=== PATIENT | male | born 1965 | race Caucasian/White ===

== ENCOUNTER 2017-10-05 13:30 | Outpatient (RCR) | payer BC, SELFPAY ==
--- NOTE | 2017-09-25 18:48 | HP.OTEVAL ---
Patient's Visit Information ASHLI HOLLINS is a 52 year old M, referred to Occupational Therapy by Eduardo Meehan MD, with a diagnosis of Dupuytren's contracture of bilateral hands. Date of Evaluation: 09/25/17 Occupational Therapist: Aye Zavala, ROBERTOR/Steve, CHT - Subjective Subjective: PT arrives to session following a Dupuytren's contracture of bilateral hands. The pt states he has had 5-10 years of a contractures. 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 pt arrives with orthosis on and reports his hand is painful. - Pain left hand 5 Pain Intensity Range: 0, 8 - ROM ROM Comments: left IF MCP -20/45 pip 75 DIP 45. left MF MCP -15/35 pip [address] MCP -20/40 pip 80 DIP 40. left LF MCP +15/45 PIP 60 DIP 35 - Strength Strength Comments: Not tested. - Edema PIP: MF RIGHT 7.2 LEFT 7.5 Other: Right MCP 21cm left 22.5cm - Hand/Wrist Evaluation Total Score of Pain & Functional Sections: 62 - Goals Goal:: pt will demo the ability to form a composite fist to increase his ind. with BADLS and IADLS by D/C Goal:: pt will report pain no greater than 1/10 with use of left hand for BADLs and IADLs by D/c Goal:: pt will demo the ability to manipulate 10 coins without dropping to increase money manipulation by d/c Goal:: pt will demo a reduction in edema by .5 cm to increase fluid digit ROM by d/c Goal:: pt will demo understanding of scar mtg by end of 2nd session do decrease potential scar hypertrophy - Rehabilitation General Assessment: s/p left segmental fasciectomies with two transvers incisions- pt demo with sx bruising/edema and limited ability to form a composite fist- pt demo one closed incision distal and proximal incision slight open- pt insturcted in signs to watch for infection- this session orthosis was adj to increase pts comfort and pt was ed. in tendon glide ex along with wrist, forearm, elbow and shoulder ROM to increase pts circulation and functional mobility. pt demo understanding- pt would benefit from skilled OT services 1x week for 2-4 weeks to return pt to PLOF. Rehabilitation Potential: Excellent - Anticipated Interventions Anticipated Interventions: A/AAROM/PROM, Edema Control, Desensitization, Wound Care, Orthoses - Visit Plan Frequency: 1x/Week Duration: 2-4 Weeks General Plan: pt would benefit from skilled OT services 1x week for 3-4 weeks to ensure orthosis comfort and fit- as well as edema reduction and return of pts ROM and strength for BADLs and IADLS. TEXT: Thank you for the opportunity to evaluate your patient. For Medicare and Medicare HMO plans, please review the plan of care and approve it. It will need to be FAXED BACK to us at [phone] for Medicare purposes. Please let me know if there are questions or concerns regarding this plan of care. Physician Signature: Date:
--- NOTE | 2017-10-05 16:00 | HP.OTDCSUM_ITS ---
HP - OT D/C Summary It has been my pleasure to treat ASHLI HOLLINS under orders from Eduardo Meehan, for the diagnosis of Dupuytren's contracture of bilateral hands for a total of 2 visit(s). Please see the following information for a summary of their discharge status. - Objective Objective/Function: left IF MCP -20/85 pip 0/95 DIP 0/55. left MF MCP -15/90 pip 0/90 DIP 0/75. left RD MCP -20/90 pip 0/100 DIP 0/55. left LF MCP +15/45 PIP 0/100 DIP 0/70. [ End ] - Goals Patient Goals: Regain Mobility, Regain Strength, Decrease Pain, Decrease Swelling/Stiffness, Use Hand/Wrist/Arm Normally Again, Be More Independent in ADLS Goal:: pt will demo the ability to form a composite fist to increase his ind. with BADLS and IADLS by D/C Goal:: pt will report pain no greater than 1/10 with use of left hand for BADLs and IADLs by D/c Goal:: pt will demo the ability to manipulate 10 coins without dropping to increase money manipulation by d/c Goal:: pt will demo a reduction in edema by .5 cm to increase fluid digit ROM by d/c Goal:: pt will demo understanding of scar mtg by end of 2nd session do decrease potential scar hypertrophy - Plan Plan: D/C - D/C Information Discharge Comments: pt is feeling better- and demo functional ROM. pt states following his cortisone shot yesterday his swelling is gone. pt is to cont. with use of orthosis at night- gave rec'd for work alternatives to decrease edema- pt has met functional goals in OT and is now D/C If there are questions or concerns regarding this patient's occupational therapy , please fell free to call me at [phone]. Thank you for the referral of this patient. Sincerely, Aye Zavala, OTR/L, CHT
== END 2017-10-05 19:00 | disposition home or self-care (01) ==
LOC: OT 13:30
PROVIDERS: Family Provider Internal Medicine; PCP Internal Medicine; Visit Provider Orthopaedic Surgery
DX: M72.0 Palmar fascial fibromatosis [Dupuytren] (principal)
CPT/HCPCS: 97166; 97530

== ENCOUNTER 2017-11-01 09:01 | Outpatient (RCR) | payer BC, SELFPAY ==
--- NOTE | 2017-11-01 10:21 | HP.OTEVAL_ITS ---
Patient's Visit Information ASHLI HOLLINS is a 52 year old M, referred to Occupational Therapy by Eduardo Meehan MD, with a diagnosis of Dupuytren's contracture. Date of Evaluation: 11/01/17 Occupational Therapist: Aye Zavala, ROBERTOR/Steve, CHT - Subjective Subjective: PT attends OT session following dx of Dupuytren;s contracture of both hands- pt had his left hand xlyflex injection 4 weeks ago and had his right injected on October 27, 2017 pt had right hand manipulated and paddle splint was fabricated this date- pt is instructed to wear paddle splint for 4 months. pt reports he is performing all daily occupations at this time- pt will return to working in november. - Pain right hand 4 Pain Intensity Range: 1, 4 - ROM Wrist: right 75/60 left 75/60 ROM Comments: right PIP RF -20/95 left 0/95. 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 with opening tight jar lids. by d/c Goal:: pt will report pain no greater than 1/10 with use of right hand by d/c Goal:: pt will demo a reduction of right digit edema by .5 to gain end range of digit motion by d/c Goal:: pt will demo understanding of work simplification and joint protection by end of 1st session to increase ease of job tasks. - Rehabilitation General Assessment: PT is 5 days post xiaflex injection- he is demo functional composite fist- brusing on dorsal side of hand and palm-and slight swelling of right hand- pt demo blood blister on ulnar side of RF. pt demo correct donning and doffing of custom orthosis- pt demo functional ROM and can perform ADLS and IADLs at ind. level. Rehabilitation Potential: Excellent - Anticipated Interventions Anticipated Interventions: A/AAROM/PROM, Strengthening, Edema Control, Triggerpoint Release, Modalities, Orthoses, Ergonomic Education, Home Program - Visit Plan TEXT: Thank you for the opportunity to evaluate your patient. For Medicare and Medicare HMO plans, please review the plan of care and approve it. It will need to be FAXED BACK to us at [phone] for Medicare purposes. Please let me know if there are questions or concerns regarding this plan of care. Physician Signature: Date:
--- NOTE | 2018-01-08 15:03 | HP.OT.NRP ---
HP - Discharge Summary - Patient Information ASHLI HOLLINS was seen in my office for initial evaluation on 11/01/17. The following Plan of Care was established for this patient: - Anticipated Interventions Anticipated Interventions: A/AAROM/PROM, Strengthening, Edema Control, Triggerpoint Release, Modalities, Orthoses, Ergonomic Education, Home Program This patient was last seen in our office 11/01/17. Pertinent comments regarding their Occupational therapy will appear below: Pt seen for inital OT visit for berenice. of custom orthosis. pt was to return if he needed orthosis adj. pt has not done so and is currently d/c at this time. At this point I will be discontinuing this patient from occupational therapy. I would be happy to see this patient again in the future if found appropriate by the physician. Thank you! Aye Zavala, OTR/L, CHT
== END 2017-11-01 19:00 | disposition home or self-care (01) ==
LOC: OT 09:01
PROVIDERS: Family Provider Internal Medicine; PCP Internal Medicine; Visit Provider Orthopaedic Surgery
DX: M72.0 Palmar fascial fibromatosis [Dupuytren] (principal)
CPT/HCPCS: 97166

== ENCOUNTER → 2017-12-28 13:10 | Outpatient (CLI) | payer BC, SELFPAY | PROVIDERS: Family Provider Internal Medicine; PCP Internal Medicine; Visit Provider Nurse Practitioner Gerontology | DX: M79.672 Pain in left foot (principal) | CPT/HCPCS: 73630 ==

== ENCOUNTER → 2019-01-17 11:20 | Outpatient (CLI) | payer BC, SELFPAY ==
--- NOTE | 2019-01-17 11:34 | RAD_ITS ---
STUDY: X-RAY - RIGHT TIBIA AND FIBULA REASON FOR EXAM: Male, 53 years old. Anterior pain following injury. TECHNIQUE: AP and lateral view(s) of the tibia and fibula were obtained. COMPARISON: None. FINDINGS: Normal visualized tibia. Normal visualized fibula. The soft tissue structures are unremarkable. RAD/Tibia & Fibula 2 Views IMPRESSION: Normal x-ray examination of the tibia and fibula. Electronically Signed: Ivan Gonzalez, at 12:30 EDT , Service support ,
== END ==
PROVIDERS: Family Provider Internal Medicine; PCP Internal Medicine; Referring Provider Nurse Practitioner Gerontology; Visit Provider Nurse Practitioner Gerontology
DX: M79.604 Pain in right leg (principal)
CPT/HCPCS: 73590

== ENCOUNTER 2019-05-04 14:15 | Inpatient (IN) | payer BC, SELFPAY ==
[2019-05-04 14:16] VITALS: BP 143/98; PULSE 64; RESP 17; TEMP 36.9; O2SAT 98; BMI 33.7
[2019-05-04 14:18] VITALS: TEMP 36.9
--- NOTE | 2019-05-04 14:48 | CT_ITS ---
STUDY: CT ABDOMEN AND PELVIS WITHOUT CONTRAST REASON FOR EXAM: Male, 53 years old. Abdominal pain RADIATION DOSAGE (If Supplied By Facility): CTDIvol = ( 20.87 ) mGy, DLP = ( 1121.24 ) mGycm TECHNIQUE: Transaxial images were obtained from the dome of the diaphragm to the symphysis pubis without oral contrast, and without intravenous contrast. Sagittal and coronal images were reconstructed. Individualized dose optimization techniques were used for this CT. COMPARISON: None. FINDINGS: Evaluation of the abdominal viscera is limited in the absence of intravenous contrast. There is atelectasis at the lung bases. The visualized portions of the heart and pericardium are within normal limits. There are no calcified gallstones present. The liver demonstrates an unremarkable unenhanced appearance. The spleen is normal in size. The pancreas demonstrates an unremarkable unenhanced appearance. The adrenal glands are within normal limits. There are no renal or ureteral stones. There is no hydronephrosis. There is a small hiatal hernia. There are dilated loops of proximal small bowel with collapsed loops noted distally. This is consistent with a small bowel obstruction. The transition point is in the mid abdomen to the right of midline (image 38 series 143). The appendix is visualized and appears normal. The aorta is normal in caliber. There is no abdominal or pelvic free air, free fluid, fluid collection or lymphadenopathy. There are no destructive osseous lesions. CT/Abdomen/Pelvis without Cont IMPRESSION: Small bowel obstruction. No free air, free fluid or fluid collection. Electronically Signed: Tha Napoles, at 15:56 EST Tel , Service support ,
[2019-05-04 15:01] LABS: Absolute Lymphocyte Count 0.77 X10^3/uL (0.83-4.51); Absolute Neutrophil Count 7.5 X10^3/uL (2.0-7.7); Basophil# 0.02 X10^3/uL; Basophil% 0.2 % (0-1); Eosinophil# 0.14 X10^3/uL; Eosinophils% 1.6 % (0-5); Hematocrit 45.5 % (40-54); Lymphocyte # 0.77 X10^3/ul (4.0); Lymphocyte % 8.5 % (19-41); Mean Corpuscular Hgb 29.8 pg (27.0-32.0); Mean Corpuscular Volume 90.3 fL (80-94); Mean Platelet Vol. 11.5 fl (6.2-12.0); Monocyte# 0.58 X10^3/uL; Monocyte% 6.4 % (0-10); NRBC Flagged by Analyzer 0 % (0-5); Neutrophil # 7.48 X10^3/uL (2.7-7.7); Neutrophil % 83.1 % (47-70); Platelet Count 216 K/mm3 (150-450); RBC Distribution Width CV 13.2 % (11.6-14.6); RBC Distribution Width SD 43.3 fl (35.1-43.9); Red Blood Count 5.04 M/mm3 (4.6-6.2)
[2019-05-04] MEDS: Morphine 4 MG/ML Syringe IV ×2 (15:03→17:02)
[2019-05-04] MEDS: 0.9% Normal Saline 1,000 ML 1000 ML IV (15:03)
[2019-05-04] MEDS: Ondansetron 4 MG/2 ML Vial IV ×2 (15:03→17:24)
[2019-05-04 15:12] LABS: ALB/GLOB Ratio 1.2 RATIO (0.9-2.4); AST(SGOT) 28 U/L (15-37); Alanine Aminotransfer ALT/SGPT 41 U/L (16-61); Albumin, Serum 3.9 g/dL (3.2-5.0); Alkaline Phosphatase 37 U/L (45-117); Anion Gap 2 (5-15); BUN 17 mg/dL (7-18); BUN/Creat Ratio 18.7 RATIO (10-20); Calcium,Total 8.7 mg/dL (8.5-10.1); Chloride 108 mmol/L (98-107); Creatinine, Serum 0.91 mg/dL (0.70-1.30); EST Glomerular Filtration Rate 93 mL/min (>60); Est Glom Filt Rate - Afr Amer 112 mL/min (>60); Estimated Creatinine Clearance 107.31 ml/min; Globulin 3.2 g/dL (2.2-4.2); Glucose 96 mg/dL (74-106); Lipase 111 U/L (73-393); Potassium 4.2 mmol/L (3.5-5.1); Protein, Total 7.1 g/dL (6.4-8.2); Sodium Level 140 mmol/L (136-145)
[2019-05-04 16:28] LABS: Bacteria 0 SEEN /hpf (None Seen); Mucous, Urine 0 SEEN /hpf (<or=2+); Red Blood Cells-Urine 0 SEEN /hpf (0-5); Squamous Epithelial Cells - UA 0 SEEN /hpf (0-5); White Blood Cells 0 SEEN /hpf (0-5)
[2019-05-04 16:47] LABS: Color, Urine Yellow (Yellow); Glucose, Dipstick Normal (Normal); Ketone-Dipstick Negative (Negative); Leukocyte Esterase-Dipstick Negative /ul (Negative); Nitrite-Dipstick Negative (Negative); Occult Blood-Urine Negative /ul (Negative); Protein-Dipstick Negative (Negative); Specific Gravity, Urine 1.015 (1.002-1.030); Urine Bilirubin Dipstick Negative (Negative); Urine Clarity Clear (Clear); Urine Urobilinogen Normal (Normal); Urine pH 6.5 (5.0 - 8.0)
--- NOTE | 2019-05-04 17:03 | ED.VISSUMM ---
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 He reports that today he began having epigastric abdominal pain is. Is gradually gotten worse. Is a sharp pain is 10 on 10 severity. Nothing makes this better or worse. Is been nauseated, but not vomited. He reports he had 6-7 episodes of diarrhea today. No blood in stools or black tarry stools. Does have frequent urination, but no dysuria. He has never had anything like this before. He has never had any surgery on his abdomen. Physical Examination: Vitals: Stable. Afebrile. General: Well-nourished and well-developed. Head: Normocephalic atraumatic. Neck: Supple, no lymphadenopathy. No JVD. Nontender. Cardiovascular: Regular rate and rhythm. No murmurs. Respiratory: No respiratory distress. Clear to auscultation bilaterally. Abdominal: Soft, mild diffuse tenderness to palpation is worse in the epigastric region, slight distention and hypoactive bowel sounds. No guarding, rebound, or peritoneal signs. Back: Nontender. Extremities: Nontender, no edema. Skin: Normal color, no rash. Neurologic: Alert and oriented ?3. Cranial nerves II through XII are intact. Normal strength and sensation. Psych: Normal affect. Test Results: CBC shows segmented neutrophils 83 lymphs at 9. Chem-7 shows a chloride 108. LFTs show an alk phos of 37. Lipase is normal. Clinical Impression(s) from Imaging Studies Abdomen/Pelvis CT 05/04/19 14:48 IMPRESSION: Small bowel obstruction. No free air, free fluid or fluid collection. Electronically Signed: Tha Linderflower, at 15:56 EST Tel , Service support , Emergency Department Course and Treatment: Patient was treated with morphine and Zofran. He was resting more comfortably. Treatment Plan: Patient was discussed with Dr. Richmond. He will be admitted to the hospital for further evaluation and treatment. Disposition: Admitted in improved condition. Impression: 1. Small bowel obstruction. This note was generated with [employer] software. It may contain incorrect words, spelling, and punctuation that were not noted in review of the chart prior to signing ED Disposition - Plan for ED Patient: Referrals: Iesha Quezada DO [Primary Care Provider] -
[2019-05-04 17:28] VITALS: BP 144/91
--- NOTE | 2019-05-04 18:02 | HP.PCM_ITS ---
History of Present Illness Date of Admission: 05/04/19 Chief Complaint: abdominal pain The patient is a 53 year old M with a 6 hour history of abdominal pain. He recently completed augmentin for a sinus infection. He has no prior abdominal surgical history. He started with diffuse colicky abdominal pain followed with diarrhea and nausea. He present to the ER Labs were unremarkable. CT abdomen and pelvic demonstrated a probable small bowel obstruction with a transition point the the right mid abdomen. No signs of closed loop, hernia or mass was noted. the patient vomiting in the [facility] and had improvement of his abdominal pain. Past Medical History Allergies No Known Allergies Allergy (Verified 05/04/19 14:15) Home Medications: Ambulatory Orders Medication Instructions Recorded Cholecalciferol (Vitamin D3) 2,000 unit PO DAILY 05/04/19 [Vitamin D3] Multivitamin [Multivitamins] 1 ea PO DAILY 05/04/19 Vitamin B Complex 05/04/19 Surgical History: - - no abdominal surgical history Smoking Status: Former smoker Review of Systems Constitutional: Denies: Chills, Fever, Weight Change HEENT: Denies: Head Aches, Sinus Congestion, Sinus Drainage Cardiovascular: Denies: Chest Pain, Palpitations Respiratory: Denies: Cough, Shortness of breath at rest, Sputum production Gastrointestinal: Reports: Abdominal Pain, Nausea, Vomiting. Denies: Hematemesis, Hematochezia, Melena Genitourinary: Denies: Dysuria Musculoskeletal: Denies: Joint Pain, Joint Tenderness Skin: Denies: Rash, Wounds Neurological: Denies: Numbness, Tingling, Focal weakness Psychiatric: Denies: Anxiety, Depression, Homicidal Ideations, Suicidal Ideations Hematologic/ Lymphatic: Denies: Easy Bruising, Easy Bleeding VTE Information - Inpt Only VTE Present on Admission: No VTE Mechan Device Prophylaxis: SCD's - Physical Exam Vitals/I&O's: Vital Signs Temp Pulse Resp BP Pulse Ox 98.4 F 64 17 144/91 H 98 05/04/19 14:18 05/04/19 14:16 05/04/19 14:16 05/04/19 17:28 05/04/19 14:16 Oxygen Delivery Method Room Air Weight: 116.1 kg Body Mass Index (BMI) 33.7 Intake and Output for Last 24 Hours 05/02/19 05/03/19 05/04/19 23:59 23:59 23:59 Intake Total 1000 / 999 Balance 1000 / 1000 General: Alert, Oriented x3, Cooperative HEENT: Atraumatic, PERRLA, EOMI, Normocephalic Neck: Supple, No JVD, Negative Carotid Bruits Lungs: Clear to auscultation, Normal air movement Cardiovascular: Regular rate, No murmurs Abdomen: Bowel Sounds Present, Soft, Non Tender, Hypoactive Bowel Sounds Extremities: No edema, Capillary Refill Less than 3 Seconds Skin: No rashes, No breakdown Musculoskeletal: No Tenderness to Palpation of Joints or Extremities Neurological: Cranial nerves II-XII grossly intact Psych/Mental Status: Normal Affect, Appropriate Laboratory Results 05/04/19 14:40: WBC 9.0, RBC 5.04, Hgb 15.0, Hct 45.5, MCV 90.3, MCH 29.8, MCHC 33.0, RDW Std Deviation 43.3, RDW Coeff of Melissa 13.2, Plt Count 216, MPV 11.5, Immature Gran % (Auto) 0.200, Neut % (Auto) 83.1 H, Lymph % (Auto) 8.5 L, [place] % (Auto) 6.4, Eos % (Auto) 1.6, Baso % (Auto) 0.2, Absolute Neuts (auto) 7.5, Absolute Lymphs (auto) 0.77 L, Nucleated RBC % 0 05/04/19 14:40: Sodium 140, Potassium 4.2, Chloride 108 H, Carbon Dioxide 30.0, Anion Gap 2 L, BUN 17, Creatinine 0.91, Estim Creat Clear Calc 107.31, Est GFR (MDRD) Af Amer 112, Est GFR (MDRD) Non-Af 93, BUN/Creatinine Ratio 18.7, Glucose 96, Calcium 8.7, Total Bilirubin 0.30, AST 28, ALT 41, Alkaline Phosphatase 37 L, Total Protein 7.1, Albumin 3.9, Globulin 3.2, Albumin/Globulin Ratio 1.2, Lipase 111 05/04/19 16:20: Urine Color Yellow, Urine Clarity Clear, Urine pH 6.5, Ur Specific [employer] 1.015, Urine Protein Negative, Urine Glucose (UA) Normal, Urine Ketones Negative, Urine Occult Blood Negative, Urine Nitrite Negative, Urine Bilirubin Negative, Urine Urobilinogen Normal, Ur Leukocyte Esterase Negative, Urine RBC 0 SEEN, Urine WBC 0 SEEN, Ur Squamous Epith Cells 0 SEEN, Urine Bacteria 0 SEEN, Urine Mucus 0 SEEN Current Medications Morphine Sulfate () 1 - 3 mg IV Q1H PRN PRN PRN Reason: Pain Score 1-10/10 Ondansetron HCl (Zofran) 4 mg IV Q8H PRN PRN PRN Reason: NAUSEA Assessment/Plan abdominal pain, nausea, vomiting, diarrhea, ?SBO vs gastroenteritis The patient does not have hard finding requiring urgent exploration. Will plan for NPO, serial exams/labs and obstructive series in am. Will place NG if persistent vomiting. Discussed with the patient and his the concerns for SBO without prior surgery and the lower index for exploration, but also discussed the differential possibility of gastroenteritis other causes for ileus.
[2019-05-04 18:14] VITALS: BP 144/91; PULSE 72; RESP 17; TEMP 36.8; O2SAT 98
[2019-05-04] MEDS: HYDROmorphone 1 MG/ML Syringe IV (18:38)
[2019-05-04 19:00] VITALS: BMI 33.7
[2019-05-04 19:10] VITALS: BP 124/69; PULSE 80; RESP 16; TEMP 36.6; O2SAT 97
[2019-05-04] MEDS: Lactated Ringers 1,000 ML 100 ML IV (20:01)
[2019-05-04 22:53] VITALS: BP 129/73; PULSE 64; RESP 18; TEMP 37.2; O2SAT 94
[2019-05-04] MEDS: Morphine 2 MG/ML Syringe IV (23:02)
--- NOTE | 2019-05-04 23:35 | RAD_ITS ---
STUDY: X-RAY - ABDOMEN REASON FOR EXAM: Male, 53 years old. NG TUBE PLACEMENT TECHNIQUE: A single AP portable upright view of the abdomen was performed. COMPARISON: CT scan abdomen and pelvis 05/04/2019. FINDINGS: Normal visualized lung bases. There is a nasogastric tube with its tip in the gastric fundus and its sidehole in the proximal body the stomach. There is prominent small bowel gas, consistent with obstruction, as seen on CT scan.. There is no demonstrated free abdominal air. The visualized liver, spleen and kidneys are grossly normal in size and morphology. Normal soft tissue structures. Normal visualized osseous structures. RAD/Abdomen Single View IMPRESSION: Nasogastric tube is in adequate position. Small bowel obstruction. Electronically Signed: Justin Leon MD at 0:22 EST , Service support ,
[2019-05-05] MEDS: Morphine 2 MG/ML Syringe IV (01:18)
[2019-05-05 05:15] VITALS: BP 122/69; PULSE 70; RESP 18; TEMP 37.4; O2SAT 92
[2019-05-05] MEDS: Lactated Ringers 1,000 ML 100 ML IV ×2 (05:19→20:30)
[2019-05-05] MEDS: 0.9% Saline Lock 10 ML Syringe IV (06:10)
--- NOTE | 2019-05-05 06:35 | RAD_ITS ---
STUDY: X-RAY - ABDOMEN/PELVIS REASON FOR EXAM: Male, 53 years old. An NG tube TECHNIQUE: Supine and upright views of the abdomen were performed. COMPARISON: 05/04/2019 FINDINGS: There is an enteric tube noted with its tip in the stomach. There are mildly dilated loops of small bowel in the upper abdomen which are improved when compared with the prior exam. There is no free air. The visualized osseous structures are within normal limits. RAD/Abd Inc Decub and/or Erect IMPRESSION: Enteric tube tip in the stomach. Dilated loops of small bowel in the upper abdomen which are improved when compared with the prior exam. No free air. Electronically Signed: Tha Napoles, at 10:02 EST Tel , Service support ,
[2019-05-05 06:42] LABS: Absolute Lymphocyte Count 0.93 X10^3/uL (0.83-4.51); Absolute Neutrophil Count 6.3 X10^3/uL (2.0-7.7); Basophil# 0.02 X10^3/uL; Basophil% 0.2 % (0-1); Eosinophils% 1.2 % (0-5); Hemoglobin 14.8 g/dL (13.0-16.5); Lymphocyte # 0.93 X10^3/ul (4.0); Lymphocyte % 11.3 % (19-41); Mean Corp Hgb Conc 32.9 g/dL (32-36); Mean Corpuscular Hgb 30.1 pg (27.0-32.0); Mean Corpuscular Volume 91.5 fL (80-94); Mean Platelet Vol. 11.6 fl (6.2-12.0); Monocyte# 0.87 X10^3/uL; Monocyte% 10.5 % (0-10); NRBC Flagged by Analyzer 0 % (0-5); Neutrophil # 6.32 X10^3/uL (2.7-7.7); Neutrophil % 76.7 % (47-70); Platelet Count 220 K/mm3 (150-450); RBC Distribution Width CV 13.6 % (11.6-14.6); RBC Distribution Width SD 45.4 fl (35.1-43.9); Red Blood Count 4.92 M/mm3 (4.6-6.2); White Blood Count 8.3 K/mm3 (4.4-11.0)
[2019-05-05 07:07] LABS: Anion Gap 4 (5-15); BUN 15 mg/dL (7-18); BUN/Creat Ratio 16.3 RATIO (10-20); Calcium,Total 8.4 mg/dL (8.5-10.1); Chloride 108 mmol/L (98-107); Creatinine, Serum 0.92 mg/dL (0.70-1.30); EST Glomerular Filtration Rate 91 mL/min (>60); Est Glom Filt Rate - Afr Amer 111 mL/min (>60); Estimated Creatinine Clearance 106.15 ml/min; Glucose 104 mg/dL (74-106); Potassium 4.2 mmol/L (3.5-5.1); Sodium Level 141 mmol/L (136-145)
--- NOTE | 2019-05-05 08:02 | CT_ITS ---
STUDY: CT ABDOMEN AND PELVIS WITHOUT CONTRAST REASON FOR EXAM: Male, 53 years old. Small bowel obstruction. Nausea and vomiting. RADIATION DOSAGE (If Supplied By Facility): CTDIvol = ( 21.9 ) mGy, DLP = ( 1192.87 ) mGycm TECHNIQUE: Transaxial images were obtained from the dome of the diaphragm to the symphysis pubis without oral contrast, and without intravenous contrast. Sagittal and coronal images were reconstructed. Individualized dose optimization techniques were used for this CT. COMPARISON: 05/04/2019 FINDINGS: Evaluation of the abdominal viscera is limited in the absence of intravenous contrast. There is atelectasis at the lung bases. The visualized portions of the heart and pericardium are within normal limits. There are no calcified gallstones present. The liver demonstrates an unremarkable unenhanced appearance. The spleen is normal in size. The pancreas demonstrates an unremarkable unenhanced appearance. The adrenal glands are within normal limits. There are no renal or ureteral stones. There is no hydronephrosis. There is an enteric tube noted with its tip in the stomach. There are dilated loops of proximal small bowel and collapsed loops noted distally. This is consistent with a small bowel obstruction and is slightly improved when compared with the prior exam. Oral contrast has progressed to the proximal colon, suggesting that the obstruction is partial in nature. The appendix is visualized and appears normal. The aorta is normal in caliber. There is a small amount of pelvic free fluid. There is no free air, fluid collection or lymphadenopathy. There are no destructive osseous lesions. CT/Abdomen/Pel W ORAL Cont Only IMPRESSION: Redemonstration of a small bowel obstruction which is slightly improved when compared with the prior exam. Oral contrast has progressed to the proximal colon, suggesting that the obstruction is partial in nature. Small amount of pelvic free fluid which is new when compared with the prior exam. Enteric tube tip in the stomach. Bibasilar atelectasis. Electronically Signed: Tha Napoles, at 12:12 EST Tel , Service support ,
--- NOTE | 2019-05-05 09:37 | PN.SURG_ITS ---
Subjective: no flatus, less abdominal discomfort with NG tube placement, minimal abdominal pain - Physical Exam Vitals/I&O's: Vital Signs Temp Pulse Resp BP Pulse Ox 99.3 F H 70 18 122/69 H 92 05/05/19 05:15 05/05/19 05:15 05/05/19 05:15 05/05/19 05:15 05/05/19 05:15 Oxygen Delivery Method Room Air Weight: 115.8 kg Body Mass Index (BMI) 33.7 Intake and Output for Last 24 Hours 05/03/19 05/04/19 05/05/19 23:59 23:59 23:59 Intake Total 1000 / 1020 970 / 970 Output Total 1555 / 1555 Balance 1000 / 120 -585 / -585 General: Alert, Oriented x3, Cooperative Lungs: Clear to auscultation, Normal air movement Cardiovascular: Regular rate, No murmurs Abdomen: Soft, Non Tender, Hypoactive Bowel Sounds Laboratory Results 05/04/19 14:40: WBC 9.0, RBC 5.04, Hgb 15.0, Hct 45.5, MCV 90.3, MCH 29.8, MCHC 33.0, RDW Std Deviation 43.3, RDW Coeff of Melissa 13.2, Plt Count 216, MPV 11.5, Immature Gran % (Auto) 0.200, Neut % (Auto) 83.1 H, Lymph % (Auto) 8.5 L, [place] % (Auto) 6.4, Eos % (Auto) 1.6, Baso % (Auto) 0.2, Absolute Neuts (auto) 7.5, Absolute Lymphs (auto) 0.77 L, Nucleated RBC % 0 05/04/19 14:40: Sodium 140, Potassium 4.2, Chloride 108 H, Carbon Dioxide 30.0, Anion Gap 2 L, BUN 17, Creatinine 0.91, Estim Creat Clear Calc 107.31, Est GFR (MDRD) Af Amer 112, Est GFR (MDRD) Non-Af 93, BUN/Creatinine Ratio 18.7, Glucose 96, Calcium 8.7, Total Bilirubin 0.30, AST 28, ALT 41, Alkaline Phosphatase 37 L , Total Protein 7.1, Albumin 3.9, Globulin 3.2, Albumin/Globulin Ratio 1.2, Lipase 111 05/04/19 16:20: Urine Color Yellow, Urine Clarity Clear, Urine pH 6.5, Ur Specific [place] 1.015, Urine Protein Negative, Urine Glucose (UA) Normal, Urine Ketones Negative, Urine Occult Blood Negative, Urine Nitrite Negative, Urine Bilirubin Negative, Urine Urobilinogen Normal, Ur Leukocyte Esterase Negative, Urine RBC 0 SEEN, Urine WBC 0 SEEN, Ur Squamous Epith Cells 0 SEEN, Urine Bacteria 0 SEEN, Urine Mucus 0 SEEN 05/05/19 05:47: WBC 8.3, RBC 4.92, Hgb 14.8, Hct 45.0, MCV 91.5, MCH 30.1, MCHC 32.9, RDW Std Deviation 45.4 H, RDW Coeff of Melissa 13.6, Plt Count 220, MPV 11.6, Immature Gran % (Auto) 0.100, Neut % (Auto) 76.7 H, Lymph % (Auto) 11.3 L, [place] % (Auto) 10.5 H, Eos % (Auto) 1.2, Baso % (Auto) 0.2, Absolute Neuts (auto) 6.3, Absolute Lymphs (auto) 0.93, Nucleated RBC % 0 05/05/19 05:47: Sodium 141, Potassium 4.2, Chloride 108 H, Carbon Dioxide 29.0, Anion Gap 4 L, BUN 15, Creatinine 0.92, Estim Creat Clear Calc 106.15, Est GFR (MDRD) Af Amer 111, Est GFR (MDRD) Non-Af 91, BUN/Creatinine Ratio 16.3, Glucose 104, Calcium 8.4 L Current Medications Lactated Ringer's () 1,000 mls @ 100 mls/hr IV .Q10H ALBERTO Last Admin: 05/05/19 05:19 Dose: 100 mls/hr Documented by: Morphine Sulfate () 1 - 3 mg IV Q1H PRN PRN PRN Reason: Pain Score 1-10/10 Last Admin: 05/05/19 01:18 Dose: 2 mg Documented by: Morphine Sulfate () 1 - 3 mg IV Q1H PRN PRN PRN Reason: Pain Score 1-10/10 Ondansetron HCl (Zofran) 4 mg IV Q8H PRN PRN PRN Reason: NAUSEA Sodium Chloride () 10 - 40 ml IV UD PRN PRN Reason: SALINE FLUSH Last Admin: 05/05/19 06:10 Dose: 10 ml Documented by: Medical Necessity - Tobacco Use Smoking Status: Former smoker Assessment/Plan abdominal pain, nausea, vomiting, diarrhea, ?SBO vs gastroenteritis The patient does not have hard finding requiring urgent exploration. Will plan for NPO, NG placed after second episode of vomiting last night, improved patient's discomfort significantly has not required any antinausea medications since. KUB this morning demonstrates some air in the transverse colon but still dilated loops of small bowel. at this time, clinically more consistent with ileus radiographically more consistent with bowel obstruction. We'll plan for repeat CT scan of abdomen and pelvis with oral no IV contrast with somewhat delayed scanning to assess if contrast would pass to colon Discussed with the patient and his the concerns for SBO without prior surgery and the lower index for exploration, but also discussed the differential possibility of gastroenteritis other causes for ileus.
[2019-05-05 11:15] VITALS: BP 114/70; PULSE 64; RESP 16; TEMP 37.3; O2SAT 94
[2019-05-05 13:15] VITALS: RESP 16; O2SAT 96
[2019-05-05 17:15] VITALS: BP 123/73; PULSE 61; RESP 16; TEMP 36.7; O2SAT 94
[2019-05-05 20:15] VITALS: BP 124/71; PULSE 55; RESP 18; TEMP 36.6; O2SAT 95
[2019-05-06 04:04] VITALS: BP 146/78; PULSE 57; RESP 18; TEMP 36.6; O2SAT 94
[2019-05-06] MEDS: Lactated Ringers 1,000 ML 100 ML IV ×2 (05:51→18:23)
[2019-05-06] MEDS: 0.9% Saline Lock 10 ML Syringe IV ×2 (05:51→11:53)
--- NOTE | 2019-05-06 06:00 | RAD_ITS ---
STUDY: X-RAY - ABDOMEN/PELVIS REASON FOR EXAM: Male, 53 years old. SMALL BOWEL OBSTRUCTION VS ILEUS TECHNIQUE: AP supine and upright views of the abdomen and pelvis. COMPARISON: 05/05/2019 FINDINGS: Nasogastric tube with the tip in the upper abdomen likely in the cardia the stomach with the side-port likely in the distal esophagus. Gas in multiple loops of small bowel in a nonspecific bowel gas pattern. Oral contrast within the colon. There is no demonstrated free abdominal air. The visualized liver, spleen and kidneys are grossly normal in size and morphology. Normal soft tissue structures. Normal visualized osseous structures. RAD/Abd Inc Decub and/or Erect IMPRESSION: 1. Nasogastric tube with the tip in the cardia the stomach with the side-port in the distal esophagus. 2. Oral contrast in the colon. 3. Nonspecific bowel gas pattern. 4. No pneumoperitoneum. Electronically Signed: Reynaldo Finn MD at 13:27 EST Tel , Service support ,
[2019-05-06 06:19] LABS: Absolute Lymphocyte Count 1.13 X10^3/uL (0.83-4.51); Absolute Neutrophil Count 4.3 X10^3/uL (2.0-7.7); Basophil# 0.01 X10^3/uL; Basophil% 0.2 % (0-1); Eosinophil# 0.17 X10^3/uL; Eosinophils% 2.8 % (0-5); Hematocrit 43.2 % (40-54); Hemoglobin 14.2 g/dL (13.0-16.5); Lymphocyte # 1.13 X10^3/ul (4.0); Lymphocyte % 18.3 % (19-41); Mean Corp Hgb Conc 32.9 g/dL (32-36); Mean Corpuscular Volume 91.3 fL (80-94); Mean Platelet Vol. 11.1 fl (6.2-12.0); Monocyte# 0.56 X10^3/uL; Monocyte% 9.1 % (0-10); NRBC Flagged by Analyzer 0 % (0-5); Neutrophil # 4.28 X10^3/uL (2.7-7.7); Neutrophil % 69.3 % (47-70); Platelet Count 204 K/mm3 (150-450); RBC Distribution Width CV 13.2 % (11.6-14.6); RBC Distribution Width SD 44.2 fl (35.1-43.9); Red Blood Count 4.73 M/mm3 (4.6-6.2); White Blood Count 6.2 K/mm3 (4.4-11.0)
[2019-05-06 06:37] LABS: Anion Gap 6 (5-15); BUN 15 mg/dL (7-18); BUN/Creat Ratio 17.5 RATIO (10-20); Calcium,Total 8.8 mg/dL (8.5-10.1); Chloride 108 mmol/L (98-107); Creatinine, Serum 0.86 mg/dL (0.70-1.30); EST Glomerular Filtration Rate 99 mL/min (>60); Est Glom Filt Rate - Afr Amer 120 mL/min (>60); Estimated Creatinine Clearance 113.55 ml/min; Glucose 86 mg/dL (74-106); Sodium Level 142 mmol/L (136-145)
[2019-05-06 08:39] VITALS: BP 134/70; PULSE 56; RESP 18; TEMP 36.7; O2SAT 96
[2019-05-06 08:42] VITALS: PULSE 60
--- NOTE | 2019-05-06 10:10 | CASEMGMT ---
JOEY BLUM Face to Face with patient for initial transition planning/care coordination assessment. RN CM introduced self and role at [facility]. Patient lying in bed, alert and oriented, at bedside. Patient willing to participate in assessment and is able to answer all questions appropriately. Care providers, pharmacy, and demographics verified. Patient wishes to discharge home, denies need for home health at this time. Patient states he has no further needs or concerns at this time. CM to follow for discharge planning needs that may arise. PCP: Pilar Specialists: none Preferred Pharmacy: [facility] Insurance: [employer] Prescription Benefit: yes Living Will/HPOA: none LNOK: Living Arrangements: Patient lives with in a 2 story home. Patient independent at home. Transportation: self/ DME/HHC: Patient denies DME or HHC. Disposition Plan: Patient to discharge home with family support and follow-up plans in place. Nilam ALTMAN, RN, CM
[2019-05-06 15:42] VITALS: BP 143/74; PULSE 50; RESP 18; TEMP 36.7; O2SAT 98
[2019-05-06 15:47] VITALS: PULSE 60
--- NOTE | 2019-05-06 16:28 | PN.SURG_ITS ---
Subjective: has seen flatus, no abdominal complaints - Physical Exam Vitals/I&O's: Vital Signs Temp Pulse Resp BP Pulse Ox 98.0 F 60 18 143/74 H 98 05/06/19 15:42 05/06/19 15:47 05/06/19 15:42 05/06/19 15:42 05/06/19 15:42 Oxygen Delivery Method Room Air Weight: 115.8 kg Body Mass Index (BMI) 33.7 Intake and Output for Last 24 Hours 05/04/19 05/05/19 05/06/19 23:59 23:59 23:59 Intake Total 1000 / 1020 2009 995 / 995 Output Total 2455 / 2555 625 / 625 Balance 1000 / 120 -445 / -525 370 / 370 General: Alert, Oriented x3, Cooperative Lungs: Clear to auscultation, Normal air movement Cardiovascular: Regular rate, No murmurs Abdomen: Bowel Sounds Present, Soft, Non Tender, Hypoactive Bowel Sounds Microbiology Past 72 Hours 05/06/19 10:55 Stool Stool Lactoferrin - Final Laboratory Results 05/06/19 05:40: WBC 6.2, RBC 4.73, Hgb 14.2, Hct 43.2, MCV 91.3, MCH 30.0, MCHC 32.9, RDW Std Deviation 44.2 H, RDW Coeff of Melissa 13.2, Plt Count 204, MPV 11.1, Immature Gran % (Auto) 0.300, Neut % (Auto) 69.3, Lymph % (Auto) 18.3 L, [place] % (Auto) 9.1, Eos % (Auto) 2.8, Baso % (Auto) 0.2, Absolute Neuts (auto) 4.3, Absolute Lymphs (auto) 1.13, Nucleated RBC % 0 05/06/19 05:40: Sodium 142, Potassium 4.0, Chloride 108 H, Carbon Dioxide 28.0, Anion Gap 6, BUN 15, Creatinine 0.86, Estim Creat Clear Calc 113.55, Est GFR (MDRD) Af Amer 120, Est GFR (MDRD) Non-Af 99, BUN/Creatinine Ratio 17.5, Glucose 86, Calcium 8.8 Current Medications Lactated Ringer's () 1,000 mls @ 100 mls/hr IV .Q10H ALBERTO Last Admin: 05/06/19 05:51 Dose: 100 mls/hr Documented by: Morphine Sulfate () 1 - 3 mg IV Q1H PRN PRN PRN Reason: Pain Score 1-1010 Last Admin: 05/05/19 01:18 Dose: 2 mg Documented by: Morphine Sulfate () 1 - 3 mg IV Q1H PRN PRN PRN Reason: Pain Score 1-10/10 Ondansetron HCl (Zofran) 4 mg IV Q8H PRN PRN PRN Reason: NAUSEA Sodium Chloride () 10 - 40 ml IV UD PRN PRN Reason: SALINE FLUSH Last Admin: 05/06/19 11:53 Dose: 10 ml Documented by: Throat Lozenges (Cepacol Sore Throat Lozenge) 1 lozenge MUCOUS MEM Q2H PRN PRN PRN Reason: SORE THROAT Medical Necessity - Tobacco Use Smoking Status: Former smoker Assessment/Plan abdominal pain, nausea, vomiting, diarrhea, ?SBO vs gastroenteritis - impression more likely ileus with gastroenteritis. The patient did not have hard findings requiring operation. Repeat CT scan with oral contrast demonstrated some proximal small bowel thickening and distended small bowel with contrast but also contrast in the collapsed small bowel distally and contrast into the cecum. My impression therefore was more likely gastroenteritis as opposed to true partial obstruction. KUB this morning demonstrates contrast in the right colon with decreased but still few dilated loops of small bowel. the nasogastric tube was removed. The patient will be started on sips of liquid and advanced to clear liquids if he is tolerating these well and continues to have flatus and bowel movements.
[2019-05-06 20:21] VITALS: BP 126/70; PULSE 57; RESP 16; TEMP 36.7; O2SAT 97
[2019-05-07] MEDS: Lactated Ringers 1,000 ML 100 ML IV (03:58)
[2019-05-07 03:59] VITALS: BP 110/55; PULSE 55; RESP 16; TEMP 36.5; O2SAT 95
--- NOTE | 2019-05-07 06:15 | DCINST_ITS ---
You will use the following diet at home:: Clear liquid - until seen in office monday Call your doctor if you observe: - - nausea, vomiting or no flatus Allergies/Adverse Reactions: Allergies No Known Allergies Allergy (Verified 05/04/19 14:15) Medications to take at Discharge RX: Cholecalciferol (Vitamin D3) [Vitamin D3] 2,000 unit PO DAILY 05/04/19 RX: Multivitamin [Multivitamins] 1 ea PO DAILY 05/04/19 Vitamin B Complex 05/04/19 Primary Care Physician: Iesha Quezada DO [Primary Care Provider] - Test Results: Test results from this visit will be discussed in further detail at your follow- up appointment, if applicable. Please Follow Up With: Reynaldo Garner MD When: Monday
[2019-05-07 07:35] VITALS: BP 124/74; PULSE 54; RESP 16; TEMP 36.9; O2SAT 96
--- NOTE | 2019-05-07 12:36 | PCM.DC.SUM ---
Discharge Date and Diagnosis Date of Admission: 05/04/19 Date of Discharge: 05/07/19 - Primary Discharge Diagnosis nausea vomiting and abdominal distention Hospital Course and Treatment Operations: None Summary of Care Provided: he patient is a 53 year old M with a 6 hour history of abdominal pain. He recently completed augmentin for a sinus infection. He has no prior abdominal surgical history. He started with diffuse colicky abdominal pain followed with diarrhea and nausea. He present to the ER Labs were unremarkable. CT abdomen and pelvic demonstrated a probable small bowel obstruction with a transition point the the right mid abdomen. No signs of closed loop, hernia or mass was noted. nasogastric tube was placed and the patient had improvement of his abdominal complaints of nausea no further abdominal pain. Follow-up CT scan demonstrated some thickened loops of small bowel but demonstrated contrast passing to the collapsed loops of bowel and to the cecum. My clinical impression this point in time was a gastroenteritis with an ileus type pattern. The patient will return of bowel function with flatus and bowel movements. The nasogastric tube was removed and the patient tolerated liquids. He is planned to be discharged home with plans to follow-up in my office on Monday and to be maintained on clear liquids until that time. - Physical Exam Vitals/I&O's: Vital Signs Temp Pulse Resp BP Pulse Ox 98.4 F 54 L 16 124/74 H 96 05/07/19 07:35 05/07/19 07:35 05/07/19 07:35 05/07/19 07:35 05/07/19 07:35 Oxygen Delivery Method Room Air Weight: 115.8 kg Body Mass Index (BMI) 33.7 Intake and Output for Last 24 Hours 05/05/19 05/06/19 05/07/19 23:59 23:59 23:59 Intake Total 2009 1458.33 / 1458.33 Output Total 2455 / 2555 625 / 625 Balance -445 / -525 1370 / 1370 1458.33 / 1458.33 General: Alert, Oriented x3, Cooperative Lungs: Clear to auscultation, Normal air movement Cardiovascular: Regular rate, No murmurs Abdomen: Bowel Sounds Present, Soft, Non Tender Microbiology Past 72 Hours 05/06/19 10:55 Stool Stool Lactoferrin - Final Call your doctor if you observe: - - nausea, vomiting or no flatus Home Medications: Medications to take at Discharge Cholecalciferol (Vitamin D3) [Vitamin D3] 2,000 unit PO DAILY 05/04/19 Multivitamin [Multivitamins] 1 ea PO DAILY 05/04/19 Vitamin B Complex 05/04/19 Primary Care Physician: Iesha Quezada DO [Primary Care Provider] - Please Follow Up With: Reynaldo Garner MD When: Monday Medical Necessity - Tobacco Use Smoking Status: Former smoker Meaningful Use Info Meaningful Use Diagnoses (Choose all that apply): None applicable
== END 2019-05-07 07:49 | disposition home or self-care (01) | DRG 392 ==
LOC: ED 14:58 → MS3 18:42
PROVIDERS: Admitting Provider Surgery; Emergency Provider Emergency Medicine; Family Provider Internal Medicine; PCP Internal Medicine; Visit Provider Surgery
DX: K52.9 Noninfective gastroenteritis and colitis, unspecified (principal); K56.7 Ileus, unspecified; Z87.891 Personal history of nicotine dependence
CPT/HCPCS: 36415; 74018; 74019; 74176; 80048; 80053; 81001; 83630; 83690; 85025; 87493; 99251; 99284; J7030; J7120; A4216; G0463; J2405

== ENCOUNTER → 2019-06-27 07:57 | Outpatient (CLI) | payer BC, SELFPAY ==
[2019-05-04 19:00] VITALS: BMI 33.7
--- NOTE | 2019-06-27 08:03 | ECHOD_ITS ---
Reason For Study: SINUS BRADYCARDIA Procedure This was a 2D Doppler, Color Flow transthoracic echocardiogram. Exam performed in department. Left Ventricle Normal LV size. The estimated ejection fraction is 55 %. Normal diastology for age. No regional wall motion abnormalities noted. Right Ventricle Normal RV size. Normal systolic function. Atria Normal left atrium. Normal right atrium. No doppler evidence for ASD. Mitral Valve There is no mitral valve stenosis. Trivial mitral valve insufficiency. Tricuspid Valve There is no tricuspid stenosis. Mild tricuspid valve insufficiency. Pulmonary artery systolic pressure is 35 mmHg. Aortic Valve Trisinus/trileaflet aortic valve. There is no aortic stenosis. Trivial aortic valve insufficiency. Pulmonic Valve There is no pulmonic valvular stenosis. Trivial pulmonic valve insufficiency. Great Vessels Normal aortic root. Pericardium/Pleural No pericardial effusion. MMode/2D Measurements & Calculations LVIDd: 5.0 cm IVSd: 0.78 cm Ao root diam: 3.5 cm LVIDs: 3.5 cm LVPWd: 0.88 cm RVDd: 4.0 cm FS: 28.6 % LAV(MOD-bp): 65.6 ml LA A4 area: 20.3 cm2 LA dimension(2D): 4.5 cm LAV(MOD-bp) Indexed: 27.7 ml/m2 LAV(MOD-sp2): 65.6 ml LAV(MOD-sp4): 59.2 ml RA A4 area: 18.2 cm2 Time Measurements MV dec time: 0.19 sec Doppler Measurements & Calculations MV E max mao: 89.0 cm/sec Lat Peak E' Mao: 12.3 cm/sec Med Peak E' Mao: 11.1 cm/sec MV A max mao: 51.5 cm/sec E/E' lat: 7.2 E/E' med: 8.0 MV E/A: 1.7 Ao V2 max: 132.5 cm/sec LV V1 max: 105.6 cm/sec PA V2 max: 118.6 cm/sec Ao max P.0 mmHg LV V1 max P.5 mmHg PI end-d mao: 77.2 cm/sec TR max mao: 269.3 cm/sec TR max P.0 mmHg Interpretation Summary The estimated ejection fraction is 55 %. Normal diastology for age. Trivial mitral valve insufficiency. Mild tricuspid valve insufficiency. Pulmonary artery systolic pressure is 35 mmHg. Trivial aortic valve insufficiency. Ordering Physician: Mary Chen Referring Physician: RAGHAVENDRA INFANTE Performed By: Sosa Monsivais, RDCS, RVT
== END ==
PROVIDERS: PCP Internal Medicine; Referring Provider Nurse Practitioner; Visit Provider Nurse Practitioner
DX: R00.1 Bradycardia, unspecified (principal); R53.83 Other fatigue
CPT/HCPCS: 93225; 93226; 93306

== ENCOUNTER → 2019-07-04 20:05 | Outpatient (CLI) | payer BC, SELFPAY ==
[2019-05-04 19:00] VITALS: BMI 33.7
== END ==
PROVIDERS: PCP Internal Medicine; Referring Provider Nurse Practitioner; Visit Provider Nurse Practitioner
DX: R06.81 Apnea, not elsewhere classified (principal); R53.83 Other fatigue
CPT/HCPCS: 95810

== ENCOUNTER → 2019-12-30 16:34 | Outpatient (CLI) | payer BC, SELFPAY ==
[2019-05-04 19:00] VITALS: BMI 33.7
--- NOTE | 2019-12-30 16:36 | RAD_ITS ---
STUDY: X-RAY - ABDOMEN/PELVIS REASON FOR EXAM: Male, 54 years old. hx of ileus-April -- abd pain TECHNIQUE: AP supine and upright views of the abdomen and pelvis. COMPARISON: None. FINDINGS: Normal visualized lung bases. There is an unremarkable bowel gas pattern. There is no demonstrated free abdominal air. The visualized liver, spleen and kidneys are grossly normal in size and morphology. Normal soft tissue structures. Normal visualized osseous structures. RAD/Abdomen Single View IMPRESSION: Normal x-ray examination of the abdomen and pelvis. Electronically Signed: Erlin Hernandez MD at 17:00 EDT , Service support ,
== END ==
PROVIDERS: PCP Internal Medicine; Referring Provider Nurse Practitioner; Visit Provider Nurse Practitioner
DX: R10.9 Unspecified abdominal pain (principal)
CPT/HCPCS: 74018

== ENCOUNTER 2020-04-30 09:00 | Outpatient (RCR) | payer BC, SELFPAY ==
[2019-05-04 19:00] VITALS: BMI 33.7
--- NOTE | 2020-03-25 08:45 | HP.OTEVAL_ITS ---
Patient's Visit Information ASHLI HOLLINS is a 54 year old M, referred to Occupational Therapy by Dr. Eduardo Meehan MD, with a diagnosis of dupuytren's contracture of bilateral hands.. Date of Evaluation: 03/24/20 Occupational Therapist: Aye Zavala, JIM/Steve, CHT - Subjective This 54 year old male was seen for OT eval with dx Dupuytren's contracture. pt states this is the 2nd time he had the xiaflex injection with manipulation. pt states Monday he was manipulated 2019. pt arrives today with soreness and tenderness up his right arm from hand to above elbow. pt would like to know what he needs to do to make the manipulation sucessful. - Pain right hand 7 - ROM MP: right LF +15/75 RF +10/70 PIP: right LF -15/95 RF -30/100 left LF -45/ 95 ROM Comments: when therapist asked pt to straighten fingers pts right LF and RF goes into hyper-exten keeping PIP of LF/RF in flexion. - Strength Strength Comments: will test at later date - Edema Other: MCP of right 24cm left 23cm - Sensation Thumb: right 3.84 left 3.84 Index: right 3.22 left 3.22 Middle: right 3.22 left 3.22 Ring: right 3.22 left 3.22 Little: right 3.22 left 3.22 - Quick DASH-Disab of Arm,Shoulder& Hand Quick DASH Score: 65.0000 - Goals Goal:: pt will demo a increase in digit ext by 15* or greater to increas pts i nd. with ADLs and IADLs by d.c Goal:: pt will report pain no greater than 1/10 with use of right hand with ADLs and IADls Goal:: pt will demo a reduction in swelling by .5 cm indicating healing and to increase ROM by week 3 Goal:: pt will demo ind. doffing/donning of orthosis by end of 1st visit. Pt will demonstrate understanding of orthosis use and precautions by end of 1st session and demonstrate knowledge of returning to clinic if orthosis needs adj. to increase comfort by end of 1st session. Therapist ed. Pt on correct donning/doffing orthosis, use and precautions. Pt agrees to return to clinic to have orthosis adj if needed. - Rehabilitation General Assessment: pt 4 days post right-hand manipulation. pt demo with limited ROM and pain decreasing pts use right hand with ADLs and IADLS. pt would benefit from skilled OT services 1x week for 4 weeks to return pt to PLOF. Today therapist ed. pt on AAROM/AROM PROM of elbow, forearm, wrist along with reverse blocking PIP to gain better digit ext without hyper ext of MPs. Therapist rec'd top piece to prevent PIP flex. In current orthosis MCPs are in 10* hyper- extension. therapist advised pt in contrast bath for edema mtg and use of ice to forearm to decrease soreness. Rehabilitation Potential: Good - Anticipated Interventions A/AAROM/PROM, Edema Control, Triggerpoint Release, Modalities, Orthoses, Joint Protection/Energy Conservation - Visit Plan Frequency: 1x/Week Duration: 3 Weeks TEXT: Thank you for the opportunity to evaluate your patient. For Medicare and Medicare HMO plans, please review the plan of care and approve it. It will need to be FAXED BACK to us at [phone] for Medicare purposes. Please let me know if there are questions or concerns regarding this plan of care. Physician Signature: Date:
--- NOTE | 2020-07-20 10:19 | HP.OT.NRP ---
ASHLI HOLLINS was seen in my office for initial evaluation on 03/24/20. The following Plan of Care was established for this patient: Initial Frequency: 1x/Week Initial Duration: 3 Weeks Plan: pt to return to work- will call if needed Anticipated Interventions: A/AAROM/PROM, Edema Control, Triggerpoint Release, Modalities, Orthoses, Joint Protection/Energy Conservation This patient was last seen in our office on 04/30/20. Pt was seen for 4 OT sessions progressed well and demonstrated increase ind. with ADLs and IADLs. 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 Pt D/C to cont with ROM and scar mtg. At this point I will be discontinuing this patient from occupational therapy. I would be happy to see this patient again in the future if found appropriate by the physician. Thank you! Aye Zavala, OTR/L, CHT
== END 2020-04-30 19:00 | disposition home or self-care (01) ==
LOC: OT 09:00
PROVIDERS: PCP Internal Medicine; Referring Provider Orthopaedic Surgery; Visit Provider Orthopaedic Surgery
DX: M72.0 Palmar fascial fibromatosis [Dupuytren] (principal)
CPT/HCPCS: 97110; 97140; 97166

== ENCOUNTER 2020-08-21 09:00 | Outpatient (RCR) | payer BC, SELFPAY ==
[2019-05-04 19:00] VITALS: BMI 33.7
--- NOTE | 2020-08-10 18:36 | HP.OTEVAL_ITS ---
Patient's Visit Information ASHLI HOLLINS is a 55 year old M, referred to Occupational Therapy by JANEL CASTILLO, with a diagnosis of right hand contracture. Date of Evaluation: 08/10/20 Occupational Therapist: Aye Zavala, OTR/Steve, CHT - Subjective This 55-year-old male was seen for OT eval with dx with right CTS and Duypuytren's contracture of right hand- pt has had conservative methods to help with the contracture but was not helpful- pt decided to have sx done. July 23, 2020. order for therapy was placed on 08/04/20. pt works at [employer] and is to return to work August 17, 2020 to return to work. pt has padded brace for scar and night orthosis. pt demo ind. donning and doffing both night and day o rthosis- pt did have one open area that continues to drain pt has concerns about. pt would like to return to work with restrictions Aprl. but with open incision rec'd return to work August 24. 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 - Pain right hand 2 Pain Intensity Range: 3, 6 - Objective pt demo clean healing incision- noted one area pt was worried about due to seeping- - ROM Wrist: right 65/65 left 70/65 ROM Comments: right LF PIP -20/95. right RF PIP -40/100. right MF PIP -45/95 - Strength Salesperson Shoes: right 20# left 95# Lateral Pinch: right 14# left 28# Tripod Pinch: right 10# left 26# Tip-to-Tip Pinch: right 8# left 20# - Sensation Thumb: right 3.22 left 3.22 Index: right 3.22 left 2.83 Middle: right 3.61 left 2.83 Ring: right 3.22 left 2.82 Little: right 3.22 left 3.22 - Quick DASH-Disab of Arm,Shoulder& Hand Quick DASH Score: 58.3325 - Hand/Wrist Evaluation Total Score of Pain & Functional Sections: 49 - Goals Goal:100% adherence to protocol: Yes Comment: Dr. SUERO post-op protocol Goal:Daily scar massage when approriate: Yes Goal:ROM equal to unaffected hand: Yes Comment: PIP ext to -10* or greater of right MF,RF,LF Goal:Salesperson Shoes/Pinch strength at least 75% of unaffected hand: Yes Goal:No pain with affected hand use: Yes Goal:Full use of affected hand in daily activities including: Yes Other Goal: pt will demo understanding of using orthosis nightly by end of 1st session. - Rehabilitation General Assessment: PT arrives s/p 3 weeks and 5 days from [facility], Excision of Duypuytren's contracture. pt demo with tenderness over incision, weakness, and limited ROM. pt also demo with delay in incision healing with one area that is seeping. due to Pain with use pt limited with ADLs and IADls at this time. Pt would benefit from skilled OT services 1-2x week for 4 weeks to return pt to PLOF. Today therapist revied pts HEP of tendon glides, scar mtg, PROM for digit ext, and need of orthosis. pt demo understanding- therapist will vend elastomer for pt to wear at night in his orthosis and pt will cont to wear gel padded brace during the day. Therapist also ed. pt on signs of infection. pt demo understanding and agree to POC. Rehabilitation Potential: Good - Anticipated Interventions A/AAROM/PROM, Strengthening, Scar Care, Triggerpoint Release, Wound Care, Modalities, Orthoses, Joint Protection/Energy Conservation, Ergonomic Education, Fine Motor Coord/Humberto - Visit Plan Frequency: 1-2x /Week Duration: 4 Weeks TEXT: Thank you for the opportunity to evaluate your patient. For Medicare and Medicare HMO plans, please review the plan of care and approve it. It will need to be FAXED BACK to us at [phone] for Medicare purposes. Please let me know if there are questions or concerns regarding this plan of care. Physician Signature: Date:
--- NOTE | 2020-08-21 09:33 | HP.OTDCSUM ---
It has been my pleasure to treat ASHLI HOLLINS under orders from JANEL CASTILLO, for the diagnosis of right hand contracture for a total of 3 visit(s). Please see the following information for a summary of their discharge status. % Improvement: 90 Objective/Function: right dough catcher strength 50#. right wrist 60/55. right lateral pinch 10#. right tripod pinch 8#. right tip pinch 4#. right monofiliments. thumb 3.22. IF 2.83. MF 2.83. RF 2.83. LF 2.83. pt has done well with using his paddle orthosis at night and scar gel pad during the day. pt has made good gains and demo understanding of HEP reports he will cont. with his HEP. 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 Plan: pt to cont.with HEP Discharge Comments: pt has done well and will cont with HEP and will return to work with 15# lift restriction until he is released by . If there are questions or concerns regarding this patient's occupational therapy, please fell free to call me at [phone]. Thank you for the referral of this patient. Sincerely, Aye Zavala, OTR/L, CHT
== END 2020-08-21 19:00 | disposition home or self-care (01) ==
LOC: OT 09:00
PROVIDERS: PCP Internal Medicine
DX: M24.541 Contracture, right hand (principal)
CPT/HCPCS: 97110; 97140; 97166; 97530

== ENCOUNTER 2022-01-31 09:51 | Emergency (ER) | payer BC, SELFPAY ==
[2022-01-31 09:52] VITALS: BP 144/86; PULSE 84; RESP 16; TEMP 36.4; O2SAT 99; BMI 32.3
[2022-01-31 09:55] VITALS: BP 144/86; PULSE 84; RESP 16; TEMP 36.4; O2SAT 99
--- NOTE | 2022-01-31 10:09 | RAD_ITS ---
STUDY: X-RAY CHEST REASON FOR EXAM: Male, 56 years old. dyspnea TECHNIQUE: Single AP portable view of the chest. COMPARISON: 05/16/2017 FINDINGS: The lungs are clear and expanded. There is no demonstrated pleural abnormality. Normal size heart. Normal mediastinum and leigh. Normal visualized pulmonary arteries. Normal visualized aortic arch and descending thoracic aorta. Normal visualized thoracic spine. Normal visualized ribs, clavicles, and shoulders. There is no demonstrated abnormality of the visualized soft tissue structures of the upper abdomen. RAD/Chest 1 View (Portable) IMPRESSION: Normal x-ray examination of the chest. Electronically Signed: Reynaldo Finn MD at 10:48 EDT ,
--- NOTE | 2022-01-31 10:09 | EKG12_ITS ---
Test Reason : SOB Blood Pressure : / mmHG Vent. Rate : 062 BPM Atrial Rate : 062 BPM P-R Int : 142 ms QRS Dur : 080 ms QT Int : 424 ms P-R-T Axes : 045 000 034 degrees QTc Int : 430 ms Sinus rhythm with occasional Premature ventricular complexes Otherwise normal ECG Confirmed by JAZ RODRIGUEZ, STEPH ([id number]), science editor TTAIANA ADHIKARI ([id number]) on 02/02/2022 10:49:15 AM Referred By: MEREDITH Confirmed By:STEPH SEBASTIAN MD
--- NOTE | 2022-01-31 10:11 | EX.ED.DYSGE1 ---
HPI History of Present Illness Chief Complaint: Shortness of Breath Informant: patient Narrative Narrative: 56-year-old male presented to the emergency room with dyspnea. He tells me that last week his tested positive for COVID-19. On Monday he began to develop rhinorrhea cough and sore throat. He states on Monday he felt like he got hit by a truck and started developing some shortness of breath. He does note some sputum production. He states that he has a history of asthma but has never been diagnosed with it. He states its more with the night air and seasonal issues. He does have an albuterol inhaler. He states that he called his primary care doctor's office and was advised to come to the emergency room. PFSH PFS Medical History no medical history Home Medications Vitamin B Complex 05/04/19 [History Last Taken Unknown] cholecalciferol (vitamin D3) 50 mcg (2,000 unit) capsule 2,000 unit PO DAILY 05/04/19 [History Last Taken Unknown] multivitamin 1 ea PO DAILY 05/04/19 [History Last Taken Unknown] albuterol sulfate 90 mcg/actuation aerosol inhaler (Ventolin HFA) 2 puff inhalation Q4H PRN PRN Wheezing ##1 01/31/22 [Rx Last Taken Unknown] dexamethasone 6 mg tablet 6 mg PO DAILY #6 tabs 01/31/22 [Rx Last Taken Unknown] Allergy/AdvReac Type Severity Reaction Status Date / Time No Known Allergies Allergy Verified 01/31/22 09:56 Social History Smoking Status: Former smoker substance use type: does not use ROS ROS ED Constitutional Constitutional ED: Denies chills or weight loss Eyes Eyes: Denies change in vision or diplopia ENT ENT ED: Reports rhinorrhea and sore throat; Denies ear pain Cardiovascular Cardiovascular: Denies chest pain, orthopnea, palpitations or racing heartbeat Respiratory/Chest Respiratory/Chest: Reports cough, dyspnea and dyspnea on exertion; Denies orthopnea Gastrointestinal Gastrointestinal: Denies abdominal pain, diarrhea, nausea or vomiting Genitourinary Genitourinary ED: Denies dysuria, hematuria or urinary frequency Musculoskeletal Musculoskeletal: Denies arthralgias or myalgias Integumentary Denies abscess or rash Neurologic Neurologic: Denies headache(s) or weakness Psychiatric Psychiatric: Denies anxiety, depression, suicidal ideation or suicidal thoughts Endocrine Endocrinology: Denies polydipsia, polyphagia or polyuria Allergic/Immunologic Allergic/Immunologic ED: Denies mouth swelling, tongue swelling or urticaria EXAM Physical Exam Const Vital Signs: 01/31/22 09:52 01/31/22 09:55 01/31/22 10:18 Temperature 97.6 F L 97.6 F L Temperature Source Temporal Temporal Pulse Rate 84 84 64 Respiratory Rate 16 16 12 Respiratory Effort Respiratory Depth Respiratory Pattern Normal Blood Pressure 144/86 H 144/86 H Blood Pressure Mean 105 105 Pulse Ox 99 99 Oxygen Delivery Method Room Air Room Air 01/31/22 10:20 Temperature Temperature Source Pulse Rate Respiratory Rate Respiratory Effort Normal Respiratory Depth Normal Respiratory Pattern Normal Blood Pressure Blood Pressure Mean Pulse Ox Oxygen Delivery Method Room Air Positive well nourished and well developed General Appearance ED: well developed HEENT Reports normocephalic, head/scalp atraumatic and moist mucous membranes Eyes PERRL and EOMs intact bilaterally Neck no lymphadenopathy, supple and no JVD Resp normal respiratory effort and clear to auscultation bilaterally Auscultation: wheezes expiratory wheezes Cardio regular rate, regular rhythm and no murmurs GI normal to inspection, nondistended, normoactive bowel sounds and non-tender Palpation: soft Back/Spine no CVA tenderness and normal ROM Extremity normal to inspection General Extremety ED: Negative for edema General Extremity: Negative for edema Neuro oriented x3 and CN's II-XII intact bilaterally Sensorium / Orientation: alert Motor Exam: strength 5/5 throughout Psych mental status grossly normal Mood & Affect: Negative for depressed or tearful Skin no rashes or lesions noted and no wounds MDM MDM MDM Narrative Medical decision making narrative: Patient is COVID-positive. My interpretation of his chest x-ray is no acute process. He received a dose of Decadron and a DuoNeb. I am going to write a paper prescription for a albuterol inhaler with spacer in case this is which she does not know. I will also write for a few more days of Decadron. I suspect that he has a milder case of COVID and should recover well. Radiography Diagnostic Testing: Clinical Impression(s) from Imaging Studies Chest X-Ray 01/31/22 10:09 IMPRESSION: Normal x-ray examination of the chest. Electronically Signed: Reynaldo Finn MD at 10:48 EDT , EKG Initial EKG: Attestation: I personally reviewed and interpreted this EKG as follows: Comments: Sinus rhythm with a ventricular rate of 62 bpm. Noted PVC. Discharge Plan Triage Chief Complaint: Shortness of Breath ED Provider: Morgan Traylor Dx/Rx/DC Orders Clinical Impression: COVID-19, Acute dyspnea, Acute bronchospasm Instructions: ED Bronchospasm (Adult) Prescriptions: New dexamethasone 6 mg tablet 6 mg PO DAILY Qty: 6 0RF albuterol sulfate [Ventolin HFA] 90 mcg/actuation HFA aerosol inhaler 2 puff inhalation Q4H PRN PRN (Reason: Wheezing) Qty: 1 0RF Rx Instructions: dispense with spacer No Action multivitamin 1 EACH tablet 1 ea PO DAILY cholecalciferol (vitamin D3) 2,000 UNIT capsule 2,000 unit PO DAILY Vitamin B Complex Primary Care Provider: Iesha Quezada Referrals: Iesha Quezada, [Primary Care Provider] - As Needed Disposition Disposition: Home, Self Care
[2022-01-31] MEDS: Ipratropium/Albuterol Sulfate 3 ML AMPUL.NEB INHALATION (10:16)
[2022-01-31 10:18] VITALS: PULSE 64; RESP 12
--- NOTE | 2022-01-31 10:18 | NURSING ---
NO OLD EKGS
[2022-01-31 10:20] VITALS: O2SAT 97
[2022-01-31] MEDS: dexAMETHasone 4 MG Tablet 6 MG PO (10:25)
== END 2022-01-31 11:32 | disposition home or self-care (01) ==
PROVIDERS: Emergency Provider Emergency Medicine; PCP Internal Medicine; Visit Provider Emergency Medicine
DX: U07.1 COVID-19 (principal); R06.00 Dyspnea, unspecified; J98.01 Acute bronchospasm; Z87.891 Personal history of nicotine dependence
CPT/HCPCS: 71045; 87811; 93005; 94640; 99283

== ENCOUNTER 2022-07-07 10:00 | Outpatient (RCR) | payer BC, SELFPAY ==
--- NOTE | 2022-06-03 13:54 | HP.PTEVAL ---
Patient's Visit Information ASHLI HOLLINS is a 56 year old M referred to Physical Therapy by Dr. Iesha Quezada DO with a diagnosis of LEFT SHOULDER PAIN. Date of Evaluation: 06/03/22 Physical Therapist: Raudel Moore PT, Cert MDT, OCS - Visit Plan Frequency: 2x /Week Duration: 4 Weeks Plan: PT INTERVTIONS RTC/SCAPULAR STRENGTHENING ,POSTURAL EX'S , AND MODALITIES FOR PAIN RELIEVE - Subjective This 56 y/o male presents to physical therapy with left shoulder pain. Patient fell off deck while shoveling May 06 and had hold of railing and heard a pop. Patient seen DR tried prednisone helped some recommended PT and had x-rays showed mild arthrosis. No cortisone injection. Pain located elbow refers to lateral deltoid/triceps aches at night. Patient has tingling/paresthesia. Aggravating pushing ,lifting to side OH and lifting . Alleviating factors rest. Symptoms affects sleeping. Patient pain affects QOL and function. Patient conidtion affects job demands with lifting. SOCIAL: . VOACTION: [employer] - Pain Left Shoulder Pain Intensity (Out of 10): 7 Pain Intensity Range: 10 - Objective POSTURE: rounded shoulders head forward. PALPATION: tender long head bicep tendon. NEURO: c/o paresthesia/tingling shoulder ,reflexes intact. AROM: shoulder flexion 120 degrees ,110 abduction pain ER 80 degrees ,IR L1. PROM: flexion /abduction 160 degrees ER 90 degrees. MMT(peak force) infraspinatus 18.9, subscapularis 24.5 , supraspinatus 18.8 ,deltoid 19.6 - Special Tests L Shoulder External Rotation Lag Test - RC Tear: Negative L Shoulder Drop Sign - IS Test: Negative L Shoulder Empty Can - SS: Negative L Shoulder Belly Press - SupScap: Negative L Shoulder Neer - Impingement: Positive L Shoulder Ruffin Sanjay - Impingement: Positive L Shoulder Speeds Test - Labrum/Biceps: Positive L Shoulder Sulcus Sign - Inferior Laxity: Negative - Balance/Special Test Scores Quick DASH Score: 45.4525 - Goals Goal 1:: I with HEP for shoulder Goal Time Frame: 4-6 Weeks Goal 2:: Patient to demonstrate 50% improvement with decrease pain and improved function Goal Time Frame: 4-6 Weeks Goal 3:: Patient to improve AROM shoulder 150 flexion /abduction > to improve function and job demands Goal Time Frame: 4-6 Weeks Goal 4:: Patient to improve peak force of RTC and deltoid by 5-10 to improve function Goal Time Frame: 4-6 Weeks Goal 5:: Patient to improve quick dash by 5 points to improve function and ADLS Goal Time Frame: 4-6 Weeks - Rehabilitation Potential Physical Therapy Diagnosis: This patient has possible tendonitis along with long biceps with RTC long good , speed test some soreness with speeds test and weakness with decrease ROM impair ADL's and job demands thus skilled [PT Rehabilitation Potential: Good - Anticipated Interventions Patient/Client Instruction: Educate patient on: Condition, Plan of Care For the Purpose of:: To decrease pain, To increase ROM, To improve muscle performance and motor function, To improve ability to perform ADL's, To increase tolerance to activity/condition/position, To improve ability of physical actions for home/community/work/leisure, To improve health of tissue, To decrease soft tissue restriction, To increase flexibility/ROM, To improve tolerance to ADL's Therapeutic Exercise to Include: Strength training, Body mechanics, Postural training, Flexibilty training, Active ROM, Scapular Strength/Stabilization Comment: RTC For the Purpose of:: To decrease pain, To increase ROM, To improve muscle performance and motor function, To improve ability to perform ADL's, To increase tolerance to activity/condition/position, To improve ability of physical actions for home/community/work/leisure, To improve health of tissue, To decrease soft tissue restriction, To increase flexibility/ROM, To reduce risk of recurrence, To prevent re-injury, To improve tolerance to ADL's TENS: Yes IF ES: Yes Thermo therapy (hot pack): Yes Ultrasound (thermal/non thermal): Yes For the Purpose of:: To decrease pain, To decrease swelling/inflammation, To increase ROM, To improve nutrient delivery to tissue, To increase oxygenation perfusion, To improve health of tissue, To decrease soft tissue restriction Thank you for the opportunity to evaluate your patient. For Medicare and Medicare HMO plans, please review the plan of care and approve it. It will need to be FAXED BACK to us at [phone] for Medicare purposes. For Medicare only, by signing this I certify the plan of care. Please let me know if there are questions or concerns regarding this plan of care. Physician Signature: Date:
--- NOTE | 2022-09-20 10:36 | HP.PTDCSUM ---
It has been my pleasure to treat ASHLI STUART ARMENTROUT referred by Dr. Iesha Quezada DO, with the diagnosis of LEFT SHOULDER PAIN for a total of 5 visit(s). Discharge Date: Please see the following information for a summary of their discharge status. Subjective: Doing okay pain is same. Plan to see orthopedic Dr Church July 29 Left Shoulder Pain Intensity (Out of 10): 0 Objective/Function: Did well with ex's appropriate fatigue ROM looks good. strength 4/5 Goal 1:: I with HEP for shoulder Goal 2:: Patient to demonstrate 50% improvement with decrease pain and improved function Goal 3:: Patient to improve AROM shoulder 150 flexion /abduction > to improve function and job demands Goal 4:: Patient to improve peak force of RTC and deltoid by 5-10 to improve function Goal 5:: Patient to improve quick dash by 5 points to improve function and ADLS Plan: D/C RTD. PT INTERVTIONS RTC/SCAPULAR STRENGTHENING ,POSTURAL EX'S , AND MODALITIES FOR PAIN RELIEVE If there are questions or concerns regarding this patient's physical therapy, please feel free to call me at [phone]. Thank you for the referral of this patient. Sincerely, Raudel Moore, PT, Cert MDT, OCS Balance/Gait/Functional tests - Balance/Special Test Scores Quick DASH Score: 45.4517
== END 2022-07-07 19:00 | disposition home or self-care (01) ==
LOC: PT 10:00
PROVIDERS: PCP Internal Medicine; Referring Provider Internal Medicine; Visit Provider Internal Medicine
DX: M25.512 Pain in left shoulder (principal)
CPT/HCPCS: 97110; 97162

== ENCOUNTER → 2023-01-05 | Outpatient (CLI) | payer BC, SELFPAY ==
--- NOTE | 2023-01-06 11:58 | STRESSREP ---
Stress Test Report Date: 01/05/2023 Procedure: Exercise tolerance test/imaging study Indications: Chest pain Consent: Per the patient Procedure: The patient exercised on a Tj protocol for 8 minutes and 16 seconds achieving a peak heart rate of 155 bpm (94% predicted maximal heart rate) with a peak blood pressure 188/84 mmHg and a peak MET capacity of 10.1 METs. The baseline ECG demonstrated sinus rhythm. The peak exercise ECG demonstrated no ischemic changes. Rare PVCs noted. The functional capacity was considered good. There was no complaint of chest discomfort during exercise or recovery. The examination was discontinued secondary to target heart rate being achieved. The patient was injected with 14.6 mCi of technetium 99m Cardiolite and subsequently rest SPECT Cardiolite nuclear imaging was obtained in the horizontal long, vertical long, and short axis views. Post-exercise, the patient was injected with 44.7 mCi of technetium 99m Cardiolite and subsequently stress SPECT Cardiolite nuclear imaging was obtained in the horizontal long, vertical long, and short axis views. A gated Cardiolite study at peak stress was obtained. Rest and stress SPECT Cardiolite nuclear imaging status post realignment, normalization, and attenuation correction, demonstrates the appearance of relative uniform tracer uptake and myocardial perfusion appearing within normal limits. There is end systolic thickening and brightening. The gated Cardiolite study demonstrates myocardial thickening and inward wall motion. The reported LVEF is 62%. Impression: 1. Technically adequate (percent predicted maximal heart rate greater than 85%) exercise tolerance test 2. Peak exercise ECG with no ischemic changes 3. Occasional PVC noted 4. Rest and stress SPECT Cardiolite nuclear imaging demonstrate relative uniform tracer uptake and myocardial perfusion appearing within normal limits. 5. The gated Cardiolite study reports an LVEF of 62%. This note was generated with [employer] software. It may contain incorrect words, spelling, and punctuation that were not noted in checking the note before signing.
== END | disposition home or self-care (01) ==
LOC: CVS 06:34
PROVIDERS: PCP Internal Medicine; Referring Provider Nurse Practitioner Family; Visit Provider Nurse Practitioner Family
DX: R07.9 Chest pain, unspecified (principal)
CPT/HCPCS: 78452; 93017; A9500; A4216

== ENCOUNTER → 2023-06-09 | Outpatient (CLI) | payer BC, SELFPAY ==
--- NOTE | 2023-06-09 14:31 | RAD_ITS ---
STUDY: X-RAY - LEFT FOOT CLINICAL: Male, 57 years old. forefoot/toe pain, injury 1 week ago TECHNIQUE: 3 view(s) of the foot. COMPARISON: December 28, 2017 FINDINGS: Normal talus, calcaneus, and tarsal bones. Normal visualized subtalar, talonavicular, calcaneocuboid, tarsal and tarsometatarsal articulations. Normal metatarsi. Normal metatarsophalangeal joint of the great toe. Normal tibial and fibular sesamoid bones. Normal interphalangeal joint of the great toe. Normal phalanges of the great toe. Normal second through fifth metatarsophalangeal joints. Normal interphalangeal joints and phalanges of the lesser toes. The soft tissue structures are unremarkable. RAD/Foot min 3 Views IMPRESSION: Normal x-ray examination of the foot. Electronically Signed: Kosta Molina MD at 23:35 EST ,
--- OUTSIDE RECORDS SUMMARY | 2023-06-09 15:01 | XMS RPT_ITS | CCD ---
Author Name Unknown Address [address] [place] [address] Organization [facility] Care Team Providers Care Birthing Nurse Name Role Phone Mary Chen Unavailable Garcia Linn Unavailable Silas Aponte Unavailable [phone] Eduardo Meehan Unavailable Zuly Gonzalez Unavailable Ying Clarke Unavailable Unavailable Gravius, Beth Unavailable Unavailable Unavailable Unavailable Mary Chen Unavailable Garcia Linn Unavailable Silas Aponte Unavailable [phone] Eduardo Meehan Unavailable Zuly Gonzalez Unavailable Gravius, Beth Unavailable Unavailable Sloane Sood Unavailable Unavailable Unavailable Unavailable Joe Child Unavailable Unavailable Joe Child Unavailable Unavailable Gravius, Beth Unavailable Unavailable Wilfredo Aguilera Unavailable Unavailable Unavailable Unavailable Eduardo Meehan Unavailable Joe Sheridan Unavailable Unavailable Mary Chen CNP Unavailable Dr. Garcia Linn Unavailable [phone] Sil[address] Aponte Un[address] Dr[address] Eduardo Meehan MD Unavailable Zoran RODRIGUEZ , Eduardo Castellano Unavailable Zuly Gonzalez MD Unavailable Arvin CARTON STAMPER, Joe Unavailable Unavailable Avinash HUGHES, Beth Unavailable Unavailable Unavailable Unavailable Jessica CARTON STAMPERBarbara Unavailable Unavailable Mary Chen Unavailable Unavailable Unavailable Sol Perales CNP Unavailable Sol Perales CNP Unavailable [phone] Diane MANAGER PHYSICAL, Lea Unavailable Unavailable Elo CARTON STAMPER, Eulalia Unavailable Unavailable Josef Bishop Unavailable Unavailable Unavailable [facility], [facility] Unavailable Iesha Infante DO Unavailable [phone] Mary Chen Referring Unavailable Sol Perales CNP Attending Unavailable Sol Perales CNP Consulting Unavailable Joselyn Rich MA Unavailable Unavailable NARESH WICK, DR MABRY Primary Care Physician [phone] HERBERT BIRCH MD Attending Unavailable NARESH WICK, DR MABRY Primary Care Unavailab Ms. Sol Taylor Attending Unavailewelina Perales, Ms. Sol Ghotra Primary Care Unavailewelina ghotra Medications Current Medications Medication Drug Class(es) Dates Sig (Normalized) Sig (Original) ondansetron 4 mg oral tablet (1 source) Serotonin-3 Receptor Antagonist Start: 04-27-2018 take 1 tablet by mouth every four to six hours as needed for nausea and vomiting Zofran 4 mg oral tablet See Instructions, PRN As needed for nausea and vomiting, 1 tab(s) PO q4-6h prn, # 10 tab(s), 0 Refill(s) Start Date: 04/27/18 Status: Ordered Completed/Discontinued Medications Medication Drug Class(es) Dates Sig (Normalized) Sig (Original) [id number] 200 actuat albuterol 0.09 mg/actuat metered dose inhaler (20 sources) beta2-Adrenergic Agonist Start: 04-17-2019 End: 02-07-2020 take 1-2 puff(s) by inhalation every six hours as needed for wheezing ProAir HFA 108 (90 Base) MCG/ACT Inhalation Aerosol Solution 1-2 Puff every 6hours prn wheezing for 0 days Quantity: 1 {Inhaler} Refills: 0 Ordered: 07-Feb-2020 Joe Sheridan LPN Start : 17-Apr-2019 End : 07-Feb-2020 Inactive Problems Active Problems Problem Classification Problem Date Documented Da te Episodic/Chronic Abdominal pain (20 sources) Epigastric pain; Translations: [Abdominal pain] Resolved: 06-14-2019 05-25-2018 Episodic Past or Other Problems Problem Classification Problem Date Documented Da te Episodic/Chronic Esophageal disorders (6 sources) Esophageal disorders External cause codes: Natural/environment (20 sources) Exposure to other specified factors, sequela; Translations: [Accident, sequela] Resolved: 06-14-2019 02-01-2019 Results Test Name Value Interpretation Reference Range Facil ity Vital Signs Date Time Vital Sign Value Performing Clinician Facility 02-17-2023 09:08-0400 Body height 182.25 cm Eulalia Gasca LPN [facility] Work Phone: 02-17-2023 09:08-0400 Body mass index (BMI) [Ratio] 37.15 kg/m2 Eulalia Gasca LPN [facility] Work Phone: 02-17-2023 09:08-0400 Body surface area Derived from formula 2.42 m2 Eulalia Gasca LPN [facility]; [facility] Work Phone: 02-17-2023 09:08-0400 Body temperature 97.3 [degF] Eulalia Gasca LPN [facility]; [facility] Work Phone: Encounters Encounter Date Encounter Type Care Provider Facility Start: 02-17-2023 End: 02-17-2023 Office outpatient visit 15 minutes Sol Perales CNP Work Phone: [facility] Start: 02-17-2023 Review Sol Perales CNP Work Phone: [facility] Start: 02-09-2023 ambulatory Ms. Sol Perales Facility:[id number] Start: 12-21-2022 End: 12-30-2022 Office consultation new/estab patient 40 min Sol Perales CNP Work Phone: [facility] Start: 12-21-2022 Review Sol Perales EPIC RADIANT ANALYST Work Phone: [facility] Start: 12-19-2022 End: 12-19-2022 Emergency department patient visit HERBERT BIRCH MD Facility:B Start: 12-19-2022 End: 12-19-2022 Emergency department patient visit HERBERT BIRCH MD [facility] Start: 11-16-2022 End: 11-16-2022 Office outpatient visit 15 minutes Sol Perales EPIC RADIANT ANALYST Work Phone: [facility] Start: 11-07-2022 End: 11-16-2022 Office outpatient visit 15 minutes Sol Perales EPIC RADIANT ANALYST Work Phone: [facility] Start: 11-07-2022 Review Sol Perales EPIC RADIANT ANALYST Work Phone: [facility] Start: 08-02-2022 End: 08-02-2022 Office outpatient visit 15 minutes Sol Perales EPIC RADIANT ANALYST Work Phone: [facility] Start: 06-10-2022 End: 06-13-2022 Office outpatient visit 15 minutes Sol Perales EPIC RADIANT ANALYST Work Phone: [facility] Start: 06-10-2022 Review Sol Perales EPIC RADIANT ANALYST Work Phone: [facility] Start: 06-09-2022 ambulatory Gust[facility] Start: 06-08-2022 End: 06-08-2022 Office outpatient visit 10 minutes Sol Perales EPIC RADIANT ANALYST Work Phone: [facility] Start: 05-26-2022 Review Sol Perales EPIC RADIANT ANALYST Work Phone: [facility] Start: 05-26-2022 End: 05-26-2022 Office outpatient visit 10 minutes Sol Perales EPIC RADIANT ANALYST Work Phone: [facility] Start: 05-10-2022 End: 05-16-2022 Office outpatient visit 15 minutes Sol Perales EPIC RADIANT ANALYST Work Phone: [facility] Start: 04-25-2022 End: 04-25-2022 Annotation/Addendum Sol Perales EPIC RADIANT ANALYST Work Phone: [facility] Start: 04-15-2022 End: 04-28-2022 Office outpatient visit 15 minutes Sol Perales EPIC RADIANT ANALYST Work Phone: [facility] Start: 04-15-2022 Review Sol Perales EPIC RADIANT ANALYST Work Phone: [facility] Start: 04-01-2022 End: 04-15-2022 Office outpatient visit 25 minutes Sol Perales EPIC RADIANT ANALYST Work Phone: [facility] Start: 04-01-2022 Review Sol Perales EPIC RADIANT ANALYST Work Phone: [facility] Start: 05-24-2021 End: 05-24-2021 Office outpatient visit 10 minutes Mary Chen EPIC RADIANT ANALYST Work Phone: [facility] Start: 02-07-2020 End: 02-07-2020 Office outpatient visit 25 minutes Mary [facility] Start: 02-07-2020 Review Mary krueger [facility] Start: 12-30-2019 End: 12-30-2019 Office outpatient visit 25 minutes Mary Carter [facility] Start: 07-18-2019 End: 07-18-2019 Office outpatient visit 15 minutes Mary Carter [facility] Start: 07-05-2019 End: 07-05-2019 Office outpatient visit 15 minutes Mary Carter [facility] Start: 06-14-2019 End: 06-14-2019 Office outpatient visit 25 minutes Mary Carter [facility] Start: 03-26-2019 End: 03-26-2019 Office outpatient visit 25 minutes Mary Carter [facility] Start: 02-01-2019 End: 02-01-2019 Office outpatient visit 25 minutes Mary Carter [facility] Start: 02-01-2019 Review Mary krueger [facility] Start: 01-17-2019 End: 01-17-2019 Office outpatient visit 15 minutes Mary Carter [facility] Start: 05-25-2018 End: 05-25-2018 Office outpatient visit 15 minutes Mary Carter [facility] Start: 05-09-2018 End: 05-09-2018 Patient encounter procedure Mary Carter [facility] Start: 05-09-2018 End: 05-09-2018 Office outpatient visit 25 minutes Mary Chen [facility] Start: 12-28-2017 End: 12-28-2017 Office outpatient visit 15 minutes Mary Chen [facility] Start: 06-08-2017 End: 06-08-2017 Office outpatient visit 25 minutes Mary Chen [facility] Start: 05-17-2017 End: 05-17-2017 Annotation/Addendum Mary Chen [facility] Social Media Marketing Manager al Medicine Start: 05-16-2017 End: 05-16-2017 Office outpatient visit 15 minutes Mary Chen [facility] Start: 10-19-2016 End: 10-21-2016 Office outpatient visit 15 minutes Gustavo [facility] Start: 10-17-2016 End: 10-17-2016 Office outpatient new 45 minutes [facility] Gustavo [facility] Internal Medicine Procedures Date Procedure Procedure Detail Performing Clinician Start: 01-06-2023 End: 01-06-2023 Stress Report Procedure Note: See Note; NOTES: [facility] Services [address] [place] [id number] MR#: [id number] Acct: [id number] Name: ASHLI HOLLINS Rep #: [id number] : 1965 57 From: Fabian Cifuentes MD Primary Care: Dr. Iesha Infante, DO Status: REG CLI Referring Dr: Sol Perales INDUSTRIAL ENERGY ENGINEER-C Sex: M C Stress Test Report Date: 01/05/2023 Procedure: Exercise tolerance test/imaging study Indications: Chest pain Consent: Per the patient Procedure: The patient exercised on a Tj protocol for 8 minutes and 16 seconds achieving a peak heart rate of 155 bpm (94% predicted maximal heart rate) with a peak blood pressure 188/84 mmHg and a peak MET capacity of 10.1 METs. The baseline ECG demonstrated sinus rhythm. The peak exercise ECG demonstrated no ischemic changes. Rare PVCs noted. The functional capacity was considered good. There was no complaint of chest discomfort during exercise or recovery. The examination was discontinued secondary to target heart rate being achieved. The patient was injected with 14.6 mCi of technetium 99m Cardiolite and subsequently rest SPECT Cardiolite nuclear imaging was obtained in the horizontal long, vertical long, and short axis views. Post-exercise, the patient was injected with 44.7 mCi of technetium 99m Cardiolite and subsequently stress SPECT Cardiolite nuclear imaging was obtained in the horizontal long, vertical long, and short axis views. A gated Cardiolite study at peak stress was obtained. Rest and stress SPECT Cardiolite nuclear imaging status post realignment, normalization, and attenuation correction, demonstrates the appearance of relative uniform tracer uptake and myocardial perfusion appearing within normal limits. There is end systolic thickening and brightening. The gated Cardiolite study demonstrates myocardial thickening and inward wall motion. The reported LVEF is 62%. Impression: 1. Technically adequate (percent predicted maximal heart rate greater than 85%) exercise tolerance test 2. Peak exercise ECG with no ischemic changes 3. Occasional PVC noted 4. Rest and stress SPECT Cardiolite nuclear imaging demonstrate relative uniform tracer uptake and myocardial perfusion appearing within normal limits. 5. The gated Cardiolite study reports an LVEF of 62%. This note was generated with Preisbockation software. It may contain incorrect words, spelling, and punctuation that were not noted in checking the note before signing. 01/06/23 1200 <Electronically signed by Fabian Cifuentes MD> Date Fabian Cifuentes MD CC: INDUSTRIAL ENERGY ENGINEER-C Sol Perales; Dr. Iesha Infante, Date Dictated: 01/06/23 1158 Date Transcribed: 01/06/231157 Liquor Gallery Operator: AR Signed Sol Perales EPIC RADIANT ANALYST Work Phone: Start: 09-20-2022 End: 09-20-2022 PT D/C Summary (1) Procedure Note: See Note; NOTES: [facility] Physical Therapy [address] [place] [address] / REHABILITATION SERVICES DISCHARGE SUMMARY MR#: [id number] Acct: [id number] Name: ASHLI HOLLINS Rep #: [id number] : 1965 57 From: Raudel Moore PT, Cert. T, OCS Referring DrRodney: Dr. Iesha Infante, DO Status: REG RCR Insurance: [employer] SELF PAY INSURANCE It has been my pleasure to treat ASHLI HOLLINS referred by Dr. Iesha Infante DO, with the diagnosis of LEFT SHOULDER PAIN for a total of 5 visit(s). Discharge Date: Please see the following information for a summary of their discharge status. Subjective: Doing okay pain is same. Plan to see orthopedic Dr Church July 29 Left Shoulder Pain Intensity (Out of 10): 0 Objective/Function: Did well with ex's appropriate fatigue ROM looks good. strength 4/5 Goal 1:: I with HEP for shoulder Goal 2:: Patient to demonstrate 50% improvement with decrease pain and improved function Goal 3:: Patient to improve AROM shoulder 150 flexion /abduction > to improve function and job demands Goal 4:: Patient to improve peak force of RTC and deltoid by 5-10 to improve function Goal 5:: Patient to improve quick dash by 5 points to improve function and ADLS Plan: D/C RTD. PT INTERVTIONS RTC/SCAPULAR STRENGTHENING ,POSTURAL EX'S , AND MODALITIES FOR PAIN RELIEVE If there are questions or concerns regarding this patient's physical therapy, please feel free to call me at [phone]. Thank you for the referral of this patient. Sincerely, Raudel Moore PT, Cert MDT, OCS Balance/Gait/Functional tests - Balance/Special Test Scores Quick DASH Score: 45.4525 <Electronically signed by Raudel Moore PT Cert. T, OCS> 09/20/22 1036 CC: Dr. Iesha Infante DO GEE Signed Sol Perales CNP Work Phone: Start: 06-03-2022 End: 06-03-2022 Inital Evaluation (1) - PT Procedure Note: See Note; NOTES: [facility] [address] [place] [address]. [address] [place] [address] / REHABILITATION SERVICES INITIAL EVALUATION MR#: [id number] Acct: [id number] Name: ASHLI HOLLINS Rep #: [id number] : 1965 56 From: Raudel Moore PT, Cert. MD Srivastava, OCS Referring Dr.: Dr. Iesha Infante DO Status: REG R Insurance: [facility] SELF PAY INSURANCE Patient's Visit Information ASHLI HOLLINS is a 56 year old M referred to Physical Therapy by Dr. Iesha Infante DO with a diagnosis of LEFT SHOULDER PAIN. Date of Evaluation: 06/03/22 Physical Therapist: Raudel Moore PT, Cert T, OCS - Visit Plan Frequency: 2x /Week Duration: 4 Weeks Plan: PT INTERVTIONS RTC/SCAPULAR STRENGTHENING ,POSTURAL EX'S , AND MODALITIES FOR PAIN RELIEVE - Subjective This 56 y/o male presents to physical therapy with left shoulder pain. Patient fell off deck while shoveling May 06 and had hold of railing and heard a pop. Patient seen DR tried prednisone helped some recommended PT and had x-rays showed mild arthrosis. No cortisone injection. Pain located elbow refers to lateral deltoid/triceps aches at night. Patient has tingling/paresthesia. Aggravating pushing ,lifting to side [place] and lifting . Alleviating factors rest. Symptoms affects sleeping. Patient pain affects QOL and function. Patient conidtion affects job demands with lifting. SOCIAL: . VOACTION: Tavo - Pain Left Shoulder Pain Intensity (Out of 10): 7 Pain Intensity Range: 10 - Objective POSTURE: rounded shoulders head forward. PALPATION: tender long head bicep tendon. NEURO: c/o paresthesia/tingling shoulder ,reflexes intact. AROM: shoulder flexion 120 degrees ,110 abduction pain ER 80 degrees ,IR L1. PROM: flexion /abduction 160 degrees ER 90 degrees. MMT(peak force) infraspinatus 18.9, subscapularis 24.5 , supraspinatus 18.8 ,deltoid 19.6 - Special Tests L Shoulder External Rotation Lag Test - RC Tear: Negative L Shoulder Drop Sign - IS Test: Negative L Shoulder Empty Can - SS: Negative L Shoulder Belly Press - SupScap: Negative L Shoulder Neer - Impingement: Positive L Shoulder Ruffin Sanjay - Impingement: Positive L Shoulder Speeds Test - Labrum/Biceps: Positive L Shoulder Sulcus Sign - Inferior Laxity: Negative - Balance/Special Test Scores Quick DASH Score: 45.4525 - Goals Goal 1:: I with HEP for shoulder Goal Time Frame: 4-6 Weeks Goal 2:: Patient to demonstrate 50% improvement with decrease pain and improved function Goal Time Frame: 4-6 Weeks Goal 3:: Patient to improve AROM shoulder 150 flexion /abduction > to improve function and job demands Goal Time Frame: 4-6 Weeks Goal 4:: Patient to improve peak force of RTC and deltoid by 5-10 to improve function Goal Time Frame: 4-6 Weeks Goal 5:: Patient to improve quick dash by 5 points to improve function and ADLS Goal Time Frame: 4-6 Weeks - Rehabilitation Potential Physical Therapy Diagnosis: This patient has possible tendonitis along with long biceps with RTC long good , speed test some soreness with speeds test and weakness with decrease ROM impair ADL's and job demands thus skilled [PT Rehabilitation Potential: Good - Anticipated Interventions Patient/Client Instruction: Educate patient on: Condition, Plan of Care For the Purpose of:: To decrease pain, To increase ROM, To improve muscle performance and motor function, To improve ability to perform ADL's, To increase tolerance to activity/condition/position, To improve ability of physical actions for home/community/work/leisure, To improve health of tissue, To decrease soft tissue restriction, To increase flexibility/ROM, To improve tolerance to ADL's Therapeutic Exercise to Include: Strength training, Body mechanics, Postural training, Flexibilty training, Active ROM, Scapular Strength/Stabilization Comment: RTC For the Purpose of:: To decrease pain, To increase ROM, To improve muscle performance and motor function, To improve ability to perform ADL's, To increase tolerance to activity/condition/position, To improve ability of physical actions for home/community/work/leisure, To improve health of tissue, To decrease soft tissue restriction, To increase flexibility/ROM, To reduce risk of recurrence, To prevent re-injury, To improve tolerance to ADL's TENS: Yes IF ES: Yes Thermo therapy (hot pack): Yes Ultrasound (thermal/non thermal): Yes For the Purpose of:: To decrease pain, To decrease swelling/inflammation, To increase ROM, To improve nutrient delivery to tissue, To increase oxygenation perfusion, To improve health of tissue, To decrease soft tissue restriction Thank you for the opportunity to evaluate your patient. For Medicare and Medicare HMO plans, please review the plan of care and approve it. It will need to be FAXED BACK to us at [phone] for Medicare purposes. For Medicare only, by signing this I certify the plan of care. Please let me know if there are questions or concerns regarding this plan of care. Physician Signature: ___Date: <Electronically signed by Raudel Moore PT, Cert. MDT, OCS> 06/03/22 3504 CC: Dr. Iesha Infante DO JLA Signed Sol Perales EPIC RADIANT ANALYST Work Phone: Start: 05-26-2022 End: 05-26-2022 Shoulder min 2 Views Procedure Note: See Note; NOTES: [facility] [address] [place] [address] Shoulder min 2 Views MR#: [id number] Acct: [id number] Name: ASHLI HOLLINS Rep #: [id number] : 1965 M 56 From: Ivan quiros MD PCP: Dr. Iesha Infante DO Status: DEP AMB Study: Shoulder min 2 Views Date of Exam: 05/26/22 Exam# [id number] Ordering Dr: Iesha Infante DO STUDY: X-RAY - LEFT SHOULDER REASON FOR EXAM: Male, 56 years old. PAIN TECHNIQUE: 4 view(s) of the shoulder. COMPARISON: None. FINDINGS: Normal glenohumeral articulation. There is degenerative arthrosis of the acromioclavicular joint without inferior osseous spur formation. Normal acromion. Normal humeral head and visualized proximal humerus. The soft tissue structures are unremarkable. Normal visualized pulmonary apex. RAD/Shoulder min 2 Views IMPRESSION: Mild arthrosis of the acromioclavicular joint. Electronically Signed: Ivan Gonzalez MD at 15:41 EST , CC: Dr. Iesha Infatne DO Liquor Gallery Operator: Signed Iesha Infante DO Work Phone: Start: 01-31-2022 End: 01-31-2022 Emergency Department Summary Procedure Note: See Note; NOTES: [facility] Medical Records Department [address] [place] [address] Emergency Department Summary 01/31/22 MR#: [id number] Acct: [id number] Name: ASHLI HOLLINS Rep #: [id number] : 1965 56 From: Morgan Traylor DO PCP: Dr. Iesha Infante DO Status:DEP ER Location: ED HPI History of Present Illness Chief Complaint: Shortness of Breath Informant: patient Narrative Narrative: 56-year-old male presented to the emergency room with dyspnea. He tells me that last week his tested positive for COVID-19. On Monday he began to develop rhinorrhea cough and sore throat. He states on Monday he felt like he got hit by a truck and started developing some shortness of breath. He does note some sputum production. He states that he has a history of asthma but has never been diagnosed with it. He states its more with the night air and seasonal issues. He does have an albuterol inhaler. He states that he called his primary care doctor's office and was advised to come to the emergency room. [facility] Medical History no medical history Home Medications Vitamin B Complex 05/04/19 [History Last Taken Unknown] cholecalciferol (vitamin D3) 50 mcg (2,000 unit) capsule 2,000 unit PO DAILY 05/04/19 [History Last Taken Unknown] multivitamin 1 ea PO DAILY 05/04/19 [History Last Taken Unknown] albuterol sulfate 90 mcg/actuation aerosol inhaler (Ventolin HFA) 2 puff inhalation Q4H PRN PRN Wheezing ##1 01/31/22 [Rx Last Taken Unknown] dexamethasone 6 mg tablet 6 mg PO DAILY #6 tabs 01/31/22 [Rx Last Taken Unknown] Allergy/AdvReac Type Severity Reaction Status Date / Time No Known Allergies Allergy Verified 01/31/22 09:56 Social History Smoking Status: Former smoker substance use type: does not use ROS ROS ED Constitutional Constitutional ED: Denies chills or weight loss Eyes Eyes: Denies change in vision or diplopia ENT ENT ED: Reports rhinorrhea and sore throat; Denies ear pain Cardiovascular Cardiovascular: Denies chest pain, orthopnea, palpitations or racing heartbeat Respiratory/Chest Respiratory/Chest: Reports cough, dyspnea and dyspnea on exertion; Denies orthopnea Gastrointestinal Gastrointestinal: Denies abdominal pain, diarrhea, nausea or vomiting Genitourinary Genitourinary ED: Denies dysuria, hematuria or urinary frequency Musculoskeletal Musculoskeletal: Denies arthralgias or myalgias Integumentary Denies abscess or rash Neurologic Neurologic: Denies headache(s) or weakness Psychiatric Psychiatric: Denies anxiety, depression, suicidal ideation or suicidal thoughts Endocrine Endocrinology: Denies polydipsia, polyphagia or polyuria Allergic/Immunologic Allergic/Immunologic ED: Denies mouth swelling, tongue swelling or urticaria EXAM Physical Exam Const Vital Signs: 01/31/22 09:52 01/31/22 09:55 01/31/22 10:18 Temperature 97.6 F L 97.6 F L Temperature Source Temporal Temporal Pulse Rate 84 84 64 Respiratory Rate 16 16 12 Respiratory Effort Respiratory Depth Respiratory Pattern Normal Blood Pressure 144/86 H 144/86 H Blood Pressure Mean 105 105 Pulse Ox 99 99 Oxygen Delivery Method Room Air Room Air 01/31/22 10:20 Temperature Temperature Source Pulse Rate Respiratory Rate Respiratory Effort Normal Respiratory Depth Normal Respiratory Pattern Normal Blood Pressure Blood Pressure Mean Pulse Ox Oxygen Delivery Method Room Air Positive well nourished and well developed General Appearance ED: well developed HEENT Reports normocephalic, head/scalp atraumatic and moist mucous membranes Eyes PERRL and EOMs intact bilaterally Neck no lymphadenopathy, supple and no JVD Resp normal respiratory effort and clear to auscultation bilaterally Auscultation: wheezes expiratory wheezes Cardio regular rate, regular rhythm and no murmurs GI normal to inspection, nondistended, normoactive bowel sounds and non-tender Palpation: soft Back/Spine no CVA tenderness and normal ROM Extremity normal to inspection General Extremety ED: Negative for edema General Extremity: Negative for edema Neuro oriented x3 and CN's II-XII intact bilaterally Sensorium / Orientation: alert Motor Exam: strength 5/5 throughout Psych mental status grossly normal Mood Affect: Negative for depressed or tearful Skin no rashes or lesions noted and no wounds MDM MDM MDM Narrative Medical decision making narrative: Patient is COVID-positive. My interpretation of his chest x-ray is no acute process. He received a dose of Decadron and a DuoNeb. I am going to write a paper prescription for a albuterol inhaler with spacer in case this is which she does not know. I will also write for a few more days of Decadron. I suspect that he has a milder case of COVID and should recover well. Radiography Diagnostic Testing: Clinical Impression(s) from Imaging Studies Chest X-Ray 01/31/22 10:09 IMPRESSION: Normal x-ray examination of the chest. Electronically Signed: Reynaldo Finn MD at 10:48 EDT , EKG Initial EKG: Attestation: I personally reviewed and interpreted this EKG as follows: Comments: Sinus rhythm with a ventricular rate of 62 bpm. Noted PVC. Discharge Plan Triage Chief Complaint: Shortness of Breath ED Provider: Morgan Traylor Dx/Rx/DC Orders Clinical Impression: COVID-19, Acute dyspnea, Acute bronchospasm Instructions: ED Bronchospasm (Adult) Prescriptions: New dexamethasone 6 mg tablet 6 mg PO DAILY Qty: 6 0RF albuterol sulfate [Ventolin HFA] 90 mcg/actuation HFA aerosol inhaler 2 puff inhalation Q4H PRN PRN (Reason: Wheezing) Qty: 1 0RF Rx Instructions: dispense with spacer No Action multivitamin 1 EACH tablet 1 ea PO DAILY cholecalciferol (vitamin D3) 2,000 UNIT capsule 2,000 unit PO DAILY Vitamin B Complex Primary Care Provider: Iesha Infante Referrals: Iesha Infante DO [Primary Care Provider] - As Needed Disposition Disposition: Home, Self Care What to do if you have Problems For any increased pain, shortness of breath, bleeding, nausea or vomiting, chest pain, or any unexpected problems, contact your Primary Care Provider. Call [facility] ([phone]) or report to the closest Emergency Room. Call 911 if necessary. 01/31/22 9113 <Electronically signed by Morgan Traylor DO> Cosigner Signature (if applicable): CC: Dr. Iesha Infante DO Signed [employer] Work Phone: Start: 01-31-2022 End: 02-02-2022 12 Lead EKG Procedure Note: See Note; NOTES: [facility] Cardiovascular Services [address] [place] [address] 12 Lead EKG 01/31/22 1024 MR#: [id number] Acct: [id number] Name: ASHLI HOLLINS Rep #: [id number] : 1965 56 From: Ronny Sebastian MD Attending Dr: Status: DEP ER Ordering Dr: Morgan Traylor DO Date: 01/31/22 Location: ED Sex: M C Admitted: Test Reason : SOB Blood Pressure : / mmHG Vent. Rate : 062 BPM Atrial Rate : 062 BPM P-R Int : 142 ms QRS Dur : 080 ms QT Int : 424 ms P-R-T Axes : 045 000 034 degrees QTc Int : 430 ms Sinus rhythm with occasional Premature ventricular complexes Otherwise normal ECG Confirmed by JAZ RODRIGUEZ, RONNY ([id number]), loan expeditor TATIANA ADHIKARI ([id number]) on 02/02/2022 10:49:15 AM Referred By: Confirmed By:RONNY SEBASTIAN MD 02/02/22 2323 Date Ronny Sebastian MD CC: Dr. Morgan Traylor DO; Dr. Iesha Infante DO Signed Mary Chen Work Phone: Start: 01-31-2022 End: 01-31-2022 Chest 1 View (Portable) Procedure Note: See Note; NOTES: [facility] Imaging Services [address] [place] [address] Chest 1 View (Portable) MR#: [id number] Acct: [id number] Name: ASHLI HOLLINS Rep #: [id number] : 1965 M 56 From: Reynaldo Finn MD PCP: Dr. Iesha Infante DO Status: REG ER Study: Chest 1 View (Portable) Date of Exam: 01/31/22 Exam# [id number] Ordering Dr: Morgan Traylor DO STUDY: X-RAY CHEST REASON FOR EXAM: Male, 56 years old. dyspnea TECHNIQUE: Single AP portable view of the chest. COMPARISON: 05/16/2017 FINDINGS: The lungs are clear and expanded. There is no demonstrated pleural abnormality. Normal size heart. Normal mediastinum and leigh. Normal visualized pulmonary arteries. Normal visualized aortic arch and descending thoracic aorta. Normal visualized thoracic spine. Normal visualized ribs, clavicles, and shoulders. There is no demonstrated abnormality of the visualized soft tissue structures of the upper abdomen. RAD/Chest 1 View (Portable) IMPRESSION: Normal x-ray examination of the chest. Electronically Signed: Reynaldo Finn MD at 10:48 EDT , CC: Dr. Morgan Traylor DO; Dr. Iesha Infante DO Liquor Gallery Operator: Signed Mary Chen Work Phone: Start: 08-21-2020 End: 08-24-2020 OT D/C Summary Comments: See Note; NOTES: [facility] Occupational Therapy [facility] [address] [place] [address] / REHABILITATION SERVICES DISCHARGE SUMMARY MR#: [id number] Acct: [id number] Name: ASHLI HOLLINS Rep #: [id number] : 1965 55 From: Aye Zavala OTR/Steve, CHT Referring DrRodney: OUT OF TOWN DOCTOR Status: REG R CR Eval Date: Discharge Date: It has been my pleasure to treat ASHLI HOLLINS under orders from JANEL CASTILLO, for the diagnosis of right hand contracture for a total of 3 visit(s). Please see the following information for a summary of their discharge status. % Improvement: 90 Objective/Function: right drop forger strength 50#. right wrist 60/55. right lateral pinch 10#. right tripod pinch 8#. right tip pinch 4#. right monofiliments. thumb 3.22. IF 2.83. MF 2.83. RF 2.83. LF 2.83. pt has done well with using his paddle orthosis at night and scar gel pad during the day. pt has made good gains and demo understanding of HEP reports he will cont. with his HEP. Patient Goals: Regain Mobility, Regain Strength, Use Hand/Wrist/Arm Normally Again Goal:100% adherence to protocol: Yes Goal:Daily scar massage when approriate: Yes Goal:ROM equal to unaffected hand: Yes Goal:Home Improvement Contractor/Pinch strength at least 75% of unaffected hand: Yes Goal:No pain with affected hand use: Yes Goal:Full use of affected hand in daily activities including: Yes Other Goal: pt will demo understanding of using orthosis nightly by end of 1st session. Plan: pt to cont.with HEP Discharge Comments: pt has done well and will cont with HEP and will return to work with 15# lift restriction until he is released by If there are questions or concerns regarding this patient's occupational therapy, please fell free to call me at [phone]. Thank you for the referral of this patient. Sincerely, Aye Zavala, ROBERTOR/Steve, CHT <Electronically signed by Aye FRANCO CHT> 08/24/20 0922 CC: JANEL CASTILLO; Dr. Iesha Infante, DAHIANA Signed aMry Chen CNP Work Phone: Start: 08-10-2020 End: 08-12-2020 OT General Evaluation Comments: See Note; NOTES: [facility] Occupational Therapy [facility] [address] [facility] [address] [facility] [place] [address] / REHABILITATION SERVICES INITIAL EVALUATION MR#: [id number] Acct: [id number] Name: ASHLI HOLLINS Rep #: [id number] : 1965 55 From: Aye FRANCO CHT Referring Dr.: OUT OF TOWN DOCTOR Status: REG R CR Insurance: ANTHEM Eval Date: SELF PAY INSURANCE Patient's Visit Information ASHLI HOLLINS is a 55 year old M, referred to Occupational Therapy by JANEL CASTILLO, with a diagnosis of right hand contracture. Date of Evaluation: 08/10/20 Occupational Therapist: JOAN Jama CHT - Subjective This 55-year-old male was seen for OT eval with dx with right CTS and Duypuytren's contracture of right hand- pt has had conservative methods to help with the contracture but was not helpful- pt decided to have sx done. July 23, 2020. order for therapy was placed on 08/04/20. pt works at [employer] and is to return to work August 17, 2020 to return to work. pt has padded brace for scar and night orthosis. pt demo ind. donning and doffing both night and day orthosis- pt did have one open area that continues to drain pt has concerns about. pt would like to return to work with restrictions Apr. but with open incision rec'd return to work August 24. 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 - Pain right hand 2 Pain Intensity Range: 3, 6 - Objective pt demo clean healing incision- noted one area pt was worried about due to seeping- - ROM Wrist: right 65/65 left 70/65 ROM Comments: right LF PIP -20/95. right RF PIP -40/100. right MF PIP -45/95 - Strength Home Improvement Contractor: right 20# left 95# Lateral Pinch: right 14# left 28# Tripod Pinch: right 10# left 26# Tip-to-Tip Pinch: right 8# left 20# - Sensation Thumb: right 3.22 left 3.22 Index: right 3.22 left 2.83 Middle: right 3.61 left 2.83 Ring: right 3.22 left 2.82 Little: right 3.22 left 3.22 - Quick DASH-Disab of Arm,Shoulder Hand Quick DASH Score: 58.3325 - Hand/Wrist Evaluation Total Score of Pain Functional Sections: 49 - Goals Goal:100% adherence to protocol: Yes Comment: Dr. SUERO post-op protocol Goal:Daily scar massage when approriate: Yes Goal:ROM equal to unaffected hand: Yes Comment: PIP ext to -10* or greater of right MF,RF,LF Goal:Home Improvement Contractor/Pinch strength at least 75% of unaffected hand: Yes Goal:No pain with affected hand use: Yes Goal:Full use of affected hand in daily activities including: Yes Other Goal: pt will demo understanding of using orthosis nightly by end of 1st session. - Rehabilitation General Assessment: PT arrives s/p 3 weeks and 5 days from CTR, Excision of Duypuytren's contracture. pt demo with tenderness over incision, weakness, and limited ROM. pt also demo with delay in incision healing with one area that is seeping. due to Pain with use pt limited with ADLs and IADls at this time. Pt would benefit from skilled OT services 1-2x week for 4 weeks to return pt to PLOF. Today therapist revied pts HEP of tendon glides, scar mtg, PROM for digit ext, and need of orthosis. pt demo understanding- therapist will vend elastomer for pt to wear at night in his orthosis and pt will cont to wear gel padded brace during the day. Therapist also ed. pt on signs of infection. pt demo understanding and agree to POC. Rehabilitation Potential: Good - Anticipated Interventions A/AAROM/PROM, Strengthening, Scar Care, Triggerpoint Release, Wound Care, Modalities, Orthoses, Joint Protection/Energy Conservation, Ergonomic Education, Fine Motor Coord/Humberto - Visit Plan Frequency: 1-2x /Week Duration: 4 Weeks TEXT: Thank you for the opportunity to evaluate your patient. For Medicare and Medicare HMO plans, please review the plan of care and approve it. It will need to be FAXED BACK to us at [phone] for Medicare purposes. Please let me know if there are questions or concerns regarding this plan of care. Physician Signature: ___Date: <Electronically signed by Aye FRANCO CHT> 08/12/20 0815 CC: JANEL CASTILLO; Dr. Iesha Infante DO MK Signed For Medicare only, by signing this I certify the plan of care. Physicians Signature Date Mary Chen EPIC RADIANT ANALYST Work Phone: Start: 07-20-2020 End: 07-20-2020 OT D/C of Non Returning Pt Comments: See Note; NOTES: [facility] Occupational Therapy [address] [place] [address] / REHABILITATION SERVICES DISCHARGE SUMMARY MR#: [id number] Acct: [id number] Name: ASHLI HOLLINS Rep #: [id number] : 1965 54 From: Aye FRANCO CHT Referring DrRodney: Dr. Eduardo Meehan MD Status: REG RCR Eval Date: Discharge Date: ASHLI HOLLINS was seen in my office for initial evaluation on 03/24/20. The following Plan of Care was established for this patient: Initial Frequency: 1x/Week Initial Duration: 3 Weeks Plan: pt to return to work- will call if needed Anticipated Interventions: A/AAROM/PROM, Edema Control, Triggerpoint Release, Modalities, Orthoses, Joint Protection/Energy Conservation This patient was last seen in our office on 04/30/20. Pt was seen for 4 OT sessions progressed well and demonstrated increase ind. with ADLs and IADLs. Pertinent comments regarding their Occupation al therapy will appear below: pt demo with a composite fist- right drop forger strength of 50# hard nodules felt at base of MF and IF Pt has met in OT goals and returned to work at this time. Pt D/C to cont with ROM and scar mtg. At this point I will be discontinuing this patient from occupational therapy. I would be happy to see this patient again in the future if found appropriate by the physician. Thank you! JOAN Jama CHT <Electronically signed by Aye FRANCO CHT> 07/20/20 1026 CC: Dr. Eduardo Meehan MD; Dr. Iesha Infante, MK Signed Mary Chen Start: 03-25-2020 End: 03-25-2020 OT General Evaluation Comments: See Note; NOTES: [facility] Occupational Therapy [facility] [facility] [place] [address] / REHABILITATION SERVICES INITIAL EVALUATION MR#: [id number] Acct: [id number] Name: ASHLI HOLLINS Rep #: [id number] : 1965 54 From: Aye FRANCO CHT Referring Dr.: Dr. Eduardo Meehan MD Status: REG R Insurance: ANTHEM Eval Date: SELF PAY INSURANCE Patient's Visit Information ASHLI HOLLINS is a 54 year old M, referred to Occupational Therapy by Dr. Eduardo Meehan MD, with a diagnosis of dupuytren's contracture of bilateral hands.. Date of Evaluation: 03/24/20 Occupational Therapist: JOAN Jama CHT - Subjective This 54 year old male was seen for OT eval with dx Dupuytren's contracture. pt states this is the 2nd time he had the xiaflex injection with manipulation. pt states Monday he was manipulated 2019. pt arrives today with soreness and tenderness up his right arm from hand to above elbow. pt would like to know what he needs to do to make the manipulation sucessful. - Pain right hand 7 - ROM MP: right LF +15/75 RF +10/70 PIP: right LF -15/95 RF -30/100 left LF -45/ 95 ROM Comments: when therapist asked pt to straighten fingers pts right LF and RF goes into hyper- exten keeping PIP of LF/RF in flexion. - Strength Strength Comments: will test at later date - Edema Other: MCP of right 24cm left 23cm - Sensation Thumb: right 3.84 left 3.84 Index: right 3.22 left 3.22 Middle: right 3.22 left 3.22 Ring: right 3.22 left 3.22 Little: right 3.22 left 3.22 - Quick DASH-Disab of Arm,Shoulder Hand Quick DASH Score: 65.0000 - Goals Goal:: pt will demo a increase in digit ext by 15* or greater to increas pts ind. with ADLs and IADLs by d.c Goal:: pt will report pain no greater than 1/10 with use of right hand with ADLs and IADls Goal:: pt will demo a reduction in swelling by .5 cm indicating healing and to increase ROM by week 3 Goal:: pt will demo ind. doffing/donning of orthosis by end of 1st visit. Pt will demonstrate understanding of orthosis use and precautions by end of 1st session and demonstrate knowledge of returning to clinic if orthosis needs adj. to increase comfort by end of 1st session. Therapist ed. Pt on correct donning/doffing orthosis, use and precautions. Pt agrees to return to clinic to have orthosis adj if needed. - Rehabilitation General Assessment: pt 4 days post right-hand manipulation. pt demo with limited ROM and pain decreasing pts use right hand with ADLs and IADLS. pt would benefit from skilled OT services 1x week for 4 weeks to return pt to PLOF. Today therapist ed. pt on AAROM/AROM PROM of elbow, forearm, wrist along with reverse blocking PIP to gain better digit ext without hyper ext of MPs. Therapist rec'd top piece to prevent PIP flex. In current orthosis MCPs are in 10* hyper-extension. therapist advised pt in contrast bath for edema mtg and use of ice to forearm to decrease soreness. Rehabilitation Potential: Good - Anticipated Interventions A/AAROM/PROM, Edema Control, Triggerpoint Release, Modalities, Orthoses, Joint Protection/Energy Conservation - Visit Plan Frequency: 1x/Week Duration: 3 Weeks TEXT: Thank you for the opportunity to evaluate your patient. For Medicare and Medicare HMO plans, please review the plan of care and approve it. It will need to be FAXED BACK to us at [phone] for Medicare purposes. Please let me know if there are questions or concerns regarding this plan of care. Physician Signature: ___Date: <Electronically signed by Aye FRANCO CHT> 03/25/20 1051 CC: Dr. Eduardo Meehan MD; Dr. Iesha Infante DO MK Signed For Medicare only, by signing this I certify the plan of care. Physicians Signature Date Mary Chen Start: 12-30-2019 End: 12-30-2019 Abdomen Single View Comments: See Note; NOTES: [facility] Imaging Services [address] [place] [address] Abdomen Single View MR#: [id number] Acct: [id number] Name: ASHLI HOLLINS Rep #: [id number] : 1965 M 54 From: Artem Hernandez MD PCP: Dr. Iesha Infante, DO Status: REG CLI Study: Abdomen Single View Date of Exam: 12/30/19 Exam# [id number] Ordering Dr: Mary Chen INDUSTRIAL ENERGY ENGINEER-C STUDY: X-RAY - ABDOMEN/PELVIS REASON FOR EXAM: Male, 54 years old. hx of ileus-April -- abd pain TECHNIQUE: AP supine and upright views of the abdomen and pelvis. COMPARISON: None. FINDINGS: Normal visualized lung bases. There is an unremarkable bowel gas pattern. There is no demonstrated free abdominal air. The visualized liver, spleen and kidneys are grossly normal in size and morphology. Normal soft tissue structures. Normal visualized osseous structures. RAD/Abdomen Single View IMPRESSION: Normal x-ray examination of the abdomen and pelvis. Electronically Signed: Erlin Hernandez MD at 17:00 EDT , Service support , CC: AILYN Chen; Dr. Iesha Infante DO Liquor Gallery Operator: Signed Mary Chen Work Phone: Start: 06-27-2019 End: 06-27-2019 Echocardiogram Complete Comments: See Note; NOTES: [facility] Cardiovascular Services [address] [facility] [place] [address] Echo Complete 06/27/19 0801 MR#: [id number] Acct: [id number] Name: ASHLI HOLLINS Rep #: [id number] : 1965 53 From: Fernando Suazo MD Attending Dr: AILYN Pinto Status: REG CLI Ordering Dr: Mary Chen Date: 06/27/19 Location: [facility] Sex: M C Admitted: Reason For Study: SINUS BRADYCARDIA Procedure This was a 2D Doppler, Color Flow transthoracic echocardiogram. Exam performed in department. Left Ventricle Normal LV size. The estimated ejection fraction is 55 %. Normal diastology for age. No regional wall motion abnormalities noted. Right Ventricle Normal RV size. Normal systolic function. Atria Normal left atrium. Normal right atrium. No doppler evidence for ASD. Mitral Valve There is no mitral valve stenosis. Trivial mitral valve insufficiency. Tricuspid Valve There is no tricuspid stenosis. Mild tricuspid valve insufficiency. Pulmonary artery systolic pressure is 35 mmHg. Aortic Valve Trisinus/trileaflet aortic valve. There is no aortic stenosis. Trivial aortic valve insufficiency. Pulmonic Valve There is no pulmonic valvular stenosis. Trivial pulmonic valve insufficiency. Great Vessels Normal aortic root. Pericardium/Pleural No pericardial effusion. MMode/2D Measurements AND Calculations LVIDd: 5.0 cm IVSd: 0.78 cm Ao root diam: 3.5 cm LVIDs: 3.5 cm LVPWd: 0.88 cm RVDd: 4.0 cm FS: 28.6 % LAV(MOD-bp): 65.6 ml LA A4 area: 20.3 cm2 LA dimension(2D): 4.5 cm LAV(MOD-bp) Indexed: 27.7 ml/m2 LAV(MOD-sp2): 65.6 ml LAV(MOD-sp4): 59.2 ml RA A4 area: 18.2 cm2 Time Measurements MV dec time: 0.19 sec Doppler Measurements AND Calculations MV E max hyacinth: 89.0 cm/sec Lat Peak E' Hyacinth: 12.3 cm/sec Med Peak E' Hyacinth: 11.1 cm/sec MV A max hyacinth: 51.5 cm/sec E/E' lat: 7.2 E/E' med: 8.0 MV E/A: 1.7 Ao V2 max: 132.5 cm/sec LV V1 max: 105.6 cm/sec PA V2 max: 118.6 cm/sec Ao max P.0 mmHg LV V1 max P.5 mmHg PI end-d hyacinth: 77.2 cm/sec TR max hyacinth: 269.3 cm/sec TR max P.0 mmHg Interpretation Summary The estimated ejection fraction is 55 %. Normal diastology for age. Trivial mitral valve insufficiency. Mild tricuspid valve insufficiency. Pulmonary artery systolic pressure is 35 mmHg. Trivial aortic valve insufficiency. Ordering Physician: Mary Chen Referring Physician: IESHA INFANTE Performed By: Sosa oMnsivais, BONILLACS, RVT 06/27/19 1648 Date Fernando Suazo MD CC: INDUSTRIAL ENERGY ENGINEER-C Mary Chen; Iesha Infante DO Date Dictated: 06/27/19 0801 Date Transcribed: 06/27/19 1648 Liquor Gallery Operator: Signed Mary Chen Work Phone: Start: 05-04-2019 End: 05-04-2019 Abdomen/Pelvis without Cont Comments: See Note; NOTES: [facility] Imaging Services [address] [place] [address] Abdomen/Pelvis without Cont MR#: [id number] Acct: [id number] Name: ASHLI HOLLINS Rep #: [id number] : 1965 M 53 From: Tha Napoles MD PCP: Iesha Infante DO Status: REG ER Study: Abdomen/Pelvis without Cont Date of Exam: 05/04/19 Exam# [id number] Ordering Dr: Calvin Lopez MD STUDY: CT ABDOMEN AND PELVIS WITHOUT CONTRAST REASON FOR EXAM: Male, 53 years old. Abdominal pain RADIATION DOSAGE (If Supplied By Facility): CTDIvol = ( 20.87 ) mGy, DLP = ( 1121.24 ) mGycm TECHNIQUE: Transaxial images were obtained from the dome of the diaphragm to the symphysis pubis without oral contrast, and without intravenous contrast. Sagittal and coronal images were reconstructed. Individualized dose optimization techniques were used for this CT. COMPARISON: None. FINDINGS: Evaluation of the abdominal viscera is limited in the absence of intravenous contrast. There is atelectasis at the lung bases. The visualized portions of the heart and pericardium are within normal limits. There are no calcified gallstones present. The liver demonstrates an unremarkable unenhanced appearance. The spleen is normal in size. The pancreas demonstrates an unremarkable unenhanced appearance. The adrenal glands are within normal limits. There are no renal or ureteral stones. There is no hydronephrosis. There is a small hiatal hernia. There are dilated loops of proximal small bowel with collapsed loops noted distally. This is consistent with a small bowel obstruction. The transition point is in the mid abdomen to the right of midline (image 38 series 143). The appendix is visualized and appears normal. The aorta is normal in caliber. There is no abdominal or pelvic free air, free fluid, fluid collection or lymphadenopathy. There are no destructive osseous lesions. CT/Abdomen/Pelvis without Cont IMPRESSION: Small bowel obstruction. No free air, free fluid or fluid collection. Electronically Signed: Tha Napoles, at 15:56 EST Tel , Service support , CC: Iesha Infante DO; Te Lopez MD Liquor Gallery Operator: Signed Mary Chen Start: 01-17-2019 End: 01-17-2019 Tibia AND Fibula 2 Views Comments: See Note; NOTES: [facility] Imaging Services [address] [facility] [place] [address] Tibia AND Fibula 2 Views MR#: [id number] Acct: [id number] Name: ASHLI HOLLINS Rep #: [id number] : 1965 M 53 From: Ivan Gonzalez MD PCP: Iesha Infante DO Status: REG CLI Study: Tibia AND Fibula 2 Views Date of Exam: 01/17/19 Exam# [id number] Ordering Dr: Sloane Sood INDUSTRIAL ENERGY ENGINEER-Demarcus STUDY: X-RAY - RIGHT TIBIA AND FIBULA REASON FOR EXAM: Male, 53 years old. Anterior pain following injury. TECHNIQUE: AP and lateral view(s) of the tibia and fibula were obtained. COMPARISON: None. FINDINGS: Normal visualized tibia. Normal visualized fibula. The soft tissue structures are unremarkable. RAD/Tibia AND Fibula 2 Views IMPRESSION: Normal x-ray examination of the tibia and fibula. Electronically Signed: Ivan Gonzalez, at 12:30 EDT , Service support , CC: AILYN Sood; Iesha Infante DO Liquor Gallery Operator: Signed Sloane Sood Start: 01-09-2018 End: 01-09-2018 OT D/C of Non Returning Pt Comments: See Note; NOTES: [facility] Occupational Therapy [facility] [address] [place], [place] [address] Fax REHABILITATION SERVICES DISCHARGE SUMMARY MR#: [id number] Acct: [id number] Name: ASHLI HOLLINS Rep #: [id number] : 1965 52 From: Aye FERNANDEZ/DAT Wilson Referring Dr.: Eduardo Meehan MD Status: REG RCR Eval Date: Discharge Date: HP - Discharge Summary - Patient Information ASHLI HOLLINS was seen in my office for initial evaluation on 11/01/17. The following Plan of Care was established for this patient: - Anticipated Interventions Anticipated Interventions: A/AAROM/PROM, Strengthening, Edema Control, Triggerpoint Release, Modalities, Orthoses, Ergonomic Education, Home Program This patient was last seen in our office 11/01/17. Pertinent comments regarding their Occupational therapy will appear below: Pt seen for inital OT visit for berenice. of custom orthosis. pt was to return if he needed orthosis adj. pt has not done so and is currently d/c at this time. At this point I will be discontinuing this patient from occupational therapy. I would be happy to see this patient again in the future if found appropriate by the physician. Thank you! Aye Zavala OTR/L, CHT <Electronically signed by Aye Zavala OTR/Steve, CHT> 01/09/18 0826 CC: Eduardo Meehan MD; Iesha Infante DO MK Signed Mary Lentzkevin Start: 12-28-2017 End: 12-29-2017 Foot min 3 Views Comments: See Note; NOTES: [facility] Imaging Services [address] [place] [address] Foot min 3 Views MR#: [id number] Acct: [id number] Name: ASHLI HOLLINS Rep #: [id number] : 1965 M 52 From: Abel Vergara DO PCP: Iesha Infante DO Status: REG CLI Study: Foot min 3 Views Date of Exam: 12/28/17 Exam# [id number] Ordering Dr: Sloane Sood STUDY: X-RAY - LEFT FOOT CLINICAL: Male, 52 years old. Injury 3 weeks ago, pain across the distal metatarsals TECHNIQUE: 3 view(s) of the foot. COMPARISON: None. FINDINGS: Normal talus, calcaneus, and tarsal bones. Normal visualized subtalar, talonavicular, calcaneocuboid, tarsal and tarsometatarsal articulations. Normal metatarsi. Normal metatarsophalangeal joint of the great toe. Normal tibial and fibular sesamoid bones. Normal interphalangeal joint of the great toe. Normal phalanges of the great toe. Normal second through fifth metatarsophalangeal joints. There is a nondisplaced fracture of the proximal fifth phalanx. This appears to involve both the proximal and distal aspects of the proximal fifth phalanx. Distally, the fracture extends into the interphalangeal joint of the small toe. There may be intra-articular extension at the fifth metatarsal phalangeal joint. 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 There is soft tissue swelling within the fifth toe. RAD/Foot min 3 Views IMPRESSION: Fractures of the proximal fifth phalanx, as described above. Electronically Signed: Abel Vergara DO at 10:43 EDT Tel , Service support , CC: AILYN Sood; Iesha Infante DO Liquor Gallery Operator: Signed Sloane Sood Start: 11-03-2017 End: 11-03-2017 OT General Evaluation Comments: See Note; NOTES: [facility] Occupational [facility] [address] [place], [place] [address] Fax REHABILITATION SERVICES INITIAL EVALUATION MR#: [id number] Acct: [id number] Name: ASHLI HOLLINS Rep #: [id number] : 1965 52 From: Aye FERNANDEZ/Steve, JUAN ALBERTOT Referring Dr.: Eduardo Meehan MD Status: REG RCR Insurance: [employer] Date: SELF PAY INSURANCE Patient's Visit Information ASHLI HOLLINS is a 52 year old M, referred to Occupational Therapy by Eduardo Meehan MD, with a diagnosis of Dupuytren's contracture. Date of Evaluation: 11/01/17 Occupational Therapist: JIM Jama/Steve, CHT - Subjective Subjective: PT attends OT session following dx of Dupuytren;s contracture of both hands- pt had his left hand xlyflex injection 4 weeks ago and had his right injected on October 27, 2017 pt had right hand manipulated and paddle splint was fabricated this date- pt is instructed to wear paddle splint for 4 months. pt reports he is performing all daily occupations at this time- pt will return to working in november. - Pain right hand 4 Pain Intensity Range: 1, 4 - ROM Wrist: right 75/60 left 75/60 ROM Comments: right PIP RF -20/95 left 0/95. right PIP LF -10/90 left -20/90 - Strength Home Improvement Contractor: right 40# left 80# Lateral Pinch: right 14# left 18# Tripod Pinch: right 14# left 16# - Edema PIP: right MF 7.5 left 7.5 right RF 8.0 left 7.5 - DASH-Disabilities of Arm, Shoulder AND Hand DASH Sum: 72 - Goals Goal:: pt will demo a 60# drop forger strength to increase pts ind. with opening tight jar lids. by d/c Goal:: pt will report pain no greater than 1/10 with use of right hand by d/c Goal:: pt will demo a reduction of right digit edema by .5 to gain end range of digit motion by d/c Goal:: pt will demo understanding of work simplification and joint protection by end of 1st session to increase ease of job tasks. - Rehabilitation General Assessment: PT is 5 days post xiaflex injection- he is demo functional composite fist- brusing on dorsal side of hand and palm-and slight swelling of right hand- pt demo blood blister on ulnar side of RF. pt demo correct donning and doffing of custom orthosis- pt demo functional ROM and can perform ADLS and IADLs at ind. level. Rehabilitation Potential: Excellent - Anticipated Interventions Anticipated Interventions: A/AAROM/PROM, Strengthening, Edema Control, Triggerpoint Release, Modalities, Orthoses, Ergonomic Education, Home Program - Visit Plan TEXT: Thank you for the opportunity to evaluate your patient. For Medicare and Medicare HMO plans, please review the plan of care and approve it. It will need to be FAXED BACK to us at [phone] for Medicare purposes. Please let me know if there are questions or concerns regarding this plan of care. Physician Signature: ___Date: <Electronically signed by Aye FERNANDEZ/JUAN ALBERTO WilsonT> 11/03/17 0816 CC: Eduardo Meehan MD; Iesha Naresh WICK MK Signed For Medicare only, by signing this I certify the plan of care. Physicians Signature Date Mary Chen Start: 10-06-2017 End: 10-06-2017 OT D/C Summary Comments: See Note; NOTES: [facility] [facility] [place] [address] Fax REHABILITATION SERVICES DISCHARGE SUMMARY MR#: [id number] Acct: [id number] Name: ASHLI HOLLINS Rep #: [id number] : 1965 52 From: Aye FERNANDEZ/DAT Wilson Referring DrRodney: Eduardo Meehan Status: REG RCR Eval Date: Discharge Date: - OT D/C Summary It has been my pleasure to treat ASHLI HOLLINS under orders from Eduardo Meehan, for the diagnosis of Dupuytren's contracture of bilateral hands for a total of 2 visit(s). Please see the following information for a summary of their discharge status. - Objective Objective/Function: left IF MCP -20/85 pip 0/95 DIP 0/55. left MF MCP -15/90 pip 0/90 DIP 0/75. left RD MCP -20/90 pip 0/100 DIP 0/55. left LF MCP +15/45 PIP 0/100 DIP 0/70. [ End ] - Goals Patient Goals: Regain Mobility, Regain Strength, Decrease Pain, Decrease Swelling/Stiffness, Use Hand/Wrist/Arm Normally Again, Be More Independent in ADLS Goal:: pt will demo the ability to form a composite fist to increase his ind. with BADLS and IADLS by D/C Goal:: pt will report pain no greater than 1/10 with use of left hand for BADLs and IADLs by D/c Goal:: pt will demo the ability to manipulate 10 coins without dropping to increase money manipulation by d/c Goal:: pt will demo a reduction in edema by .5 cm to increase fluid digit ROM by d/c Goal:: pt will demo understanding of scar mtg by end of 2nd session do decrease potential scar hypertrophy - Plan Plan: D/C - D/C Information Discharge Comments: pt is feeling better- and demo functional ROM. pt states following his cortisone shot yesterday his swelling is gone. pt is to cont. with use of orthosis at night- gave rec'd for work alternatives to decrease edema- pt has met functional goals in OT and is now D/C If there are questions or concerns regarding this patient's occupational therapy, please fell free to call me at [phone]. Thank you for the referral of this patient. Sincerely, JIM Jama/Steve, CHT <Electronically signed by Aye FERNANDEZ/Steve, CHT> 10/06/17 0950 CC: Eduardo Meehan; Iesha Infante MK Signed Mary Chen Start: 09-25-2017 End: 09-25-2017 OT General Evaluation Comments: See Note; NOTES: [facility] Occupational Therapy [facility] [address] [facility] [address] [place] [address] Fax REHABILITATION SERVICES INITIAL EVALUATION MR#: [id number] Acct: [id number] Name: ASHLI HOLLINS Rep #: [id number] : 1965 52 From: Aye FRANCO CHT Referring Dr.: Eduardo Meehan MD Status: REG [facility] Insurance: [facility] [place] Date: SELF PAY INSURANCE Patient's Visit Information ASHLI HOLLINS is a 52 year old M, referred to Occupational Therapy by Eduardo Meehan MD, with a diagnosis of Dupuytren's contracture of bilateral hands. Date of Evaluation: 09/25/17 Occupational Therapist: JIM Jama/Steve, CHT - Subjective Subjective: PT arrives to session following a Dupuytren's contracture of bilateral hands. The pt states he has had 5-10 years of a contractures. 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 pt arrives with orthosis on and reports his hand is painful. - Pain left hand 5 Pain Intensity Range: 0, 8 - ROM ROM Comments: left IF MCP -20/45 pip 75 DIP 45. left MF MCP -15/35 pip [address] MCP -20/40 pip 80 DIP 40. left LF MCP +15/45 PIP 60 DIP 35 - Strength Strength Comments: Not tested. - Edema PIP: MF RIGHT 7.2 LEFT 7.5 Other: Right MCP 21cm left 22.5cm - Hand/Wrist Evaluation Total Score of Pain AND Functional Sections: 62 - Goals Goal:: pt will demo the ability to form a composite fist to increase his ind. with BADLS and IADLS by D/C Goal:: pt will report pain no greater than 1/10 with use of left hand for BADLs and IADLs by D/c Goal:: pt will demo the ability to manipulate 10 coins without dropping to increase money manipulation by d/c Goal:: pt will demo a reduction in edema by .5 cm to increase fluid digit ROM by d/c Goal:: pt will demo understanding of scar mtg by end of 2nd session do decrease potential scar hypertrophy - Rehabilitation General Assessment: s/p left segmental fasciectomies with two transvers incisions- pt demo with sx bruising/edema and limited ability to form a composite fist- pt demo one closed incision distal and proximal incision slight open- pt insturcted in signs to watch for infection- this session orthosis was adj to increase pts comfort and pt was ed. in tendon glide ex along with wrist, forearm, elbow and shoulder ROM to increase pts circulation and functional mobility. pt demo understanding- pt would benefit from skilled OT services 1x week for 2-4 weeks to return pt to PLOF. Rehabilitation Potential: Excellent - Anticipated Interventions Anticipated Interventions: A/AAROM/PROM, Edema Control, Desensitization, Wound Care, Orthoses - Visit Plan Frequency: 1x/Week Duration: 2-4 Weeks General Plan: pt would benefit from skilled OT services 1x week for 3-4 weeks to ensure orthosis comfort and fit- as well as edema reduction and return of pts ROM and strength for BADLs and IADLS. TEXT: Thank you for the opportunity to evaluate your patient. For Medicare and Medicare HMO plans, please review the plan of care and approve it. It will need to be FAXED BACK to us at [phone] for Medicare purposes. Please let me know if there are questions or concerns regarding this plan of care. Physician Signature: ___Date: <Electronically signed by Aye FERNANDEZ/Steve, CHT> 09/25/17 0711 CC: Eduardo Meehan MD; Iesha Infante DO Signed For Medicare only, by signing this I certify the plan of care. Physicians Signature Date Mary Chen Start: 05-16-2017 End: 05-16-2017 Chest PA and Lateral Comments: See Note; NOTES: [facility] Imaging Services [address] [place] [address] Chest PA and Lateral MR#: [id number] Acct: [id number] Name: ASHLI HOLLINS Rep #: [id number] : 1965 M 51 From: Ariel Tapia DO PCP: Mary Chen NP Status: REG CLI Study: Chest PA and Lateral Date of Exam: 05/16/17 Exam# [id number] Ordering Dr: Sloane Sood INDUSTRIAL ENERGY ENGINEER-C STUDY: X-RAY CHEST REASON FOR EXAM: Male, 51 years old. Cough. Flulike symptoms for 2 days. TECHNIQUE: PA and lateral views of the chest. COMPARISON: None. FINDINGS: The lungs are mildly hyperexpanded. There is no focal mass or infiltrate. There is no demonstrated pleural abnormality. Normal size heart. Normal mediastinum and leigh. Normal visualized pulmonary arteries. Normal visualized aortic arch and descending thoracic aorta. Normal visualized thoracic spine. There is degenerative osteoarthritis of the bilateral shoulders. There is no demonstrated abnormality of the visualized soft tissue structures of the upper abdomen. RAD/Chest PA and Lateral IMPRESSION: No acute cardiopulmonary disease. Electronically Signed: Ariel Tapia DO at 10:04 EST Tel [phone], Service support , CC: Mary Chen NP; INDUSTRIAL ENERGY ENGINEER-C Sloane Sood Liquor Gallery Operator: Signed Sloane Sood Start: 10-20-2016 End: 10-20-2016 Bone Scan Whole Body Comments: See Note; NOTES: [facility] Imaging Services [address] [place] [address] Verdana 4d Bone Scan Whole Body MR#: [id number] Acct: [id number] Name: ASHLI HOLLINS Rep #: [id number] : 1965 M 51 From: Reynaldo Nicole DO PCP: Mary Chen Status: REG CLI Study: Bone Scan Whole Body Date of Exam: 10/20/16 Exam# [id number] Ordering Dr: Mary Chen CLINICAL: 51 year old male with history of low back-sacral discomfort. WHOLE BODY Tc MDP RADIONUCLIDE BONE SCINTIGRAPHY COMPARISON: None available FINDINGS: Following the intravenous administration of 26.1 mCi of Tc MDP, whole body bone images reveal: 1. Focal increased radiopharmaceutical concentration is identified in the posterior midline sacrum, acromioclavicular compartments of the right and left shoulders, bilateral hip articulations at the femoral head-acetabular interface. 2. The remaining skeletal structures are scintigraphically unremarkable with normal-appearing renal images and urinary bladder activity identified. NM/Bone Scan Whole Body IMPRESSION: 1. The increase in radiopharmaceutical concentration identified in the right and left shoulders, hip articulations bilaterally and posterior midline sacrum is most consistent with degenerative arthritis. 2. There is no definitive typical scintigraphic evidence of trauma-fracture or skeletal metastatic disease on the current examination. Electronically Signed: Reynaldo Nicole DO at 17:25 EDT Tel , Service support , CC: Mary Chen Liquor Gallery Operator: Signed Mary Chen Work Phone: Start: 10-18-2016 End: 10-18-2016 Testicular with Arterial Flow Comments: See Note; NOTES: [facility] Imaging Services [address] [address] [address] 4[address] Testicular with Arterial Flow MR#: [id number] Acct: [id number] Name: ASHLI HOLLINS Rep #: [id number] : 1965 M 51 From: Ivan Gonzalez MD PCP: Mary Chen Status: REG CLI Study: Testicular with Arterial Flow Date of Exam: 10/18/16 Exam# [id number] Ordering Dr: Mary Chen STUDY: SCROTUM ULTRASOUND REASON FOR EXAM: Male, 51 years old. Bilateral testicular pain. TECHNIQUE: Ultrasound evaluation of the scrotum was performed with color Doppler and static santiago-scale imaging. COMPARISON: None. FINDINGS: RIGHT TESTICLE INTRATESTICULAR: There is a normal size of the right testicle. The right testicle measures 4.3 cm x 2.3 cm x 2.5 cm. There is a homogenous echotexture. There is normal arterial and normal venous vascularity. There is no demonstrated right testicular mass or cyst. EXTRATESTICULAR: The epididymis is normal in size. The epididymis head measures 0.8 cm x 1.1 cm x 1.1 cm. There is normal vascularity of the epididymis. There is no demonstrated epididymal cystic structure. There is a small hydrocele. There is no demonstrated varicocele. There is no demonstrated extratesticular mass or cyst. LEFT TESTICLE INTRATESTICULAR: There is a normal size of the left testicle. The left testicle measures 4.2 cm x 2.4 cm x 2.2 cm. There is a homogenous echotexture. There is normal arterial and normal venous vascularity. There is no demonstrated left testicular mass or cyst. EXTRATESTICULAR: The epididymis is normal in size. The epididymis head measures 0.9 cm x 1.1 cm x 0.9 cm. There is normal vascularity of the epididymis. There is no demonstrated epididymal cystic structure. There is a small hydrocele. There is no demonstrated varicocele. There is no demonstrated extratesticular mass or cyst. US/Testicular with Arterial Flow IMPRESSION: Small bilateral hydroceles. Electronically Signed: Ivan Gonzalez MD at 9:08 EDT Tel [phone], Service support , CC: Mary Chen Liquor Gallery Operator: Signed Mary Chen Work Phone: Knee region structur e (body structure) HERBERT BIRCH MD None (qualifier value) HERBERT BIRCH MD Plan of Treatment Date Care Activity Detail Author Start: 02-17-2023 Assay of prostate specific antigen total PSA TOTAL (RFLX FREE) 902919 (59507) [facility]; [facility] Work Phone: Start: 02-17-2023 Lipid panel LIPID PANEL (83708) : prior to next office visit [facility]; [facility] Work Phone: Start: 02-17-2023 Procedure Education Eprescribed prescriptions (G8553) [facility]; [facility] Work Phone: Start: 02-17-2023 Provider Instructions for Treatment Follow up in 6 months [facility]; [facility] Work Phone: Start: 02-17-2023 Urinalysis qual/semiquant except immunoassays URINALYSIS (98860) [facility]; [facility] Work Phone: Start: 12-21-2022 Procedure Education Eprescribed prescriptions (G8553) [facility]; [facility] Work Phone: Start: 12-21-2022 Provider Instructions for Treatment Follow up - Keep appt as scheduled [facility]; [facility] Work Phone: Start: 11-16-2022 25 hydroxy includes fractions if performed CALCIFEDIOL (35752) [facility]; [facility] Work Phone: Start: 11-16-2022 Assay of thyroid stimulating hormone tsh TSH (THYROID STIMULATING HORMONE) (70863) [facility]; [facility] Work Phone: Start: 11-16-2022 Comprehensive metabolic panel METABOLIC PANEL, COMPREHENSIVE (22074) : in 3-4 months [facility]; [facility] Work Phone: Start: 11-16-2022 Lipid panel LIPID PANEL (03506) : today [facility]; [facility] Work Phone: Start: 11-16-2022 Patient Education [facility]; [facility] Work Phone: Start: 11-16-2022 Procedure Education Eprescribed prescriptions (G8553) [facility]; [facility] Work Phone: Start: 11-16-2022 Provider Instructions for Treatment [facility]; [facility] Work Phone: Start: 11-07-2022 Assay of troponin quantitative Troponin I (82813) [facility]; [facility] Work Phone: Start: 11-07-2022 Blood count complete auto&auto difrntl wbc CBC, PLATELETS & AUT DIFF (21961) [facility]; [facility] Work Phone: Start: 11-07-2022 C-reactive protein high sensitivity C-REACT PROT HIGH SENS(hsCRP) (30317) [facility]; [facility] Work Phone: Start: 11-07-2022 Comprehensive metabolic panel METABOLIC PANEL, COMPREHENSIVE (35591) [facility]; [facility] Work Phone: Start: 11-07-2022 Procedure Education Eprescribed prescriptions (G8553) [facility]; [facility] Work Phone: Start: 11-07-2022 Sedimentation rate rbc automated Sedimentation Rate-ESR (28842) [facility]; [facility] Work Phone: Start: 11-07-2022 Urinalysis qual/semiquant except immunoassays URINALYSIS (46152) [facility]; [facility] Work Phone: Start: 08-02-2022 Iaadiadoo influenza Inhouse FLU A+B DIRECT AG, (RAPID) (90468) [facility]; [facility] Work Phone: Start: 08-02-2022 Patient Education Gastroenteritis, Adult [facility]; [facility] Work Phone: Start: 08-02-2022 Procedure Education Eprescribed prescriptions (G8553) [facility]; [facility] Work Phone: Start: 08-02-2022 Provider Instructions for Treatment Follow up if no improvement or if symptoms worsen [facility]; [facility] Work Phone: Start: 06-13-2022 Patient Education Hematuria (Blood in Urine): hematuria [facility]; [facility] Work Phone: Start: 06-10-2022 Procedure Education Eprescribed prescriptions (G8553) [facility]; [facility] Work Phone: Start: 06-10-2022 Provider Instructions for Treatment Follow up if no improvement or if symptoms worsen [facility]; [facility] Work Phone: Start: 06-10-2022 Urnls dip stick/tablet reagent auto microscopy Urinalysis, Complete W/ Microscopic Examination with reflex to urine culture, routine (31303) [facility]; [facility] Work Phone: Start: 06-08-2022 Procedure Education Eprescribed prescriptions (G8553) [facility]; [facility] Work Phone: Start: 06-08-2022 Provider Instructions for Treatment Shoulder Injection [facility]; [facility] Work Phone: Start: 05-26-2022 Procedure Education Eprescribed prescriptions (G8553) [facility]; [facility] Work Phone: Start: 05-26-2022 Provider Instructions for Treatment Follow up in 4 weeks [facility]; [facility] Work Phone: Start: 05-10-2022 Procedure Education Eprescribed prescriptions (G8553) [facility]; [facility] Work Phone: Start: 05-10-2022 Provider Instructions for Treatment Follow up if no improvement or if symptoms worsen [facility]; [facility] Work Phone: Start: 04-15-2022 Procedure Education Eprescribed prescriptions (G8553) [facility]; [facility] Work Phone: Start: 04-15-2022 Provider Instructions for Treatment Follow up in 3 months [facility]; [facility] Work Phone: Start: 04-01-2022 Procedure Education Eprescribed prescriptions (G8553) [facility]; [facility] Work Phone: Start: 04-01-2022 Provider Instructions for Treatment [facility]; [facility] Work Phone: Start: 04-01-2022 25 hydroxy includes fractions if performed CALCIFEDIOL (47740) [facility]; [facility] Work Phone: Start: 05-24-2021 Procedure Education Eprescribed prescriptions (G8553) [facility]; [facility] Work Phone: Start: 05-24-2021 Iaadiadoo influenza 2019 Novel Coronavirus (COVID-19), LINDA (99213) [facility]; [facility] Work Phone: Start: 02-07-2020 Procedure Education Eprescribed prescriptions (G8553) [facility] Work Phone: Start: 02-07-2020 Provider Instructions for Treatment Follow up in 5months [facility] Work Phone: Start: 02-07-2020 Assay of thyroid stimulating hormone tsh TSH (THYROID STIMULATING HORMONE) (16048) [facility]; [facility] Work Phone: Immunizations Immunization Date Immunization Notes Care Provider Jake venegas 02-04-2020 influenza, seasonal, injectable Mary Chen [facility] Work Phone: 01-14-2017 tetanus toxoid, reduced diphtheria toxoid, and acellular pertussis vaccine, adsorbed HERBERT BIRCH MD [facility] Payers Date Payer Category Payer Unknown [id number] 2021 Unknown [id number] 2016 Private Health Insurance [id number] 1966 Unknown [id number] 1966 Unknown [id number] 1966 Unknown [id number] Unknown [place] BC/BS Unknown [place] 914 Social History Date Type Detail Facility Alcohol Use: Occasional alcohol use. [facility] Work Phone: Caffeine Use [facility] Work Phone: Functional Status Date Assessment Result Facility 12-19-2022 Functional Status ID band on, Call device within reach, Bed in low position, Wheels locked, Bedside Cart Locked, Visitor at bedside, Safety level maintained [facility] 12-19-2022 Functional Status [facility] Mental Status Date Assessment Result [facility] 12-19-2022 Mental Status Oriented x 4 [facility] Clinical Notes 12-19-2022 Note Date & Type Note Facility 12-19-2022 Hospital Discharge instructions Patient Education 12/19/2022 17:33:36 Chest Pain, Uncertain Cause Uncertain Causes of Chest Pain Chest pain can happen for a number of reasons. Sometimes the cause can't be determined. If your condition does not seem serious, and your pain does not appear to be coming from your heart, your healthcare provider may recommend watching it closely. Sometimes the signs of a serious problem take more time to appear. Many problems not related to your heart can cause chest pain. These include: Musculoskeletal. Costochondritis is an inflammation of the tissues around the ribs that can occur from trauma or overuse injuries, or a strain of the muscles of the chest wall Respiratory. Pneumonia, collapsed lung (pneumothorax), or inflammation of the lining of the chest and lungs (pleurisy) Gastrointestinal. Esophageal reflux, heartburn, ulcers, or gallbladder disease Anxiety and panic disorders Nerve compression and inflammation Rare miscellaneous problems such as aortic aneurysm (a swelling of the large artery coming out of the heart) or pulmonary embolism (a blood clot in the lungs) Home care After your visit, follow these recommendations: Rest today and avoid strenuous activity. Take any prescribed medicine as directed. Be aware of any recurrent chest pain and notice any changes Follow-up care Follow up with your healthcare provider if you do not start to feel better within 24 hours, or as advised. Call 911 Call 911 if any of these occur: A change in the type of pain: if it feels different, becomes more severe, lasts longer, or begins to spread into your shoulder, arm, neck, jaw or back Shortness of breath or increased pain with breathing Weakness, dizziness, or fainting Rapid heart beat Crushing sensation in your chest When to seek medical advice Call your healthcare provider right away if any of the following occur: Cough with dark colored sputum (phlegm) or blood Fever of 100.4 F (38 C) or higher, or as directed by your healthcare provider Swelling, pain or redness in one leg [id number] [employer]. [address] [place] [address]. All rights reserved. This information is not intended as a substitute for professional medical care. Always follow your healthcare professional's instructions. Follow Up Care 12/19/2022 15:22:52 With:IESHA INFANTE Address: [address] [place] [address] [address] [place] [address]- Business (1) When:2-4 days Comments:Schedule appointment for close follow-up.Continue all routine medications.Return to the ED if symptoms recur or worsen. [facility] 12-19-2022 Emergency department Discharge summary Discharge Instructions Thank you for allowing [facility] to assist you with your healthcare needs. The following is important discharge information regarding your hospital visit. Diagnosis from Today's Visit Chest pain What to Do Next Instructions from Your Care Team No qualifying data available. Post Acute Orders No qualifying data available. You Need to Schedule the Following Appointments Follow Up with IESHA INFANTE When Within 2-4 days Why: Schedule appointment for close follow-up. Continue all routine medications. Return to the ED if symptoms recur or worsen. Where: [address] [place] [address] [address] [place], [place] [address] (1) Allergies NKA Medications Please ask your primary doctor or pharmacist before taking any other medication not listed, including over the counter drugs, herbal medications, vitamins and or supplements as they may interact with your home medications. What How Much When Instructions Last Dose Unchanged ondansetron (Zofran 4 mg oral tablet) See instructions 1 tab(s) PO q4-6h prn Please take this list to your next doctor s visit. Bring all medications you take, including over the counter medications, herbals and other supplements with you to your doctor s visit. Patients and families are reminded to discard old lists and to update any records with all medication providers or retail pharmacies. Education Materials Uncertain Causes of Chest Pain Chest pain can happen for a number of reasons. Sometimes the cause can't be determined. If your condition does not seem serious, and your pain does not appear to be coming from your heart, your healthcare provider may recommend watching it closely. Sometimes the signs of a serious problem take more time to appear. Many problems not related to your heart can cause chest pain. These include: Musculoskeletal. Costochondritis is an inflammation of the tissues around the ribs that can occur from trauma or overuse injuries, or a strain of the muscles of the chest wall Respiratory. Pneumonia, collapsed lung (pneumothorax), or inflammation of the lining of the chest and lungs (pleurisy) Gastrointestinal. Esophageal reflux, heartburn, ulcers, or gallbladder disease Anxiety and panic disorders Nerve compression and inflammation Rare miscellaneous problems such as aortic aneurysm (a swelling of the large artery coming out of the heart) or pulmonary embolism (a blood clot in the lungs) Home care After your visit, follow these recommendations: Rest today and avoid strenuous activity. Take any prescribed medicine as directed. Be aware of any recurrent chest pain and notice any changes Follow-up care Follow up with your healthcare provider if you do not start to feel better within 24 hours, or as advised. Call 911 Call 911 if any of these occur: A change in the type of pain: if it feels different, becomes more severe, lasts longer, or begins to spread into your shoulder, arm, neck, jaw or back Shortness of breath or increased pain with breathing Weakness, dizziness, or fainting Rapid heart beat Crushing sensation in your chest When to seek medical advice Call your healthcare provider right away if any of the following occur: Cough with dark colored sputum (phlegm) or blood Fever of 100.4 F (38 C) or higher, or as directed by your healthcare provider Swelling, pain or redness in one leg [phone] [employer]. [address] [place] [address]. All rights reserved. This information is not intended as a substitute for professional medical care. Always follow your healthcare professional's instructions. Additional Information VACCINATE! IT SAVES LIVES! Members of the community who have not yet received the COVID-19 vaccine and would like to receive it can visit one of [facility] vaccine clinics. There are many vaccine clinic locations within the [facility]. For locations and available times, please visit [email or web address] It is important to note that some COVID mobile vaccine clinics are held outdoors and may be canceled in rainy or stormy conditions. To learn more about pediatric vaccinations (ages 5-11), we invite you to visit the [facility] webpage. [email or web address] To learn more about the COVID-19 vaccine, we invite you to visit the CDC website for a list of frequently asked questions. https://www.cdc.gov/coronavirus/2 019-ncov/vaccines/faq.html [facility] Patient Portal Access Instructions: Stay connected with your healthcare team and access your personal medical information anytime with the [facility] Patient Portal. If you would like a full copy of your medical records please contact the [facility] Medical Records Department Monday through Monday between 8a.m. and 4:30p.m. Please follow the directions below to access the portal: 1.Access the email account you provided upon registration to the hospital.2.Look for an invitation email from [facility].3.Open the email and access the invitation link: Accept Invitation to [facility]4.Fill in the required thompson to create your account. Sign into [email or web address] with your username and password that you created in the above steps to stay up to date. You can then view a summary of results, a summary of your visits, and the ability to download your summaries to your computer or send the information securely to a physician. Remember that your healthcare information is confidential, so carefully consider who you will allow to register on the [facility] Patient Portal for access to your information. You can also access the [facility] Patient Portal on the [employer]. Simply click on Health Records under Health Data and then click on the [facility] logo. HOW TO SAFELY DISPOSE OF PRESCRIPTION MEDICATIONS Please use one of the following methods to safely dispose of your unused medications. 1.Use a drug disposal kit: the drug disposal pouch allows you to safely discard your old and unused drugs. Ask your nurse to give you one when you are discharged.2.Visit a local take-back location: Many local pharmacies and police departments have programs that collect old and unwanted prescription drugs. Call your local pharmacy or go to http://[employer]/5K5Jp9p to find one close to you.3.Make use of household items: Use cat litter or old coffee grounds to dispose medications if other options are not available. Mix your drugs with these household products, seal them in an airtight container and throw it into the garbage. Call [facility]: [phone] to be sure your drugs can be disposed of in this way. Some medicines may require a different approach.4.Never flush your medications down the toilet. IF YOU HAVE BEEN PRESCRIBED AN OPIOIDS FOR PAIN If you have been prescribed an opioid (such as hydrocodone, oxycodone or morphine), it is critical to understand the possible side effects and risks of opioid pain medications. Even when taken as directed, opioids can have several side effects including: Tolerance, meaning you might need to take more of a medication for the same pain relief. Nausea, vomiting and/or constipation. Sleepiness, dizziness, dry mouth, confusion, depression or itching. Physical dependence, meaning you have withdrawal symptoms when a medication is stopped ? this can develop within a few days. KNOW YOUR RESPONSIBILITIES It is important to know exactly how much and how often to take the opioid pain medications you are prescribed. Never take opioids in higher amounts or more often than prescribed. Do not combine opioids with alcohol or other drugs that cause drowsiness, such as benzodiazepines, also known as benzos, including diazepam and alprazolam, muscle relaxants or sleep aids. Never sell or share prescription opioids. This is illegal. Store opioids in a secure place and out of reach of others (including children, family, friends and visitors). The last page(s) of this document has been signed and retained as a CHART COPY Signatures Patient Education Materials Chest Pain, Uncertain Cause Medication Leaflets My discharge plan and instructions have been reviewed and explained to me and I,ASHLI HOLLINS understand my current condition and have read and understand these discharge instructions. I have received a written copy of the plan/instructions. If I have questions, I am aware that I should contact my doctor. 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 HISTORY: ORDERING SYSTEM PROVIDED HISTORY: Reason for Exam: chest pain FINDINGS: Normal cardiomediastinal silhouette. Costophrenic angles are sharp. No pneumothorax. No focal consolidation. No acute osseous findings. IMPRESSION: No acute radiographic findings. I have personally reviewed the images of this examination and agree with the resident's findings and interpretation. Interpreted by: Messi Valentin MD Preliminary Report By: Salena Domínguez Electronically signed By Messi Valentin MD Dictated Date: 12/19/2022 4:07:16 PM Prelim Date: 12/19/2022 4:09:28 PM Sign Date: 12/19/2022 4:18:35 PM Ordering Provider: HERBERT BIRCH [facility] 12-19-2022 Note Sinus rhythm Abnormal R-wave progression, early transition Electronic Signature: HERBERT BIRCH MD 12/19/2022 15:37:29 [facility] Evaluation + Plan note No data available for this section [facility] Work Phone: Instructions* Name Dates Details How to access health informa tion online Indication:Chewing tobacco use Start:07-Feb-2020 Instruction Type:Patient Education How to access health informa tion online - Detail Indication:Chewing tobacco use Start:07-Feb-2020 Instruction Type:Patient Education Patient Instructions Indication:Encounter for screening for lipid disorder Start:07-Feb-2020 Instruction Type:Provider Instructions for Treatment How to access health informa tion online Indication:BMI 34.0-34.9,adult Start:30-Dec-2019 Instruction Type:Patient Education How to access health informa tion online - Detail Indication:BMI 34.0-34.9,adult Start:30-Dec-2019 Instruction Type:Patient Education Patient Instructions Indication:BMI 34.0-34.9,adult Start:30-Dec-2019 Instruction Type:Provider Instructions for Treatment How to access health informa tion online Indication:BMI 34.0-34.9,adult Start:18-Jul-2019 Instruction Type:Patient Education How to access health informa tion online - Detail Indication:BMI 34.0-34.9,adult Start:18-Jul-2019 Instruction Type:Patient Education Patient Instructions Indication:BMI 34.0-34.9,adult Start:18-Jul-2019 Instruction Type:Provider Instructions for Treatment How to access health informa tion online Indication:Non-smoker Start:05-Jul-2019 Instruction Type:Patient Education How to access health informa tion online - Detail Indication:Non-smoker Start:05-Jul-2019 Instruction Type:Patient Education Patient Instructions Indication:Non-smoker Start:05-Jul-2019 Instruction Type:Provider Instructions for Treatment How to access health informa tion online Indication:Non-smoker Start:14-Jun-2019 Instruction Type:Patient Education How to access health informa tion online - Detail Indication:Non-smoker Start:14-Jun-2019 Instruction Type:Patient Education Patient Instructions Indication:BMI 34.0-34.9,adult Start:14-Jun-2019 Instruction Type:Provider Instructions for Treatment How to access health informa tion online Indication:Non-smoker Start:26-Mar-2019 Instruction Type:Patient Education How to access health informa tion online - Detail Indication:Non-smoker Start:26-Mar-2019 Instruction Type:Patient Education Patient Instructions Indication:Non-smoker Start:26-Mar-2019 Instruction Type:Provider Instructions for Treatment How to access health informa tion online Indication:Non-smoker Start:01-Feb-2019 Instruction Type:Patient Education How to access health informa tion online - Detail Indication:Non-smoker Start:01-Feb-2019 Instruction Type:Patient Education Patient Instructions Indication:BMI 34.0-34.9,adult Start:01-Feb-2019 Instruction Type:Provider Instructions for Treatment How to access health informa tion online Indication:BMI 35.0-35.9,adult Start:17-Jan-2019 Instruction Type:Patient Education How to access health informa tion online - Detail Indication:BMI 35.0-35.9,adult Start:17-Jan-2019 Instruction Type:Patient Education Patient Instructions Indication:Right leg pain Start:17-Jan-2019 Instruction Type:Provider Instructions for Treatment How to access health informa tion online Indication:BMI 35.0-35.9,adult Start:25-May-2018 Instruction Type:Patient Education How to access health informa tion online - Detail Indication:BMI 35.0-35.9,adult Start:25-May-2018 Instruction Type:Patient Education Patient Instructions Indication:BMI 35.0-35.9,adult Start:25-May-2018 Instruction Type:Provider Instructions for Treatment How to access health informa tion online Indication:Non-smoker Start:09-May-2018 Instruction Type:Patient Education How to access health informa tion online - Detail Indication:Non-smoker Start:09-May-2018 Instruction Type:Patient Education Patient Instructions Indication:Non-smoker Start:09-May-2018 Instruction Type:Provider Instructions for Treatment How to access health informa tion online Indication:Nonsmoker Start:28-Dec-2017 Instruction Type:Patient Education How to access health informa tion online - Detail Indication:Nonsmoker Start:28-Dec-2017 Instruction Type:Patient Education Patient Instructions Indication:Left foot pain Start:28-Dec-2017 Instruction Type:Provider Instructions for Treatment How to access health informa tion online Indication:BMI 31.0-31.9,adult Start:08-Jun-2017 Instruction Type:Patient Education How to access health informa tion online - Detail Indication:BMI 31.0-31.9,adult Start:08-Jun-2017 Instruction Type:Patient Education Patient Instructions Indication:BMI 31.0-31.9,adult Start:08-Jun-2017 Instruction Type:Provider Instructions for Treatment Patient Instructions Indication:Influenza A Start:16-May-2017 Instruction Type:Provider Instructions for Treatment How to access health informa tion online Indication:Chewing tobacco use Start:16-May-2017 Instruction Type:Patient Education How to access health informa tion online - Detail Indication:Chewing tobacco use Start:16-May-2017 Instruction Type:Patient Education How to access health informa tion online Indication:Testicular/scrotal pain Start:21-Oct-2016 Instruction Type:Patient Education How to access health informa tion online - Detail Indication:Testicular/scrotal pain Start:21-Oct-2016 Instruction Type:Patient Education Patient Instructions Indication:Testicular/scrotal pain Start:21-Oct-2016 Instruction Type:Provider Instructions for Treatment How to access health informa tion online Indication:Testicular/scrotal pain Start:17-Oct-2016 Instruction Type:Patient Education How to access health informa tion online - Detail Indication:Testicular/scrotal pain Start:17-Oct-2016 Instruction Type:Patient Education Patient Instructions Indication:Testicular/scrotal pain Start:17-Oct-2016 Instruction Type:Provider Instructions for Treatment [facility] Work Phone: Instructions* Name Dates Details Patient Instructions Indication:BMI 33.0-33.9,adult Start:24-May-2021 Instruction Type:Provider Instructions for Treatment How to Access Health Informa tion Online using Patient Portal and 3rd [employer] Apps Indication:BMI 33.0-33.9,adult Start:24-May-2021 Instruction Type:Patient Education How to access health informa tion online Indication:Chewing tobacco use Start:07-Feb-2020 Instruction Type:Patient Education How to access health informa tion online - Detail Indication:Chewing tobacco use Start:07-Feb-2020 Instruction Type:Patient Education Patient Instructions Indication:Encounter for screening for lipid disorder Start:07-Feb-2020 Instruction Type:Provider Instructions for Treatment How to access health informa tion online Indication:BMI 34.0-34.9,adult Start:30-Dec-2019 Instruction Type:Patient Education How to access health informa tion online - Detail Indication:BMI 34.0-34.9,adult Start:30-Dec-2019 Instruction Type:Patient Education Patient Instructions Indication:BMI 34.0-34.9,adult Start:30-Dec-2019 Instruction Type:Provider Instructions for Treatment How to access health informa tion online Indication:BMI 34.0-34.9,adult Start:18-Jul-2019 Instruction Type:Patient Education How to access health informa tion online - Detail Indication:BMI 34.0-34.9,adult Start:18-Jul-2019 Instruction Type:Patient Education Patient Instructions Indication:BMI 34.0-34.9,adult Start:18-Jul-2019 Instruction Type:Provider Instructions for Treatment How to access health informa tion online Indication:Non-smoker Start:05-Jul-2019 Instruction Type:Patient Education How to access health informa tion online - Detail Indication:Non-smoker Start:05-Jul-2019 Instruction Type:Patient Education Patient Instructions Indication:Non-smoker Start:05-Jul-2019 Instruction Type:Provider Instructions for Treatment How to access health informa tion online Indication:Non-smoker Start:14-Jun-2019 Instruction Type:Patient Education How to access health informa tion online - Detail Indication:Non-smoker Start:14-Jun-2019 Instruction Type:Patient Education Patient Instructions Indication:BMI 34.0-34.9,adult Start:14-Jun-2019 Instruction Type:Provider Instructions for Treatment How to access health informa tion online Indication:Non-smoker Start:26-Mar-2019 Instruction Type:Patient Education How to access health informa tion online - Detail Indication:Non-smoker Start:26-Mar-2019 Instruction Type:Patient Education Patient Instructions Indication:Non-smoker Start:26-Mar-2019 Instruction Type:Provider Instructions for Treatment How to access health informa tion online Indication:Non-smoker Start:01-Feb-2019 Instruction Type:Patient Education How to access health informa tion online - Detail Indication:Non-smoker Start:01-Feb-2019 Instruction Type:Patient Education Patient Instructions Indication:BMI 34.0-34.9,adult Start:01-Feb-2019 Instruction Type:Provider Instructions for Treatment How to access health informa tion online Indication:BMI 35.0-35.9,adult Start:17-Jan-2019 Instruction Type:Patient Education How to access health informa tion online - Detail Indication:BMI 35.0-35.9,adult Start:17-Jan-2019 Instruction Type:Patient Education Patient Instructions Indication:Right leg pain Start:17-Jan-2019 Instruction Type:Provider Instructions for Treatment How to access health informa tion online Indication:BMI 35.0-35.9,adult Start:25-May-2018 Instruction Type:Patient Education How to access health informa tion online - Detail Indication:BMI 35.0-35.9,adult Start:25-May-2018 Instruction Type:Patient Education Patient Instructions Indication:BMI 35.0-35.9,adult Start:25-May-2018 Instruction Type:Provider Instructions for Treatment How to access health informa tion online Indication:Non-smoker Start:09-May-2018 Instruction Type:Patient Education How to access health informa tion online - Detail Indication:Non-smoker Start:09-May-2018 Instruction Type:Patient Education Patient Instructions Indication:Non-smoker Start:09-May-2018 Instruction Type:Provider Instructions for Treatment How to access health informa tion online Indication:Nonsmoker Start:28-Dec-2017 Instruction Type:Patient Education How to access health informa tion online - Detail Indication:Nonsmoker Start:28-Dec-2017 Instruction Type:Patient Education Patient Instructions Indication:Left foot pain Start:28-Dec-2017 Instruction Type:Provider Instructions for Treatment How to access health informa tion online Indication:BMI 31.0-31.9,adult Start:08-Jun-2017 Instruction Type:Patient Education How to access health informa tion online - Detail Indication:BMI 31.0-31.9,adult Start:08-Jun-2017 Instruction Type:Patient Education Patient Instructions Indication:BMI 31.0-31.9,adult Start:08-Jun-2017 Instruction Type:Provider Instructions for Treatment Patient Instructions Indication:Influenza A Start:16-May-2017 Instruction Type:Provider Instructions for Treatment How to access health informa tion online Indication:Chewing tobacco use Start:16-May-2017 Instruction Type:Patient Education How to access health informa tion online - Detail Indication:Chewing tobacco use Start:16-May-2017 Instruction Type:Patient Education How to access health informa tion online Indication:Testicular/scrotal pain Start:21-Oct-2016 Instruction Type:Patient Education How to access health informa tion online - Detail Indication:Testicular/scrotal pain Start:21-Oct-2016 Instruction Type:Patient Education Patient Instructions Indication:Testicular/scrotal pain Start:21-Oct-2016 Instruction Type:Provider Instructions for Treatment How to access health informa tion online Indication:Testicular/scrotal pain Start:17-Oct-2016 Instruction Type:Patient Education How to access health informa tion online - Detail Indication:Testicular/scrotal pain Start:17-Oct-2016 Instruction Type:Patient Education Patient Instructions Indication:Testicular/scrotal pain Start:17-Oct-2016 Instruction Type:Provider Instructions for Treatment [facility]; [facility] Work Phone: Instructions* Name Dates Details Patient Instructions Indication:BMI 33.0-33.9,adult Start:24-May-2021 Instruction Type:Provider Instructions for Treatment How to Access Health Informa tion Online using Patient Portal and [employer]rd [employer] Apps Indication:BMI 33.0-33.9,adult Start:24-May-2021 Instruction Type:Patient Education How to access health informa tion online Indication:Chewing tobacco use Start:07-Feb-2020 Instruction Type:Patient Education How to access health informa tion online - Detail Indication:Chewing tobacco use Start:07-Feb-2020 Instruction Type:Patient Education Patient Instructions Indication:Encounter for screening for lipid disorder Start:07-Feb-2020 Instruction Type:Provider Instructions for Treatment How to access health informa tion online Indication:BMI 34.0-34.9,adult Start:30-Dec-2019 Instruction Type:Patient Education How to access health informa tion online - Detail Indication:BMI 34.0-34.9,adult Start:30-Dec-2019 Instruction Type:Patient Education Patient Instructions Indication:BMI 34.0-34.9,adult Start:30-Dec-2019 Instruction Type:Provider Instructions for Treatment How to access health informa tion online Indication:BMI 34.0-34.9,adult Start:18-Jul-2019 Instruction Type:Patient Education How to access health informa tion online - Detail Indication:BMI 34.0-34.9,adult Start:18-Jul-2019 Instruction Type:Patient Education Patient Instructions Indication:BMI 34.0-34.9,adult Start:18-Jul-2019 Instruction Type:Provider Instructions for Treatment How to access health informa tion online Indication:Non-smoker Start:05-Jul-2019 Instruction Type:Patient Education How to access health informa tion online - Detail Indication:Non-smoker Start:05-Jul-2019 Instruction Type:Patient Education Patient Instructions Indication:Non-smoker Start:05-Jul-2019 Instruction Type:Provider Instructions for Treatment How to access health informa tion online Indication:Non-smoker Start:14-Jun-2019 Instruction Type:Patient Education How to access health informa tion online - Detail Indication:Non-smoker Start:14-Jun-2019 Instruction Type:Patient Education Patient Instructions Indication:BMI 34.0-34.9,adult Start:14-Jun-2019 Instruction Type:Provider Instructions for Treatment How to access health informa tion online Indication:Non-smoker Start:26-Mar-2019 Instruction Type:Patient Education How to access health informa tion online - Detail Indication:Non-smoker Start:26-Mar-2019 Instruction Type:Patient Education Patient Instructions Indication:Non-smoker Start:26-Mar-2019 Instruction Type:Provider Instructions for Treatment How to access health informa tion online Indication:Non-smoker Start:01-Feb-2019 Instruction Type:Patient Education How to access health informa tion online - Detail Indication:Non-smoker Start:01-Feb-2019 Instruction Type:Patient Education Patient Instructions Indication:BMI 34.0-34.9,adult Start:01-Feb-2019 Instruction Type:Provider Instructions for Treatment How to access health informa tion online Indication:BMI 35.0-35.9,adult Start:17-Jan-2019 Instruction Type:Patient Education How to access health informa tion online - Detail Indication:BMI 35.0-35.9,adult Start:17-Jan-2019 Instruction Type:Patient Education Patient Instructions Indication:Right leg pain Start:17-Jan-2019 Instruction Type:Provider Instructions for Treatment How to access health informa tion online Indication:BMI 35.0-35.9,adult Start:25-May-2018 Instruction Type:Patient Education How to access health informa tion online - Detail Indication:BMI 35.0-35.9,adult Start:25-May-2018 Instruction Type:Patient Education Patient Instructions Indication:BMI 35.0-35.9,adult Start:25-May-2018 Instruction Type:Provider Instructions for Treatment How to access health informa tion online Indication:Non-smoker Start:09-May-2018 Instruction Type:Patient Education How to access health informa tion online - Detail Indication:Non-smoker Start:09-May-2018 Instruction Type:Patient Education Patient Instructions Indication:Non-smoker Start:09-May-2018 Instruction Type:Provider Instructions for Treatment How to access health informa tion online Indication:Nonsmoker Start:28-Dec-2017 Instruction Type:Patient Education How to access health informa tion online - Detail Indication:Nonsmoker Start:28-Dec-2017 Instruction Type:Patient Education Patient Instructions Indication:Left foot pain Start:28-Dec-2017 Instruction Type:Provider Instructions for Treatment How to access health informa tion online Indication:BMI 31.0-31.9,adult Start:08-Jun-2017 Instruction Type:Patient Education How to access health informa tion online - Detail Indication:BMI 31.0-31.9,adult Start:08-Jun-2017 Instruction Type:Patient Education Patient Instructions Indication:BMI 31.0-31.9,adult Start:08-Jun-2017 Instruction Type:Provider Instructions for Treatment Patient Instructions Indication:Influenza A Start:16-May-2017 Instruction Type:Provider Instructions for Treatment How to access health informa tion online Indication:Chewing tobacco use Start:16-May-2017 Instruction Type:Patient Education How to access health informa tion online - Detail Indication:Chewing tobacco use Start:16-May-2017 Instruction Type:Patient Education How to access health informa tion online Indication:Testicular/scrotal pain Start:21-Oct-2016 Instruction Type:Patient Education How to access health informa tion online - Detail Indication:Testicular/scrotal pain Start:21-Oct-2016 Instruction Type:Patient Education Patient Instructions Indication:Testicular/scrotal pain Start:21-Oct-2016 Instruction Type:Provider Instructions for Treatment How to access health informa tion online Indication:Testicular/scrotal pain Start:17-Oct-2016 Instruction Type:Patient Education How to access health informa tion online - Detail Indication:Testicular/scrotal pain Start:17-Oct-2016 Instruction Type:Patient Education Patient Instructions Indication:Testicular/scrotal pain Start:17-Oct-2016 Instruction Type:Provider Instructions for Treatment [facility]; [facility] Work Phone: Instructions* Name Dates Details Patient Instructions Indication:BMI 33.0-33.9,adult Start:24-May-2021 Instruction Type:Provider Instructions for Treatment How to Access Health Informa tion Online using Patient Portal and [employer]rd [employer] Apps Indication:BMI 33.0-33.9,adult Start:24-May-2021 Instruction Type:Patient Education How to access health informa tion online Indication:Chewing tobacco use Start:07-Feb-2020 Instruction Type:Patient Education How to access health informa tion online - Detail Indication:Chewing tobacco use Start:07-Feb-2020 Instruction Type:Patient Education Patient Instructions Indication:Encounter for screening for lipid disorder Start:07-Feb-2020 Instruction Type:Provider Instructions for Treatment How to access health informa tion online Indication:BMI 34.0-34.9,adult Start:30-Dec-2019 Instruction Type:Patient Education How to access health informa tion online - Detail Indication:BMI 34.0-34.9,adult Start:30-Dec-2019 Instruction Type:Patient Education Patient Instructions Indication:BMI 34.0-34.9,adult Start:30-Dec-2019 Instruction Type:Provider Instructions for Treatment How to access health informa tion online Indication:BMI 34.0-34.9,adult Start:18-Jul-2019 Instruction Type:Patient Education How to access health informa tion online - Detail Indication:BMI 34.0-34.9,adult Start:18-Jul-2019 Instruction Type:Patient Education Patient Instructions Indication:BMI 34.0-34.9,adult Start:18-Jul-2019 Instruction Type:Provider Instructions for Treatment How to access health informa tion online Indication:Non-smoker Start:05-Jul-2019 Instruction Type:Patient Education How to access health informa tion online - Detail Indication:Non-smoker Start:05-Jul-2019 Instruction Type:Patient Education Patient Instructions Indication:Non-smoker Start:05-Jul-2019 Instruction Type:Provider Instructions for Treatment How to access health informa tion online Indication:Non-smoker Start:14-Jun-2019 Instruction Type:Patient Education How to access health informa tion online - Detail Indication:Non-smoker Start:14-Jun-2019 Instruction Type:Patient Education Patient Instructions Indication:BMI 34.0-34.9,adult Start:14-Jun-2019 Instruction Type:Provider Instructions for Treatment How to access health informa tion online Indication:Non-smoker Start:26-Mar-2019 Instruction Type:Patient Education How to access health informa tion online - Detail Indication:Non-smoker Start:26-Mar-2019 Instruction Type:Patient Education Patient Instructions Indication:Non-smoker Start:26-Mar-2019 Instruction Type:Provider Instructions for Treatment How to access health informa tion online Indication:Non-smoker Start:01-Feb-2019 Instruction Type:Patient Education How to access health informa tion online - Detail Indication:Non-smoker Start:01-Feb-2019 Instruction Type:Patient Education Patient Instructions Indication:BMI 34.0-34.9,adult Start:01-Feb-2019 Instruction Type:Provider Instructions for Treatment How to access health informa tion online Indication:BMI 35.0-35.9,adult Start:17-Jan-2019 Instruction Type:Patient Education How to access health informa tion online - Detail Indication:BMI 35.0-35.9,adult Start:17-Jan-2019 Instruction Type:Patient Education Patient Instructions Indication:Right leg pain Start:17-Jan-2019 Instruction Type:Provider Instructions for Treatment How to access health informa tion online Indication:BMI 35.0-35.9,adult Start:25-May-2018 Instruction Type:Patient Education How to access health informa tion online - Detail Indication:BMI 35.0-35.9,adult Start:25-May-2018 Instruction Type:Patient Education Patient Instructions Indication:BMI 35.0-35.9,adult Start:25-May-2018 Instruction Type:Provider Instructions for Treatment How to access health informa tion online Indication:Non-smoker Start:09-May-2018 Instruction Type:Patient Education How to access health informa tion online - Detail Indication:Non-smoker Start:09-May-2018 Instruction Type:Patient Education Patient Instructions Indication:Non-smoker Start:09-May-2018 Instruction Type:Provider Instructions for Treatment How to access health informa tion online Indication:Nonsmoker Start:28-Dec-2017 Instruction Type:Patient Education How to access health informa tion online - Detail Indication:Nonsmoker Start:28-Dec-2017 Instruction Type:Patient Education Patient Instructions Indication:Left foot pain Start:28-Dec-2017 Instruction Type:Provider Instructions for Treatment How to access health informa tion online Indication:BMI 31.0-31.9,adult Start:08-Jun-2017 Instruction Type:Patient Education How to access health informa tion online - Detail Indication:BMI 31.0-31.9,adult Start:08-Jun-2017 Instruction Type:Patient Education Patient Instructions Indication:BMI 31.0-31.9,adult Start:08-Jun-2017 Instruction Type:Provider Instructions for Treatment Patient Instructions Indication:Influenza A Start:16-May-2017 Instruction Type:Provider Instructions for Treatment How to access health informa tion online Indication:Chewing tobacco use Start:16-May-2017 Instruction Type:Patient Education How to access health informa tion online - Detail Indication:Chewing tobacco use Start:16-May-2017 Instruction Type:Patient Education How to access health informa tion online Indication:Testicular/scrotal pain Start:21-Oct-2016 Instruction Type:Patient Education How to access health informa tion online - Detail Indication:Testicular/scrotal pain Start:21-Oct-2016 Instruction Type:Patient Education Patient Instructions Indication:Testicular/scrotal pain Start:21-Oct-2016 Instruction Type:Provider Instructions for Treatment How to access health informa tion online Indication:Testicular/scrotal pain Start:17-Oct-2016 Instruction Type:Patient Education How to access health informa tion online - Detail Indication:Testicular/scrotal pain Start:17-Oct-2016 Instruction Type:Patient Education Patient Instructions Indication:Testicular/scrotal pain Start:17-Oct-2016 Instruction Type:Provider Instructions for Treatment [facility]; [facility] Work Phone: Instructions* Name Dates Details Patient Instructions Indication:Non-smoker Start:01-Apr-2022 Instruction Type:Provider Instructions for Treatment How to Access Health Informa tion Online using Patient Portal and [employer]rd [employer] Apps Indication:Non-smoker Start:01-Apr-2022 Instruction Type:Patient Education Patient Instructions Indication:BMI 33.0-33.9,adult Start:24-May-2021 Instruction Type:Provider Instructions for Treatment How to Access Health Informa tion Online using Patient Portal and [employer]rd [employer] Apps Indication:BMI 33.0-33.9,adult Start:24-May-2021 Instruction Type:Patient Education How to access health informa tion online Indication:Chewing tobacco use Start:07-Feb-2020 Instruction Type:Patient Education How to access health informa tion online - Detail Indication:Chewing tobacco use Start:07-Feb-2020 Instruction Type:Patient Education Patient Instructions Indication:Encounter for screening for lipid disorder Start:07-Feb-2020 Instruction Type:Provider Instructions for Treatment How to access health informa tion online Indication:BMI 34.0-34.9,adult Start:30-Dec-2019 Instruction Type:Patient Education How to access health informa tion online - Detail Indication:BMI 34.0-34.9,adult Start:30-Dec-2019 Instruction Type:Patient Education Patient Instructions Indication:BMI 34.0-34.9,adult Start:30-Dec-2019 Instruction Type:Provider Instructions for Treatment How to access health informa tion online Indication:BMI 34.0-34.9,adult Start:18-Jul-2019 Instruction Type:Patient Education How to access health informa tion online - Detail Indication:BMI 34.0-34.9,adult Start:18-Jul-2019 Instruction Type:Patient Education Patient Instructions Indication:BMI 34.0-34.9,adult Start:18-Jul-2019 Instruction Type:Provider Instructions for Treatment How to access health informa tion online Indication:Non-smoker Start:05-Jul-2019 Instruction Type:Patient Education How to access health informa tion online - Detail Indication:Non-smoker Start:05-Jul-2019 Instruction Type:Patient Education Patient Instructions Indication:Non-smoker Start:05-Jul-2019 Instruction Type:Provider Instructions for Treatment How to access health informa tion online Indication:Non-smoker Start:14-Jun-2019 Instruction Type:Patient Education How to access health informa tion online - Detail Indication:Non-smoker Start:14-Jun-2019 Instruction Type:Patient Education Patient Instructions Indication:BMI 34.0-34.9,adult Start:14-Jun-2019 Instruction Type:Provider Instructions for Treatment How to access health informa tion online Indication:Non-smoker Start:26-Mar-2019 Instruction Type:Patient Education How to access health informa tion online - Detail Indication:Non-smoker Start:26-Mar-2019 Instruction Type:Patient Education Patient Instructions Indication:Non-smoker Start:26-Mar-2019 Instruction Type:Provider Instructions for Treatment How to access health informa tion online Indication:Non-smoker Start:01-Feb-2019 Instruction Type:Patient Education How to access health informa tion online - Detail Indication:Non-smoker Start:01-Feb-2019 Instruction Type:Patient Education Patient Instructions Indication:BMI 34.0-34.9,adult Start:01-Feb-2019 Instruction Type:Provider Instructions for Treatment How to access health informa tion online Indication:BMI 35.0-35.9,adult Start:17-Jan-2019 Instruction Type:Patient Education How to access health informa tion online - Detail Indication:BMI 35.0-35.9,adult Start:17-Jan-2019 Instruction Type:Patient Education Patient Instructions Indication:Right leg pain Start:17-Jan-2019 Instruction Type:Provider Instructions for Treatment How to access health informa tion online Indication:BMI 35.0-35.9,adult Start:25-May-2018 Instruction Type:Patient Education How to access health informa tion online - Detail Indication:BMI 35.0-35.9,adult Start:25-May-2018 Instruction Type:Patient Education Patient Instructions Indication:BMI 35.0-35.9,adult Start:25-May-2018 Instruction Type:Provider Instructions for Treatment How to access health informa tion online Indication:Non-smoker Start:09-May-2018 Instruction Type:Patient Education How to access health informa tion online - Detail Indication:Non-smoker Start:09-May-2018 Instruction Type:Patient Education Patient Instructions Indication:Non-smoker Start:09-May-2018 Instruction Type:Provider Instructions for Treatment How to access health informa tion online Indication:Nonsmoker Start:28-Dec-2017 Instruction Type:Patient Education How to access health informa tion online - Detail Indication:Nonsmoker Start:28-Dec-2017 Instruction Type:Patient Education Patient Instructions Indication:Left foot pain Start:28-Dec-2017 Instruction Type:Provider Instructions for Treatment How to access health informa tion online Indication:BMI 31.0-31.9,adult Start:08-Jun-2017 Instruction Type:Patient Education How to access health informa tion online - Detail Indication:BMI 31.0-31.9,adult Start:08-Jun-2017 Instruction Type:Patient Education Patient Instructions Indication:BMI 31.0-31.9,adult Start:08-Jun-2017 Instruction Type:Provider Instructions for Treatment Patient Instructions Indication:Influenza A Start:16-May-2017 Instruction Type:Provider Instructions for Treatment How to access health informa tion online Indication:Chewing tobacco use Start:16-May-2017 Instruction Type:Patient Education How to access health informa tion online - Detail Indication:Chewing tobacco use Start:16-May-2017 Instruction Type:Patient Education How to access health informa tion online Indication:Testicular/scrotal pain Start:21-Oct-2016 Instruction Type:Patient Education How to access health informa tion online - Detail Indication:Testicular/scrotal pain Start:21-Oct-2016 Instruction Type:Patient Education Patient Instructions Indication:Testicular/scrotal pain Start:21-Oct-2016 Instruction Type:Provider Instructions for Treatment How to access health informa tion online Indication:Testicular/scrotal pain Start:17-Oct-2016 Instruction Type:Patient Education How to access health informa tion online - Detail Indication:Testicular/scrotal pain Start:17-Oct-2016 Instruction Type:Patient Education Patient Instructions Indication:Testicular/scrotal pain Start:17-Oct-2016 Instruction Type:Provider Instructions for Treatment [facility]; [facility] Work Phone: Instructions* Name Dates Details Patient Instructions Indication:HTN (hypertension), benign (Renamed from Benign hypertension) Start:15-Apr-2022 Instruction Type:Provider Instructions for Treatment How to Access Health Informa tion Online using Patient Portal and [employer]rd [employer] Apps Indication:HTN (hypertension), benign (Renamed from Benign hypertension) Start:15-Apr-2022 Instruction Type:Patient Education Patient Instructions Indication:Non-smoker Start:01-Apr-2022 Instruction Type:Provider Instructions for Treatment How to Access Health Informa tion Online using Patient Portal and [employer]rd [employer] Apps Indication:Non-smoker Start:01-Apr-2022 Instruction Type:Patient Education Patient Instructions Indication:BMI 33.0-33.9,adult Start:24-May-2021 Instruction Type:Provider Instructions for Treatment How to Access Health Informa tion Online using Patient Portal and [employer]rd [employer] Apps Indication:BMI 33.0-33.9,adult Start:24-May-2021 Instruction Type:Patient Education How to access health informa tion online Indication:Chewing tobacco use Start:07-Feb-2020 Instruction Type:Patient Education How to access health informa tion online - Detail Indication:Chewing tobacco use Start:07-Feb-2020 Instruction Type:Patient Education Patient Instructions Indication:Encounter for screening for lipid disorder Start:07-Feb-2020 Instruction Type:Provider Instructions for Treatment How to access health informa tion online Indication:BMI 34.0-34.9,adult Start:30-Dec-2019 Instruction Type:Patient Education How to access health informa tion online - Detail Indication:BMI 34.0-34.9,adult Start:30-Dec-2019 Instruction Type:Patient Education Patient Instructions Indication:BMI 34.0-34.9,adult Start:30-Dec-2019 Instruction Type:Provider Instructions for Treatment How to access health informa tion online Indication:BMI 34.0-34.9,adult Start:18-Jul-2019 Instruction Type:Patient Education How to access health informa tion online - Detail Indication:BMI 34.0-34.9,adult Start:18-Jul-2019 Instruction Type:Patient Education Patient Instructions Indication:BMI 34.0-34.9,adult Start:18-Jul-2019 Instruction Type:Provider Instructions for Treatment How to access health informa tion online Indication:Non-smoker Start:05-Jul-2019 Instruction Type:Patient Education How to access health informa tion online - Detail Indication:Non-smoker Start:05-Jul-2019 Instruction Type:Patient Education Patient Instructions Indication:Non-smoker Start:05-Jul-2019 Instruction Type:Provider Instructions for Treatment How to access health informa tion online Indication:Non-smoker Start:14-Jun-2019 Instruction Type:Patient Education How to access health informa tion online - Detail Indication:Non-smoker Start:14-Jun-2019 Instruction Type:Patient Education Patient Instructions Indication:BMI 34.0-34.9,adult Start:14-Jun-2019 Instruction Type:Provider Instructions for Treatment How to access health informa tion online Indication:Non-smoker Start:26-Mar-2019 Instruction Type:Patient Education How to access health informa tion online - Detail Indication:Non-smoker Start:26-Mar-2019 Instruction Type:Patient Education Patient Instructions Indication:Non-smoker Start:26-Mar-2019 Instruction Type:Provider Instructions for Treatment How to access health informa tion online Indication:Non-smoker Start:01-Feb-2019 Instruction Type:Patient Education How to access health informa tion online - Detail Indication:Non-smoker Start:01-Feb-2019 Instruction Type:Patient Education Patient Instructions Indication:BMI 34.0-34.9,adult Start:01-Feb-2019 Instruction Type:Provider Instructions for Treatment How to access health informa tion online Indication:BMI 35.0-35.9,adult Start:17-Jan-2019 Instruction Type:Patient Education How to access health informa tion online - Detail Indication:BMI 35.0-35.9,adult Start:17-Jan-2019 Instruction Type:Patient Education Patient Instructions Indication:Right leg pain Start:17-Jan-2019 Instruction Type:Provider Instructions for Treatment How to access health informa tion online Indication:BMI 35.0-35.9,adult Start:25-May-2018 Instruction Type:Patient Education How to access health informa tion online - Detail Indication:BMI 35.0-35.9,adult Start:25-May-2018 Instruction Type:Patient Education Patient Instructions Indication:BMI 35.0-35.9,adult Start:25-May-2018 Instruction Type:Provider Instructions for Treatment How to access health informa tion online Indication:Non-smoker Start:09-May-2018 Instruction Type:Patient Education How to access health informa tion online - Detail Indication:Non-smoker Start:09-May-2018 Instruction Type:Patient Education Patient Instructions Indication:Non-smoker Start:09-May-2018 Instruction Type:Provider Instructions for Treatment How to access health informa tion online Indication:Nonsmoker Start:28-Dec-2017 Instruction Type:Patient Education How to access health informa tion online - Detail Indication:Nonsmoker Start:28-Dec-2017 Instruction Type:Patient Education Patient Instructions Indication:Left foot pain Start:28-Dec-2017 Instruction Type:Provider Instructions for Treatment How to access health informa tion online Indication:BMI 31.0-31.9,adult Start:08-Jun-2017 Instruction Type:Patient Education How to access health informa tion online - Detail Indication:BMI 31.0-31.9,adult Start:08-Jun-2017 Instruction Type:Patient Education Patient Instructions Indication:BMI 31.0-31.9,adult Start:08-Jun-2017 Instruction Type:Provider Instructions for Treatment Patient Instructions Indication:Influenza A Start:16-May-2017 Instruction Type:Provider Instructions for Treatment How to access health informa tion online Indication:Chewing tobacco use Start:16-May-2017 Instruction Type:Patient Education How to access health informa tion online - Detail Indication:Chewing tobacco use Start:16-May-2017 Instruction Type:Patient Education How to access health informa tion online Indication:Testicular/scrotal pain Start:21-Oct-2016 Instruction Type:Patient Education How to access health informa tion online - Detail Indication:Testicular/scrotal pain Start:21-Oct-2016 Instruction Type:Patient Education Patient Instructions Indication:Testicular/scrotal pain Start:21-Oct-2016 Instruction Type:Provider Instructions for Treatment How to access health informa tion online Indication:Testicular/scrotal pain Start:17-Oct-2016 Instruction Type:Patient Education How to access health informa tion online - Detail Indication:Testicular/scrotal pain Start:17-Oct-2016 Instruction Type:Patient Education Patient Instructions Indication:Testicular/scrotal pain Start:17-Oct-2016 Instruction Type:Provider Instructions for Treatment [facility]; [facility] Work Phone: Instructions* Name Dates Details Patient Instructions Indication:HTN (hypertension), benign (Renamed from Benign hypertension) Start:15-Apr-2022 Instruction Type:Provider Instructions for Treatment How to Access Health Informa tion Online using Patient Portal and [employer]rd [employer] Apps Indication:HTN (hypertension), benign (Renamed from Benign hypertension) Start:15-Apr-2022 Instruction Type:Patient Education Patient Instructions Indication:Non-smoker Start:01-Apr-2022 Instruction Type:Provider Instructions for Treatment How to Access Health Informa tion Online using Patient Portal and [employer]rd [employer] Apps Indication:Non-smoker Start:01-Apr-2022 Instruction Type:Patient Education Patient Instructions Indication:BMI 33.0-33.9,adult Start:24-May-2021 Instruction Type:Provider Instructions for Treatment How to Access Health Informa tion Online using Patient Portal and [employer]rd [employer] Apps Indication:BMI 33.0-33.9,adult Start:24-May-2021 Instruction Type:Patient Education How to access health informa tion online Indication:Chewing tobacco use Start:07-Feb-2020 Instruction Type:Patient Education How to access health informa tion online - Detail Indication:Chewing tobacco use Start:07-Feb-2020 Instruction Type:Patient Education Patient Instructions Indication:Encounter for screening for lipid disorder Start:07-Feb-2020 Instruction Type:Provider Instructions for Treatment How to access health informa tion online Indication:BMI 34.0-34.9,adult Start:30-Dec-2019 Instruction Type:Patient Education How to access health informa tion online - Detail Indication:BMI 34.0-34.9,adult Start:30-Dec-2019 Instruction Type:Patient Education Patient Instructions Indication:BMI 34.0-34.9,adult Start:30-Dec-2019 Instruction Type:Provider Instructions for Treatment How to access health informa tion online Indication:BMI 34.0-34.9,adult Start:18-Jul-2019 Instruction Type:Patient Education How to access health informa tion online - Detail Indication:BMI 34.0-34.9,adult Start:18-Jul-2019 Instruction Type:Patient Education Patient Instructions Indication:BMI 34.0-34.9,adult Start:18-Jul-2019 Instruction Type:Provider Instructions for Treatment How to access health informa tion online Indication:Non-smoker Start:05-Jul-2019 Instruction Type:Patient Education How to access health informa tion online - Detail Indication:Non-smoker Start:05-Jul-2019 Instruction Type:Patient Education Patient Instructions Indication:Non-smoker Start:05-Jul-2019 Instruction Type:Provider Instructions for Treatment How to access health informa tion online Indication:Non-smoker Start:14-Jun-2019 Instruction Type:Patient Education How to access health informa tion online - Detail Indication:Non-smoker Start:14-Jun-2019 Instruction Type:Patient Education Patient Instructions Indication:BMI 34.0-34.9,adult Start:14-Jun-2019 Instruction Type:Provider Instructions for Treatment How to access health informa tion online Indication:Non-smoker Start:26-Mar-2019 Instruction Type:Patient Education How to access health informa tion online - Detail Indication:Non-smoker Start:26-Mar-2019 Instruction Type:Patient Education Patient Instructions Indication:Non-smoker Start:26-Mar-2019 Instruction Type:Provider Instructions for Treatment How to access health informa tion online Indication:Non-smoker Start:01-Feb-2019 Instruction Type:Patient Education How to access health informa tion online - Detail Indication:Non-smoker Start:01-Feb-2019 Instruction Type:Patient Education Patient Instructions Indication:BMI 34.0-34.9,adult Start:01-Feb-2019 Instruction Type:Provider Instructions for Treatment How to access health informa tion online Indication:BMI 35.0-35.9,adult Start:17-Jan-2019 Instruction Type:Patient Education How to access health informa tion online - Detail Indication:BMI 35.0-35.9,adult Start:17-Jan-2019 Instruction Type:Patient Education Patient Instructions Indication:Right leg pain Start:17-Jan-2019 Instruction Type:Provider Instructions for Treatment How to access health informa tion online Indication:BMI 35.0-35.9,adult Start:25-May-2018 Instruction Type:Patient Education How to access health informa tion online - Detail Indication:BMI 35.0-35.9,adult Start:25-May-2018 Instruction Type:Patient Education Patient Instructions Indication:BMI 35.0-35.9,adult Start:25-May-2018 Instruction Type:Provider Instructions for Treatment How to access health informa tion online Indication:Non-smoker Start:09-May-2018 Instruction Type:Patient Education How to access health informa tion online - Detail Indication:Non-smoker Start:09-May-2018 Instruction Type:Patient Education Patient Instructions Indication:Non-smoker Start:09-May-2018 Instruction Type:Provider Instructions for Treatment How to access health informa tion online Indication:Nonsmoker Start:28-Dec-2017 Instruction Type:Patient Education How to access health informa tion online - Detail Indication:Nonsmoker Start:28-Dec-2017 Instruction Type:Patient Education Patient Instructions Indication:Left foot pain Start:28-Dec-2017 Instruction Type:Provider Instructions for Treatment How to access health informa tion online Indication:BMI 31.0-31.9,adult Start:08-Jun-2017 Instruction Type:Patient Education How to access health informa tion online - Detail Indication:BMI 31.0-31.9,adult Start:08-Jun-2017 Instruction Type:Patient Education Patient Instructions Indication:BMI 31.0-31.9,adult Start:08-Jun-2017 Instruction Type:Provider Instructions for Treatment Patient Instructions Indication:Influenza A Start:16-May-2017 Instruction Type:Provider Instructions for Treatment How to access health informa tion online Indication:Chewing tobacco use Start:16-May-2017 Instruction Type:Patient Education How to access health informa tion online - Detail Indication:Chewing tobacco use Start:16-May-2017 Instruction Type:Patient Education How to access health informa tion online Indication:Testicular/scrotal pain Start:21-Oct-2016 Instruction Type:Patient Education How to access health informa tion online - Detail Indication:Testicular/scrotal pain Start:21-Oct-2016 Instruction Type:Patient Education Patient Instructions Indication:Testicular/scrotal pain Start:21-Oct-2016 Instruction Type:Provider Instructions for Treatment How to access health informa tion online Indication:Testicular/scrotal pain Start:17-Oct-2016 Instruction Type:Patient Education How to access health informa tion online - Detail Indication:Testicular/scrotal pain Start:17-Oct-2016 Instruction Type:Patient Education Patient Instructions Indication:Testicular/scrotal pain Start:17-Oct-2016 Instruction Type:Provider Instructions for Treatment [facility]; [facility] Work Phone: Instructions* Name Dates Details Patient Instructions Indication:HTN (hypertension), benign (Renamed from Benign hypertension) Start:15-Apr-2022 Instruction Type:Provider Instructions for Treatment How to Access Health Informa tion Online using Patient Portal and [employer]rd [employer] Apps Indication:HTN (hypertension), benign (Renamed from Benign hypertension) Start:15-Apr-2022 Instruction Type:Patient Education Patient Instructions Indication:Non-smoker Start:01-Apr-2022 Instruction Type:Provider Instructions for Treatment How to Access Health Informa tion Online using Patient Portal and [employer]rd [employer] Apps Indication:Non-smoker Start:01-Apr-2022 Instruction Type:Patient Education Patient Instructions Indication:BMI 33.0-33.9,adult Start:24-May-2021 Instruction Type:Provider Instructions for Treatment How to Access Health Informa tion Online using Patient Portal and [employer]rd [employer] Apps Indication:BMI 33.0-33.9,adult Start:24-May-2021 Instruction Type:Patient Education How to access health informa tion online Indication:Chewing tobacco use Start:07-Feb-2020 Instruction Type:Patient Education How to access health informa tion online - Detail Indication:Chewing tobacco use Start:07-Feb-2020 Instruction Type:Patient Education Patient Instructions Indication:Encounter for screening for lipid disorder Start:07-Feb-2020 Instruction Type:Provider Instructions for Treatment How to access health informa tion online Indication:BMI 34.0-34.9,adult Start:30-Dec-2019 Instruction Type:Patient Education How to access health informa tion online - Detail Indication:BMI 34.0-34.9,adult Start:30-Dec-2019 Instruction Type:Patient Education Patient Instructions Indication:BMI 34.0-34.9,adult Start:30-Dec-2019 Instruction Type:Provider Instructions for Treatment How to access health informa tion online Indication:BMI 34.0-34.9,adult Start:18-Jul-2019 Instruction Type:Patient Education How to access health informa tion online - Detail Indication:BMI 34.0-34.9,adult Start:18-Jul-2019 Instruction Type:Patient Education Patient Instructions Indication:BMI 34.0-34.9,adult Start:18-Jul-2019 Instruction Type:Provider Instructions for Treatment How to access health informa tion online Indication:Non-smoker Start:05-Jul-2019 Instruction Type:Patient Education How to access health informa tion online - Detail Indication:Non-smoker Start:05-Jul-2019 Instruction Type:Patient Education Patient Instructions Indication:Non-smoker Start:05-Jul-2019 Instruction Type:Provider Instructions for Treatment How to access health informa tion online Indication:Non-smoker Start:14-Jun-2019 Instruction Type:Patient Education How to access health informa tion online - Detail Indication:Non-smoker Start:14-Jun-2019 Instruction Type:Patient Education Patient Instructions Indication:BMI 34.0-34.9,adult Start:14-Jun-2019 Instruction Type:Provider Instructions for Treatment How to access health informa tion online Indication:Non-smoker Start:26-Mar-2019 Instruction Type:Patient Education How to access health informa tion online - Detail Indication:Non-smoker Start:26-Mar-2019 Instruction Type:Patient Education Patient Instructions Indication:Non-smoker Start:26-Mar-2019 Instruction Type:Provider Instructions for Treatment How to access health informa tion online Indication:Non-smoker Start:01-Feb-2019 Instruction Type:Patient Education How to access health informa tion online - Detail Indication:Non-smoker Start:01-Feb-2019 Instruction Type:Patient Education Patient Instructions Indication:BMI 34.0-34.9,adult Start:01-Feb-2019 Instruction Type:Provider Instructions for Treatment How to access health informa tion online Indication:BMI 35.0-35.9,adult Start:17-Jan-2019 Instruction Type:Patient Education How to access health informa tion online - Detail Indication:BMI 35.0-35.9,adult Start:17-Jan-2019 Instruction Type:Patient Education Patient Instructions Indication:Right leg pain Start:17-Jan-2019 Instruction Type:Provider Instructions for Treatment How to access health informa tion online Indication:BMI 35.0-35.9,adult Start:25-May-2018 Instruction Type:Patient Education How to access health informa tion online - Detail Indication:BMI 35.0-35.9,adult Start:25-May-2018 Instruction Type:Patient Education Patient Instructions Indication:BMI 35.0-35.9,adult Start:25-May-2018 Instruction Type:Provider Instructions for Treatment How to access health informa tion online Indication:Non-smoker Start:09-May-2018 Instruction Type:Patient Education How to access health informa tion online - Detail Indication:Non-smoker Start:09-May-2018 Instruction Type:Patient Education Patient Instructions Indication:Non-smoker Start:09-May-2018 Instruction Type:Provider Instructions for Treatment How to access health informa tion online Indication:Nonsmoker Start:28-Dec-2017 Instruction Type:Patient Education How to access health informa tion online - Detail Indication:Nonsmoker Start:28-Dec-2017 Instruction Type:Patient Education Patient Instructions Indication:Left foot pain Start:28-Dec-2017 Instruction Type:Provider Instructions for Treatment How to access health informa tion online Indication:BMI 31.0-31.9,adult Start:08-Jun-2017 Instruction Type:Patient Education How to access health informa tion online - Detail Indication:BMI 31.0-31.9,adult Start:08-Jun-2017 Instruction Type:Patient Education Patient Instructions Indication:BMI 31.0-31.9,adult Start:08-Jun-2017 Instruction Type:Provider Instructions for Treatment Patient Instructions Indication:Influenza A Start:16-May-2017 Instruction Type:Provider Instructions for Treatment How to access health informa tion online Indication:Chewing tobacco use Start:16-May-2017 Instruction Type:Patient Education How to access health informa tion online - Detail Indication:Chewing tobacco use Start:16-May-2017 Instruction Type:Patient Education How to access health informa tion online Indication:Testicular/scrotal pain Start:21-Oct-2016 Instruction Type:Patient Education How to access health informa tion online - Detail Indication:Testicular/scrotal pain Start:21-Oct-2016 Instruction Type:Patient Education Patient Instructions Indication:Testicular/scrotal pain Start:21-Oct-2016 Instruction Type:Provider Instructions for Treatment How to access health informa tion online Indication:Testicular/scrotal pain Start:17-Oct-2016 Instruction Type:Patient Education How to access health informa tion online - Detail Indication:Testicular/scrotal pain Start:17-Oct-2016 Instruction Type:Patient Education Patient Instructions Indication:Testicular/scrotal pain Start:17-Oct-2016 Instruction Type:Provider Instructions for Treatment [facility]; [facility] Work Phone: Instructions* Name Dates Details Patient Instructions Indication:HTN (hypertension), benign (Renamed from Benign hypertension) Start:15-Apr-2022 Instruction Type:Provider Instructions for Treatment How to Access Health Informa tion Online using Patient Portal and [employer]rd [employer] Apps Indication:HTN (hypertension), benign (Renamed from Benign hypertension) Start:15-Apr-2022 Instruction Type:Patient Education Patient Instructions Indication:Non-smoker Start:01-Apr-2022 Instruction Type:Provider Instructions for Treatment How to Access Health Informa tion Online using Patient Portal and [employer]rd [employer] Apps Indication:Non-smoker Start:01-Apr-2022 Instruction Type:Patient Education Patient Instructions Indication:BMI 33.0-33.9,adult Start:24-May-2021 Instruction Type:Provider Instructions for Treatment How to Access Health Informa tion Online using Patient Portal and [employer]rd [employer] Apps Indication:BMI 33.0-33.9,adult Start:24-May-2021 Instruction Type:Patient Education How to access health informa tion online Indication:Chewing tobacco use Start:07-Feb-2020 Instruction Type:Patient Education How to access health informa tion online - Detail Indication:Chewing tobacco use Start:07-Feb-2020 Instruction Type:Patient Education Patient Instructions Indication:Encounter for screening for lipid disorder Start:07-Feb-2020 Instruction Type:Provider Instructions for Treatment How to access health informa tion online Indication:BMI 34.0-34.9,adult Start:30-Dec-2019 Instruction Type:Patient Education How to access health informa tion online - Detail Indication:BMI 34.0-34.9,adult Start:30-Dec-2019 Instruction Type:Patient Education Patient Instructions Indication:BMI 34.0-34.9,adult Start:30-Dec-2019 Instruction Type:Provider Instructions for Treatment How to access health informa tion online Indication:BMI 34.0-34.9,adult Start:18-Jul-2019 Instruction Type:Patient Education How to access health informa tion online - Detail Indication:BMI 34.0-34.9,adult Start:18-Jul-2019 Instruction Type:Patient Education Patient Instructions Indication:BMI 34.0-34.9,adult Start:18-Jul-2019 Instruction Type:Provider Instructions for Treatment How to access health informa tion online Indication:Non-smoker Start:05-Jul-2019 Instruction Type:Patient Education How to access health informa tion online - Detail Indication:Non-smoker Start:05-Jul-2019 Instruction Type:Patient Education Patient Instructions Indication:Non-smoker Start:05-Jul-2019 Instruction Type:Provider Instructions for Treatment How to access health informa tion online Indication:Non-smoker Start:14-Jun-2019 Instruction Type:Patient Education How to access health informa tion online - Detail Indication:Non-smoker Start:14-Jun-2019 Instruction Type:Patient Education Patient Instructions Indication:BMI 34.0-34.9,adult Start:14-Jun-2019 Instruction Type:Provider Instructions for Treatment How to access health informa tion online Indication:Non-smoker Start:26-Mar-2019 Instruction Type:Patient Education How to access health informa tion online - Detail Indication:Non-smoker Start:26-Mar-2019 Instruction Type:Patient Education Patient Instructions Indication:Non-smoker Start:26-Mar-2019 Instruction Type:Provider Instructions for Treatment How to access health informa tion online Indication:Non-smoker Start:01-Feb-2019 Instruction Type:Patient Education How to access health informa tion online - Detail Indication:Non-smoker Start:01-Feb-2019 Instruction Type:Patient Education Patient Instructions Indication:BMI 34.0-34.9,adult Start:01-Feb-2019 Instruction Type:Provider Instructions for Treatment How to access health informa tion online Indication:BMI 35.0-35.9,adult Start:17-Jan-2019 Instruction Type:Patient Education How to access health informa tion online - Detail Indication:BMI 35.0-35.9,adult Start:17-Jan-2019 Instruction Type:Patient Education Patient Instructions Indication:Right leg pain Start:17-Jan-2019 Instruction Type:Provider Instructions for Treatment How to access health informa tion online Indication:BMI 35.0-35.9,adult Start:25-May-2018 Instruction Type:Patient Education How to access health informa tion online - Detail Indication:BMI 35.0-35.9,adult Start:25-May-2018 Instruction Type:Patient Education Patient Instructions Indication:BMI 35.0-35.9,adult Start:25-May-2018 Instruction Type:Provider Instructions for Treatment How to access health informa tion online Indication:Non-smoker Start:09-May-2018 Instruction Type:Patient Education How to access health informa tion online - Detail Indication:Non-smoker Start:09-May-2018 Instruction Type:Patient Education Patient Instructions Indication:Non-smoker Start:09-May-2018 Instruction Type:Provider Instructions for Treatment How to access health informa tion online Indication:Nonsmoker Start:28-Dec-2017 Instruction Type:Patient Education How to access health informa tion online - Detail Indication:Nonsmoker Start:28-Dec-2017 Instruction Type:Patient Education Patient Instructions Indication:Left foot pain Start:28-Dec-2017 Instruction Type:Provider Instructions for Treatment How to access health informa tion online Indication:BMI 31.0-31.9,adult Start:08-Jun-2017 Instruction Type:Patient Education How to access health informa tion online - Detail Indication:BMI 31.0-31.9,adult Start:08-Jun-2017 Instruction Type:Patient Education Patient Instructions Indication:BMI 31.0-31.9,adult Start:08-Jun-2017 Instruction Type:Provider Instructions for Treatment Patient Instructions Indication:Influenza A Start:16-May-2017 Instruction Type:Provider Instructions for Treatment How to access health informa tion online Indication:Chewing tobacco use Start:16-May-2017 Instruction Type:Patient Education How to access health informa tion online - Detail Indication:Chewing tobacco use Start:16-May-2017 Instruction Type:Patient Education How to access health informa tion online Indication:Testicular/scrotal pain Start:21-Oct-2016 Instruction Type:Patient Education How to access health informa tion online - Detail Indication:Testicular/scrotal pain Start:21-Oct-2016 Instruction Type:Patient Education Patient Instructions Indication:Testicular/scrotal pain Start:21-Oct-2016 Instruction Type:Provider Instructions for Treatment How to access health informa tion online Indication:Testicular/scrotal pain Start:17-Oct-2016 Instruction Type:Patient Education How to access health informa tion online - Detail Indication:Testicular/scrotal pain Start:17-Oct-2016 Instruction Type:Patient Education Patient Instructions Indication:Testicular/scrotal pain Start:17-Oct-2016 Instruction Type:Provider Instructions for Treatment [facility]; [facility] Work Phone: Instructions* Name Dates Details Patient Instructions Indication:HTN (hypertension), benign (Renamed from Benign hypertension) Start:15-Apr-2022 Instruction Type:Provider Instructions for Treatment How to Access Health Informa tion Online using Patient Portal and [employer]rd [employer] Apps Indication:HTN (hypertension), benign (Renamed from Benign hypertension) Start:15-Apr-2022 Instruction Type:Patient Education Patient Instructions Indication:Non-smoker Start:01-Apr-2022 Instruction Type:Provider Instructions for Treatment How to Access Health Informa tion Online using Patient Portal and [employer]rd [employer] Apps Indication:Non-smoker Start:01-Apr-2022 Instruction Type:Patient Education Patient Instructions Indication:BMI 33.0-33.9,adult Start:24-May-2021 Instruction Type:Provider Instructions for Treatment How to Access Health Informa tion Online using Patient Portal and [employer]rd [employer] Apps Indication:BMI 33.0-33.9,adult Start:24-May-2021 Instruction Type:Patient Education How to access health informa tion online Indication:Chewing tobacco use Start:07-Feb-2020 Instruction Type:Patient Education How to access health informa tion online - Detail Indication:Chewing tobacco use Start:07-Feb-2020 Instruction Type:Patient Education Patient Instructions Indication:Encounter for screening for lipid disorder Start:07-Feb-2020 Instruction Type:Provider Instructions for Treatment How to access health informa tion online Indication:BMI 34.0-34.9,adult Start:30-Dec-2019 Instruction Type:Patient Education How to access health informa tion online - Detail Indication:BMI 34.0-34.9,adult Start:30-Dec-2019 Instruction Type:Patient Education Patient Instructions Indication:BMI 34.0-34.9,adult Start:30-Dec-2019 Instruction Type:Provider Instructions for Treatment How to access health informa tion online Indication:BMI 34.0-34.9,adult Start:18-Jul-2019 Instruction Type:Patient Education How to access health informa tion online - Detail Indication:BMI 34.0-34.9,adult Start:18-Jul-2019 Instruction Type:Patient Education Patient Instructions Indication:BMI 34.0-34.9,adult Start:18-Jul-2019 Instruction Type:Provider Instructions for Treatment How to access health informa tion online Indication:Non-smoker Start:05-Jul-2019 Instruction Type:Patient Education How to access health informa tion online - Detail Indication:Non-smoker Start:05-Jul-2019 Instruction Type:Patient Education Patient Instructions Indication:Non-smoker Start:05-Jul-2019 Instruction Type:Provider Instructions for Treatment How to access health informa tion online Indication:Non-smoker Start:14-Jun-2019 Instruction Type:Patient Education How to access health informa tion online - Detail Indication:Non-smoker Start:14-Jun-2019 Instruction Type:Patient Education Patient Instructions Indication:BMI 34.0-34.9,adult Start:14-Jun-2019 Instruction Type:Provider Instructions for Treatment How to access health informa tion online Indication:Non-smoker Start:26-Mar-2019 Instruction Type:Patient Education How to access health informa tion online - Detail Indication:Non-smoker Start:26-Mar-2019 Instruction Type:Patient Education Patient Instructions Indication:Non-smoker Start:26-Mar-2019 Instruction Type:Provider Instructions for Treatment How to access health informa tion online Indication:Non-smoker Start:01-Feb-2019 Instruction Type:Patient Education How to access health informa tion online - Detail Indication:Non-smoker Start:01-Feb-2019 Instruction Type:Patient Education Patient Instructions Indication:BMI 34.0-34.9,adult Start:01-Feb-2019 Instruction Type:Provider Instructions for Treatment How to access health informa tion online Indication:BMI 35.0-35.9,adult Start:17-Jan-2019 Instruction Type:Patient Education How to access health informa tion online - Detail Indication:BMI 35.0-35.9,adult Start:17-Jan-2019 Instruction Type:Patient Education Patient Instructions Indication:Right leg pain Start:17-Jan-2019 Instruction Type:Provider Instructions for Treatment How to access health informa tion online Indication:BMI 35.0-35.9,adult Start:25-May-2018 Instruction Type:Patient Education How to access health informa tion online - Detail Indication:BMI 35.0-35.9,adult Start:25-May-2018 Instruction Type:Patient Education Patient Instructions Indication:BMI 35.0-35.9,adult Start:25-May-2018 Instruction Type:Provider Instructions for Treatment How to access health informa tion online Indication:Non-smoker Start:09-May-2018 Instruction Type:Patient Education How to access health informa tion online - Detail Indication:Non-smoker Start:09-May-2018 Instruction Type:Patient Education Patient Instructions Indication:Non-smoker Start:09-May-2018 Instruction Type:Provider Instructions for Treatment How to access health informa tion online Indication:Nonsmoker Start:28-Dec-2017 Instruction Type:Patient Education How to access health informa tion online - Detail Indication:Nonsmoker Start:28-Dec-2017 Instruction Type:Patient Education Patient Instructions Indication:Left foot pain Start:28-Dec-2017 Instruction Type:Provider Instructions for Treatment How to access health informa tion online Indication:BMI 31.0-31.9,adult Start:08-Jun-2017 Instruction Type:Patient Education How to access health informa tion online - Detail Indication:BMI 31.0-31.9,adult Start:08-Jun-2017 Instruction Type:Patient Education Patient Instructions Indication:BMI 31.0-31.9,adult Start:08-Jun-2017 Instruction Type:Provider Instructions for Treatment Patient Instructions Indication:Influenza A Start:16-May-2017 Instruction Type:Provider Instructions for Treatment How to access health informa tion online Indication:Chewing tobacco use Start:16-May-2017 Instruction Type:Patient Education How to access health informa tion online - Detail Indication:Chewing tobacco use Start:16-May-2017 Instruction Type:Patient Education How to access health informa tion online Indication:Testicular/scrotal pain Start:21-Oct-2016 Instruction Type:Patient Education How to access health informa tion online - Detail Indication:Testicular/scrotal pain Start:21-Oct-2016 Instruction Type:Patient Education Patient Instructions Indication:Testicular/scrotal pain Start:21-Oct-2016 Instruction Type:Provider Instructions for Treatment How to access health informa tion online Indication:Testicular/scrotal pain Start:17-Oct-2016 Instruction Type:Patient Education How to access health informa tion online - Detail Indication:Testicular/scrotal pain Start:17-Oct-2016 Instruction Type:Patient Education Patient Instructions Indication:Testicular/scrotal pain Start:17-Oct-2016 Instruction Type:Provider Instructions for Treatment [facility]; [facility] Work Phone: Instructions* Name Dates Details Patient Instructions Indication:Non-smoker Start:10-May-2022 Instruction Type:Provider Instructions for Treatment How to Access Health Informa tion Online using Patient Portal and [employer] Indication:Non-smoker Start:10-May-2022 Instruction Type:Patient Education Patient Instructions Indication:HTN (hypertension), benign (Renamed from Benign hypertension) Start:15-Apr-2022 Instruction Type:Provider Instructions for Treatment How to Access Health Informa tion Online using Patient Portal and [employer] Apps Indication:HTN (hypertension), benign (Renamed from Benign hypertension) Start:15-Apr-2022 Instruction Type:Patient Education Patient Instructions Indication:Non-smoker Start:01-Apr-2022 Instruction Type:Provider Instructions for Treatment How to Access Health Informa tion Online using Patient Portal and [employer] Indication:Non-smoker Start:01-Apr-2022 Instruction Type:Patient Education Patient Instructions Indication:BMI 33.0-33.9,adult Start:24-May-2021 Instruction Type:Provider Instructions for Treatment How to Access Health Informa tion Online using Patient Portal and [employer] Indication:BMI 33.0-33.9,adult Start:24-May-2021 Instruction Type:Patient Education How to access health informa tion online Indication:Chewing tobacco use Start:07-Feb-2020 Instruction Type:Patient Education How to access health informa tion online - Detail Indication:Chewing tobacco use Start:07-Feb-2020 Instruction Type:Patient Education Patient Instructions Indication:Encounter for screening for lipid disorder Start:07-Feb-2020 Instruction Type:Provider Instructions for Treatment How to access health informa tion online Indication:BMI 34.0-34.9,adult Start:30-Dec-2019 Instruction Type:Patient Education How to access health informa tion online - Detail Indication:BMI 34.0-34.9,adult Start:30-Dec-2019 Instruction Type:Patient Education Patient Instructions Indication:BMI 34.0-34.9,adult Start:30-Dec-2019 Instruction Type:Provider Instructions for Treatment How to access health informa tion online Indication:BMI 34.0-34.9,adult Start:18-Jul-2019 Instruction Type:Patient Education How to access health informa tion online - Detail Indication:BMI 34.0-34.9,adult Start:18-Jul-2019 Instruction Type:Patient Education Patient Instructions Indication:BMI 34.0-34.9,adult Start:18-Jul-2019 Instruction Type:Provider Instructions for Treatment How to access health informa tion online Indication:Non-smoker Start:05-Jul-2019 Instruction Type:Patient Education How to access health informa tion online - Detail Indication:Non-smoker Start:05-Jul-2019 Instruction Type:Patient Education Patient Instructions Indication:Non-smoker Start:05-Jul-2019 Instruction Type:Provider Instructions for Treatment How to access health informa tion online Indication:Non-smoker Start:14-Jun-2019 Instruction Type:Patient Education How to access health informa tion online - Detail Indication:Non-smoker Start:14-Jun-2019 Instruction Type:Patient Education Patient Instructions Indication:BMI 34.0-34.9,adult Start:14-Jun-2019 Instruction Type:Provider Instructions for Treatment How to access health informa tion online Indication:Non-smoker Start:26-Mar-2019 Instruction Type:Patient Education How to access health informa tion online - Detail Indication:Non-smoker Start:26-Mar-2019 Instruction Type:Patient Education Patient Instructions Indication:Non-smoker Start:26-Mar-2019 Instruction Type:Provider Instructions for Treatment How to access health informa tion online Indication:Non-smoker Start:01-Feb-2019 Instruction Type:Patient Education How to access health informa tion online - Detail Indication:Non-smoker Start:01-Feb-2019 Instruction Type:Patient Education Patient Instructions Indication:BMI 34.0-34.9,adult Start:01-Feb-2019 Instruction Type:Provider Instructions for Treatment How to access health informa tion online Indication:BMI 35.0-35.9,adult Start:17-Jan-2019 Instruction Type:Patient Education How to access health informa tion online - Detail Indication:BMI 35.0-35.9,adult Start:17-Jan-2019 Instruction Type:Patient Education Patient Instructions Indication:Right leg pain Start:17-Jan-2019 Instruction Type:Provider Instructions for Treatment How to access health informa tion online Indication:BMI 35.0-35.9,adult Start:25-May-2018 Instruction Type:Patient Education How to access health informa tion online - Detail Indication:BMI 35.0-35.9,adult Start:25-May-2018 Instruction Type:Patient Education Patient Instructions Indication:BMI 35.0-35.9,adult Start:25-May-2018 Instruction Type:Provider Instructions for Treatment How to access health informa tion online Indication:Non-smoker Start:09-May-2018 Instruction Type:Patient Education How to access health informa tion online - Detail Indication:Non-smoker Start:09-May-2018 Instruction Type:Patient Education Patient Instructions Indication:Non-smoker Start:09-May-2018 Instruction Type:Provider Instructions for Treatment How to access health informa tion online Indication:Nonsmoker Start:28-Dec-2017 Instruction Type:Patient Education How to access health informa tion online - Detail Indication:Nonsmoker Start:28-Dec-2017 Instruction Type:Patient Education Patient Instructions Indication:Left foot pain Start:28-Dec-2017 Instruction Type:Provider Instructions for Treatment How to access health informa tion online Indication:BMI 31.0-31.9,adult Start:08-Jun-2017 Instruction Type:Patient Education How to access health informa tion online - Detail Indication:BMI 31.0-31.9,adult Start:08-Jun-2017 Instruction Type:Patient Education Patient Instructions Indication:BMI 31.0-31.9,adult Start:08-Jun-2017 Instruction Type:Provider Instructions for Treatment Patient Instructions Indication:Influenza A Start:16-May-2017 Instruction Type:Provider Instructions for Treatment How to access health informa tion online Indication:Chewing tobacco use Start:16-May-2017 Instruction Type:Patient Education How to access health informa tion online - Detail Indication:Chewing tobacco use Start:16-May-2017 Instruction Type:Patient Education How to access health informa tion online Indication:Testicular/scrotal pain Start:21-Oct-2016 Instruction Type:Patient Education How to access health informa tion online - Detail Indication:Testicular/scrotal pain Start:21-Oct-2016 Instruction Type:Patient Education Patient Instructions Indication:Testicular/scrotal pain Start:21-Oct-2016 Instruction Type:Provider Instructions for Treatment How to access health informa tion online Indication:Testicular/scrotal pain Start:17-Oct-2016 Instruction Type:Patient Education How to access health informa tion online - Detail Indication:Testicular/scrotal pain Start:17-Oct-2016 Instruction Type:Patient Education Patient Instructions Indication:Testicular/scrotal pain Start:17-Oct-2016 Instruction Type:Provider Instructions for Treatment [facility]; [facility] Work Phone: Instructions* Name Dates Details Patient Instructions Indication:Non-smoker Start:10-May-2022 Instruction Type:Provider Instructions for Treatment How to Access Health Informa tion Online using Patient Portal and [employer] Indication:Non-smoker Start:10-May-2022 Instruction Type:Patient Education Patient Instructions Indication:HTN (hypertension), benign (Renamed from Benign hypertension) Start:15-Apr-2022 Instruction Type:Provider Instructions for Treatment How to Access Health Informa tion Online using Patient Portal and [employer] Indication:HTN (hypertension), benign (Renamed from Benign hypertension) Start:15-Apr-2022 Instruction Type:Patient Education Patient Instructions Indication:Non-smoker Start:01-Apr-2022 Instruction Type:Provider Instructions for Treatment How to Access Health Informa tion Online using Patient Portal and [employer] Indication:Non-smoker Start:01-Apr-2022 Instruction Type:Patient Education Patient Instructions Indication:BMI 33.0-33.9,adult Start:24-May-2021 Instruction Type:Provider Instructions for Treatment How to Access Health Informa tion Online using Patient Portal and [employer] Indication:BMI 33.0-33.9,adult Start:24-May-2021 Instruction Type:Patient Education How to access health informa tion online Indication:Chewing tobacco use Start:07-Feb-2020 Instruction Type:Patient Education How to access health informa tion online - Detail Indication:Chewing tobacco use Start:07-Feb-2020 Instruction Type:Patient Education Patient Instructions Indication:Encounter for screening for lipid disorder Start:07-Feb-2020 Instruction Type:Provider Instructions for Treatment How to access health informa tion online Indication:BMI 34.0-34.9,adult Start:30-Dec-2019 Instruction Type:Patient Education How to access health informa tion online - Detail Indication:BMI 34.0-34.9,adult Start:30-Dec-2019 Instruction Type:Patient Education Patient Instructions Indication:BMI 34.0-34.9,adult Start:30-Dec-2019 Instruction Type:Provider Instructions for Treatment How to access health informa tion online Indication:BMI 34.0-34.9,adult Start:18-Jul-2019 Instruction Type:Patient Education How to access health informa tion online - Detail Indication:BMI 34.0-34.9,adult Start:18-Jul-2019 Instruction Type:Patient Education Patient Instructions Indication:BMI 34.0-34.9,adult Start:18-Jul-2019 Instruction Type:Provider Instructions for Treatment How to access health informa tion online Indication:Non-smoker Start:05-Jul-2019 Instruction Type:Patient Education How to access health informa tion online - Detail Indication:Non-smoker Start:05-Jul-2019 Instruction Type:Patient Education Patient Instructions Indication:Non-smoker Start:05-Jul-2019 Instruction Type:Provider Instructions for Treatment How to access health informa tion online Indication:Non-smoker Start:14-Jun-2019 Instruction Type:Patient Education How to access health informa tion online - Detail Indication:Non-smoker Start:14-Jun-2019 Instruction Type:Patient Education Patient Instructions Indication:BMI 34.0-34.9,adult Start:14-Jun-2019 Instruction Type:Provider Instructions for Treatment How to access health informa tion online Indication:Non-smoker Start:26-Mar-2019 Instruction Type:Patient Education How to access health informa tion online - Detail Indication:Non-smoker Start:26-Mar-2019 Instruction Type:Patient Education Patient Instructions Indication:Non-smoker Start:26-Mar-2019 Instruction Type:Provider Instructions for Treatment How to access health informa tion online Indication:Non-smoker Start:01-Feb-2019 Instruction Type:Patient Education How to access health informa tion online - Detail Indication:Non-smoker Start:01-Feb-2019 Instruction Type:Patient Education Patient Instructions Indication:BMI 34.0-34.9,adult Start:01-Feb-2019 Instruction Type:Provider Instructions for Treatment How to access health informa tion online Indication:BMI 35.0-35.9,adult Start:17-Jan-2019 Instruction Type:Patient Education How to access health informa tion online - Detail Indication:BMI 35.0-35.9,adult Start:17-Jan-2019 Instruction Type:Patient Education Patient Instructions Indication:Right leg pain Start:17-Jan-2019 Instruction Type:Provider Instructions for Treatment How to access health informa tion online Indication:BMI 35.0-35.9,adult Start:25-May-2018 Instruction Type:Patient Education How to access health informa tion online - Detail Indication:BMI 35.0-35.9,adult Start:25-May-2018 Instruction Type:Patient Education Patient Instructions Indication:BMI 35.0-35.9,adult Start:25-May-2018 Instruction Type:Provider Instructions for Treatment How to access health informa tion online Indication:Non-smoker Start:09-May-2018 Instruction Type:Patient Education How to access health informa tion online - Detail Indication:Non-smoker Start:09-May-2018 Instruction Type:Patient Education Patient Instructions Indication:Non-smoker Start:09-May-2018 Instruction Type:Provider Instructions for Treatment How to access health informa tion online Indication:Nonsmoker Start:28-Dec-2017 Instruction Type:Patient Education How to access health informa tion online - Detail Indication:Nonsmoker Start:28-Dec-2017 Instruction Type:Patient Education Patient Instructions Indication:Left foot pain Start:28-Dec-2017 Instruction Type:Provider Instructions for Treatment How to access health informa tion online Indication:BMI 31.0-31.9,adult Start:08-Jun-2017 Instruction Type:Patient Education How to access health informa tion online - Detail Indication:BMI 31.0-31.9,adult Start:08-Jun-2017 Instruction Type:Patient Education Patient Instructions Indication:BMI 31.0-31.9,adult Start:08-Jun-2017 Instruction Type:Provider Instructions for Treatment Patient Instructions Indication:Influenza A Start:16-May-2017 Instruction Type:Provider Instructions for Treatment How to access health informa tion online Indication:Chewing tobacco use Start:16-May-2017 Instruction Type:Patient Education How to access health informa tion online - Detail Indication:Chewing tobacco use Start:16-May-2017 Instruction Type:Patient Education How to access health informa tion online Indication:Testicular/scrotal pain Start:21-Oct-2016 Instruction Type:Patient Education How to access health informa tion online - Detail Indication:Testicular/scrotal pain Start:21-Oct-2016 Instruction Type:Patient Education Patient Instructions Indication:Testicular/scrotal pain Start:21-Oct-2016 Instruction Type:Provider Instructions for Treatment How to access health informa tion online Indication:Testicular/scrotal pain Start:17-Oct-2016 Instruction Type:Patient Education How to access health informa tion online - Detail Indication:Testicular/scrotal pain Start:17-Oct-2016 Instruction Type:Patient Education Patient Instructions Indication:Testicular/scrotal pain Start:17-Oct-2016 Instruction Type:Provider Instructions for Treatment [facility]; [facility] Work Phone: Instructions* Name Dates Details Patient Instructions Indication:BMI 35.0-35.9,adult Start:26-May-2022 Instruction Type:Provider Instructions for Treatment How to Access Health Informa tion Online using Patient Portal and [employer] Indication:BMI 35.0-35.9,adult Start:26-May-2022 Instruction Type:Patient Education Patient Instructions Indication:Non-smoker Start:10-May-2022 Instruction Type:Provider Instructions for Treatment How to Access Health Informa tion Online using Patient Portal and [employer] Indication:Non-smoker Start:10-May-2022 Instruction Type:Patient Education Patient Instructions Indication:HTN (hypertension), benign (Renamed from Benign hypertension) Start:15-Apr-2022 Instruction Type:Provider Instructions for Treatment How to Access Health Informa tion Online using Patient Portal and [employer] Indication:HTN (hypertension), benign (Renamed from Benign hypertension) Start:15-Apr-2022 Instruction Type:Patient Education Patient Instructions Indication:Non-smoker Start:01-Apr-2022 Instruction Type:Provider Instructions for Treatment How to Access Health Informa tion Online using Patient Portal and [employer] Indication:Non-smoker Start:01-Apr-2022 Instruction Type:Patient Education Patient Instructions Indication:BMI 33.0-33.9,adult Start:24-May-2021 Instruction Type:Provider Instructions for Treatment How to Access Health Informa tion Online using Patient Portal and [employer] Indication:BMI 33.0-33.9,adult Start:24-May-2021 Instruction Type:Patient Education How to access health informa tion online Indication:Chewing tobacco use Start:07-Feb-2020 Instruction Type:Patient Education How to access health informa tion online - Detail Indication:Chewing tobacco use Start:07-Feb-2020 Instruction Type:Patient Education Patient Instructions Indication:Encounter for screening for lipid disorder Start:07-Feb-2020 Instruction Type:Provider Instructions for Treatment How to access health informa tion online Indication:BMI 34.0-34.9,adult Start:30-Dec-2019 Instruction Type:Patient Education How to access health informa tion online - Detail Indication:BMI 34.0-34.9,adult Start:30-Dec-2019 Instruction Type:Patient Education Patient Instructions Indication:BMI 34.0-34.9,adult Start:30-Dec-2019 Instruction Type:Provider Instructions for Treatment How to access health informa tion online Indication:BMI 34.0-34.9,adult Start:18-Jul-2019 Instruction Type:Patient Education How to access health informa tion online - Detail Indication:BMI 34.0-34.9,adult Start:18-Jul-2019 Instruction Type:Patient Education Patient Instructions Indication:BMI 34.0-34.9,adult Start:18-Jul-2019 Instruction Type:Provider Instructions for Treatment How to access health informa tion online Indication:Non-smoker Start:05-Jul-2019 Instruction Type:Patient Education How to access health informa tion online - Detail Indication:Non-smoker Start:05-Jul-2019 Instruction Type:Patient Education Patient Instructions Indication:Non-smoker Start:05-Jul-2019 Instruction Type:Provider Instructions for Treatment How to access health informa tion online Indication:Non-smoker Start:14-Jun-2019 Instruction Type:Patient Education How to access health informa tion online - Detail Indication:Non-smoker Start:14-Jun-2019 Instruction Type:Patient Education Patient Instructions Indication:BMI 34.0-34.9,adult Start:14-Jun-2019 Instruction Type:Provider Instructions for Treatment How to access health informa tion online Indication:Non-smoker Start:26-Mar-2019 Instruction Type:Patient Education How to access health informa tion online - Detail Indication:Non-smoker Start:26-Mar-2019 Instruction Type:Patient Education Patient Instructions Indication:Non-smoker Start:26-Mar-2019 Instruction Type:Provider Instructions for Treatment How to access health informa tion online Indication:Non-smoker Start:01-Feb-2019 Instruction Type:Patient Education How to access health informa tion online - Detail Indication:Non-smoker Start:01-Feb-2019 Instruction Type:Patient Education Patient Instructions Indication:BMI 34.0-34.9,adult Start:01-Feb-2019 Instruction Type:Provider Instructions for Treatment How to access health informa tion online Indication:BMI 35.0-35.9,adult Start:17-Jan-2019 Instruction Type:Patient Education How to access health informa tion online - Detail Indication:BMI 35.0-35.9,adult Start:17-Jan-2019 Instruction Type:Patient Education Patient Instructions Indication:Right leg pain Start:17-Jan-2019 Instruction Type:Provider Instructions for Treatment How to access health informa tion online Indication:BMI 35.0-35.9,adult Start:25-May-2018 Instruction Type:Patient Education How to access health informa tion online - Detail Indication:BMI 35.0-35.9,adult Start:25-May-2018 Instruction Type:Patient Education Patient Instructions Indication:BMI 35.0-35.9,adult Start:25-May-2018 Instruction Type:Provider Instructions for Treatment How to access health informa tion online Indication:Non-smoker Start:09-May-2018 Instruction Type:Patient Education How to access health informa tion online - Detail Indication:Non-smoker Start:09-May-2018 Instruction Type:Patient Education Patient Instructions Indication:Non-smoker Start:09-May-2018 Instruction Type:Provider Instructions for Treatment How to access health informa tion online Indication:Nonsmoker Start:28-Dec-2017 Instruction Type:Patient Education How to access health informa tion online - Detail Indication:Nonsmoker Start:28-Dec-2017 Instruction Type:Patient Education Patient Instructions Indication:Left foot pain Start:28-Dec-2017 Instruction Type:Provider Instructions for Treatment How to access health informa tion online Indication:BMI 31.0-31.9,adult Start:08-Jun-2017 Instruction Type:Patient Education How to access health informa tion online - Detail Indication:BMI 31.0-31.9,adult Start:08-Jun-2017 Instruction Type:Patient Education Patient Instructions Indication:BMI 31.0-31.9,adult Start:08-Jun-2017 Instruction Type:Provider Instructions for Treatment Patient Instructions Indication:Influenza A Start:16-May-2017 Instruction Type:Provider Instructions for Treatment How to access health informa tion online Indication:Chewing tobacco use Start:16-May-2017 Instruction Type:Patient Education How to access health informa tion online - Detail Indication:Chewing tobacco use Start:16-May-2017 Instruction Type:Patient Education How to access health informa tion online Indication:Testicular/scrotal pain Start:21-Oct-2016 Instruction Type:Patient Education How to access health informa tion online - Detail Indication:Testicular/scrotal pain Start:21-Oct-2016 Instruction Type:Patient Education Patient Instructions Indication:Testicular/scrotal pain Start:21-Oct-2016 Instruction Type:Provider Instructions for Treatment How to access health informa tion online Indication:Testicular/scrotal pain Start:17-Oct-2016 Instruction Type:Patient Education How to access health informa tion online - Detail Indication:Testicular/scrotal pain Start:17-Oct-2016 Instruction Type:Patient Education Patient Instructions Indication:Testicular/scrotal pain Start:17-Oct-2016 Instruction Type:Provider Instructions for Treatment [facility]; [facility] Work Phone: Instructions* Name Dates Details Patient Instructions Indication:BMI 35.0-35.9,adult Start:26-May-2022 Instruction Type:Provider Instructions for Treatment How to Access Health Informa tion Online using Patient Portal and [employer] Apps Indication:BMI 35.0-35.9,adult Start:26-May-2022 Instruction Type:Patient Education Patient Instructions Indication:Non-smoker Start:10-May-2022 Instruction Type:Provider Instructions for Treatment How to Access Health Informa tion Online using Patient Portal and [employer] Apps Indication:Non-smoker Start:10-May-2022 Instruction Type:Patient Education Patient Instructions Indication:HTN (hypertension), benign (Renamed from Benign hypertension) Start:15-Apr-2022 Instruction Type:Provider Instructions for Treatment How to Access Health Informa tion Online using Patient Portal and [employer] Apps Indication:HTN (hypertension), benign (Renamed from Benign hypertension) Start:15-Apr-2022 Instruction Type:Patient Education Patient Instructions Indication:Non-smoker Start:01-Apr-2022 Instruction Type:Provider Instructions for Treatment How to Access Health Informa tion Online using Patient Portal and [employer] Indication:Non-smoker Start:01-Apr-2022 Instruction Type:Patient Education Patient Instructions Indication:BMI 33.0-33.9,adult Start:24-May-2021 Instruction Type:Provider Instructions for Treatment How to Access Health Informa tion Online using Patient Portal and [employer] Indication:BMI 33.0-33.9,adult Start:24-May-2021 Instruction Type:Patient Education How to access health informa tion online Indication:Chewing tobacco use Start:07-Feb-2020 Instruction Type:Patient Education How to access health informa tion online - Detail Indication:Chewing tobacco use Start:07-Feb-2020 Instruction Type:Patient Education Patient Instructions Indication:Encounter for screening for lipid disorder Start:07-Feb-2020 Instruction Type:Provider Instructions for Treatment How to access health informa tion online Indication:BMI 34.0-34.9,adult Start:30-Dec-2019 Instruction Type:Patient Education How to access health informa tion online - Detail Indication:BMI 34.0-34.9,adult Start:30-Dec-2019 Instruction Type:Patient Education Patient Instructions Indication:BMI 34.0-34.9,adult Start:30-Dec-2019 Instruction Type:Provider Instructions for Treatment How to access health informa tion online Indication:BMI 34.0-34.9,adult Start:18-Jul-2019 Instruction Type:Patient Education How to access health informa tion online - Detail Indication:BMI 34.0-34.9,adult Start:18-Jul-2019 Instruction Type:Patient Education Patient Instructions Indication:BMI 34.0-34.9,adult Start:18-Jul-2019 Instruction Type:Provider Instructions for Treatment How to access health informa tion online Indication:Non-smoker Start:05-Jul-2019 Instruction Type:Patient Education How to access health informa tion online - Detail Indication:Non-smoker Start:05-Jul-2019 Instruction Type:Patient Education Patient Instructions Indication:Non-smoker Start:05-Jul-2019 Instruction Type:Provider Instructions for Treatment How to access health informa tion online Indication:Non-smoker Start:14-Jun-2019 Instruction Type:Patient Education How to access health informa tion online - Detail Indication:Non-smoker Start:14-Jun-2019 Instruction Type:Patient Education Patient Instructions Indication:BMI 34.0-34.9,adult Start:14-Jun-2019 Instruction Type:Provider Instructions for Treatment How to access health informa tion online Indication:Non-smoker Start:26-Mar-2019 Instruction Type:Patient Education How to access health informa tion online - Detail Indication:Non-smoker Start:26-Mar-2019 Instruction Type:Patient Education Patient Instructions Indication:Non-smoker Start:26-Mar-2019 Instruction Type:Provider Instructions for Treatment How to access health informa tion online Indication:Non-smoker Start:01-Feb-2019 Instruction Type:Patient Education How to access health informa tion online - Detail Indication:Non-smoker Start:01-Feb-2019 Instruction Type:Patient Education Patient Instructions Indication:BMI 34.0-34.9,adult Start:01-Feb-2019 Instruction Type:Provider Instructions for Treatment How to access health informa tion online Indication:BMI 35.0-35.9,adult Start:17-Jan-2019 Instruction Type:Patient Education How to access health informa tion online - Detail Indication:BMI 35.0-35.9,adult Start:17-Jan-2019 Instruction Type:Patient Education Patient Instructions Indication:Right leg pain Start:17-Jan-2019 Instruction Type:Provider Instructions for Treatment How to access health informa tion online Indication:BMI 35.0-35.9,adult Start:25-May-2018 Instruction Type:Patient Education How to access health informa tion online - Detail Indication:BMI 35.0-35.9,adult Start:25-May-2018 Instruction Type:Patient Education Patient Instructions Indication:BMI 35.0-35.9,adult Start:25-May-2018 Instruction Type:Provider Instructions for Treatment How to access health informa tion online Indication:Non-smoker Start:09-May-2018 Instruction Type:Patient Education How to access health informa tion online - Detail Indication:Non-smoker Start:09-May-2018 Instruction Type:Patient Education Patient Instructions Indication:Non-smoker Start:09-May-2018 Instruction Type:Provider Instructions for Treatment How to access health informa tion online Indication:Nonsmoker Start:28-Dec-2017 Instruction Type:Patient Education How to access health informa tion online - Detail Indication:Nonsmoker Start:28-Dec-2017 Instruction Type:Patient Education Patient Instructions Indication:Left foot pain Start:28-Dec-2017 Instruction Type:Provider Instructions for Treatment How to access health informa tion online Indication:BMI 31.0-31.9,adult Start:08-Jun-2017 Instruction Type:Patient Education How to access health informa tion online - Detail Indication:BMI 31.0-31.9,adult Start:08-Jun-2017 Instruction Type:Patient Education Patient Instructions Indication:BMI 31.0-31.9,adult Start:08-Jun-2017 Instruction Type:Provider Instructions for Treatment Patient Instructions Indication:Influenza A Start:16-May-2017 Instruction Type:Provider Instructions for Treatment How to access health informa tion online Indication:Chewing tobacco use Start:16-May-2017 Instruction Type:Patient Education How to access health informa tion online - Detail Indication:Chewing tobacco use Start:16-May-2017 Instruction Type:Patient Education How to access health informa tion online Indication:Testicular/scrotal pain Start:21-Oct-2016 Instruction Type:Patient Education How to access health informa tion online - Detail Indication:Testicular/scrotal pain Start:21-Oct-2016 Instruction Type:Patient Education Patient Instructions Indication:Testicular/scrotal pain Start:21-Oct-2016 Instruction Type:Provider Instructions for Treatment How to access health informa tion online Indication:Testicular/scrotal pain Start:17-Oct-2016 Instruction Type:Patient Education How to access health informa tion online - Detail Indication:Testicular/scrotal pain Start:17-Oct-2016 Instruction Type:Patient Education Patient Instructions Indication:Testicular/scrotal pain Start:17-Oct-2016 Instruction Type:Provider Instructions for Treatment [facility]; [facility] Work Phone: Instructions* Name Dates Details Patient Instructions Indication:BMI 35.0-35.9,adult Start:26-May-2022 Instruction Type:Provider Instructions for Treatment How to Access Health Informa tion Online using Patient Portal and [employer] Indication:BMI 35.0-35.9,adult Start:26-May-2022 Instruction Type:Patient Education Patient Instructions Indication:Non-smoker Start:10-May-2022 Instruction Type:Provider Instructions for Treatment How to Access Health Informa tion Online using Patient Portal and [employer] Indication:Non-smoker Start:10-May-2022 Instruction Type:Patient Education Patient Instructions Indication:HTN (hypertension), benign (Renamed from Benign hypertension) Start:15-Apr-2022 Instruction Type:Provider Instructions for Treatment How to Access Health Informa tion Online using Patient Portal and [employer] Indication:HTN (hypertension), benign (Renamed from Benign hypertension) Start:15-Apr-2022 Instruction Type:Patient Education Patient Instructions Indication:Non-smoker Start:01-Apr-2022 Instruction Type:Provider Instructions for Treatment How to Access Health Informa tion Online using Patient Portal and [employer] Indication:Non-smoker Start:01-Apr-2022 Instruction Type:Patient Education Patient Instructions Indication:BMI 33.0-33.9,adult Start:24-May-2021 Instruction Type:Provider Instructions for Treatment How to Access Health Informa tion Online using Patient Portal and [employer] Indication:BMI 33.0-33.9,adult Start:24-May-2021 Instruction Type:Patient Education How to access health informa tion online Indication:Chewing tobacco use Start:07-Feb-2020 Instruction Type:Patient Education How to access health informa tion online - Detail Indication:Chewing tobacco use Start:07-Feb-2020 Instruction Type:Patient Education Patient Instructions Indication:Encounter for screening for lipid disorder Start:07-Feb-2020 Instruction Type:Provider Instructions for Treatment How to access health informa tion online Indication:BMI 34.0-34.9,adult Start:30-Dec-2019 Instruction Type:Patient Education How to access health informa tion online - Detail Indication:BMI 34.0-34.9,adult Start:30-Dec-2019 Instruction Type:Patient Education Patient Instructions Indication:BMI 34.0-34.9,adult Start:30-Dec-2019 Instruction Type:Provider Instructions for Treatment How to access health informa tion online Indication:BMI 34.0-34.9,adult Start:18-Jul-2019 Instruction Type:Patient Education How to access health informa tion online - Detail Indication:BMI 34.0-34.9,adult Start:18-Jul-2019 Instruction Type:Patient Education Patient Instructions Indication:BMI 34.0-34.9,adult Start:18-Jul-2019 Instruction Type:Provider Instructions for Treatment How to access health informa tion online Indication:Non-smoker Start:05-Jul-2019 Instruction Type:Patient Education How to access health informa tion online - Detail Indication:Non-smoker Start:05-Jul-2019 Instruction Type:Patient Education Patient Instructions Indication:Non-smoker Start:05-Jul-2019 Instruction Type:Provider Instructions for Treatment How to access health informa tion online Indication:Non-smoker Start:14-Jun-2019 Instruction Type:Patient Education How to access health informa tion online - Detail Indication:Non-smoker Start:14-Jun-2019 Instruction Type:Patient Education Patient Instructions Indication:BMI 34.0-34.9,adult Start:14-Jun-2019 Instruction Type:Provider Instructions for Treatment How to access health informa tion online Indication:Non-smoker Start:26-Mar-2019 Instruction Type:Patient Education How to access health informa tion online - Detail Indication:Non-smoker Start:26-Mar-2019 Instruction Type:Patient Education Patient Instructions Indication:Non-smoker Start:26-Mar-2019 Instruction Type:Provider Instructions for Treatment How to access health informa tion online Indication:Non-smoker Start:01-Feb-2019 Instruction Type:Patient Education How to access health informa tion online - Detail Indication:Non-smoker Start:01-Feb-2019 Instruction Type:Patient Education Patient Instructions Indication:BMI 34.0-34.9,adult Start:01-Feb-2019 Instruction Type:Provider Instructions for Treatment How to access health informa tion online Indication:BMI 35.0-35.9,adult Start:17-Jan-2019 Instruction Type:Patient Education How to access health informa tion online - Detail Indication:BMI 35.0-35.9,adult Start:17-Jan-2019 Instruction Type:Patient Education Patient Instructions Indication:Right leg pain Start:17-Jan-2019 Instruction Type:Provider Instructions for Treatment How to access health informa tion online Indication:BMI 35.0-35.9,adult Start:25-May-2018 Instruction Type:Patient Education How to access health informa tion online - Detail Indication:BMI 35.0-35.9,adult Start:25-May-2018 Instruction Type:Patient Education Patient Instructions Indication:BMI 35.0-35.9,adult Start:25-May-2018 Instruction Type:Provider Instructions for Treatment How to access health informa tion online Indication:Non-smoker Start:09-May-2018 Instruction Type:Patient Education How to access health informa tion online - Detail Indication:Non-smoker Start:09-May-2018 Instruction Type:Patient Education Patient Instructions Indication:Non-smoker Start:09-May-2018 Instruction Type:Provider Instructions for Treatment How to access health informa tion online Indication:Nonsmoker Start:28-Dec-2017 Instruction Type:Patient Education How to access health informa tion online - Detail Indication:Nonsmoker Start:28-Dec-2017 Instruction Type:Patient Education Patient Instructions Indication:Left foot pain Start:28-Dec-2017 Instruction Type:Provider Instructions for Treatment How to access health informa tion online Indication:BMI 31.0-31.9,adult Start:08-Jun-2017 Instruction Type:Patient Education How to access health informa tion online - Detail Indication:BMI 31.0-31.9,adult Start:08-Jun-2017 Instruction Type:Patient Education Patient Instructions Indication:BMI 31.0-31.9,adult Start:08-Jun-2017 Instruction Type:Provider Instructions for Treatment Patient Instructions Indication:Influenza A Start:16-May-2017 Instruction Type:Provider Instructions for Treatment How to access health informa tion online Indication:Chewing tobacco use Start:16-May-2017 Instruction Type:Patient Education How to access health informa tion online - Detail Indication:Chewing tobacco use Start:16-May-2017 Instruction Type:Patient Education How to access health informa tion online Indication:Testicular/scrotal pain Start:21-Oct-2016 Instruction Type:Patient Education How to access health informa tion online - Detail Indication:Testicular/scrotal pain Start:21-Oct-2016 Instruction Type:Patient Education Patient Instructions Indication:Testicular/scrotal pain Start:21-Oct-2016 Instruction Type:Provider Instructions for Treatment How to access health informa tion online Indication:Testicular/scrotal pain Start:17-Oct-2016 Instruction Type:Patient Education How to access health informa tion online - Detail Indication:Testicular/scrotal pain Start:17-Oct-2016 Instruction Type:Patient Education Patient Instructions Indication:Testicular/scrotal pain Start:17-Oct-2016 Instruction Type:Provider Instructions for Treatment [facility]; [facility] Work Phone: Instructions* Name Dates Details Patient Instructions Indication:BMI 35.0-35.9,adult Start:08-Jun-2022 Instruction Type:Provider Instructions for Treatment How to Access Health Informa tion Online using Patient Portal and [employer] Indication:BMI 35.0-35.9,adult Start:08-Jun-2022 Instruction Type:Patient Education Patient Instructions Indication:BMI 35.0-35.9,adult Start:26-May-2022 Instruction Type:Provider Instructions for Treatment How to Access Health Informa tion Online using Patient Portal and [employer] Indication:BMI 35.0-35.9,adult Start:26-May-2022 Instruction Type:Patient Education Patient Instructions Indication:Non-smoker Start:10-May-2022 Instruction Type:Provider Instructions for Treatment How to Access Health Informa tion Online using Patient Portal and [employer] Indication:Non-smoker Start:10-May-2022 Instruction Type:Patient Education Patient Instructions Indication:HTN (hypertension), benign (Renamed from Benign hypertension) Start:15-Apr-2022 Instruction Type:Provider Instructions for Treatment How to Access Health Informa tion Online using Patient Portal and [employer] Indication:HTN (hypertension), benign (Renamed from Benign hypertension) Start:15-Apr-2022 Instruction Type:Patient Education Patient Instructions Indication:Non-smoker Start:01-Apr-2022 Instruction Type:Provider Instructions for Treatment How to Access Health Informa tion Online using Patient Portal and [employer] Indication:Non-smoker Start:01-Apr-2022 Instruction Type:Patient Education Patient Instructions Indication:BMI 33.0-33.9,adult Start:24-May-2021 Instruction Type:Provider Instructions for Treatment How to Access Health Informa tion Online using Patient Portal and [employer] Indication:BMI 33.0-33.9,adult Start:24-May-2021 Instruction Type:Patient Education How to access health informa tion online Indication:Chewing tobacco use Start:07-Feb-2020 Instruction Type:Patient Education How to access health informa tion online - Detail Indication:Chewing tobacco use Start:07-Feb-2020 Instruction Type:Patient Education Patient Instructions Indication:Encounter for screening for lipid disorder Start:07-Feb-2020 Instruction Type:Provider Instructions for Treatment How to access health informa tion online Indication:BMI 34.0-34.9,adult Start:30-Dec-2019 Instruction Type:Patient Education How to access health informa tion online - Detail Indication:BMI 34.0-34.9,adult Start:30-Dec-2019 Instruction Type:Patient Education Patient Instructions Indication:BMI 34.0-34.9,adult Start:30-Dec-2019 Instruction Type:Provider Instructions for Treatment How to access health informa tion online Indication:BMI 34.0-34.9,adult Start:18-Jul-2019 Instruction Type:Patient Education How to access health informa tion online - Detail Indication:BMI 34.0-34.9,adult Start:18-Jul-2019 Instruction Type:Patient Education Patient Instructions Indication:BMI 34.0-34.9,adult Start:18-Jul-2019 Instruction Type:Provider Instructions for Treatment How to access health informa tion online Indication:Non-smoker Start:05-Jul-2019 Instruction Type:Patient Education How to access health informa tion online - Detail Indication:Non-smoker Start:05-Jul-2019 Instruction Type:Patient Education Patient Instructions Indication:Non-smoker Start:05-Jul-2019 Instruction Type:Provider Instructions for Treatment How to access health informa tion online Indication:Non-smoker Start:14-Jun-2019 Instruction Type:Patient Education How to access health informa tion online - Detail Indication:Non-smoker Start:14-Jun-2019 Instruction Type:Patient Education Patient Instructions Indication:BMI 34.0-34.9,adult Start:14-Jun-2019 Instruction Type:Provider Instructions for Treatment How to access health informa tion online Indication:Non-smoker Start:26-Mar-2019 Instruction Type:Patient Education How to access health informa tion online - Detail Indication:Non-smoker Start:26-Mar-2019 Instruction Type:Patient Education Patient Instructions Indication:Non-smoker Start:26-Mar-2019 Instruction Type:Provider Instructions for Treatment How to access health informa tion online Indication:Non-smoker Start:01-Feb-2019 Instruction Type:Patient Education How to access health informa tion online - Detail Indication:Non-smoker Start:01-Feb-2019 Instruction Type:Patient Education Patient Instructions Indication:BMI 34.0-34.9,adult Start:01-Feb-2019 Instruction Type:Provider Instructions for Treatment How to access health informa tion online Indication:BMI 35.0-35.9,adult Start:17-Jan-2019 Instruction Type:Patient Education How to access health informa tion online - Detail Indication:BMI 35.0-35.9,adult Start:17-Jan-2019 Instruction Type:Patient Education Patient Instructions Indication:Right leg pain Start:17-Jan-2019 Instruction Type:Provider Instructions for Treatment How to access health informa tion online Indication:BMI 35.0-35.9,adult Start:25-May-2018 Instruction Type:Patient Education How to access health informa tion online - Detail Indication:BMI 35.0-35.9,adult Start:25-May-2018 Instruction Type:Patient Education Patient Instructions Indication:BMI 35.0-35.9,adult Start:25-May-2018 Instruction Type:Provider Instructions for Treatment How to access health informa tion online Indication:Non-smoker Start:09-May-2018 Instruction Type:Patient Education How to access health informa tion online - Detail Indication:Non-smoker Start:09-May-2018 Instruction Type:Patient Education Patient Instructions Indication:Non-smoker Start:09-May-2018 Instruction Type:Provider Instructions for Treatment How to access health informa tion online Indication:Nonsmoker Start:28-Dec-2017 Instruction Type:Patient Education How to access health informa tion online - Detail Indication:Nonsmoker Start:28-Dec-2017 Instruction Type:Patient Education Patient Instructions Indication:Left foot pain Start:28-Dec-2017 Instruction Type:Provider Instructions for Treatment How to access health informa tion online Indication:BMI 31.0-31.9,adult Start:08-Jun-2017 Instruction Type:Patient Education How to access health informa tion online - Detail Indication:BMI 31.0-31.9,adult Start:08-Jun-2017 Instruction Type:Patient Education Patient Instructions Indication:BMI 31.0-31.9,adult Start:08-Jun-2017 Instruction Type:Provider Instructions for Treatment Patient Instructions Indication:Influenza A Start:16-May-2017 Instruction Type:Provider Instructions for Treatment How to access health informa tion online Indication:Chewing tobacco use Start:16-May-2017 Instruction Type:Patient Education How to access health informa tion online - Detail Indication:Chewing tobacco use Start:16-May-2017 Instruction Type:Patient Education How to access health informa tion online Indication:Testicular/scrotal pain Start:21-Oct-2016 Instruction Type:Patient Education How to access health informa tion online - Detail Indication:Testicular/scrotal pain Start:21-Oct-2016 Instruction Type:Patient Education Patient Instructions Indication:Testicular/scrotal pain Start:21-Oct-2016 Instruction Type:Provider Instructions for Treatment How to access health informa tion online Indication:Testicular/scrotal pain Start:17-Oct-2016 Instruction Type:Patient Education How to access health informa tion online - Detail Indication:Testicular/scrotal pain Start:17-Oct-2016 Instruction Type:Patient Education Patient Instructions Indication:Testicular/scrotal pain Start:17-Oct-2016 Instruction Type:Provider Instructions for Treatment [facility]; [facility] Work Phone: Instructions* Name Dates Details Patient Instructions Indication:Non-smoker Start:10-Jun-2022 Instruction Type:Provider Instructions for Treatment How to Access Health Informa tion Online using Patient Portal and [employer] Indication:Non-smoker Start:10-Jun-2022 Instruction Type:Patient Education Patient Instructions Indication:BMI 35.0-35.9,adult Start:08-Jun-2022 Instruction Type:Provider Instructions for Treatment How to Access Health Informa tion Online using Patient Portal and [employer] Indication:BMI 35.0-35.9,adult Start:08-Jun-2022 Instruction Type:Patient Education Patient Instructions Indication:BMI 35.0-35.9,adult Start:26-May-2022 Instruction Type:Provider Instructions for Treatment How to Access Health Informa tion Online using Patient Portal and [employer] Indication:BMI 35.0-35.9,adult Start:26-May-2022 Instruction Type:Patient Education Patient Instructions Indication:Non-smoker Start:10-May-2022 Instruction Type:Provider Instructions for Treatment How to Access Health Informa tion Online using Patient Portal and [employer] Indication:Non-smoker Start:10-May-2022 Instruction Type:Patient Education Patient Instructions Indication:HTN (hypertension), benign (Renamed from Benign hypertension) Start:15-Apr-2022 Instruction Type:Provider Instructions for Treatment How to Access Health Informa tion Online using Patient Portal and [employer] Indication:HTN (hypertension), benign (Renamed from Benign hypertension) Start:15-Apr-2022 Instruction Type:Patient Education Patient Instructions Indication:Non-smoker Start:01-Apr-2022 Instruction Type:Provider Instructions for Treatment How to Access Health Informa tion Online using Patient Portal and [employer] Indication:Non-smoker Start:01-Apr-2022 Instruction Type:Patient Education Patient Instructions Indication:BMI 33.0-33.9,adult Start:24-May-2021 Instruction Type:Provider Instructions for Treatment How to Access Health Informa tion Online using Patient Portal and [employer] Indication:BMI 33.0-33.9,adult Start:24-May-2021 Instruction Type:Patient Education How to access health informa tion online Indication:Chewing tobacco use Start:07-Feb-2020 Instruction Type:Patient Education How to access health informa tion online - Detail Indication:Chewing tobacco use Start:07-Feb-2020 Instruction Type:Patient Education Patient Instructions Indication:Encounter for screening for lipid disorder Start:07-Feb-2020 Instruction Type:Provider Instructions for Treatment How to access health informa tion online Indication:BMI 34.0-34.9,adult Start:30-Dec-2019 Instruction Type:Patient Education How to access health informa tion online - Detail Indication:BMI 34.0-34.9,adult Start:30-Dec-2019 Instruction Type:Patient Education Patient Instructions Indication:BMI 34.0-34.9,adult Start:30-Dec-2019 Instruction Type:Provider Instructions for Treatment How to access health informa tion online Indication:BMI 34.0-34.9,adult Start:18-Jul-2019 Instruction Type:Patient Education How to access health informa tion online - Detail Indication:BMI 34.0-34.9,adult Start:18-Jul-2019 Instruction Type:Patient Education Patient Instructions Indication:BMI 34.0-34.9,adult Start:18-Jul-2019 Instruction Type:Provider Instructions for Treatment How to access health informa tion online Indication:Non-smoker Start:05-Jul-2019 Instruction Type:Patient Education How to access health informa tion online - Detail Indication:Non-smoker Start:05-Jul-2019 Instruction Type:Patient Education Patient Instructions Indication:Non-smoker Start:05-Jul-2019 Instruction Type:Provider Instructions for Treatment How to access health informa tion online Indication:Non-smoker Start:14-Jun-2019 Instruction Type:Patient Education How to access health informa tion online - Detail Indication:Non-smoker Start:14-Jun-2019 Instruction Type:Patient Education Patient Instructions Indication:BMI 34.0-34.9,adult Start:14-Jun-2019 Instruction Type:Provider Instructions for Treatment How to access health informa tion online Indication:Non-smoker Start:26-Mar-2019 Instruction Type:Patient Education How to access health informa tion online - Detail Indication:Non-smoker Start:26-Mar-2019 Instruction Type:Patient Education Patient Instructions Indication:Non-smoker Start:26-Mar-2019 Instruction Type:Provider Instructions for Treatment How to access health informa tion online Indication:Non-smoker Start:01-Feb-2019 Instruction Type:Patient Education How to access health informa tion online - Detail Indication:Non-smoker Start:01-Feb-2019 Instruction Type:Patient Education Patient Instructions Indication:BMI 34.0-34.9,adult Start:01-Feb-2019 Instruction Type:Provider Instructions for Treatment How to access health informa tion online Indication:BMI 35.0-35.9,adult Start:17-Jan-2019 Instruction Type:Patient Education How to access health informa tion online - Detail Indication:BMI 35.0-35.9,adult Start:17-Jan-2019 Instruction Type:Patient Education Patient Instructions Indication:Right leg pain Start:17-Jan-2019 Instruction Type:Provider Instructions for Treatment How to access health informa tion online Indication:BMI 35.0-35.9,adult Start:25-May-2018 Instruction Type:Patient Education How to access health informa tion online - Detail Indication:BMI 35.0-35.9,adult Start:25-May-2018 Instruction Type:Patient Education Patient Instructions Indication:BMI 35.0-35.9,adult Start:25-May-2018 Instruction Type:Provider Instructions for Treatment How to access health informa tion online Indication:Non-smoker Start:09-May-2018 Instruction Type:Patient Education How to access health informa tion online - Detail Indication:Non-smoker Start:09-May-2018 Instruction Type:Patient Education Patient Instructions Indication:Non-smoker Start:09-May-2018 Instruction Type:Provider Instructions for Treatment How to access health informa tion online Indication:Nonsmoker Start:28-Dec-2017 Instruction Type:Patient Education How to access health informa tion online - Detail Indication:Nonsmoker Start:28-Dec-2017 Instruction Type:Patient Education Patient Instructions Indication:Left foot pain Start:28-Dec-2017 Instruction Type:Provider Instructions for Treatment How to access health informa tion online Indication:BMI 31.0-31.9,adult Start:08-Jun-2017 Instruction Type:Patient Education How to access health informa tion online - Detail Indication:BMI 31.0-31.9,adult Start:08-Jun-2017 Instruction Type:Patient Education Patient Instructions Indication:BMI 31.0-31.9,adult Start:08-Jun-2017 Instruction Type:Provider Instructions for Treatment Patient Instructions Indication:Influenza A Start:16-May-2017 Instruction Type:Provider Instructions for Treatment How to access health informa tion online Indication:Chewing tobacco use Start:16-May-2017 Instruction Type:Patient Education How to access health informa tion online - Detail Indication:Chewing tobacco use Start:16-May-2017 Instruction Type:Patient Education How to access health informa tion online Indication:Testicular/scrotal pain Start:21-Oct-2016 Instruction Type:Patient Education How to access health informa tion online - Detail Indication:Testicular/scrotal pain Start:21-Oct-2016 Instruction Type:Patient Education Patient Instructions Indication:Testicular/scrotal pain Start:21-Oct-2016 Instruction Type:Provider Instructions for Treatment How to access health informa tion online Indication:Testicular/scrotal pain Start:17-Oct-2016 Instruction Type:Patient Education How to access health informa tion online - Detail Indication:Testicular/scrotal pain Start:17-Oct-2016 Instruction Type:Patient Education Patient Instructions Indication:Testicular/scrotal pain Start:17-Oct-2016 Instruction Type:Provider Instructions for Treatment [facility]; [facility] Work Phone: Instructions* Name Dates Details Patient Instructions Indication:Non-smoker Start:10-Jun-2022 Instruction Type:Provider Instructions for Treatment How to Access Health Informa tion Online using Patient Portal and [employer] Indication:Non-smoker Start:10-Jun-2022 Instruction Type:Patient Education Patient Instructions Indication:BMI 35.0-35.9,adult Start:08-Jun-2022 Instruction Type:Provider Instructions for Treatment How to Access Health Informa tion Online using Patient Portal and [employer] Indication:BMI 35.0-35.9,adult Start:08-Jun-2022 Instruction Type:Patient Education Patient Instructions Indication:BMI 35.0-35.9,adult Start:26-May-2022 Instruction Type:Provider Instructions for Treatment How to Access Health Informa tion Online using Patient Portal and [employer] Indication:BMI 35.0-35.9,adult Start:26-May-2022 Instruction Type:Patient Education Patient Instructions Indication:Non-smoker Start:10-May-2022 Instruction Type:Provider Instructions for Treatment How to Access Health Informa tion Online using Patient Portal and [employer] Indication:Non-smoker Start:10-May-2022 Instruction Type:Patient Education Patient Instructions Indication:HTN (hypertension), benign (Renamed from Benign hypertension) Start:15-Apr-2022 Instruction Type:Provider Instructions for Treatment How to Access Health Informa tion Online using Patient Portal and [employer] Indication:HTN (hypertension), benign (Renamed from Benign hypertension) Start:15-Apr-2022 Instruction Type:Patient Education Patient Instructions Indication:Non-smoker Start:01-Apr-2022 Instruction Type:Provider Instructions for Treatment How to Access Health Informa tion Online using Patient Portal and [employer] Indication:Non-smoker Start:01-Apr-2022 Instruction Type:Patient Education Patient Instructions Indication:BMI 33.0-33.9,adult Start:24-May-2021 Instruction Type:Provider Instructions for Treatment How to Access Health Informa tion Online using Patient Portal and [employer] Indication:BMI 33.0-33.9,adult Start:24-May-2021 Instruction Type:Patient Education How to access health informa tion online Indication:Chewing tobacco use Start:07-Feb-2020 Instruction Type:Patient Education How to access health informa tion online - Detail Indication:Chewing tobacco use Start:07-Feb-2020 Instruction Type:Patient Education Patient Instructions Indication:Encounter for screening for lipid disorder Start:07-Feb-2020 Instruction Type:Provider Instructions for Treatment How to access health informa tion online Indication:BMI 34.0-34.9,adult Start:30-Dec-2019 Instruction Type:Patient Education How to access health informa tion online - Detail Indication:BMI 34.0-34.9,adult Start:30-Dec-2019 Instruction Type:Patient Education Patient Instructions Indication:BMI 34.0-34.9,adult Start:30-Dec-2019 Instruction Type:Provider Instructions for Treatment How to access health informa tion online Indication:BMI 34.0-34.9,adult Start:18-Jul-2019 Instruction Type:Patient Education How to access health informa tion online - Detail Indication:BMI 34.0-34.9,adult Start:18-Jul-2019 Instruction Type:Patient Education Patient Instructions Indication:BMI 34.0-34.9,adult Start:18-Jul-2019 Instruction Type:Provider Instructions for Treatment How to access health informa tion online Indication:Non-smoker Start:05-Jul-2019 Instruction Type:Patient Education How to access health informa tion online - Detail Indication:Non-smoker Start:05-Jul-2019 Instruction Type:Patient Education Patient Instructions Indication:Non-smoker Start:05-Jul-2019 Instruction Type:Provider Instructions for Treatment How to access health informa tion online Indication:Non-smoker Start:14-Jun-2019 Instruction Type:Patient Education How to access health informa tion online - Detail Indication:Non-smoker Start:14-Jun-2019 Instruction Type:Patient Education Patient Instructions Indication:BMI 34.0-34.9,adult Start:14-Jun-2019 Instruction Type:Provider Instructions for Treatment How to access health informa tion online Indication:Non-smoker Start:26-Mar-2019 Instruction Type:Patient Education How to access health informa tion online - Detail Indication:Non-smoker Start:26-Mar-2019 Instruction Type:Patient Education Patient Instructions Indication:Non-smoker Start:26-Mar-2019 Instruction Type:Provider Instructions for Treatment How to access health informa tion online Indication:Non-smoker Start:01-Feb-2019 Instruction Type:Patient Education How to access health informa tion online - Detail Indication:Non-smoker Start:01-Feb-2019 Instruction Type:Patient Education Patient Instructions Indication:BMI 34.0-34.9,adult Start:01-Feb-2019 Instruction Type:Provider Instructions for Treatment How to access health informa tion online Indication:BMI 35.0-35.9,adult Start:17-Jan-2019 Instruction Type:Patient Education How to access health informa tion online - Detail Indication:BMI 35.0-35.9,adult Start:17-Jan-2019 Instruction Type:Patient Education Patient Instructions Indication:Right leg pain Start:17-Jan-2019 Instruction Type:Provider Instructions for Treatment How to access health informa tion online Indication:BMI 35.0-35.9,adult Start:25-May-2018 Instruction Type:Patient Education How to access health informa tion online - Detail Indication:BMI 35.0-35.9,adult Start:25-May-2018 Instruction Type:Patient Education Patient Instructions Indication:BMI 35.0-35.9,adult Start:25-May-2018 Instruction Type:Provider Instructions for Treatment How to access health informa tion online Indication:Non-smoker Start:09-May-2018 Instruction Type:Patient Education How to access health informa tion online - Detail Indication:Non-smoker Start:09-May-2018 Instruction Type:Patient Education Patient Instructions Indication:Non-smoker Start:09-May-2018 Instruction Type:Provider Instructions for Treatment How to access health informa tion online Indication:Nonsmoker Start:28-Dec-2017 Instruction Type:Patient Education How to access health informa tion online - Detail Indication:Nonsmoker Start:28-Dec-2017 Instruction Type:Patient Education Patient Instructions Indication:Left foot pain Start:28-Dec-2017 Instruction Type:Provider Instructions for Treatment How to access health informa tion online Indication:BMI 31.0-31.9,adult Start:08-Jun-2017 Instruction Type:Patient Education How to access health informa tion online - Detail Indication:BMI 31.0-31.9,adult Start:08-Jun-2017 Instruction Type:Patient Education Patient Instructions Indication:BMI 31.0-31.9,adult Start:08-Jun-2017 Instruction Type:Provider Instructions for Treatment Patient Instructions Indication:Influenza A Start:16-May-2017 Instruction Type:Provider Instructions for Treatment How to access health informa tion online Indication:Chewing tobacco use Start:16-May-2017 Instruction Type:Patient Education How to access health informa tion online - Detail Indication:Chewing tobacco use Start:16-May-2017 Instruction Type:Patient Education How to access health informa tion online Indication:Testicular/scrotal pain Start:21-Oct-2016 Instruction Type:Patient Education How to access health informa tion online - Detail Indication:Testicular/scrotal pain Start:21-Oct-2016 Instruction Type:Patient Education Patient Instructions Indication:Testicular/scrotal pain Start:21-Oct-2016 Instruction Type:Provider Instructions for Treatment How to access health informa tion online Indication:Testicular/scrotal pain Start:17-Oct-2016 Instruction Type:Patient Education How to access health informa tion online - Detail Indication:Testicular/scrotal pain Start:17-Oct-2016 Instruction Type:Patient Education Patient Instructions Indication:Testicular/scrotal pain Start:17-Oct-2016 Instruction Type:Provider Instructions for Treatment [facility]; [facility] Work Phone: Instructions* Name Dates Details Patient Instructions Indication:Non-smoker Start:02-Aug-2022 Instruction Type:Provider Instructions for Treatment How to Access Health Informa tion Online using Patient Portal and [employer] Indication:Non-smoker Start:02-Aug-2022 Instruction Type:Patient Education Patient Instructions Indication:Non-smoker Start:10-Jun-2022 Instruction Type:Provider Instructions for Treatment How to Access Health Informa tion Online using Patient Portal and [employer] Indication:Non-smoker Start:10-Jun-2022 Instruction Type:Patient Education Patient Instructions Indication:BMI 35.0-35.9,adult Start:08-Jun-2022 Instruction Type:Provider Instructions for Treatment How to Access Health Informa tion Online using Patient Portal and [employer] Indication:BMI 35.0-35.9,adult Start:08-Jun-2022 Instruction Type:Patient Education Patient Instructions Indication:BMI 35.0-35.9,adult Start:26-May-2022 Instruction Type:Provider Instructions for Treatment How to Access Health Informa tion Online using Patient Portal and [employer] Indication:BMI 35.0-35.9,adult Start:26-May-2022 Instruction Type:Patient Education Patient Instructions Indication:Non-smoker Start:10-May-2022 Instruction Type:Provider Instructions for Treatment How to Access Health Informa tion Online using Patient Portal and [employer] Indication:Non-smoker Start:10-May-2022 Instruction Type:Patient Education Patient Instructions Indication:HTN (hypertension), benign (Renamed from Benign hypertension) Start:15-Apr-2022 Instruction Type:Provider Instructions for Treatment How to Access Health Informa tion Online using Patient Portal and [employer] Indication:HTN (hypertension), benign (Renamed from Benign hypertension) Start:15-Apr-2022 Instruction Type:Patient Education Patient Instructions Indication:Non-smoker Start:01-Apr-2022 Instruction Type:Provider Instructions for Treatment How to Access Health Informa tion Online using Patient Portal and [employer] Indication:Non-smoker Start:01-Apr-2022 Instruction Type:Patient Education Patient Instructions Indication:BMI 33.0-33.9,adult Start:24-May-2021 Instruction Type:Provider Instructions for Treatment How to Access Health Informa tion Online using Patient Portal and [employer] Indication:BMI 33.0-33.9,adult Start:24-May-2021 Instruction Type:Patient Education How to access health informa tion online Indication:Chewing tobacco use Start:07-Feb-2020 Instruction Type:Patient Education How to access health informa tion online - Detail Indication:Chewing tobacco use Start:07-Feb-2020 Instruction Type:Patient Education Patient Instructions Indication:Encounter for screening for lipid disorder Start:07-Feb-2020 Instruction Type:Provider Instructions for Treatment How to access health informa tion online Indication:BMI 34.0-34.9,adult Start:30-Dec-2019 Instruction Type:Patient Education How to access health informa tion online - Detail Indication:BMI 34.0-34.9,adult Start:30-Dec-2019 Instruction Type:Patient Education Patient Instructions Indication:BMI 34.0-34.9,adult Start:30-Dec-2019 Instruction Type:Provider Instructions for Treatment How to access health informa tion online Indication:BMI 34.0-34.9,adult Start:18-Jul-2019 Instruction Type:Patient Education How to access health informa tion online - Detail Indication:BMI 34.0-34.9,adult Start:18-Jul-2019 Instruction Type:Patient Education Patient Instructions Indication:BMI 34.0-34.9,adult Start:18-Jul-2019 Instruction Type:Provider Instructions for Treatment How to access health informa tion online Indication:Non-smoker Start:05-Jul-2019 Instruction Type:Patient Education How to access health informa tion online - Detail Indication:Non-smoker Start:05-Jul-2019 Instruction Type:Patient Education Patient Instructions Indication:Non-smoker Start:05-Jul-2019 Instruction Type:Provider Instructions for Treatment How to access health informa tion online Indication:Non-smoker Start:14-Jun-2019 Instruction Type:Patient Education How to access health informa tion online - Detail Indication:Non-smoker Start:14-Jun-2019 Instruction Type:Patient Education Patient Instructions Indication:BMI 34.0-34.9,adult Start:14-Jun-2019 Instruction Type:Provider Instructions for Treatment How to access health informa tion online Indication:Non-smoker Start:26-Mar-2019 Instruction Type:Patient Education How to access health informa tion online - Detail Indication:Non-smoker Start:26-Mar-2019 Instruction Type:Patient Education Patient Instructions Indication:Non-smoker Start:26-Mar-2019 Instruction Type:Provider Instructions for Treatment How to access health informa tion online Indication:Non-smoker Start:01-Feb-2019 Instruction Type:Patient Education How to access health informa tion online - Detail Indication:Non-smoker Start:01-Feb-2019 Instruction Type:Patient Education Patient Instructions Indication:BMI 34.0-34.9,adult Start:01-Feb-2019 Instruction Type:Provider Instructions for Treatment How to access health informa tion online Indication:BMI 35.0-35.9,adult Start:17-Jan-2019 Instruction Type:Patient Education How to access health informa tion online - Detail Indication:BMI 35.0-35.9,adult Start:17-Jan-2019 Instruction Type:Patient Education Patient Instructions Indication:Right leg pain Start:17-Jan-2019 Instruction Type:Provider Instructions for Treatment How to access health informa tion online Indication:BMI 35.0-35.9,adult Start:25-May-2018 Instruction Type:Patient Education How to access health informa tion online - Detail Indication:BMI 35.0-35.9,adult Start:25-May-2018 Instruction Type:Patient Education Patient Instructions Indication:BMI 35.0-35.9,adult Start:25-May-2018 Instruction Type:Provider Instructions for Treatment How to access health informa tion online Indication:Non-smoker Start:09-May-2018 Instruction Type:Patient Education How to access health informa tion online - Detail Indication:Non-smoker Start:09-May-2018 Instruction Type:Patient Education Patient Instructions Indication:Non-smoker Start:09-May-2018 Instruction Type:Provider Instructions for Treatment How to access health informa tion online Indication:Nonsmoker Start:28-Dec-2017 Instruction Type:Patient Education How to access health informa tion online - Detail Indication:Nonsmoker Start:28-Dec-2017 Instruction Type:Patient Education Patient Instructions Indication:Left foot pain Start:28-Dec-2017 Instruction Type:Provider Instructions for Treatment How to access health informa tion online Indication:BMI 31.0-31.9,adult Start:08-Jun-2017 Instruction Type:Patient Education How to access health informa tion online - Detail Indication:BMI 31.0-31.9,adult Start:08-Jun-2017 Instruction Type:Patient Education Patient Instructions Indication:BMI 31.0-31.9,adult Start:08-Jun-2017 Instruction Type:Provider Instructions for Treatment Patient Instructions Indication:Influenza A Start:16-May-2017 Instruction Type:Provider Instructions for Treatment How to access health informa tion online Indication:Chewing tobacco use Start:16-May-2017 Instruction Type:Patient Education How to access health informa tion online - Detail Indication:Chewing tobacco use Start:16-May-2017 Instruction Type:Patient Education How to access health informa tion online Indication:Testicular/scrotal pain Start:21-Oct-2016 Instruction Type:Patient Education How to access health informa tion online - Detail Indication:Testicular/scrotal pain Start:21-Oct-2016 Instruction Type:Patient Education Patient Instructions Indication:Testicular/scrotal pain Start:21-Oct-2016 Instruction Type:Provider Instructions for Treatment How to access health informa tion online Indication:Testicular/scrotal pain Start:17-Oct-2016 Instruction Type:Patient Education How to access health informa tion online - Detail Indication:Testicular/scrotal pain Start:17-Oct-2016 Instruction Type:Patient Education Patient Instructions Indication:Testicular/scrotal pain Start:17-Oct-2016 Instruction Type:Provider Instructions for Treatment [facility]; [facility] Work Phone: Instructions* Name Dates Details Patient Instructions Indication:Non-smoker Start:02-Aug-2022 Instruction Type:Provider Instructions for Treatment How to Access Health Informa tion Online using Patient Portal and [employer] Indication:Non-smoker Start:02-Aug-2022 Instruction Type:Patient Education Patient Instructions Indication:Non-smoker Start:10-Jun-2022 Instruction Type:Provider Instructions for Treatment How to Access Health Informa tion Online using Patient Portal and [employer] Indication:Non-smoker Start:10-Jun-2022 Instruction Type:Patient Education Patient Instructions Indication:BMI 35.0-35.9,adult Start:08-Jun-2022 Instruction Type:Provider Instructions for Treatment How to Access Health Informa tion Online using Patient Portal and [employer] Indication:BMI 35.0-35.9,adult Start:08-Jun-2022 Instruction Type:Patient Education Patient Instructions Indication:BMI 35.0-35.9,adult Start:26-May-2022 Instruction Type:Provider Instructions for Treatment How to Access Health Informa tion Online using Patient Portal and [employer] Indication:BMI 35.0-35.9,adult Start:26-May-2022 Instruction Type:Patient Education Patient Instructions Indication:Non-smoker Start:10-May-2022 Instruction Type:Provider Instructions for Treatment How to Access Health Informa tion Online using Patient Portal and [employer] Indication:Non-smoker Start:10-May-2022 Instruction Type:Patient Education Patient Instructions Indication:HTN (hypertension), benign (Renamed from Benign hypertension) Start:15-Apr-2022 Instruction Type:Provider Instructions for Treatment How to Access Health Informa tion Online using Patient Portal and [employer] Indication:HTN (hypertension), benign (Renamed from Benign hypertension) Start:15-Apr-2022 Instruction Type:Patient Education Patient Instructions Indication:Non-smoker Start:01-Apr-2022 Instruction Type:Provider Instructions for Treatment How to Access Health Informa tion Online using Patient Portal and [employer] Indication:Non-smoker Start:01-Apr-2022 Instruction Type:Patient Education Patient Instructions Indication:BMI 33.0-33.9,adult Start:24-May-2021 Instruction Type:Provider Instructions for Treatment How to Access Health Informa tion Online using Patient Portal and [employer] Indication:BMI 33.0-33.9,adult Start:24-May-2021 Instruction Type:Patient Education How to access health informa tion online Indication:Chewing tobacco use Start:07-Feb-2020 Instruction Type:Patient Education How to access health informa tion online - Detail Indication:Chewing tobacco use Start:07-Feb-2020 Instruction Type:Patient Education Patient Instructions Indication:Encounter for screening for lipid disorder Start:07-Feb-2020 Instruction Type:Provider Instructions for Treatment How to access health informa tion online Indication:BMI 34.0-34.9,adult Start:30-Dec-2019 Instruction Type:Patient Education How to access health informa tion online - Detail Indication:BMI 34.0-34.9,adult Start:30-Dec-2019 Instruction Type:Patient Education Patient Instructions Indication:BMI 34.0-34.9,adult Start:30-Dec-2019 Instruction Type:Provider Instructions for Treatment How to access health informa tion online Indication:BMI 34.0-34.9,adult Start:18-Jul-2019 Instruction Type:Patient Education How to access health informa tion online - Detail Indication:BMI 34.0-34.9,adult Start:18-Jul-2019 Instruction Type:Patient Education Patient Instructions Indication:BMI 34.0-34.9,adult Start:18-Jul-2019 Instruction Type:Provider Instructions for Treatment How to access health informa tion online Indication:Non-smoker Start:05-Jul-2019 Instruction Type:Patient Education How to access health informa tion online - Detail Indication:Non-smoker Start:05-Jul-2019 Instruction Type:Patient Education Patient Instructions Indication:Non-smoker Start:05-Jul-2019 Instruction Type:Provider Instructions for Treatment How to access health informa tion online Indication:Non-smoker Start:14-Jun-2019 Instruction Type:Patient Education How to access health informa tion online - Detail Indication:Non-smoker Start:14-Jun-2019 Instruction Type:Patient Education Patient Instructions Indication:BMI 34.0-34.9,adult Start:14-Jun-2019 Instruction Type:Provider Instructions for Treatment How to access health informa tion online Indication:Non-smoker Start:26-Mar-2019 Instruction Type:Patient Education How to access health informa tion online - Detail Indication:Non-smoker Start:26-Mar-2019 Instruction Type:Patient Education Patient Instructions Indication:Non-smoker Start:26-Mar-2019 Instruction Type:Provider Instructions for Treatment How to access health informa tion online Indication:Non-smoker Start:01-Feb-2019 Instruction Type:Patient Education How to access health informa tion online - Detail Indication:Non-smoker Start:01-Feb-2019 Instruction Type:Patient Education Patient Instructions Indication:BMI 34.0-34.9,adult Start:01-Feb-2019 Instruction Type:Provider Instructions for Treatment How to access health informa tion online Indication:BMI 35.0-35.9,adult Start:17-Jan-2019 Instruction Type:Patient Education How to access health informa tion online - Detail Indication:BMI 35.0-35.9,adult Start:17-Jan-2019 Instruction Type:Patient Education Patient Instructions Indication:Right leg pain Start:17-Jan-2019 Instruction Type:Provider Instructions for Treatment How to access health informa tion online Indication:BMI 35.0-35.9,adult Start:25-May-2018 Instruction Type:Patient Education How to access health informa tion online - Detail Indication:BMI 35.0-35.9,adult Start:25-May-2018 Instruction Type:Patient Education Patient Instructions Indication:BMI 35.0-35.9,adult Start:25-May-2018 Instruction Type:Provider Instructions for Treatment How to access health informa tion online Indication:Non-smoker Start:09-May-2018 Instruction Type:Patient Education How to access health informa tion online - Detail Indication:Non-smoker Start:09-May-2018 Instruction Type:Patient Education Patient Instructions Indication:Non-smoker Start:09-May-2018 Instruction Type:Provider Instructions for Treatment How to access health informa tion online Indication:Nonsmoker Start:28-Dec-2017 Instruction Type:Patient Education How to access health informa tion online - Detail Indication:Nonsmoker Start:28-Dec-2017 Instruction Type:Patient Education Patient Instructions Indication:Left foot pain Start:28-Dec-2017 Instruction Type:Provider Instructions for Treatment How to access health informa tion online Indication:BMI 31.0-31.9,adult Start:08-Jun-2017 Instruction Type:Patient Education How to access health informa tion online - Detail Indication:BMI 31.0-31.9,adult Start:08-Jun-2017 Instruction Type:Patient Education Patient Instructions Indication:BMI 31.0-31.9,adult Start:08-Jun-2017 Instruction Type:Provider Instructions for Treatment Patient Instructions Indication:Influenza A Start:16-May-2017 Instruction Type:Provider Instructions for Treatment How to access health informa tion online Indication:Chewing tobacco use Start:16-May-2017 Instruction Type:Patient Education How to access health informa tion online - Detail Indication:Chewing tobacco use Start:16-May-2017 Instruction Type:Patient Education How to access health informa tion online Indication:Testicular/scrotal pain Start:21-Oct-2016 Instruction Type:Patient Education How to access health informa tion online - Detail Indication:Testicular/scrotal pain Start:21-Oct-2016 Instruction Type:Patient Education Patient Instructions Indication:Testicular/scrotal pain Start:21-Oct-2016 Instruction Type:Provider Instructions for Treatment How to access health informa tion online Indication:Testicular/scrotal pain Start:17-Oct-2016 Instruction Type:Patient Education How to access health informa tion online - Detail Indication:Testicular/scrotal pain Start:17-Oct-2016 Instruction Type:Patient Education Patient Instructions Indication:Testicular/scrotal pain Start:17-Oct-2016 Instruction Type:Provider Instructions for Treatment [facility]; [facility] Work Phone: Instructions* Name Dates Details Patient Instructions Indication:Non-smoker Start:07-Nov-2022 Instruction Type:Provider Instructions for Treatment How to Access Health Informa tion Online using Patient Portal and [employer] Indication:Non-smoker Start:07-Nov-2022 Instruction Type:Patient Education Patient Instructions Indication:Non-smoker Start:02-Aug-2022 Instruction Type:Provider Instructions for Treatment How to Access Health Informa tion Online using Patient Portal and [employer] Indication:Non-smoker Start:02-Aug-2022 Instruction Type:Patient Education Patient Instructions Indication:Non-smoker Start:10-Jun-2022 Instruction Type:Provider Instructions for Treatment How to Access Health Informa tion Online using Patient Portal and [employer] Indication:Non-smoker Start:10-Jun-2022 Instruction Type:Patient Education Patient Instructions Indication:BMI 35.0-35.9,adult Start:08-Jun-2022 Instruction Type:Provider Instructions for Treatment How to Access Health Informa tion Online using Patient Portal and [employer] Indication:BMI 35.0-35.9,adult Start:08-Jun-2022 Instruction Type:Patient Education Patient Instructions Indication:BMI 35.0-35.9,adult Start:26-May-2022 Instruction Type:Provider Instructions for Treatment How to Access Health Informa tion Online using Patient Portal and [employer] Indication:BMI 35.0-35.9,adult Start:26-May-2022 Instruction Type:Patient Education Patient Instructions Indication:Non-smoker Start:10-May-2022 Instruction Type:Provider Instructions for Treatment How to Access Health Informa tion Online using Patient Portal and [employer] Indication:Non-smoker Start:10-May-2022 Instruction Type:Patient Education Patient Instructions Indication:HTN (hypertension), benign (Renamed from Benign hypertension) Start:15-Apr-2022 Instruction Type:Provider Instructions for Treatment How to Access Health Informa tion Online using Patient Portal and [employer] Indication:HTN (hypertension), benign (Renamed from Benign hypertension) Start:15-Apr-2022 Instruction Type:Patient Education Patient Instructions Indication:Non-smoker Start:01-Apr-2022 Instruction Type:Provider Instructions for Treatment How to Access Health Informa tion Online using Patient Portal and [employer] Indication:Non-smoker Start:01-Apr-2022 Instruction Type:Patient Education Patient Instructions Indication:BMI 33.0-33.9,adult Start:24-May-2021 Instruction Type:Provider Instructions for Treatment How to Access Health Informa tion Online using Patient Portal and [employer] Indication:BMI 33.0-33.9,adult Start:24-May-2021 Instruction Type:Patient Education How to access health informa tion online Indication:Chewing tobacco use Start:07-Feb-2020 Instruction Type:Patient Education How to access health informa tion online - Detail Indication:Chewing tobacco use Start:07-Feb-2020 Instruction Type:Patient Education Patient Instructions Indication:Encounter for screening for lipid disorder Start:07-Feb-2020 Instruction Type:Provider Instructions for Treatment How to access health informa tion online Indication:BMI 34.0-34.9,adult Start:30-Dec-2019 Instruction Type:Patient Education How to access health informa tion online - Detail Indication:BMI 34.0-34.9,adult Start:30-Dec-2019 Instruction Type:Patient Education Patient Instructions Indication:BMI 34.0-34.9,adult Start:30-Dec-2019 Instruction Type:Provider Instructions for Treatment How to access health informa tion online Indication:BMI 34.0-34.9,adult Start:18-Jul-2019 Instruction Type:Patient Education How to access health informa tion online - Detail Indication:BMI 34.0-34.9,adult Start:18-Jul-2019 Instruction Type:Patient Education Patient Instructions Indication:BMI 34.0-34.9,adult Start:18-Jul-2019 Instruction Type:Provider Instructions for Treatment How to access health informa tion online Indication:Non-smoker Start:05-Jul-2019 Instruction Type:Patient Education How to access health informa tion online - Detail Indication:Non-smoker Start:05-Jul-2019 Instruction Type:Patient Education Patient Instructions Indication:Non-smoker Start:05-Jul-2019 Instruction Type:Provider Instructions for Treatment How to access health informa tion online Indication:Non-smoker Start:14-Jun-2019 Instruction Type:Patient Education How to access health informa tion online - Detail Indication:Non-smoker Start:14-Jun-2019 Instruction Type:Patient Education Patient Instructions Indication:BMI 34.0-34.9,adult Start:14-Jun-2019 Instruction Type:Provider Instructions for Treatment How to access health informa tion online Indication:Non-smoker Start:26-Mar-2019 Instruction Type:Patient Education How to access health informa tion online - Detail Indication:Non-smoker Start:26-Mar-2019 Instruction Type:Patient Education Patient Instructions Indication:Non-smoker Start:26-Mar-2019 Instruction Type:Provider Instructions for Treatment How to access health informa tion online Indication:Non-smoker Start:01-Feb-2019 Instruction Type:Patient Education How to access health informa tion online - Detail Indication:Non-smoker Start:01-Feb-2019 Instruction Type:Patient Education Patient Instructions Indication:BMI 34.0-34.9,adult Start:01-Feb-2019 Instruction Type:Provider Instructions for Treatment How to access health informa tion online Indication:BMI 35.0-35.9,adult Start:17-Jan-2019 Instruction Type:Patient Education How to access health informa tion online - Detail Indication:BMI 35.0-35.9,adult Start:17-Jan-2019 Instruction Type:Patient Education Patient Instructions Indication:Right leg pain Start:17-Jan-2019 Instruction Type:Provider Instructions for Treatment How to access health informa tion online Indication:BMI 35.0-35.9,adult Start:25-May-2018 Instruction Type:Patient Education How to access health informa tion online - Detail Indication:BMI 35.0-35.9,adult Start:25-May-2018 Instruction Type:Patient Education Patient Instructions Indication:BMI 35.0-35.9,adult Start:25-May-2018 Instruction Type:Provider Instructions for Treatment How to access health informa tion online Indication:Non-smoker Start:09-May-2018 Instruction Type:Patient Education How to access health informa tion online - Detail Indication:Non-smoker Start:09-May-2018 Instruction Type:Patient Education Patient Instructions Indication:Non-smoker Start:09-May-2018 Instruction Type:Provider Instructions for Treatment How to access health informa tion online Indication:Nonsmoker Start:28-Dec-2017 Instruction Type:Patient Education How to access health informa tion online - Detail Indication:Nonsmoker Start:28-Dec-2017 Instruction Type:Patient Education Patient Instructions Indication:Left foot pain Start:28-Dec-2017 Instruction Type:Provider Instructions for Treatment How to access health informa tion online Indication:BMI 31.0-31.9,adult Start:08-Jun-2017 Instruction Type:Patient Education How to access health informa tion online - Detail Indication:BMI 31.0-31.9,adult Start:08-Jun-2017 Instruction Type:Patient Education Patient Instructions Indication:BMI 31.0-31.9,adult Start:08-Jun-2017 Instruction Type:Provider Instructions for Treatment Patient Instructions Indication:Influenza A Start:16-May-2017 Instruction Type:Provider Instructions for Treatment How to access health informa tion online Indication:Chewing tobacco use Start:16-May-2017 Instruction Type:Patient Education How to access health informa tion online - Detail Indication:Chewing tobacco use Start:16-May-2017 Instruction Type:Patient Education How to access health informa tion online Indication:Testicular/scrotal pain Start:21-Oct-2016 Instruction Type:Patient Education How to access health informa tion online - Detail Indication:Testicular/scrotal pain Start:21-Oct-2016 Instruction Type:Patient Education Patient Instructions Indication:Testicular/scrotal pain Start:21-Oct-2016 Instruction Type:Provider Instructions for Treatment How to access health informa tion online Indication:Testicular/scrotal pain Start:17-Oct-2016 Instruction Type:Patient Education How to access health informa tion online - Detail Indication:Testicular/scrotal pain Start:17-Oct-2016 Instruction Type:Patient Education Patient Instructions Indication:Testicular/scrotal pain Start:17-Oct-2016 Instruction Type:Provider Instructions for Treatment [facility]; [facility] Work Phone: Instructions* Name Dates Details Patient Instructions Indication:Non-smoker Start:07-Nov-2022 Instruction Type:Provider Instructions for Treatment How to Access Health Informa tion Online using Patient Portal and [employer] Indication:Non-smoker Start:07-Nov-2022 Instruction Type:Patient Education Patient Instructions Indication:Non-smoker Start:02-Aug-2022 Instruction Type:Provider Instructions for Treatment How to Access Health Informa tion Online using Patient Portal and [employer] Indication:Non-smoker Start:02-Aug-2022 Instruction Type:Patient Education Patient Instructions Indication:Non-smoker Start:10-Jun-2022 Instruction Type:Provider Instructions for Treatment How to Access Health Informa tion Online using Patient Portal and [employer] Indication:Non-smoker Start:10-Jun-2022 Instruction Type:Patient Education Patient Instructions Indication:BMI 35.0-35.9,adult Start:08-Jun-2022 Instruction Type:Provider Instructions for Treatment How to Access Health Informa tion Online using Patient Portal and [employer] Indication:BMI 35.0-35.9,adult Start:08-Jun-2022 Instruction Type:Patient Education Patient Instructions Indication:BMI 35.0-35.9,adult Start:26-May-2022 Instruction Type:Provider Instructions for Treatment How to Access Health Informa tion Online using Patient Portal and [employer] Indication:BMI 35.0-35.9,adult Start:26-May-2022 Instruction Type:Patient Education Patient Instructions Indication:Non-smoker Start:10-May-2022 Instruction Type:Provider Instructions for Treatment How to Access Health Informa tion Online using Patient Portal and [employer] Indication:Non-smoker Start:10-May-2022 Instruction Type:Patient Education Patient Instructions Indication:HTN (hypertension), benign (Renamed from Benign hypertension) Start:15-Apr-2022 Instruction Type:Provider Instructions for Treatment How to Access Health Informa tion Online using Patient Portal and [employer] Indication:HTN (hypertension), benign (Renamed from Benign hypertension) Start:15-Apr-2022 Instruction Type:Patient Education Patient Instructions Indication:Non-smoker Start:01-Apr-2022 Instruction Type:Provider Instructions for Treatment How to Access Health Informa tion Online using Patient Portal and [employer] Indication:Non-smoker Start:01-Apr-2022 Instruction Type:Patient Education Patient Instructions Indication:BMI 33.0-33.9,adult Start:24-May-2021 Instruction Type:Provider Instructions for Treatment How to Access Health Informa tion Online using Patient Portal and [employer] Indication:BMI 33.0-33.9,adult Start:24-May-2021 Instruction Type:Patient Education How to access health informa tion online Indication:Chewing tobacco use Start:07-Feb-2020 Instruction Type:Patient Education How to access health informa tion online - Detail Indication:Chewing tobacco use Start:07-Feb-2020 Instruction Type:Patient Education Patient Instructions Indication:Encounter for screening for lipid disorder Start:07-Feb-2020 Instruction Type:Provider Instructions for Treatment How to access health informa tion online Indication:BMI 34.0-34.9,adult Start:30-Dec-2019 Instruction Type:Patient Education How to access health informa tion online - Detail Indication:BMI 34.0-34.9,adult Start:30-Dec-2019 Instruction Type:Patient Education Patient Instructions Indication:BMI 34.0-34.9,adult Start:30-Dec-2019 Instruction Type:Provider Instructions for Treatment How to access health informa tion online Indication:BMI 34.0-34.9,adult Start:18-Jul-2019 Instruction Type:Patient Education How to access health informa tion online - Detail Indication:BMI 34.0-34.9,adult Start:18-Jul-2019 Instruction Type:Patient Education Patient Instructions Indication:BMI 34.0-34.9,adult Start:18-Jul-2019 Instruction Type:Provider Instructions for Treatment How to access health informa tion online Indication:Non-smoker Start:05-Jul-2019 Instruction Type:Patient Education How to access health informa tion online - Detail Indication:Non-smoker Start:05-Jul-2019 Instruction Type:Patient Education Patient Instructions Indication:Non-smoker Start:05-Jul-2019 Instruction Type:Provider Instructions for Treatment How to access health informa tion online Indication:Non-smoker Start:14-Jun-2019 Instruction Type:Patient Education How to access health informa tion online - Detail Indication:Non-smoker Start:14-Jun-2019 Instruction Type:Patient Education Patient Instructions Indication:BMI 34.0-34.9,adult Start:14-Jun-2019 Instruction Type:Provider Instructions for Treatment How to access health informa tion online Indication:Non-smoker Start:26-Mar-2019 Instruction Type:Patient Education How to access health informa tion online - Detail Indication:Non-smoker Start:26-Mar-2019 Instruction Type:Patient Education Patient Instructions Indication:Non-smoker Start:26-Mar-2019 Instruction Type:Provider Instructions for Treatment How to access health informa tion online Indication:Non-smoker Start:01-Feb-2019 Instruction Type:Patient Education How to access health informa tion online - Detail Indication:Non-smoker Start:01-Feb-2019 Instruction Type:Patient Education Patient Instructions Indication:BMI 34.0-34.9,adult Start:01-Feb-2019 Instruction Type:Provider Instructions for Treatment How to access health informa tion online Indication:BMI 35.0-35.9,adult Start:17-Jan-2019 Instruction Type:Patient Education How to access health informa tion online - Detail Indication:BMI 35.0-35.9,adult Start:17-Jan-2019 Instruction Type:Patient Education Patient Instructions Indication:Right leg pain Start:17-Jan-2019 Instruction Type:Provider Instructions for Treatment How to access health informa tion online Indication:BMI 35.0-35.9,adult Start:25-May-2018 Instruction Type:Patient Education How to access health informa tion online - Detail Indication:BMI 35.0-35.9,adult Start:25-May-2018 Instruction Type:Patient Education Patient Instructions Indication:BMI 35.0-35.9,adult Start:25-May-2018 Instruction Type:Provider Instructions for Treatment How to access health informa tion online Indication:Non-smoker Start:09-May-2018 Instruction Type:Patient Education How to access health informa tion online - Detail Indication:Non-smoker Start:09-May-2018 Instruction Type:Patient Education Patient Instructions Indication:Non-smoker Start:09-May-2018 Instruction Type:Provider Instructions for Treatment How to access health informa tion online Indication:Nonsmoker Start:28-Dec-2017 Instruction Type:Patient Education How to access health informa tion online - Detail Indication:Nonsmoker Start:28-Dec-2017 Instruction Type:Patient Education Patient Instructions Indication:Left foot pain Start:28-Dec-2017 Instruction Type:Provider Instructions for Treatment How to access health informa tion online Indication:BMI 31.0-31.9,adult Start:08-Jun-2017 Instruction Type:Patient Education How to access health informa tion online - Detail Indication:BMI 31.0-31.9,adult Start:08-Jun-2017 Instruction Type:Patient Education Patient Instructions Indication:BMI 31.0-31.9,adult Start:08-Jun-2017 Instruction Type:Provider Instructions for Treatment Patient Instructions Indication:Influenza A Start:16-May-2017 Instruction Type:Provider Instructions for Treatment How to access health informa tion online Indication:Chewing tobacco use Start:16-May-2017 Instruction Type:Patient Education How to access health informa tion online - Detail Indication:Chewing tobacco use Start:16-May-2017 Instruction Type:Patient Education How to access health informa tion online Indication:Testicular/scrotal pain Start:21-Oct-2016 Instruction Type:Patient Education How to access health informa tion online - Detail Indication:Testicular/scrotal pain Start:21-Oct-2016 Instruction Type:Patient Education Patient Instructions Indication:Testicular/scrotal pain Start:21-Oct-2016 Instruction Type:Provider Instructions for Treatment How to access health informa tion online Indication:Testicular/scrotal pain Start:17-Oct-2016 Instruction Type:Patient Education How to access health informa tion online - Detail Indication:Testicular/scrotal pain Start:17-Oct-2016 Instruction Type:Patient Education Patient Instructions Indication:Testicular/scrotal pain Start:17-Oct-2016 Instruction Type:Provider Instructions for Treatment [facility]; [facility] Work Phone: Instructions* Name Dates Details Patient Instructions Indication:Elevated high sensitivity C-reactive protein Start:16-Nov-2022 Instruction Type:Provider Instructions for Treatment How to Access Health Informa tion Online using Patient Portal and [employer]rd [employer] Apps Indication:Elevated high sensitivity C-reactive protein Start:16-Nov-2022 Instruction Type:Patient Education Patient Instructions Indication:Non-smoker Start:07-Nov-2022 Instruction Type:Provider Instructions for Treatment How to Access Health Informa tion Online using Patient Portal and [employer]rd [employer] Apps Indication:Non-smoker Start:07-Nov-2022 Instruction Type:Patient Education Patient Instructions Indication:Non-smoker Start:02-Aug-2022 Instruction Type:Provider Instructions for Treatment How to Access Health Informa tion Online using Patient Portal and [employer]rd [employer] Apps Indication:Non-smoker Start:02-Aug-2022 Instruction Type:Patient Education Patient Instructions Indication:Non-smoker Start:10-Jun-2022 Instruction Type:Provider Instructions for Treatment How to Access Health Informa tion Online using Patient Portal and [employer]rd [employer] Apps Indication:Non-smoker Start:10-Jun-2022 Instruction Type:Patient Education Patient Instructions Indication:BMI 35.0-35.9,adult Start:08-Jun-2022 Instruction Type:Provider Instructions for Treatment How to Access Health Informa tion Online using Patient Portal and [employer]rd [employer] Apps Indication:BMI 35.0-35.9,adult Start:08-Jun-2022 Instruction Type:Patient Education Patient Instructions Indication:BMI 35.0-35.9,adult Start:26-May-2022 Instruction Type:Provider Instructions for Treatment How to Access Health Informa tion Online using Patient Portal and [employer]rd [employer] Apps Indication:BMI 35.0-35.9,adult Start:26-May-2022 Instruction Type:Patient Education Patient Instructions Indication:Non-smoker Start:10-May-2022 Instruction Type:Provider Instructions for Treatment How to Access Health Informa tion Online using Patient Portal and [employer]rd [employer] Apps Indication:Non-smoker Start:10-May-2022 Instruction Type:Patient Education Patient Instructions Indication:HTN (hypertension), benign (Renamed from Benign hypertension) Start:15-Apr-2022 Instruction Type:Provider Instructions for Treatment How to Access Health Informa tion Online using Patient Portal and [employer]rd [employer] Apps Indication:HTN (hypertension), benign (Renamed from Benign hypertension) Start:15-Apr-2022 Instruction Type:Patient Education Patient Instructions Indication:Non-smoker Start:01-Apr-2022 Instruction Type:Provider Instructions for Treatment How to Access Health Informa tion Online using Patient Portal and [employer]rd [employer] Apps Indication:Non-smoker Start:01-Apr-2022 Instruction Type:Patient Education Patient Instructions Indication:BMI 33.0-33.9,adult Start:24-May-2021 Instruction Type:Provider Instructions for Treatment How to Access Health Informa tion Online using Patient Portal and [employer]rd [employer] Apps Indication:BMI 33.0-33.9,adult Start:24-May-2021 Instruction Type:Patient Education How to access health informa tion online Indication:Chewing tobacco use Start:07-Feb-2020 Instruction Type:Patient Education How to access health informa tion online - Detail Indication:Chewing tobacco use Start:07-Feb-2020 Instruction Type:Patient Education Patient Instructions Indication:Encounter for screening for lipid disorder Start:07-Feb-2020 Instruction Type:Provider Instructions for Treatment How to access health informa tion online Indication:BMI 34.0-34.9,adult Start:30-Dec-2019 Instruction Type:Patient Education How to access health informa tion online - Detail Indication:BMI 34.0-34.9,adult Start:30-Dec-2019 Instruction Type:Patient Education Patient Instructions Indication:BMI 34.0-34.9,adult Start:30-Dec-2019 Instruction Type:Provider Instructions for Treatment How to access health informa tion online Indication:BMI 34.0-34.9,adult Start:18-Jul-2019 Instruction Type:Patient Education How to access health informa tion online - Detail Indication:BMI 34.0-34.9,adult Start:18-Jul-2019 Instruction Type:Patient Education Patient Instructions Indication:BMI 34.0-34.9,adult Start:18-Jul-2019 Instruction Type:Provider Instructions for Treatment How to access health informa tion online Indication:Non-smoker Start:05-Jul-2019 Instruction Type:Patient Education How to access health informa tion online - Detail Indication:Non-smoker Start:05-Jul-2019 Instruction Type:Patient Education Patient Instructions Indication:Non-smoker Start:05-Jul-2019 Instruction Type:Provider Instructions for Treatment How to access health informa tion online Indication:Non-smoker Start:14-Jun-2019 Instruction Type:Patient Education How to access health informa tion online - Detail Indication:Non-smoker Start:14-Jun-2019 Instruction Type:Patient Education Patient Instructions Indication:BMI 34.0-34.9,adult Start:14-Jun-2019 Instruction Type:Provider Instructions for Treatment How to access health informa tion online Indication:Non-smoker Start:26-Mar-2019 Instruction Type:Patient Education How to access health informa tion online - Detail Indication:Non-smoker Start:26-Mar-2019 Instruction Type:Patient Education Patient Instructions Indication:Non-smoker Start:26-Mar-2019 Instruction Type:Provider Instructions for Treatment How to access health informa tion online Indication:Non-smoker Start:01-Feb-2019 Instruction Type:Patient Education How to access health informa tion online - Detail Indication:Non-smoker Start:01-Feb-2019 Instruction Type:Patient Education Patient Instructions Indication:BMI 34.0-34.9,adult Start:01-Feb-2019 Instruction Type:Provider Instructions for Treatment How to access health informa tion online Indication:BMI 35.0-35.9,adult Start:17-Jan-2019 Instruction Type:Patient Education How to access health informa tion online - Detail Indication:BMI 35.0-35.9,adult Start:17-Jan-2019 Instruction Type:Patient Education Patient Instructions Indication:Right leg pain Start:17-Jan-2019 Instruction Type:Provider Instructions for Treatment How to access health informa tion online Indication:BMI 35.0-35.9,adult Start:25-May-2018 Instruction Type:Patient Education How to access health informa tion online - Detail Indication:BMI 35.0-35.9,adult Start:25-May-2018 Instruction Type:Patient Education Patient Instructions Indication:BMI 35.0-35.9,adult Start:25-May-2018 Instruction Type:Provider Instructions for Treatment How to access health informa tion online Indication:Non-smoker Start:09-May-2018 Instruction Type:Patient Education How to access health informa tion online - Detail Indication:Non-smoker Start:09-May-2018 Instruction Type:Patient Education Patient Instructions Indication:Non-smoker Start:09-May-2018 Instruction Type:Provider Instructions for Treatment How to access health informa tion online Indication:Nonsmoker Start:28-Dec-2017 Instruction Type:Patient Education How to access health informa tion online - Detail Indication:Nonsmoker Start:28-Dec-2017 Instruction Type:Patient Education Patient Instructions Indication:Left foot pain Start:28-Dec-2017 Instruction Type:Provider Instructions for Treatment How to access health informa tion online Indication:BMI 31.0-31.9,adult Start:08-Jun-2017 Instruction Type:Patient Education How to access health informa tion online - Detail Indication:BMI 31.0-31.9,adult Start:08-Jun-2017 Instruction Type:Patient Education Patient Instructions Indication:BMI 31.0-31.9,adult Start:08-Jun-2017 Instruction Type:Provider Instructions for Treatment Patient Instructions Indication:Influenza A Start:16-May-2017 Instruction Type:Provider Instructions for Treatment How to access health informa tion online Indication:Chewing tobacco use Start:16-May-2017 Instruction Type:Patient Education How to access health informa tion online - Detail Indication:Chewing tobacco use Start:16-May-2017 Instruction Type:Patient Education How to access health informa tion online Indication:Testicular/scrotal pain Start:21-Oct-2016 Instruction Type:Patient Education How to access health informa tion online - Detail Indication:Testicular/scrotal pain Start:21-Oct-2016 Instruction Type:Patient Education Patient Instructions Indication:Testicular/scrotal pain Start:21-Oct-2016 Instruction Type:Provider Instructions for Treatment How to access health informa tion online Indication:Testicular/scrotal pain Start:17-Oct-2016 Instruction Type:Patient Education How to access health informa tion online - Detail Indication:Testicular/scrotal pain Start:17-Oct-2016 Instruction Type:Patient Education Patient Instructions Indication:Testicular/scrotal pain Start:17-Oct-2016 Instruction Type:Provider Instructions for Treatment [facility]; [facility] Work Phone: Instructions* Name Dates Details Patient Instructions Indication:Elevated high sensitivity C-reactive protein Start:16-Nov-2022 Instruction Type:Provider Instructions for Treatment How to Access Health Informa tion Online using Patient Portal and [employer]rd [employer] Apps Indication:Elevated high sensitivity C-reactive protein Start:16-Nov-2022 Instruction Type:Patient Education Patient Instructions Indication:Non-smoker Start:07-Nov-2022 Instruction Type:Provider Instructions for Treatment How to Access Health Informa tion Online using Patient Portal and [employer] Apps Indication:Non-smoker Start:07-Nov-2022 Instruction Type:Patient Education Patient Instructions Indication:Non-smoker Start:02-Aug-2022 Instruction Type:Provider Instructions for Treatment How to Access Health Informa tion Online using Patient Portal and [employer] Apps Indication:Non-smoker Start:02-Aug-2022 Instruction Type:Patient Education Patient Instructions Indication:Non-smoker Start:10-Jun-2022 Instruction Type:Provider Instructions for Treatment How to Access Health Informa tion Online using Patient Portal and [employer] Apps Indication:Non-smoker Start:10-Jun-2022 Instruction Type:Patient Education Patient Instructions Indication:BMI 35.0-35.9,adult Start:08-Jun-2022 Instruction Type:Provider Instructions for Treatment How to Access Health Informa tion Online using Patient Portal and [employer]rd [employer] Apps Indication:BMI 35.0-35.9,adult Start:08-Jun-2022 Instruction Type:Patient Education Patient Instructions Indication:BMI 35.0-35.9,adult Start:26-May-2022 Instruction Type:Provider Instructions for Treatment How to Access Health Informa tion Online using Patient Portal and [employer]rd [employer] Apps Indication:BMI 35.0-35.9,adult Start:26-May-2022 Instruction Type:Patient Education Patient Instructions Indication:Non-smoker Start:10-May-2022 Instruction Type:Provider Instructions for Treatment How to Access Health Informa tion Online using Patient Portal and [employer] Apps Indication:Non-smoker Start:10-May-2022 Instruction Type:Patient Education Patient Instructions Indication:HTN (hypertension), benign (Renamed from Benign hypertension) Start:15-Apr-2022 Instruction Type:Provider Instructions for Treatment How to Access Health Informa tion Online using Patient Portal and [employer]rd [employer] Apps Indication:HTN (hypertension), benign (Renamed from Benign hypertension) Start:15-Apr-2022 Instruction Type:Patient Education Patient Instructions Indication:Non-smoker Start:01-Apr-2022 Instruction Type:Provider Instructions for Treatment How to Access Health Informa tion Online using Patient Portal and [employer]rd [employer] Apps Indication:Non-smoker Start:01-Apr-2022 Instruction Type:Patient Education Patient Instructions Indication:BMI 33.0-33.9,adult Start:24-May-2021 Instruction Type:Provider Instructions for Treatment How to Access Health Informa tion Online using Patient Portal and [employer]rd [employer] Apps Indication:BMI 33.0-33.9,adult Start:24-May-2021 Instruction Type:Patient Education How to access health informa tion online Indication:Chewing tobacco use Start:07-Feb-2020 Instruction Type:Patient Education How to access health informa tion online - Detail Indication:Chewing tobacco use Start:07-Feb-2020 Instruction Type:Patient Education Patient Instructions Indication:Encounter for screening for lipid disorder Start:07-Feb-2020 Instruction Type:Provider Instructions for Treatment How to access health informa tion online Indication:BMI 34.0-34.9,adult Start:30-Dec-2019 Instruction Type:Patient Education How to access health informa tion online - Detail Indication:BMI 34.0-34.9,adult Start:30-Dec-2019 Instruction Type:Patient Education Patient Instructions Indication:BMI 34.0-34.9,adult Start:30-Dec-2019 Instruction Type:Provider Instructions for Treatment How to access health informa tion online Indication:BMI 34.0-34.9,adult Start:18-Jul-2019 Instruction Type:Patient Education How to access health informa tion online - Detail Indication:BMI 34.0-34.9,adult Start:18-Jul-2019 Instruction Type:Patient Education Patient Instructions Indication:BMI 34.0-34.9,adult Start:18-Jul-2019 Instruction Type:Provider Instructions for Treatment How to access health informa tion online Indication:Non-smoker Start:05-Jul-2019 Instruction Type:Patient Education How to access health informa tion online - Detail Indication:Non-smoker Start:05-Jul-2019 Instruction Type:Patient Education Patient Instructions Indication:Non-smoker Start:05-Jul-2019 Instruction Type:Provider Instructions for Treatment How to access health informa tion online Indication:Non-smoker Start:14-Jun-2019 Instruction Type:Patient Education How to access health informa tion online - Detail Indication:Non-smoker Start:14-Jun-2019 Instruction Type:Patient Education Patient Instructions Indication:BMI 34.0-34.9,adult Start:14-Jun-2019 Instruction Type:Provider Instructions for Treatment How to access health informa tion online Indication:Non-smoker Start:26-Mar-2019 Instruction Type:Patient Education How to access health informa tion online - Detail Indication:Non-smoker Start:26-Mar-2019 Instruction Type:Patient Education Patient Instructions Indication:Non-smoker Start:26-Mar-2019 Instruction Type:Provider Instructions for Treatment How to access health informa tion online Indication:Non-smoker Start:01-Feb-2019 Instruction Type:Patient Education How to access health informa tion online - Detail Indication:Non-smoker Start:01-Feb-2019 Instruction Type:Patient Education Patient Instructions Indication:BMI 34.0-34.9,adult Start:01-Feb-2019 Instruction Type:Provider Instructions for Treatment How to access health informa tion online Indication:BMI 35.0-35.9,adult Start:17-Jan-2019 Instruction Type:Patient Education How to access health informa tion online - Detail Indication:BMI 35.0-35.9,adult Start:17-Jan-2019 Instruction Type:Patient Education Patient Instructions Indication:Right leg pain Start:17-Jan-2019 Instruction Type:Provider Instructions for Treatment How to access health informa tion online Indication:BMI 35.0-35.9,adult Start:25-May-2018 Instruction Type:Patient Education How to access health informa tion online - Detail Indication:BMI 35.0-35.9,adult Start:25-May-2018 Instruction Type:Patient Education Patient Instructions Indication:BMI 35.0-35.9,adult Start:25-May-2018 Instruction Type:Provider Instructions for Treatment How to access health informa tion online Indication:Non-smoker Start:09-May-2018 Instruction Type:Patient Education How to access health informa tion online - Detail Indication:Non-smoker Start:09-May-2018 Instruction Type:Patient Education Patient Instructions Indication:Non-smoker Start:09-May-2018 Instruction Type:Provider Instructions for Treatment How to access health informa tion online Indication:Nonsmoker Start:28-Dec-2017 Instruction Type:Patient Education How to access health informa tion online - Detail Indication:Nonsmoker Start:28-Dec-2017 Instruction Type:Patient Education Patient Instructions Indication:Left foot pain Start:28-Dec-2017 Instruction Type:Provider Instructions for Treatment How to access health informa tion online Indication:BMI 31.0-31.9,adult Start:08-Jun-2017 Instruction Type:Patient Education How to access health informa tion online - Detail Indication:BMI 31.0-31.9,adult Start:08-Jun-2017 Instruction Type:Patient Education Patient Instructions Indication:BMI 31.0-31.9,adult Start:08-Jun-2017 Instruction Type:Provider Instructions for Treatment Patient Instructions Indication:Influenza A Start:16-May-2017 Instruction Type:Provider Instructions for Treatment How to access health informa tion online Indication:Chewing tobacco use Start:16-May-2017 Instruction Type:Patient Education How to access health informa tion online - Detail Indication:Chewing tobacco use Start:16-May-2017 Instruction Type:Patient Education How to access health informa tion online Indication:Testicular/scrotal pain Start:21-Oct-2016 Instruction Type:Patient Education How to access health informa tion online - Detail Indication:Testicular/scrotal pain Start:21-Oct-2016 Instruction Type:Patient Education Patient Instructions Indication:Testicular/scrotal pain Start:21-Oct-2016 Instruction Type:Provider Instructions for Treatment How to access health informa tion online Indication:Testicular/scrotal pain Start:17-Oct-2016 Instruction Type:Patient Education How to access health informa tion online - Detail Indication:Testicular/scrotal pain Start:17-Oct-2016 Instruction Type:Patient Education Patient Instructions Indication:Testicular/scrotal pain Start:17-Oct-2016 Instruction Type:Provider Instructions for Treatment [facility]; [facility] Work Phone: Instructions* Name Dates Details Patient Instructions Indication:Elevated high sensitivity C-reactive protein Start:16-Nov-2022 Instruction Type:Provider Instructions for Treatment How to Access Health Informa tion Online using Patient Portal and [employer]rd [employer] Apps Indication:Elevated high sensitivity C-reactive protein Start:16-Nov-2022 Instruction Type:Patient Education Patient Instructions Indication:Non-smoker Start:07-Nov-2022 Instruction Type:Provider Instructions for Treatment How to Access Health Informa tion Online using Patient Portal and [employer]rd [employer] Apps Indication:Non-smoker Start:07-Nov-2022 Instruction Type:Patient Education Patient Instructions Indication:Non-smoker Start:02-Aug-2022 Instruction Type:Provider Instructions for Treatment How to Access Health Informa tion Online using Patient Portal and [employer] Apps Indication:Non-smoker Start:02-Aug-2022 Instruction Type:Patient Education Patient Instructions Indication:Non-smoker Start:10-Jun-2022 Instruction Type:Provider Instructions for Treatment How to Access Health Informa tion Online using Patient Portal and [employer] Apps Indication:Non-smoker Start:10-Jun-2022 Instruction Type:Patient Education Patient Instructions Indication:BMI 35.0-35.9,adult Start:08-Jun-2022 Instruction Type:Provider Instructions for Treatment How to Access Health Informa tion Online using Patient Portal and [employer]rd [employer] Apps Indication:BMI 35.0-35.9,adult Start:08-Jun-2022 Instruction Type:Patient Education Patient Instructions Indication:BMI 35.0-35.9,adult Start:26-May-2022 Instruction Type:Provider Instructions for Treatment How to Access Health Informa tion Online using Patient Portal and [employer]rd [employer] Apps Indication:BMI 35.0-35.9,adult Start:26-May-2022 Instruction Type:Patient Education Patient Instructions Indication:Non-smoker Start:10-May-2022 Instruction Type:Provider Instructions for Treatment How to Access Health Informa tion Online using Patient Portal and [employer] Apps Indication:Non-smoker Start:10-May-2022 Instruction Type:Patient Education Patient Instructions Indication:HTN (hypertension), benign (Renamed from Benign hypertension) Start:15-Apr-2022 Instruction Type:Provider Instructions for Treatment How to Access Health Informa tion Online using Patient Portal and [employer]rd [employer] Apps Indication:HTN (hypertension), benign (Renamed from Benign hypertension) Start:15-Apr-2022 Instruction Type:Patient Education Patient Instructions Indication:Non-smoker Start:01-Apr-2022 Instruction Type:Provider Instructions for Treatment How to Access Health Informa tion Online using Patient Portal and [employer] Apps Indication:Non-smoker Start:01-Apr-2022 Instruction Type:Patient Education Patient Instructions Indication:BMI 33.0-33.9,adult Start:24-May-2021 Instruction Type:Provider Instructions for Treatment How to Access Health Informa tion Online using Patient Portal and [employer] Apps Indication:BMI 33.0-33.9,adult Start:24-May-2021 Instruction Type:Patient Education How to access health informa tion online Indication:Chewing tobacco use Start:07-Feb-2020 Instruction Type:Patient Education How to access health informa tion online - Detail Indication:Chewing tobacco use Start:07-Feb-2020 Instruction Type:Patient Education Patient Instructions Indication:Encounter for screening for lipid disorder Start:07-Feb-2020 Instruction Type:Provider Instructions for Treatment How to access health informa tion online Indication:BMI 34.0-34.9,adult Start:30-Dec-2019 Instruction Type:Patient Education How to access health informa tion online - Detail Indication:BMI 34.0-34.9,adult Start:30-Dec-2019 Instruction Type:Patient Education Patient Instructions Indication:BMI 34.0-34.9,adult Start:30-Dec-2019 Instruction Type:Provider Instructions for Treatment How to access health informa tion online Indication:BMI 34.0-34.9,adult Start:18-Jul-2019 Instruction Type:Patient Education How to access health informa tion online - Detail Indication:BMI 34.0-34.9,adult Start:18-Jul-2019 Instruction Type:Patient Education Patient Instructions Indication:BMI 34.0-34.9,adult Start:18-Jul-2019 Instruction Type:Provider Instructions for Treatment How to access health informa tion online Indication:Non-smoker Start:05-Jul-2019 Instruction Type:Patient Education How to access health informa tion online - Detail Indication:Non-smoker Start:05-Jul-2019 Instruction Type:Patient Education Patient Instructions Indication:Non-smoker Start:05-Jul-2019 Instruction Type:Provider Instructions for Treatment How to access health informa tion online Indication:Non-smoker Start:14-Jun-2019 Instruction Type:Patient Education How to access health informa tion online - Detail Indication:Non-smoker Start:14-Jun-2019 Instruction Type:Patient Education Patient Instructions Indication:BMI 34.0-34.9,adult Start:14-Jun-2019 Instruction Type:Provider Instructions for Treatment How to access health informa tion online Indication:Non-smoker Start:26-Mar-2019 Instruction Type:Patient Education How to access health informa tion online - Detail Indication:Non-smoker Start:26-Mar-2019 Instruction Type:Patient Education Patient Instructions Indication:Non-smoker Start:26-Mar-2019 Instruction Type:Provider Instructions for Treatment How to access health informa tion online Indication:Non-smoker Start:01-Feb-2019 Instruction Type:Patient Education How to access health informa tion online - Detail Indication:Non-smoker Start:01-Feb-2019 Instruction Type:Patient Education Patient Instructions Indication:BMI 34.0-34.9,adult Start:01-Feb-2019 Instruction Type:Provider Instructions for Treatment How to access health informa tion online Indication:BMI 35.0-35.9,adult Start:17-Jan-2019 Instruction Type:Patient Education How to access health informa tion online - Detail Indication:BMI 35.0-35.9,adult Start:17-Jan-2019 Instruction Type:Patient Education Patient Instructions Indication:Right leg pain Start:17-Jan-2019 Instruction Type:Provider Instructions for Treatment How to access health informa tion online Indication:BMI 35.0-35.9,adult Start:25-May-2018 Instruction Type:Patient Education How to access health informa tion online - Detail Indication:BMI 35.0-35.9,adult Start:25-May-2018 Instruction Type:Patient Education Patient Instructions Indication:BMI 35.0-35.9,adult Start:25-May-2018 Instruction Type:Provider Instructions for Treatment How to access health informa tion online Indication:Non-smoker Start:09-May-2018 Instruction Type:Patient Education How to access health informa tion online - Detail Indication:Non-smoker Start:09-May-2018 Instruction Type:Patient Education Patient Instructions Indication:Non-smoker Start:09-May-2018 Instruction Type:Provider Instructions for Treatment How to access health informa tion online Indication:Nonsmoker Start:28-Dec-2017 Instruction Type:Patient Education How to access health informa tion online - Detail Indication:Nonsmoker Start:28-Dec-2017 Instruction Type:Patient Education Patient Instructions Indication:Left foot pain Start:28-Dec-2017 Instruction Type:Provider Instructions for Treatment How to access health informa tion online Indication:BMI 31.0-31.9,adult Start:08-Jun-2017 Instruction Type:Patient Education How to access health informa tion online - Detail Indication:BMI 31.0-31.9,adult Start:08-Jun-2017 Instruction Type:Patient Education Patient Instructions Indication:BMI 31.0-31.9,adult Start:08-Jun-2017 Instruction Type:Provider Instructions for Treatment Patient Instructions Indication:Influenza A Start:16-May-2017 Instruction Type:Provider Instructions for Treatment How to access health informa tion online Indication:Chewing tobacco use Start:16-May-2017 Instruction Type:Patient Education How to access health informa tion online - Detail Indication:Chewing tobacco use Start:16-May-2017 Instruction Type:Patient Education How to access health informa tion online Indication:Testicular/scrotal pain Start:21-Oct-2016 Instruction Type:Patient Education How to access health informa tion online - Detail Indication:Testicular/scrotal pain Start:21-Oct-2016 Instruction Type:Patient Education Patient Instructions Indication:Testicular/scrotal pain Start:21-Oct-2016 Instruction Type:Provider Instructions for Treatment How to access health informa tion online Indication:Testicular/scrotal pain Start:17-Oct-2016 Instruction Type:Patient Education How to access health informa tion online - Detail Indication:Testicular/scrotal pain Start:17-Oct-2016 Instruction Type:Patient Education Patient Instructions Indication:Testicular/scrotal pain Start:17-Oct-2016 Instruction Type:Provider Instructions for Treatment [facility]; [facility] Work Phone: Instructions* Name Dates Details Patient Instructions Indication:Obesity (BMI 35.0-39.9 without comorbidity) Start:21-Dec-2022 Instruction Type:Provider Instructions for Treatment How to Access Health Informa tion Online using Patient Portal and [employer]rd [employer] Apps Indication:Obesity (BMI 35.0-39.9 without comorbidity) Start:21-Dec-2022 Instruction Type:Patient Education Patient Instructions Indication:Elevated high sensitivity C-reactive protein Start:16-Nov-2022 Instruction Type:Provider Instructions for Treatment How to Access Health Informa tion Online using Patient Portal and [employer] Apps Indication:Elevated high sensitivity C-reactive protein Start:16-Nov-2022 Instruction Type:Patient Education Patient Instructions Indication:Non-smoker Start:07-Nov-2022 Instruction Type:Provider Instructions for Treatment How to Access Health Informa tion Online using Patient Portal and [employer] Apps Indication:Non-smoker Start:07-Nov-2022 Instruction Type:Patient Education Patient Instructions Indication:Non-smoker Start:02-Aug-2022 Instruction Type:Provider Instructions for Treatment How to Access Health Informa tion Online using Patient Portal and [employer] Apps Indication:Non-smoker Start:02-Aug-2022 Instruction Type:Patient Education Patient Instructions Indication:Non-smoker Start:10-Jun-2022 Instruction Type:Provider Instructions for Treatment How to Access Health Informa tion Online using Patient Portal and [employer] Apps Indication:Non-smoker Start:10-Jun-2022 Instruction Type:Patient Education Patient Instructions Indication:BMI 35.0-35.9,adult Start:08-Jun-2022 Instruction Type:Provider Instructions for Treatment How to Access Health Informa tion Online using Patient Portal and [employer] Apps Indication:BMI 35.0-35.9,adult Start:08-Jun-2022 Instruction Type:Patient Education Patient Instructions Indication:BMI 35.0-35.9,adult Start:26-May-2022 Instruction Type:Provider Instructions for Treatment How to Access Health Informa tion Online using Patient Portal and [employer] Apps Indication:BMI 35.0-35.9,adult Start:26-May-2022 Instruction Type:Patient Education Patient Instructions Indication:Non-smoker Start:10-May-2022 Instruction Type:Provider Instructions for Treatment How to Access Health Informa tion Online using Patient Portal and [employer] Apps Indication:Non-smoker Start:10-May-2022 Instruction Type:Patient Education Patient Instructions Indication:HTN (hypertension), benign (Renamed from Benign hypertension) Start:15-Apr-2022 Instruction Type:Provider Instructions for Treatment How to Access Health Informa tion Online using Patient Portal and [employer] Apps Indication:HTN (hypertension), benign (Renamed from Benign hypertension) Start:15-Apr-2022 Instruction Type:Patient Education Patient Instructions Indication:Non-smoker Start:01-Apr-2022 Instruction Type:Provider Instructions for Treatment How to Access Health Informa tion Online using Patient Portal and [employer] Apps Indication:Non-smoker Start:01-Apr-2022 Instruction Type:Patient Education Patient Instructions Indication:BMI 33.0-33.9,adult Start:24-May-2021 Instruction Type:Provider Instructions for Treatment How to Access Health Informa tion Online using Patient Portal and [employer] Apps Indication:BMI 33.0-33.9,adult Start:24-May-2021 Instruction Type:Patient Education How to access health informa tion online Indication:Chewing tobacco use Start:07-Feb-2020 Instruction Type:Patient Education How to access health informa tion online - Detail Indication:Chewing tobacco use Start:07-Feb-2020 Instruction Type:Patient Education Patient Instructions Indication:Encounter for screening for lipid disorder Start:07-Feb-2020 Instruction Type:Provider Instructions for Treatment How to access health informa tion online Indication:BMI 34.0-34.9,adult Start:30-Dec-2019 Instruction Type:Patient Education How to access health informa tion online - Detail Indication:BMI 34.0-34.9,adult Start:30-Dec-2019 Instruction Type:Patient Education Patient Instructions Indication:BMI 34.0-34.9,adult Start:30-Dec-2019 Instruction Type:Provider Instructions for Treatment How to access health informa tion online Indication:BMI 34.0-34.9,adult Start:18-Jul-2019 Instruction Type:Patient Education How to access health informa tion online - Detail Indication:BMI 34.0-34.9,adult Start:18-Jul-2019 Instruction Type:Patient Education Patient Instructions Indication:BMI 34.0-34.9,adult Start:18-Jul-2019 Instruction Type:Provider Instructions for Treatment How to access health informa tion online Indication:Non-smoker Start:05-Jul-2019 Instruction Type:Patient Education How to access health informa tion online - Detail Indication:Non-smoker Start:05-Jul-2019 Instruction Type:Patient Education Patient Instructions Indication:Non-smoker Start:05-Jul-2019 Instruction Type:Provider Instructions for Treatment How to access health informa tion online Indication:Non-smoker Start:14-Jun-2019 Instruction Type:Patient Education How to access health informa tion online - Detail Indication:Non-smoker Start:14-Jun-2019 Instruction Type:Patient Education Patient Instructions Indication:BMI 34.0-34.9,adult Start:14-Jun-2019 Instruction Type:Provider Instructions for Treatment How to access health informa tion online Indication:Non-smoker Start:26-Mar-2019 Instruction Type:Patient Education How to access health informa tion online - Detail Indication:Non-smoker Start:26-Mar-2019 Instruction Type:Patient Education Patient Instructions Indication:Non-smoker Start:26-Mar-2019 Instruction Type:Provider Instructions for Treatment How to access health informa tion online Indication:Non-smoker Start:01-Feb-2019 Instruction Type:Patient Education How to access health informa tion online - Detail Indication:Non-smoker Start:01-Feb-2019 Instruction Type:Patient Education Patient Instructions Indication:BMI 34.0-34.9,adult Start:01-Feb-2019 Instruction Type:Provider Instructions for Treatment How to access health informa tion online Indication:BMI 35.0-35.9,adult Start:17-Jan-2019 Instruction Type:Patient Education How to access health informa tion online - Detail Indication:BMI 35.0-35.9,adult Start:17-Jan-2019 Instruction Type:Patient Education Patient Instructions Indication:Right leg pain Start:17-Jan-2019 Instruction Type:Provider Instructions for Treatment How to access health informa tion online Indication:BMI 35.0-35.9,adult Start:25-May-2018 Instruction Type:Patient Education How to access health informa tion online - Detail Indication:BMI 35.0-35.9,adult Start:25-May-2018 Instruction Type:Patient Education Patient Instructions Indication:BMI 35.0-35.9,adult Start:25-May-2018 Instruction Type:Provider Instructions for Treatment How to access health informa tion online Indication:Non-smoker Start:09-May-2018 Instruction Type:Patient Education How to access health informa tion online - Detail Indication:Non-smoker Start:09-May-2018 Instruction Type:Patient Education Patient Instructions Indication:Non-smoker Start:09-May-2018 Instruction Type:Provider Instructions for Treatment How to access health informa tion online Indication:Nonsmoker Start:28-Dec-2017 Instruction Type:Patient Education How to access health informa tion online - Detail Indication:Nonsmoker Start:28-Dec-2017 Instruction Type:Patient Education Patient Instructions Indication:Left foot pain Start:28-Dec-2017 Instruction Type:Provider Instructions for Treatment How to access health informa tion online Indication:BMI 31.0-31.9,adult Start:08-Jun-2017 Instruction Type:Patient Education How to access health informa tion online - Detail Indication:BMI 31.0-31.9,adult Start:08-Jun-2017 Instruction Type:Patient Education Patient Instructions Indication:BMI 31.0-31.9,adult Start:08-Jun-2017 Instruction Type:Provider Instructions for Treatment Patient Instructions Indication:Influenza A Start:16-May-2017 Instruction Type:Provider Instructions for Treatment How to access health informa tion online Indication:Chewing tobacco use Start:16-May-2017 Instruction Type:Patient Education How to access health informa tion online - Detail Indication:Chewing tobacco use Start:16-May-2017 Instruction Type:Patient Education How to access health informa tion online Indication:Testicular/scrotal pain Start:21-Oct-2016 Instruction Type:Patient Education How to access health informa tion online - Detail Indication:Testicular/scrotal pain Start:21-Oct-2016 Instruction Type:Patient Education Patient Instructions Indication:Testicular/scrotal pain Start:21-Oct-2016 Instruction Type:Provider Instructions for Treatment How to access health informa tion online Indication:Testicular/scrotal pain Start:17-Oct-2016 Instruction Type:Patient Education How to access health informa tion online - Detail Indication:Testicular/scrotal pain Start:17-Oct-2016 Instruction Type:Patient Education Patient Instructions Indication:Testicular/scrotal pain Start:17-Oct-2016 Instruction Type:Provider Instructions for Treatment [facility]; [facility] Work Phone: Instructions* Name Dates Details Patient Instructions Indication:Obesity (BMI 35.0-39.9 without comorbidity) Start:21-Dec-2022 Instruction Type:Provider Instructions for Treatment How to Access Health Informa tion Online using Patient Portal and [employer] Apps Indication:Obesity (BMI 35.0-39.9 without comorbidity) Start:21-Dec-2022 Instruction Type:Patient Education Patient Instructions Indication:Elevated high sensitivity C-reactive protein Start:16-Nov-2022 Instruction Type:Provider Instructions for Treatment How to Access Health Informa tion Online using Patient Portal and [employer] Apps Indication:Elevated high sensitivity C-reactive protein Start:16-Nov-2022 Instruction Type:Patient Education Patient Instructions Indication:Non-smoker Start:07-Nov-2022 Instruction Type:Provider Instructions for Treatment How to Access Health Informa tion Online using Patient Portal and [employer] Apps Indication:Non-smoker Start:07-Nov-2022 Instruction Type:Patient Education Patient Instructions Indication:Non-smoker Start:02-Aug-2022 Instruction Type:Provider Instructions for Treatment How to Access Health Informa tion Online using Patient Portal and [employer] Apps Indication:Non-smoker Start:02-Aug-2022 Instruction Type:Patient Education Patient Instructions Indication:Non-smoker Start:10-Jun-2022 Instruction Type:Provider Instructions for Treatment How to Access Health Informa tion Online using Patient Portal and [employer] Apps Indication:Non-smoker Start:10-Jun-2022 Instruction Type:Patient Education Patient Instructions Indication:BMI 35.0-35.9,adult Start:08-Jun-2022 Instruction Type:Provider Instructions for Treatment How to Access Health Informa tion Online using Patient Portal and [employer] Apps Indication:BMI 35.0-35.9,adult Start:08-Jun-2022 Instruction Type:Patient Education Patient Instructions Indication:BMI 35.0-35.9,adult Start:26-May-2022 Instruction Type:Provider Instructions for Treatment How to Access Health Informa tion Online using Patient Portal and [employer] Apps Indication:BMI 35.0-35.9,adult Start:26-May-2022 Instruction Type:Patient Education Patient Instructions Indication:Non-smoker Start:10-May-2022 Instruction Type:Provider Instructions for Treatment How to Access Health Informa tion Online using Patient Portal and [employer] Apps Indication:Non-smoker Start:10-May-2022 Instruction Type:Patient Education Patient Instructions Indication:HTN (hypertension), benign (Renamed from Benign hypertension) Start:15-Apr-2022 Instruction Type:Provider Instructions for Treatment How to Access Health Informa tion Online using Patient Portal and [employer] Apps Indication:HTN (hypertension), benign (Renamed from Benign hypertension) Start:15-Apr-2022 Instruction Type:Patient Education Patient Instructions Indication:Non-smoker Start:01-Apr-2022 Instruction Type:Provider Instructions for Treatment How to Access Health Informa tion Online using Patient Portal and [employer] Apps Indication:Non-smoker Start:01-Apr-2022 Instruction Type:Patient Education Patient Instructions Indication:BMI 33.0-33.9,adult Start:24-May-2021 Instruction Type:Provider Instructions for Treatment How to Access Health Informa tion Online using Patient Portal and [employer] Apps Indication:BMI 33.0-33.9,adult Start:24-May-2021 Instruction Type:Patient Education How to access health informa tion online Indication:Chewing tobacco use Start:07-Feb-2020 Instruction Type:Patient Education How to access health informa tion online - Detail Indication:Chewing tobacco use Start:07-Feb-2020 Instruction Type:Patient Education Patient Instructions Indication:Encounter for screening for lipid disorder Start:07-Feb-2020 Instruction Type:Provider Instructions for Treatment How to access health informa tion online Indication:BMI 34.0-34.9,adult Start:30-Dec-2019 Instruction Type:Patient Education How to access health informa tion online - Detail Indication:BMI 34.0-34.9,adult Start:30-Dec-2019 Instruction Type:Patient Education Patient Instructions Indication:BMI 34.0-34.9,adult Start:30-Dec-2019 Instruction Type:Provider Instructions for Treatment How to access health informa tion online Indication:BMI 34.0-34.9,adult Start:18-Jul-2019 Instruction Type:Patient Education How to access health informa tion online - Detail Indication:BMI 34.0-34.9,adult Start:18-Jul-2019 Instruction Type:Patient Education Patient Instructions Indication:BMI 34.0-34.9,adult Start:18-Jul-2019 Instruction Type:Provider Instructions for Treatment How to access health informa tion online Indication:Non-smoker Start:05-Jul-2019 Instruction Type:Patient Education How to access health informa tion online - Detail Indication:Non-smoker Start:05-Jul-2019 Instruction Type:Patient Education Patient Instructions Indication:Non-smoker Start:05-Jul-2019 Instruction Type:Provider Instructions for Treatment How to access health informa tion online Indication:Non-smoker Start:14-Jun-2019 Instruction Type:Patient Education How to access health informa tion online - Detail Indication:Non-smoker Start:14-Jun-2019 Instruction Type:Patient Education Patient Instructions Indication:BMI 34.0-34.9,adult Start:14-Jun-2019 Instruction Type:Provider Instructions for Treatment How to access health informa tion online Indication:Non-smoker Start:26-Mar-2019 Instruction Type:Patient Education How to access health informa tion online - Detail Indication:Non-smoker Start:26-Mar-2019 Instruction Type:Patient Education Patient Instructions Indication:Non-smoker Start:26-Mar-2019 Instruction Type:Provider Instructions for Treatment How to access health informa tion online Indication:Non-smoker Start:01-Feb-2019 Instruction Type:Patient Education How to access health informa tion online - Detail Indication:Non-smoker Start:01-Feb-2019 Instruction Type:Patient Education Patient Instructions Indication:BMI 34.0-34.9,adult Start:01-Feb-2019 Instruction Type:Provider Instructions for Treatment How to access health informa tion online Indication:BMI 35.0-35.9,adult Start:17-Jan-2019 Instruction Type:Patient Education How to access health informa tion online - Detail Indication:BMI 35.0-35.9,adult Start:17-Jan-2019 Instruction Type:Patient Education Patient Instructions Indication:Right leg pain Start:17-Jan-2019 Instruction Type:Provider Instructions for Treatment How to access health informa tion online Indication:BMI 35.0-35.9,adult Start:25-May-2018 Instruction Type:Patient Education How to access health informa tion online - Detail Indication:BMI 35.0-35.9,adult Start:25-May-2018 Instruction Type:Patient Education Patient Instructions Indication:BMI 35.0-35.9,adult Start:25-May-2018 Instruction Type:Provider Instructions for Treatment How to access health informa tion online Indication:Non-smoker Start:09-May-2018 Instruction Type:Patient Education How to access health informa tion online - Detail Indication:Non-smoker Start:09-May-2018 Instruction Type:Patient Education Patient Instructions Indication:Non-smoker Start:09-May-2018 Instruction Type:Provider Instructions for Treatment How to access health informa tion online Indication:Nonsmoker Start:28-Dec-2017 Instruction Type:Patient Education How to access health informa tion online - Detail Indication:Nonsmoker Start:28-Dec-2017 Instruction Type:Patient Education Patient Instructions Indication:Left foot pain Start:28-Dec-2017 Instruction Type:Provider Instructions for Treatment How to access health informa tion online Indication:BMI 31.0-31.9,adult Start:08-Jun-2017 Instruction Type:Patient Education How to access health informa tion online - Detail Indication:BMI 31.0-31.9,adult Start:08-Jun-2017 Instruction Type:Patient Education Patient Instructions Indication:BMI 31.0-31.9,adult Start:08-Jun-2017 Instruction Type:Provider Instructions for Treatment Patient Instructions Indication:Influenza A Start:16-May-2017 Instruction Type:Provider Instructions for Treatment How to access health informa tion online Indication:Chewing tobacco use Start:16-May-2017 Instruction Type:Patient Education How to access health informa tion online - Detail Indication:Chewing tobacco use Start:16-May-2017 Instruction Type:Patient Education How to access health informa tion online Indication:Testicular/scrotal pain Start:21-Oct-2016 Instruction Type:Patient Education How to access health informa tion online - Detail Indication:Testicular/scrotal pain Start:21-Oct-2016 Instruction Type:Patient Education Patient Instructions Indication:Testicular/scrotal pain Start:21-Oct-2016 Instruction Type:Provider Instructions for Treatment How to access health informa tion online Indication:Testicular/scrotal pain Start:17-Oct-2016 Instruction Type:Patient Education How to access health informa tion online - Detail Indication:Testicular/scrotal pain Start:17-Oct-2016 Instruction Type:Patient Education Patient Instructions Indication:Testicular/scrotal pain Start:17-Oct-2016 Instruction Type:Provider Instructions for Treatment [facility]; [facility] Work Phone: Instructions* Name Dates Details Patient Instructions Indication:Obesity (BMI 35.0-39.9 without comorbidity) Start:21-Dec-2022 Instruction Type:Provider Instructions for Treatment How to Access Health Informa tion Online using Patient Portal and [employer] Apps Indication:Obesity (BMI 35.0-39.9 without comorbidity) Start:21-Dec-2022 Instruction Type:Patient Education Patient Instructions Indication:Elevated high sensitivity C-reactive protein Start:16-Nov-2022 Instruction Type:Provider Instructions for Treatment How to Access Health Informa tion Online using Patient Portal and [employer] Apps Indication:Elevated high sensitivity C-reactive protein Start:16-Nov-2022 Instruction Type:Patient Education Patient Instructions Indication:Non-smoker Start:07-Nov-2022 Instruction Type:Provider Instructions for Treatment How to Access Health Informa tion Online using Patient Portal and [employer] Apps Indication:Non-smoker Start:07-Nov-2022 Instruction Type:Patient Education Patient Instructions Indication:Non-smoker Start:02-Aug-2022 Instruction Type:Provider Instructions for Treatment How to Access Health Informa tion Online using Patient Portal and [employer] Apps Indication:Non-smoker Start:02-Aug-2022 Instruction Type:Patient Education Patient Instructions Indication:Non-smoker Start:10-Jun-2022 Instruction Type:Provider Instructions for Treatment How to Access Health Informa tion Online using Patient Portal and [employer] Apps Indication:Non-smoker Start:10-Jun-2022 Instruction Type:Patient Education Patient Instructions Indication:BMI 35.0-35.9,adult Start:08-Jun-2022 Instruction Type:Provider Instructions for Treatment How to Access Health Informa tion Online using Patient Portal and [employer] Apps Indication:BMI 35.0-35.9,adult Start:08-Jun-2022 Instruction Type:Patient Education Patient Instructions Indication:BMI 35.0-35.9,adult Start:26-May-2022 Instruction Type:Provider Instructions for Treatment How to Access Health Informa tion Online using Patient Portal and [employer] Indication:BMI 35.0-35.9,adult Start:26-May-2022 Instruction Type:Patient Education Patient Instructions Indication:Non-smoker Start:10-May-2022 Instruction Type:Provider Instructions for Treatment How to Access Health Informa tion Online using Patient Portal and [employer] Indication:Non-smoker Start:10-May-2022 Instruction Type:Patient Education Patient Instructions Indication:HTN (hypertension), benign (Renamed from Benign hypertension) Start:15-Apr-2022 Instruction Type:Provider Instructions for Treatment How to Access Health Informa tion Online using Patient Portal and [employer] Indication:HTN (hypertension), benign (Renamed from Benign hypertension) Start:15-Apr-2022 Instruction Type:Patient Education Patient Instructions Indication:Non-smoker Start:01-Apr-2022 Instruction Type:Provider Instructions for Treatment How to Access Health Informa tion Online using Patient Portal and [employer] Apps Indication:Non-smoker Start:01-Apr-2022 Instruction Type:Patient Education Patient Instructions Indication:BMI 33.0-33.9,adult Start:24-May-2021 Instruction Type:Provider Instructions for Treatment How to Access Health Informa tion Online using Patient Portal and [employer]rd [employer] Indication:BMI 33.0-33.9,adult Start:24-May-2021 Instruction Type:Patient Education How to access health informa tion online Indication:Chewing tobacco use Start:07-Feb-2020 Instruction Type:Patient Education How to access health informa tion online - Detail Indication:Chewing tobacco use Start:07-Feb-2020 Instruction Type:Patient Education Patient Instructions Indication:Encounter for screening for lipid disorder Start:07-Feb-2020 Instruction Type:Provider Instructions for Treatment How to access health informa tion online Indication:BMI 34.0-34.9,adult Start:30-Dec-2019 Instruction Type:Patient Education How to access health informa tion online - Detail Indication:BMI 34.0-34.9,adult Start:30-Dec-2019 Instruction Type:Patient Education Patient Instructions Indication:BMI 34.0-34.9,adult Start:30-Dec-2019 Instruction Type:Provider Instructions for Treatment How to access health informa tion online Indication:BMI 34.0-34.9,adult Start:18-Jul-2019 Instruction Type:Patient Education How to access health informa tion online - Detail Indication:BMI 34.0-34.9,adult Start:18-Jul-2019 Instruction Type:Patient Education Patient Instructions Indication:BMI 34.0-34.9,adult Start:18-Jul-2019 Instruction Type:Provider Instructions for Treatment How to access health informa tion online Indication:Non-smoker Start:05-Jul-2019 Instruction Type:Patient Education How to access health informa tion online - Detail Indication:Non-smoker Start:05-Jul-2019 Instruction Type:Patient Education Patient Instructions Indication:Non-smoker Start:05-Jul-2019 Instruction Type:Provider Instructions for Treatment How to access health informa tion online Indication:Non-smoker Start:14-Jun-2019 Instruction Type:Patient Education How to access health informa tion online - Detail Indication:Non-smoker Start:14-Jun-2019 Instruction Type:Patient Education Patient Instructions Indication:BMI 34.0-34.9,adult Start:14-Jun-2019 Instruction Type:Provider Instructions for Treatment How to access health informa tion online Indication:Non-smoker Start:26-Mar-2019 Instruction Type:Patient Education How to access health informa tion online - Detail Indication:Non-smoker Start:26-Mar-2019 Instruction Type:Patient Education Patient Instructions Indication:Non-smoker Start:26-Mar-2019 Instruction Type:Provider Instructions for Treatment How to access health informa tion online Indication:Non-smoker Start:01-Feb-2019 Instruction Type:Patient Education How to access health informa tion online - Detail Indication:Non-smoker Start:01-Feb-2019 Instruction Type:Patient Education Patient Instructions Indication:BMI 34.0-34.9,adult Start:01-Feb-2019 Instruction Type:Provider Instructions for Treatment How to access health informa tion online Indication:BMI 35.0-35.9,adult Start:17-Jan-2019 Instruction Type:Patient Education How to access health informa tion online - Detail Indication:BMI 35.0-35.9,adult Start:17-Jan-2019 Instruction Type:Patient Education Patient Instructions Indication:Right leg pain Start:17-Jan-2019 Instruction Type:Provider Instructions for Treatment How to access health informa tion online Indication:BMI 35.0-35.9,adult Start:25-May-2018 Instruction Type:Patient Education How to access health informa tion online - Detail Indication:BMI 35.0-35.9,adult Start:25-May-2018 Instruction Type:Patient Education Patient Instructions Indication:BMI 35.0-35.9,adult Start:25-May-2018 Instruction Type:Provider Instructions for Treatment How to access health informa tion online Indication:Non-smoker Start:09-May-2018 Instruction Type:Patient Education How to access health informa tion online - Detail Indication:Non-smoker Start:09-May-2018 Instruction Type:Patient Education Patient Instructions Indication:Non-smoker Start:09-May-2018 Instruction Type:Provider Instructions for Treatment How to access health informa tion online Indication:Nonsmoker Start:28-Dec-2017 Instruction Type:Patient Education How to access health informa tion online - Detail Indication:Nonsmoker Start:28-Dec-2017 Instruction Type:Patient Education Patient Instructions Indication:Left foot pain Start:28-Dec-2017 Instruction Type:Provider Instructions for Treatment How to access health informa tion online Indication:BMI 31.0-31.9,adult Start:08-Jun-2017 Instruction Type:Patient Education How to access health informa tion online - Detail Indication:BMI 31.0-31.9,adult Start:08-Jun-2017 Instruction Type:Patient Education Patient Instructions Indication:BMI 31.0-31.9,adult Start:08-Jun-2017 Instruction Type:Provider Instructions for Treatment Patient Instructions Indication:Influenza A Start:16-May-2017 Instruction Type:Provider Instructions for Treatment How to access health informa tion online Indication:Chewing tobacco use Start:16-May-2017 Instruction Type:Patient Education How to access health informa tion online - Detail Indication:Chewing tobacco use Start:16-May-2017 Instruction Type:Patient Education How to access health informa tion online Indication:Testicular/scrotal pain Start:21-Oct-2016 Instruction Type:Patient Education How to access health informa tion online - Detail Indication:Testicular/scrotal pain Start:21-Oct-2016 Instruction Type:Patient Education Patient Instructions Indication:Testicular/scrotal pain Start:21-Oct-2016 Instruction Type:Provider Instructions for Treatment How to access health informa tion online Indication:Testicular/scrotal pain Start:17-Oct-2016 Instruction Type:Patient Education How to access health informa tion online - Detail Indication:Testicular/scrotal pain Start:17-Oct-2016 Instruction Type:Patient Education Patient Instructions Indication:Testicular/scrotal pain Start:17-Oct-2016 Instruction Type:Provider Instructions for Treatment [facility]; [facility] Work Phone: Instructions* Name Dates Details Patient Instructions Indication:Obesity (BMI 35.0-39.9 without comorbidity) Start:21-Dec-2022 Instruction Type:Provider Instructions for Treatment How to Access Health Informa tion Online using Patient Portal and [employer]rd [employer] Apps Indication:Obesity (BMI 35.0-39.9 without comorbidity) Start:21-Dec-2022 Instruction Type:Patient Education Patient Instructions Indication:Elevated high sensitivity C-reactive protein Start:16-Nov-2022 Instruction Type:Provider Instructions for Treatment How to Access Health Informa tion Online using Patient Portal and [employer]rd [employer] Apps Indication:Elevated high sensitivity C-reactive protein Start:16-Nov-2022 Instruction Type:Patient Education Patient Instructions Indication:Non-smoker Start:07-Nov-2022 Instruction Type:Provider Instructions for Treatment How to Access Health Informa tion Online using Patient Portal and [employer]rd [employer] Apps Indication:Non-smoker Start:07-Nov-2022 Instruction Type:Patient Education Patient Instructions Indication:Non-smoker Start:02-Aug-2022 Instruction Type:Provider Instructions for Treatment How to Access Health Informa tion Online using Patient Portal and [employer] Apps Indication:Non-smoker Start:02-Aug-2022 Instruction Type:Patient Education Patient Instructions Indication:Non-smoker Start:10-Jun-2022 Instruction Type:Provider Instructions for Treatment How to Access Health Informa tion Online using Patient Portal and [employer] Apps Indication:Non-smoker Start:10-Jun-2022 Instruction Type:Patient Education Patient Instructions Indication:BMI 35.0-35.9,adult Start:08-Jun-2022 Instruction Type:Provider Instructions for Treatment How to Access Health Informa tion Online using Patient Portal and [employer] Apps Indication:BMI 35.0-35.9,adult Start:08-Jun-2022 Instruction Type:Patient Education Patient Instructions Indication:BMI 35.0-35.9,adult Start:26-May-2022 Instruction Type:Provider Instructions for Treatment How to Access Health Informa tion Online using Patient Portal and [employer]rd [employer] Apps Indication:BMI 35.0-35.9,adult Start:26-May-2022 Instruction Type:Patient Education Patient Instructions Indication:Non-smoker Start:10-May-2022 Instruction Type:Provider Instructions for Treatment How to Access Health Informa tion Online using Patient Portal and [employer] Apps Indication:Non-smoker Start:10-May-2022 Instruction Type:Patient Education Patient Instructions Indication:HTN (hypertension), benign (Renamed from Benign hypertension) Start:15-Apr-2022 Instruction Type:Provider Instructions for Treatment How to Access Health Informa tion Online using Patient Portal and [employer]rd [employer] Apps Indication:HTN (hypertension), benign (Renamed from Benign hypertension) Start:15-Apr-2022 Instruction Type:Patient Education Patient Instructions Indication:Non-smoker Start:01-Apr-2022 Instruction Type:Provider Instructions for Treatment How to Access Health Informa tion Online using Patient Portal and [employer] Apps Indication:Non-smoker Start:01-Apr-2022 Instruction Type:Patient Education Patient Instructions Indication:BMI 33.0-33.9,adult Start:24-May-2021 Instruction Type:Provider Instructions for Treatment How to Access Health Informa tion Online using Patient Portal and [employer] Apps Indication:BMI 33.0-33.9,adult Start:24-May-2021 Instruction Type:Patient Education How to access health informa tion online Indication:Chewing tobacco use Start:07-Feb-2020 Instruction Type:Patient Education How to access health informa tion online - Detail Indication:Chewing tobacco use Start:07-Feb-2020 Instruction Type:Patient Education Patient Instructions Indication:Encounter for screening for lipid disorder Start:07-Feb-2020 Instruction Type:Provider Instructions for Treatment How to access health informa tion online Indication:BMI 34.0-34.9,adult Start:30-Dec-2019 Instruction Type:Patient Education How to access health informa tion online - Detail Indication:BMI 34.0-34.9,adult Start:30-Dec-2019 Instruction Type:Patient Education Patient Instructions Indication:BMI 34.0-34.9,adult Start:30-Dec-2019 Instruction Type:Provider Instructions for Treatment How to access health informa tion online Indication:BMI 34.0-34.9,adult Start:18-Jul-2019 Instruction Type:Patient Education How to access health informa tion online - Detail Indication:BMI 34.0-34.9,adult Start:18-Jul-2019 Instruction Type:Patient Education Patient Instructions Indication:BMI 34.0-34.9,adult Start:18-Jul-2019 Instruction Type:Provider Instructions for Treatment How to access health informa tion online Indication:Non-smoker Start:05-Jul-2019 Instruction Type:Patient Education How to access health informa tion online - Detail Indication:Non-smoker Start:05-Jul-2019 Instruction Type:Patient Education Patient Instructions Indication:Non-smoker Start:05-Jul-2019 Instruction Type:Provider Instructions for Treatment How to access health informa tion online Indication:Non-smoker Start:14-Jun-2019 Instruction Type:Patient Education How to access health informa tion online - Detail Indication:Non-smoker Start:14-Jun-2019 Instruction Type:Patient Education Patient Instructions Indication:BMI 34.0-34.9,adult Start:14-Jun-2019 Instruction Type:Provider Instructions for Treatment How to access health informa tion online Indication:Non-smoker Start:26-Mar-2019 Instruction Type:Patient Education How to access health informa tion online - Detail Indication:Non-smoker Start:26-Mar-2019 Instruction Type:Patient Education Patient Instructions Indication:Non-smoker Start:26-Mar-2019 Instruction Type:Provider Instructions for Treatment How to access health informa tion online Indication:Non-smoker Start:01-Feb-2019 Instruction Type:Patient Education How to access health informa tion online - Detail Indication:Non-smoker Start:01-Feb-2019 Instruction Type:Patient Education Patient Instructions Indication:BMI 34.0-34.9,adult Start:01-Feb-2019 Instruction Type:Provider Instructions for Treatment How to access health informa tion online Indication:BMI 35.0-35.9,adult Start:17-Jan-2019 Instruction Type:Patient Education How to access health informa tion online - Detail Indication:BMI 35.0-35.9,adult Start:17-Jan-2019 Instruction Type:Patient Education Patient Instructions Indication:Right leg pain Start:17-Jan-2019 Instruction Type:Provider Instructions for Treatment How to access health informa tion online Indication:BMI 35.0-35.9,adult Start:25-May-2018 Instruction Type:Patient Education How to access health informa tion online - Detail Indication:BMI 35.0-35.9,adult Start:25-May-2018 Instruction Type:Patient Education Patient Instructions Indication:BMI 35.0-35.9,adult Start:25-May-2018 Instruction Type:Provider Instructions for Treatment How to access health informa tion online Indication:Non-smoker Start:09-May-2018 Instruction Type:Patient Education How to access health informa tion online - Detail Indication:Non-smoker Start:09-May-2018 Instruction Type:Patient Education Patient Instructions Indication:Non-smoker Start:09-May-2018 Instruction Type:Provider Instructions for Treatment How to access health informa tion online Indication:Nonsmoker Start:28-Dec-2017 Instruction Type:Patient Education How to access health informa tion online - Detail Indication:Nonsmoker Start:28-Dec-2017 Instruction Type:Patient Education Patient Instructions Indication:Left foot pain Start:28-Dec-2017 Instruction Type:Provider Instructions for Treatment How to access health informa tion online Indication:BMI 31.0-31.9,adult Start:08-Jun-2017 Instruction Type:Patient Education How to access health informa tion online - Detail Indication:BMI 31.0-31.9,adult Start:08-Jun-2017 Instruction Type:Patient Education Patient Instructions Indication:BMI 31.0-31.9,adult Start:08-Jun-2017 Instruction Type:Provider Instructions for Treatment Patient Instructions Indication:Influenza A Start:16-May-2017 Instruction Type:Provider Instructions for Treatment How to access health informa tion online Indication:Chewing tobacco use Start:16-May-2017 Instruction Type:Patient Education How to access health informa tion online - Detail Indication:Chewing tobacco use Start:16-May-2017 Instruction Type:Patient Education How to access health informa tion online Indication:Testicular/scrotal pain Start:21-Oct-2016 Instruction Type:Patient Education How to access health informa tion online - Detail Indication:Testicular/scrotal pain Start:21-Oct-2016 Instruction Type:Patient Education Patient Instructions Indication:Testicular/scrotal pain Start:21-Oct-2016 Instruction Type:Provider Instructions for Treatment How to access health informa tion online Indication:Testicular/scrotal pain Start:17-Oct-2016 Instruction Type:Patient Education How to access health informa tion online - Detail Indication:Testicular/scrotal pain Start:17-Oct-2016 Instruction Type:Patient Education Patient Instructions Indication:Testicular/scrotal pain Start:17-Oct-2016 Instruction Type:Provider Instructions for Treatment [facility]; [facility] Work Phone: Instructions* Name Dates Details Patient Instructions Indication:Obesity (BMI 35.0-39.9 without comorbidity) Start:17-Feb-2023 Instruction Type:Provider Instructions for Treatment How to Access Health Informa tion Online using Patient Portal and [employer]rd [employer] Apps Indication:Obesity (BMI 35.0-39.9 without comorbidity) Start:17-Feb-2023 Instruction Type:Patient Education Patient Instructions Indication:Obesity (BMI 35.0-39.9 without comorbidity) Start:21-Dec-2022 Instruction Type:Provider Instructions for Treatment How to Access Health Informa tion Online using Patient Portal and [employer]rd [employer] Apps Indication:Obesity (BMI 35.0-39.9 without comorbidity) Start:21-Dec-2022 Instruction Type:Patient Education Patient Instructions Indication:Elevated high sensitivity C-reactive protein Start:16-Nov-2022 Instruction Type:Provider Instructions for Treatment How to Access Health Informa tion Online using Patient Portal and [employer]rd [employer] Apps Indication:Elevated high sensitivity C-reactive protein Start:16-Nov-2022 Instruction Type:Patient Education Patient Instructions Indication:Non-smoker Start:07-Nov-2022 Instruction Type:Provider Instructions for Treatment How to Access Health Informa tion Online using Patient Portal and [employer]rd [employer] Apps Indication:Non-smoker Start:07-Nov-2022 Instruction Type:Patient Education Patient Instructions Indication:Non-smoker Start:02-Aug-2022 Instruction Type:Provider Instructions for Treatment How to Access Health Informa tion Online using Patient Portal and [employer] Apps Indication:Non-smoker Start:02-Aug-2022 Instruction Type:Patient Education Patient Instructions Indication:Non-smoker Start:10-Jun-2022 Instruction Type:Provider Instructions for Treatment How to Access Health Informa tion Online using Patient Portal and [employer] Apps Indication:Non-smoker Start:10-Jun-2022 Instruction Type:Patient Education Patient Instructions Indication:BMI 35.0-35.9,adult Start:08-Jun-2022 Instruction Type:Provider Instructions for Treatment How to Access Health Informa tion Online using Patient Portal and [employer] Apps Indication:BMI 35.0-35.9,adult Start:08-Jun-2022 Instruction Type:Patient Education Patient Instructions Indication:BMI 35.0-35.9,adult Start:26-May-2022 Instruction Type:Provider Instructions for Treatment How to Access Health Informa tion Online using Patient Portal and [employer]rd [employer] Apps Indication:BMI 35.0-35.9,adult Start:26-May-2022 Instruction Type:Patient Education Patient Instructions Indication:Non-smoker Start:10-May-2022 Instruction Type:Provider Instructions for Treatment How to Access Health Informa tion Online using Patient Portal and [employer] Apps Indication:Non-smoker Start:10-May-2022 Instruction Type:Patient Education Patient Instructions Indication:HTN (hypertension), benign (Renamed from Benign hypertension) Start:15-Apr-2022 Instruction Type:Provider Instructions for Treatment How to Access Health Informa tion Online using Patient Portal and [employer] Apps Indication:HTN (hypertension), benign (Renamed from Benign hypertension) Start:15-Apr-2022 Instruction Type:Patient Education Patient Instructions Indication:Non-smoker Start:01-Apr-2022 Instruction Type:Provider Instructions for Treatment How to Access Health Informa tion Online using Patient Portal and [employer] Apps Indication:Non-smoker Start:01-Apr-2022 Instruction Type:Patient Education Patient Instructions Indication:BMI 33.0-33.9,adult Start:24-May-2021 Instruction Type:Provider Instructions for Treatment How to Access Health Informa tion Online using Patient Portal and [employer] Apps Indication:BMI 33.0-33.9,adult Start:24-May-2021 Instruction Type:Patient Education How to access health informa tion online Indication:Chewing tobacco use Start:07-Feb-2020 Instruction Type:Patient Education How to access health informa tion online - Detail Indication:Chewing tobacco use Start:07-Feb-2020 Instruction Type:Patient Education Patient Instructions Indication:Encounter for screening for lipid disorder Start:07-Feb-2020 Instruction Type:Provider Instructions for Treatment How to access health informa tion online Indication:BMI 34.0-34.9,adult Start:30-Dec-2019 Instruction Type:Patient Education How to access health informa tion online - Detail Indication:BMI 34.0-34.9,adult Start:30-Dec-2019 Instruction Type:Patient Education Patient Instructions Indication:BMI 34.0-34.9,adult Start:30-Dec-2019 Instruction Type:Provider Instructions for Treatment How to access health informa tion online Indication:BMI 34.0-34.9,adult Start:18-Jul-2019 Instruction Type:Patient Education How to access health informa tion online - Detail Indication:BMI 34.0-34.9,adult Start:18-Jul-2019 Instruction Type:Patient Education Patient Instructions Indication:BMI 34.0-34.9,adult Start:18-Jul-2019 Instruction Type:Provider Instructions for Treatment How to access health informa tion online Indication:Non-smoker Start:05-Jul-2019 Instruction Type:Patient Education How to access health informa tion online - Detail Indication:Non-smoker Start:05-Jul-2019 Instruction Type:Patient Education Patient Instructions Indication:Non-smoker Start:05-Jul-2019 Instruction Type:Provider Instructions for Treatment How to access health informa tion online Indication:Non-smoker Start:14-Jun-2019 Instruction Type:Patient Education How to access health informa tion online - Detail Indication:Non-smoker Start:14-Jun-2019 Instruction Type:Patient Education Patient Instructions Indication:BMI 34.0-34.9,adult Start:14-Jun-2019 Instruction Type:Provider Instructions for Treatment How to access health informa tion online Indication:Non-smoker Start:26-Mar-2019 Instruction Type:Patient Education How to access health informa tion online - Detail Indication:Non-smoker Start:26-Mar-2019 Instruction Type:Patient Education Patient Instructions Indication:Non-smoker Start:26-Mar-2019 Instruction Type:Provider Instructions for Treatment How to access health informa tion online Indication:Non-smoker Start:01-Feb-2019 Instruction Type:Patient Education How to access health informa tion online - Detail Indication:Non-smoker Start:01-Feb-2019 Instruction Type:Patient Education Patient Instructions Indication:BMI 34.0-34.9,adult Start:01-Feb-2019 Instruction Type:Provider Instructions for Treatment How to access health informa tion online Indication:BMI 35.0-35.9,adult Start:17-Jan-2019 Instruction Type:Patient Education How to access health informa tion online - Detail Indication:BMI 35.0-35.9,adult Start:17-Jan-2019 Instruction Type:Patient Education Patient Instructions Indication:Right leg pain Start:17-Jan-2019 Instruction Type:Provider Instructions for Treatment How to access health informa tion online Indication:BMI 35.0-35.9,adult Start:25-May-2018 Instruction Type:Patient Education How to access health informa tion online - Detail Indication:BMI 35.0-35.9,adult Start:25-May-2018 Instruction Type:Patient Education Patient Instructions Indication:BMI 35.0-35.9,adult Start:25-May-2018 Instruction Type:Provider Instructions for Treatment How to access health informa tion online Indication:Non-smoker Start:09-May-2018 Instruction Type:Patient Education How to access health informa tion online - Detail Indication:Non-smoker Start:09-May-2018 Instruction Type:Patient Education Patient Instructions Indication:Non-smoker Start:09-May-2018 Instruction Type:Provider Instructions for Treatment How to access health informa tion online Indication:Nonsmoker Start:28-Dec-2017 Instruction Type:Patient Education How to access health informa tion online - Detail Indication:Nonsmoker Start:28-Dec-2017 Instruction Type:Patient Education Patient Instructions Indication:Left foot pain Start:28-Dec-2017 Instruction Type:Provider Instructions for Treatment How to access health informa tion online Indication:BMI 31.0-31.9,adult Start:08-Jun-2017 Instruction Type:Patient Education How to access health informa tion online - Detail Indication:BMI 31.0-31.9,adult Start:08-Jun-2017 Instruction Type:Patient Education Patient Instructions Indication:BMI 31.0-31.9,adult Start:08-Jun-2017 Instruction Type:Provider Instructions for Treatment Patient Instructions Indication:Influenza A Start:16-May-2017 Instruction Type:Provider Instructions for Treatment How to access health informa tion online Indication:Chewing tobacco use Start:16-May-2017 Instruction Type:Patient Education How to access health informa tion online - Detail Indication:Chewing tobacco use Start:16-May-2017 Instruction Type:Patient Education How to access health informa tion online Indication:Testicular/scrotal pain Start:21-Oct-2016 Instruction Type:Patient Education How to access health informa tion online - Detail Indication:Testicular/scrotal pain Start:21-Oct-2016 Instruction Type:Patient Education Patient Instructions Indication:Testicular/scrotal pain Start:21-Oct-2016 Instruction Type:Provider Instructions for Treatment How to access health informa tion online Indication:Testicular/scrotal pain Start:17-Oct-2016 Instruction Type:Patient Education How to access health informa tion online - Detail Indication:Testicular/scrotal pain Start:17-Oct-2016 Instruction Type:Patient Education Patient Instructions Indication:Testicular/scrotal pain Start:17-Oct-2016 Instruction Type:Provider Instructions for Treatment [facility] Work Phone: Instructions* Name Dates Details Patient Instructions Indication:Obesity (BMI 35.0-39.9 without comorbidity) Start:17-Feb-2023 Instruction Type:Provider Instructions for Treatment How to Access Health Informa tion Online using Patient Portal and [employer]rd [employer] Indication:Obesity (BMI 35.0-39.9 without comorbidity) Start:17-Feb-2023 Instruction Type:Patient Education Patient Instructions Indication:Obesity (BMI 35.0-39.9 without comorbidity) Start:21-Dec-2022 Instruction Type:Provider Instructions for Treatment How to Access Health Informa tion Online using Patient Portal and [employer] Apps Indication:Obesity (BMI 35.0-39.9 without comorbidity) Start:21-Dec-2022 Instruction Type:Patient Education Patient Instructions Indication:Elevated high sensitivity C-reactive protein Start:16-Nov-2022 Instruction Type:Provider Instructions for Treatment How to Access Health Informa tion Online using Patient Portal and [employer]rd [employer] Apps Indication:Elevated high sensitivity C-reactive protein Start:16-Nov-2022 Instruction Type:Patient Education Patient Instructions Indication:Non-smoker Start:07-Nov-2022 Instruction Type:Provider Instructions for Treatment How to Access Health Informa tion Online using Patient Portal and [employer]rd [employer] Apps Indication:Non-smoker Start:07-Nov-2022 Instruction Type:Patient Education Patient Instructions Indication:Non-smoker Start:02-Aug-2022 Instruction Type:Provider Instructions for Treatment How to Access Health Informa tion Online using Patient Portal and [employer]rd [employer] Apps Indication:Non-smoker Start:02-Aug-2022 Instruction Type:Patient Education Patient Instructions Indication:Non-smoker Start:10-Jun-2022 Instruction Type:Provider Instructions for Treatment How to Access Health Informa tion Online using Patient Portal and [employer] Apps Indication:Non-smoker Start:10-Jun-2022 Instruction Type:Patient Education Patient Instructions Indication:BMI 35.0-35.9,adult Start:08-Jun-2022 Instruction Type:Provider Instructions for Treatment How to Access Health Informa tion Online using Patient Portal and [employer]rd [employer] Apps Indication:BMI 35.0-35.9,adult Start:08-Jun-2022 Instruction Type:Patient Education Patient Instructions Indication:BMI 35.0-35.9,adult Start:26-May-2022 Instruction Type:Provider Instructions for Treatment How to Access Health Informa tion Online using Patient Portal and [employer]rd [employer] Apps Indication:BMI 35.0-35.9,adult Start:26-May-2022 Instruction Type:Patient Education Patient Instructions Indication:Non-smoker Start:10-May-2022 Instruction Type:Provider Instructions for Treatment How to Access Health Informa tion Online using Patient Portal and [employer] Apps Indication:Non-smoker Start:10-May-2022 Instruction Type:Patient Education Patient Instructions Indication:HTN (hypertension), benign (Renamed from Benign hypertension) Start:15-Apr-2022 Instruction Type:Provider Instructions for Treatment How to Access Health Informa tion Online using Patient Portal and [employer] Apps Indication:HTN (hypertension), benign (Renamed from Benign hypertension) Start:15-Apr-2022 Instruction Type:Patient Education Patient Instructions Indication:Non-smoker Start:01-Apr-2022 Instruction Type:Provider Instructions for Treatment How to Access Health Informa tion Online using Patient Portal and [employer] Apps Indication:Non-smoker Start:01-Apr-2022 Instruction Type:Patient Education Patient Instructions Indication:BMI 33.0-33.9,adult Start:24-May-2021 Instruction Type:Provider Instructions for Treatment How to Access Health Informa tion Online using Patient Portal and [employer] Apps Indication:BMI 33.0-33.9,adult Start:24-May-2021 Instruction Type:Patient Education How to access health informa tion online Indication:Chewing tobacco use Start:07-Feb-2020 Instruction Type:Patient Education How to access health informa tion online - Detail Indication:Chewing tobacco use Start:07-Feb-2020 Instruction Type:Patient Education Patient Instructions Indication:Encounter for screening for lipid disorder Start:07-Feb-2020 Instruction Type:Provider Instructions for Treatment How to access health informa tion online Indication:BMI 34.0-34.9,adult Start:30-Dec-2019 Instruction Type:Patient Education How to access health informa tion online - Detail Indication:BMI 34.0-34.9,adult Start:30-Dec-2019 Instruction Type:Patient Education Patient Instructions Indication:BMI 34.0-34.9,adult Start:30-Dec-2019 Instruction Type:Provider Instructions for Treatment How to access health informa tion online Indication:BMI 34.0-34.9,adult Start:18-Jul-2019 Instruction Type:Patient Education How to access health informa tion online - Detail Indication:BMI 34.0-34.9,adult Start:18-Jul-2019 Instruction Type:Patient Education Patient Instructions Indication:BMI 34.0-34.9,adult Start:18-Jul-2019 Instruction Type:Provider Instructions for Treatment How to access health informa tion online Indication:Non-smoker Start:05-Jul-2019 Instruction Type:Patient Education How to access health informa tion online - Detail Indication:Non-smoker Start:05-Jul-2019 Instruction Type:Patient Education Patient Instructions Indication:Non-smoker Start:05-Jul-2019 Instruction Type:Provider Instructions for Treatment How to access health informa tion online Indication:Non-smoker Start:14-Jun-2019 Instruction Type:Patient Education How to access health informa tion online - Detail Indication:Non-smoker Start:14-Jun-2019 Instruction Type:Patient Education Patient Instructions Indication:BMI 34.0-34.9,adult Start:14-Jun-2019 Instruction Type:Provider Instructions for Treatment How to access health informa tion online Indication:Non-smoker Start:26-Mar-2019 Instruction Type:Patient Education How to access health informa tion online - Detail Indication:Non-smoker Start:26-Mar-2019 Instruction Type:Patient Education Patient Instructions Indication:Non-smoker Start:26-Mar-2019 Instruction Type:Provider Instructions for Treatment How to access health informa tion online Indication:Non-smoker Start:01-Feb-2019 Instruction Type:Patient Education How to access health informa tion online - Detail Indication:Non-smoker Start:01-Feb-2019 Instruction Type:Patient Education Patient Instructions Indication:BMI 34.0-34.9,adult Start:01-Feb-2019 Instruction Type:Provider Instructions for Treatment How to access health informa tion online Indication:BMI 35.0-35.9,adult Start:17-Jan-2019 Instruction Type:Patient Education How to access health informa tion online - Detail Indication:BMI 35.0-35.9,adult Start:17-Jan-2019 Instruction Type:Patient Education Patient Instructions Indication:Right leg pain Start:17-Jan-2019 Instruction Type:Provider Instructions for Treatment How to access health informa tion online Indication:BMI 35.0-35.9,adult Start:25-May-2018 Instruction Type:Patient Education How to access health informa tion online - Detail Indication:BMI 35.0-35.9,adult Start:25-May-2018 Instruction Type:Patient Education Patient Instructions Indication:BMI 35.0-35.9,adult Start:25-May-2018 Instruction Type:Provider Instructions for Treatment How to access health informa tion online Indication:Non-smoker Start:09-May-2018 Instruction Type:Patient Education How to access health informa tion online - Detail Indication:Non-smoker Start:09-May-2018 Instruction Type:Patient Education Patient Instructions Indication:Non-smoker Start:09-May-2018 Instruction Type:Provider Instructions for Treatment How to access health informa tion online Indication:Nonsmoker Start:28-Dec-2017 Instruction Type:Patient Education How to access health informa tion online - Detail Indication:Nonsmoker Start:28-Dec-2017 Instruction Type:Patient Education Patient Instructions Indication:Left foot pain Start:28-Dec-2017 Instruction Type:Provider Instructions for Treatment How to access health informa tion online Indication:BMI 31.0-31.9,adult Start:08-Jun-2017 Instruction Type:Patient Education How to access health informa tion online - Detail Indication:BMI 31.0-31.9,adult Start:08-Jun-2017 Instruction Type:Patient Education Patient Instructions Indication:BMI 31.0-31.9,adult Start:08-Jun-2017 Instruction Type:Provider Instructions for Treatment Patient Instructions Indication:Influenza A Start:16-May-2017 Instruction Type:Provider Instructions for Treatment How to access health informa tion online Indication:Chewing tobacco use Start:16-May-2017 Instruction Type:Patient Education How to access health informa tion online - Detail Indication:Chewing tobacco use Start:16-May-2017 Instruction Type:Patient Education How to access health informa tion online Indication:Testicular/scrotal pain Start:21-Oct-2016 Instruction Type:Patient Education How to access health informa tion online - Detail Indication:Testicular/scrotal pain Start:21-Oct-2016 Instruction Type:Patient Education Patient Instructions Indication:Testicular/scrotal pain Start:21-Oct-2016 Instruction Type:Provider Instructions for Treatment How to access health informa tion online Indication:Testicular/scrotal pain Start:17-Oct-2016 Instruction Type:Patient Education How to access health informa tion online - Detail Indication:Testicular/scrotal pain Start:17-Oct-2016 Instruction Type:Patient Education Patient Instructions Indication:Testicular/scrotal pain Start:17-Oct-2016 Instruction Type:Provider Instructions for Treatment [facility]; [facility] Work Phone: Instructions Name Dates Details BMI 35.0-35.9,adult : How to access health information online Indication:BMI 35.0-35.9,adult BMI 35.0-35.9,adult : How to access health information online - Detail Indication:BMI 35.0-35.9,adult BMI 35.0-35.9,adult : Patien t Instructions Indication:BMI 35.0-35.9,adult Non-smoker : How to access h ealth information online Indication:Non-smoker Non-smoker : How to access h ealth information online - Detail Indication:Non-smoker Non-smoker : Patient Instruc tions Indication:Non-smoker Nonsmoker : How to access he alth information online Indication:Nonsmoker Nonsmoker : How to access he alth information online - Detail Indication:Nonsmoker Left foot pain : Patient Ins tructions Indication:Left foot pain BMI 31.0-31.9,adult : How to access health information online Indication:BMI 31.0-31.9,adult BMI 31.0-31.9,adult : How to access health information online - Detail Indication:BMI 31.0-31.9,adult BMI 31.0-31.9,adult : Patien t Instructions Indication:BMI 31.0-31.9,adult Influenza A : Patient Instru ctions Indication:Influenza A Chewing tobacco use : How to access health information online Indication:Chewing tobacco use Chewing tobacco use : How to access health information online - Detail Indication:Chewing tobacco use Testicular/scrotal pain : Ho w to access health information online Indication:Testicular/scrotal pain Testicular/scrotal pain : Ho w to access health information online - Detail Indication:Testicular/scrotal pain Testicular/scrotal pain : Pa tient Instructions Indication:Testicular/scrotal pain Name Dates Details How to access health informa tion online Indication:BMI 35.0-35.9,adult Start:25-May-2018 Instruction Type:Patient Education How to access health informa tion online - Detail Indication:BMI 35.0-35.9,adult Start:25-May-2018 Instruction Type:Patient Education Patient Instructions Indication:BMI 35.0-35.9,adult Start:25-May-2018 Instruction Type:Provider Instructions for Treatment How to access health informa tion online Indication:Non-smoker Start:09-May-2018 Instruction Type:Patient Education How to access health informa tion online - Detail Indication:Non-smoker Start:09-May-2018 Instruction Type:Patient Education Patient Instructions Indication:Non-smoker Start:09-May-2018 Instruction Type:Provider Instructions for Treatment How to access health informa tion online Indication:Nonsmoker Start:28-Dec-2017 Instruction Type:Patient Education How to access health informa tion online - Detail Indication:Nonsmoker Start:28-Dec-2017 Instruction Type:Patient Education Patient Instructions Indication:Left foot pain Start:28-Dec-2017 Instruction Type:Provider Instructions for Treatment How to access health informa tion online Indication:BMI 31.0-31.9,adult Start:08-Jun-2017 Instruction Type:Patient Education How to access health informa tion online - Detail Indication:BMI 31.0-31.9,adult Start:08-Jun-2017 Instruction Type:Patient Education Patient Instructions Indication:BMI 31.0-31.9,adult Start:08-Jun-2017 Instruction Type:Provider Instructions for Treatment Patient Instructions Indication:Influenza A Start:16-May-2017 Instruction Type:Provider Instructions for Treatment How to access health informa tion online Indication:Chewing tobacco use Start:16-May-2017 Instruction Type:Patient Education How to access health informa tion online - Detail Indication:Chewing tobacco use Start:16-May-2017 Instruction Type:Patient Education How to access health informa tion online Indication:Testicular/scrotal pain Start:21-Oct-2016 Instruction Type:Patient Education How to access health informa tion online - Detail Indication:Testicular/scrotal pain Start:21-Oct-2016 Instruction Type:Patient Education Patient Instructions Indication:Testicular/scrotal pain Start:21-Oct-2016 Instruction Type:Provider Instructions for Treatment How to access health informa tion online Indication:Testicular/scrotal pain Start:17-Oct-2016 Instruction Type:Patient Education How to access health informa tion online - Detail Indication:Testicular/scrotal pain Start:17-Oct-2016 Instruction Type:Patient Education Patient Instructions Indication:Testicular/scrotal pain Start:17-Oct-2016 Instruction Type:Provider Instructions for Treatment Name Dates Details How to access health informa tion online Indication:BMI 35.0-35.9,adult Start:17-Jan-2019 Instruction Type:Patient Education How to access health informa tion online - Detail Indication:BMI 35.0-35.9,adult Start:17-Jan-2019 Instruction Type:Patient Education Patient Instructions Indication:Right leg pain Start:17-Jan-2019 Instruction Type:Provider Instructions for Treatment How to access health informa tion online Indication:BMI 35.0-35.9,adult Start:25-May-2018 Instruction Type:Patient Education How to access health informa tion online - Detail Indication:BMI 35.0-35.9,adult Start:25-May-2018 Instruction Type:Patient Education Patient Instructions Indication:BMI 35.0-35.9,adult Start:25-May-2018 Instruction Type:Provider Instructions for Treatment How to access health informa tion online Indication:Non-smoker Start:09-May-2018 Instruction Type:Patient Education How to access health informa tion online - Detail Indication:Non-smoker Start:09-May-2018 Instruction Type:Patient Education Patient Instructions Indication:Non-smoker Start:09-May-2018 Instruction Type:Provider Instructions for Treatment How to access health informa tion online Indication:Nonsmoker Start:28-Dec-2017 Instruction Type:Patient Education How to access health informa tion online - Detail Indication:Nonsmoker Start:28-Dec-2017 Instruction Type:Patient Education Patient Instructions Indication:Left foot pain Start:28-Dec-2017 Instruction Type:Provider Instructions for Treatment How to access health informa tion online Indication:BMI 31.0-31.9,adult Start:08-Jun-2017 Instruction Type:Patient Education How to access health informa tion online - Detail Indication:BMI 31.0-31.9,adult Start:08-Jun-2017 Instruction Type:Patient Education Patient Instructions Indication:BMI 31.0-31.9,adult Start:08-Jun-2017 Instruction Type:Provider Instructions for Treatment Patient Instructions Indication:Influenza A Start:16-May-2017 Instruction Type:Provider Instructions for Treatment How to access health informa tion online Indication:Chewing tobacco use Start:16-May-2017 Instruction Type:Patient Education How to access health informa tion online - Detail Indication:Chewing tobacco use Start:16-May-2017 Instruction Type:Patient Education How to access health informa tion online Indication:Testicular/scrotal pain Start:21-Oct-2016 Instruction Type:Patient Education How to access health informa tion online - Detail Indication:Testicular/scrotal pain Start:21-Oct-2016 Instruction Type:Patient Education Patient Instructions Indication:Testicular/scrotal pain Start:21-Oct-2016 Instruction Type:Provider Instructions for Treatment How to access health informa tion online Indication:Testicular/scrotal pain Start:17-Oct-2016 Instruction Type:Patient Education How to access health informa tion online - Detail Indication:Testicular/scrotal pain Start:17-Oct-2016 Instruction Type:Patient Education Patient Instructions Indication:Testicular/scrotal pain Start:17-Oct-2016 Instruction Type:Provider Instructions for Treatment Name Dates Details How to access health informa tion online Indication:Non-smoker Start:01-Feb-2019 Instruction Type:Patient Education How to access health informa tion online - Detail Indication:Non-smoker Start:01-Feb-2019 Instruction Type:Patient Education Patient Instructions Indication:Non-smoker Start:01-Feb-2019 Instruction Type:Provider Instructions for Treatment How to access health informa tion online Indication:BMI 35.0-35.9,adult Start:17-Jan-2019 Instruction Type:Patient Education How to access health informa tion online - Detail Indication:BMI 35.0-35.9,adult Start:17-Jan-2019 Instruction Type:Patient Education Patient Instructions Indication:Right leg pain Start:17-Jan-2019 Instruction Type:Provider Instructions for Treatment How to access health informa tion online Indication:BMI 35.0-35.9,adult Start:25-May-2018 Instruction Type:Patient Education How to access health informa tion online - Detail Indication:BMI 35.0-35.9,adult Start:25-May-2018 Instruction Type:Patient Education Patient Instructions Indication:BMI 35.0-35.9,adult Start:25-May-2018 Instruction Type:Provider Instructions for Treatment How to access health informa tion online Indication:Non-smoker Start:09-May-2018 Instruction Type:Patient Education How to access health informa tion online - Detail Indication:Non-smoker Start:09-May-2018 Instruction Type:Patient Education Patient Instructions Indication:Non-smoker Start:09-May-2018 Instruction Type:Provider Instructions for Treatment How to access health informa tion online Indication:Nonsmoker Start:28-Dec-2017 Instruction Type:Patient Education How to access health informa tion online - Detail Indication:Nonsmoker Start:28-Dec-2017 Instruction Type:Patient Education Patient Instructions Indication:Left foot pain Start:28-Dec-2017 Instruction Type:Provider Instructions for Treatment How to access health informa tion online Indication:BMI 31.0-31.9,adult Start:08-Jun-2017 Instruction Type:Patient Education How to access health informa tion online - Detail Indication:BMI 31.0-31.9,adult Start:08-Jun-2017 Instruction Type:Patient Education Patient Instructions Indication:BMI 31.0-31.9,adult Start:08-Jun-2017 Instruction Type:Provider Instructions for Treatment Patient Instructions Indication:Influenza A Start:16-May-2017 Instruction Type:Provider Instructions for Treatment How to access health informa tion online Indication:Chewing tobacco use Start:16-May-2017 Instruction Type:Patient Education How to access health informa tion online - Detail Indication:Chewing tobacco use Start:16-May-2017 Instruction Type:Patient Education How to access health informa tion online Indication:Testicular/scrotal pain Start:21-Oct-2016 Instruction Type:Patient Education How to access health informa tion online - Detail Indication:Testicular/scrotal pain Start:21-Oct-2016 Instruction Type:Patient Education Patient Instructions Indication:Testicular/scrotal pain Start:21-Oct-2016 Instruction Type:Provider Instructions for Treatment How to access health informa tion online Indication:Testicular/scrotal pain Start:17-Oct-2016 Instruction Type:Patient Education How to access health informa tion online - Detail Indication:Testicular/scrotal pain Start:17-Oct-2016 Instruction Type:Patient Education Patient Instructions Indication:Testicular/scrotal pain Start:17-Oct-2016 Instruction Type:Provider Instructions for Treatment Name Dates Details How to access health informa tion online Indication:Non-smoker Start:01-Feb-2019 Instruction Type:Patient Education How to access health informa tion online - Detail Indication:Non-smoker Start:01-Feb-2019 Instruction Type:Patient Education Patient Instructions Indication:BMI 34.0-34.9,adult Start:01-Feb-2019 Instruction Type:Provider Instructions for Treatment How to access health informa tion online Indication:BMI 35.0-35.9,adult Start:17-Jan-2019 Instruction Type:Patient Education How to access health informa tion online - Detail Indication:BMI 35.0-35.9,adult Start:17-Jan-2019 Instruction Type:Patient Education Patient Instructions Indication:Right leg pain Start:17-Jan-2019 Instruction Type:Provider Instructions for Treatment How to access health informa tion online Indication:BMI 35.0-35.9,adult Start:25-May-2018 Instruction Type:Patient Education How to access health informa tion online - Detail Indication:BMI 35.0-35.9,adult Start:25-May-2018 Instruction Type:Patient Education Patient Instructions Indication:BMI 35.0-35.9,adult Start:25-May-2018 Instruction Type:Provider Instructions for Treatment How to access health informa tion online Indication:Non-smoker Start:09-May-2018 Instruction Type:Patient Education How to access health informa tion online - Detail Indication:Non-smoker Start:09-May-2018 Instruction Type:Patient Education Patient Instructions Indication:Non-smoker Start:09-May-2018 Instruction Type:Provider Instructions for Treatment How to access health informa tion online Indication:Nonsmoker Start:28-Dec-2017 Instruction Type:Patient Education How to access health informa tion online - Detail Indication:Nonsmoker Start:28-Dec-2017 Instruction Type:Patient Education Patient Instructions Indication:Left foot pain Start:28-Dec-2017 Instruction Type:Provider Instructions for Treatment How to access health informa tion online Indication:BMI 31.0-31.9,adult Start:08-Jun-2017 Instruction Type:Patient Education How to access health informa tion online - Detail Indication:BMI 31.0-31.9,adult Start:08-Jun-2017 Instruction Type:Patient Education Patient Instructions Indication:BMI 31.0-31.9,adult Start:08-Jun-2017 Instruction Type:Provider Instructions for Treatment Patient Instructions Indication:Influenza A Start:16-May-2017 Instruction Type:Provider Instructions for Treatment How to access health informa tion online Indication:Chewing tobacco use Start:16-May-2017 Instruction Type:Patient Education How to access health informa tion online - Detail Indication:Chewing tobacco use Start:16-May-2017 Instruction Type:Patient Education How to access health informa tion online Indication:Testicular/scrotal pain Start:21-Oct-2016 Instruction Type:Patient Education How to access health informa tion online - Detail Indication:Testicular/scrotal pain Start:21-Oct-2016 Instruction Type:Patient Education Patient Instructions Indication:Testicular/scrotal pain Start:21-Oct-2016 Instruction Type:Provider Instructions for Treatment How to access health informa tion online Indication:Testicular/scrotal pain Start:17-Oct-2016 Instruction Type:Patient Education How to access health informa tion online - Detail Indication:Testicular/scrotal pain Start:17-Oct-2016 Instruction Type:Patient Education Patient Instructions Indication:Testicular/scrotal pain Start:17-Oct-2016 Instruction Type:Provider Instructions for Treatment Name Dates Details How to access health informa tion online Indication:Non-smoker Start:26-Mar-2019 Instruction Type:Patient Education How to access health informa tion online - Detail Indication:Non-smoker Start:26-Mar-2019 Instruction Type:Patient Education Patient Instructions Indication:Non-smoker Start:26-Mar-2019 Instruction Type:Provider Instructions for Treatment How to access health informa tion online Indication:Non-smoker Start:01-Feb-2019 Instruction Type:Patient Education How to access health informa tion online - Detail Indication:Non-smoker Start:01-Feb-2019 Instruction Type:Patient Education Patient Instructions Indication:BMI 34.0-34.9,adult Start:01-Feb-2019 Instruction Type:Provider Instructions for Treatment How to access health informa tion online Indication:BMI 35.0-35.9,adult Start:17-Jan-2019 Instruction Type:Patient Education How to access health informa tion online - Detail Indication:BMI 35.0-35.9,adult Start:17-Jan-2019 Instruction Type:Patient Education Patient Instructions Indication:Right leg pain Start:17-Jan-2019 Instruction Type:Provider Instructions for Treatment How to access health informa tion online Indication:BMI 35.0-35.9,adult Start:25-May-2018 Instruction Type:Patient Education How to access health informa tion online - Detail Indication:BMI 35.0-35.9,adult Start:25-May-2018 Instruction Type:Patient Education Patient Instructions Indication:BMI 35.0-35.9,adult Start:25-May-2018 Instruction Type:Provider Instructions for Treatment How to access health informa tion online Indication:Non-smoker Start:09-May-2018 Instruction Type:Patient Education How to access health informa tion online - Detail Indication:Non-smoker Start:09-May-2018 Instruction Type:Patient Education Patient Instructions Indication:Non-smoker Start:09-May-2018 Instruction Type:Provider Instructions for Treatment How to access health informa tion online Indication:Nonsmoker Start:28-Dec-2017 Instruction Type:Patient Education How to access health informa tion online - Detail Indication:Nonsmoker Start:28-Dec-2017 Instruction Type:Patient Education Patient Instructions Indication:Left foot pain Start:28-Dec-2017 Instruction Type:Provider Instructions for Treatment How to access health informa tion online Indication:BMI 31.0-31.9,adult Start:08-Jun-2017 Instruction Type:Patient Education How to access health informa tion online - Detail Indication:BMI 31.0-31.9,adult Start:08-Jun-2017 Instruction Type:Patient Education Patient Instructions Indication:BMI 31.0-31.9,adult Start:08-Jun-2017 Instruction Type:Provider Instructions for Treatment Patient Instructions Indication:Influenza A Start:16-May-2017 Instruction Type:Provider Instructions for Treatment How to access health informa tion online Indication:Chewing tobacco use Start:16-May-2017 Instruction Type:Patient Education How to access health informa tion online - Detail Indication:Chewing tobacco use Start:16-May-2017 Instruction Type:Patient Education How to access health informa tion online Indication:Testicular/scrotal pain Start:21-Oct-2016 Instruction Type:Patient Education How to access health informa tion online - Detail Indication:Testicular/scrotal pain Start:21-Oct-2016 Instruction Type:Patient Education Patient Instructions Indication:Testicular/scrotal pain Start:21-Oct-2016 Instruction Type:Provider Instructions for Treatment How to access health informa tion online Indication:Testicular/scrotal pain Start:17-Oct-2016 Instruction Type:Patient Education How to access health informa tion online - Detail Indication:Testicular/scrotal pain Start:17-Oct-2016 Instruction Type:Patient Education Patient Instructions Indication:Testicular/scrotal pain Start:17-Oct-2016 Instruction Type:Provider Instructions for Treatment Name Dates Details How to access health informa tion online Indication:BMI 34.0-34.9,adult Start:30-Dec-2019 Instruction Type:Patient Education How to access health informa tion online - Detail Indication:BMI 34.0-34.9,adult Start:30-Dec-2019 Instruction Type:Patient Education Patient Instructions Indication:BMI 34.0-34.9,adult Start:30-Dec-2019 Instruction Type:Provider Instructions for Treatment How to access health informa tion online Indication:BMI 34.0-34.9,adult Start:18-Jul-2019 Instruction Type:Patient Education How to access health informa tion online - Detail Indication:BMI 34.0-34.9,adult Start:18-Jul-2019 Instruction Type:Patient Education Patient Instructions Indication:BMI 34.0-34.9,adult Start:18-Jul-2019 Instruction Type:Provider Instructions for Treatment How to access health informa tion online Indication:Non-smoker Start:05-Jul-2019 Instruction Type:Patient Education How to access health informa tion online - Detail Indication:Non-smoker Start:05-Jul-2019 Instruction Type:Patient Education Patient Instructions Indication:Non-smoker Start:05-Jul-2019 Instruction Type:Provider Instructions for Treatment How to access health informa tion online Indication:Non-smoker Start:14-Jun-2019 Instruction Type:Patient Education How to access health informa tion online - Detail Indication:Non-smoker Start:14-Jun-2019 Instruction Type:Patient Education Patient Instructions Indication:BMI 34.0-34.9,adult Start:14-Jun-2019 Instruction Type:Provider Instructions for Treatment How to access health informa tion online Indication:Non-smoker Start:26-Mar-2019 Instruction Type:Patient Education How to access health informa tion online - Detail Indication:Non-smoker Start:26-Mar-2019 Instruction Type:Patient Education Patient Instructions Indication:Non-smoker Start:26-Mar-2019 Instruction Type:Provider Instructions for Treatment How to access health informa tion online Indication:Non-smoker Start:01-Feb-2019 Instruction Type:Patient Education How to access health informa tion online - Detail Indication:Non-smoker Start:01-Feb-2019 Instruction Type:Patient Education Patient Instructions Indication:BMI 34.0-34.9,adult Start:01-Feb-2019 Instruction Type:Provider Instructions for Treatment How to access health informa tion online Indication:BMI 35.0-35.9,adult Start:17-Jan-2019 Instruction Type:Patient Education How to access health informa tion online - Detail Indication:BMI 35.0-35.9,adult Start:17-Jan-2019 Instruction Type:Patient Education Patient Instructions Indication:Right leg pain Start:17-Jan-2019 Instruction Type:Provider Instructions for Treatment How to access health informa tion online Indication:BMI 35.0-35.9,adult Start:25-May-2018 Instruction Type:Patient Education How to access health informa tion online - Detail Indication:BMI 35.0-35.9,adult Start:25-May-2018 Instruction Type:Patient Education Patient Instructions Indication:BMI 35.0-35.9,adult Start:25-May-2018 Instruction Type:Provider Instructions for Treatment How to access health informa tion online Indication:Non-smoker Start:09-May-2018 Instruction Type:Patient Education How to access health informa tion online - Detail Indication:Non-smoker Start:09-May-2018 Instruction Type:Patient Education Patient Instructions Indication:Non-smoker Start:09-May-2018 Instruction Type:Provider Instructions for Treatment How to access health informa tion online Indication:Nonsmoker Start:28-Dec-2017 Instruction Type:Patient Education How to access health informa tion online - Detail Indication:Nonsmoker Start:28-Dec-2017 Instruction Type:Patient Education Patient Instructions Indication:Left foot pain Start:28-Dec-2017 Instruction Type:Provider Instructions for Treatment How to access health informa tion online Indication:BMI 31.0-31.9,adult Start:08-Jun-2017 Instruction Type:Patient Education How to access health informa tion online - Detail Indication:BMI 31.0-31.9,adult Start:08-Jun-2017 Instruction Type:Patient Education Patient Instructions Indication:BMI 31.0-31.9,adult Start:08-Jun-2017 Instruction Type:Provider Instructions for Treatment Patient Instructions Indication:Influenza A Start:16-May-2017 Instruction Type:Provider Instructions for Treatment How to access health informa tion online Indication:Chewing tobacco use Start:16-May-2017 Instruction Type:Patient Education How to access health informa tion online - Detail Indication:Chewing tobacco use Start:16-May-2017 Instruction Type:Patient Education How to access health informa tion online Indication:Testicular/scrotal pain Start:21-Oct-2016 Instruction Type:Patient Education How to access health informa tion online - Detail Indication:Testicular/scrotal pain Start:21-Oct-2016 Instruction Type:Patient Education Patient Instructions Indication:Testicular/scrotal pain Start:21-Oct-2016 Instruction Type:Provider Instructions for Treatment How to access health informa tion online Indication:Testicular/scrotal pain Start:17-Oct-2016 Instruction Type:Patient Education How to access health informa tion online - Detail Indication:Testicular/scrotal pain Start:17-Oct-2016 Instruction Type:Patient Education Patient Instructions Indication:Testicular/scrotal pain Start:17-Oct-2016 Instruction Type:Provider Instructions for Treatment Name Dates Details How to access health informa tion online Indication:BMI 34.0-34.9,adult Start:30-Dec-2019 Instruction Type:Patient Education How to access health informa tion online - Detail Indication:BMI 34.0-34.9,adult Start:30-Dec-2019 Instruction Type:Patient Education Patient Instructions Indication:BMI 34.0-34.9,adult Start:30-Dec-2019 Instruction Type:Provider Instructions for Treatment How to access health informa tion online Indication:BMI 34.0-34.9,adult Start:18-Jul-2019 Instruction Type:Patient Education How to access health informa tion online - Detail Indication:BMI 34.0-34.9,adult Start:18-Jul-2019 Instruction Type:Patient Education Patient Instructions Indication:BMI 34.0-34.9,adult Start:18-Jul-2019 Instruction Type:Provider Instructions for Treatment How to access health informa tion online Indication:Non-smoker Start:05-Jul-2019 Instruction Type:Patient Education How to access health informa tion online - Detail Indication:Non-smoker Start:05-Jul-2019 Instruction Type:Patient Education Patient Instructions Indication:Non-smoker Start:05-Jul-2019 Instruction Type:Provider Instructions for Treatment How to access health informa tion online Indication:Non-smoker Start:14-Jun-2019 Instruction Type:Patient Education How to access health informa tion online - Detail Indication:Non-smoker Start:14-Jun-2019 Instruction Type:Patient Education Patient Instructions Indication:BMI 34.0-34.9,adult Start:14-Jun-2019 Instruction Type:Provider Instructions for Treatment How to access health informa tion online Indication:Non-smoker Start:26-Mar-2019 Instruction Type:Patient Education How to access health informa tion online - Detail Indication:Non-smoker Start:26-Mar-2019 Instruction Type:Patient Education Patient Instructions Indication:Non-smoker Start:26-Mar-2019 Instruction Type:Provider Instructions for Treatment How to access health informa tion online Indication:Non-smoker Start:01-Feb-2019 Instruction Type:Patient Education How to access health informa tion online - Detail Indication:Non-smoker Start:01-Feb-2019 Instruction Type:Patient Education Patient Instructions Indication:BMI 34.0-34.9,adult Start:01-Feb-2019 Instruction Type:Provider Instructions for Treatment How to access health informa tion online Indication:BMI 35.0-35.9,adult Start:17-Jan-2019 Instruction Type:Patient Education How to access health informa tion online - Detail Indication:BMI 35.0-35.9,adult Start:17-Jan-2019 Instruction Type:Patient Education Patient Instructions Indication:Right leg pain Start:17-Jan-2019 Instruction Type:Provider Instructions for Treatment How to access health informa tion online Indication:BMI 35.0-35.9,adult Start:25-May-2018 Instruction Type:Patient Education How to access health informa tion online - Detail Indication:BMI 35.0-35.9,adult Start:25-May-2018 Instruction Type:Patient Education Patient Instructions Indication:BMI 35.0-35.9,adult Start:25-May-2018 Instruction Type:Provider Instructions for Treatment How to access health informa tion online Indication:Non-smoker Start:09-May-2018 Instruction Type:Patient Education How to access health informa tion online - Detail Indication:Non-smoker Start:09-May-2018 Instruction Type:Patient Education Patient Instructions Indication:Non-smoker Start:09-May-2018 Instruction Type:Provider Instructions for Treatment How to access health informa tion online Indication:Nonsmoker Start:28-Dec-2017 Instruction Type:Patient Education How to access health informa tion online - Detail Indication:Nonsmoker Start:28-Dec-2017 Instruction Type:Patient Education Patient Instructions Indication:Left foot pain Start:28-Dec-2017 Instruction Type:Provider Instructions for Treatment How to access health informa tion online Indication:BMI 31.0-31.9,adult Start:08-Jun-2017 Instruction Type:Patient Education How to access health informa tion online - Detail Indication:BMI 31.0-31.9,adult Start:08-Jun-2017 Instruction Type:Patient Education Patient Instructions Indication:BMI 31.0-31.9,adult Start:08-Jun-2017 Instruction Type:Provider Instructions for Treatment Patient Instructions Indication:Influenza A Start:16-May-2017 Instruction Type:Provider Instructions for Treatment How to access health informa tion online Indication:Chewing tobacco use Start:16-May-2017 Instruction Type:Patient Education How to access health informa tion online - Detail Indication:Chewing tobacco use Start:16-May-2017 Instruction Type:Patient Education How to access health informa tion online Indication:Testicular/scrotal pain Start:21-Oct-2016 Instruction Type:Patient Education How to access health informa tion online - Detail Indication:Testicular/scrotal pain Start:21-Oct-2016 Instruction Type:Patient Education Patient Instructions Indication:Testicular/scrotal pain Start:21-Oct-2016 Instruction Type:Provider Instructions for Treatment How to access health informa tion online Indication:Testicular/scrotal pain Start:17-Oct-2016 Instruction Type:Patient Education How to access health informa tion online - Detail Indication:Testicular/scrotal pain Start:17-Oct-2016 Instruction Type:Patient Education Patient Instructions Indication:Testicular/scrotal pain Start:17-Oct-2016 Instruction Type:Provider Instructions for Treatment Name Dates Details How to access health informa tion online Indication:Chewing tobacco use Start:07-Feb-2020 Instruction Type:Patient Education How to access health informa tion online - Detail Indication:Chewing tobacco use Start:07-Feb-2020 Instruction Type:Patient Education Patient Instructions Indication:Encounter for screening for lipid disorder Start:07-Feb-2020 Instruction Type:Provider Instructions for Treatment How to access health informa tion online Indication:BMI 34.0-34.9,adult Start:30-Dec-2019 Instruction Type:Patient Education How to access health informa tion online - Detail Indication:BMI 34.0-34.9,adult Start:30-Dec-2019 Instruction Type:Patient Education Patient Instructions Indication:BMI 34.0-34.9,adult Start:30-Dec-2019 Instruction Type:Provider Instructions for Treatment How to access health informa tion online Indication:BMI 34.0-34.9,adult Start:18-Jul-2019 Instruction Type:Patient Education How to access health informa tion online - Detail Indication:BMI 34.0-34.9,adult Start:18-Jul-2019 Instruction Type:Patient Education Patient Instructions Indication:BMI 34.0-34.9,adult Start:18-Jul-2019 Instruction Type:Provider Instructions for Treatment How to access health informa tion online Indication:Non-smoker Start:05-Jul-2019 Instruction Type:Patient Education How to access health informa tion online - Detail Indication:Non-smoker Start:05-Jul-2019 Instruction Type:Patient Education Patient Instructions Indication:Non-smoker Start:05-Jul-2019 Instruction Type:Provider Instructions for Treatment How to access health informa tion online Indication:Non-smoker Start:14-Jun-2019 Instruction Type:Patient Education How to access health informa tion online - Detail Indication:Non-smoker Start:14-Jun-2019 Instruction Type:Patient Education Patient Instructions Indication:BMI 34.0-34.9,adult Start:14-Jun-2019 Instruction Type:Provider Instructions for Treatment How to access health informa tion online Indication:Non-smoker Start:26-Mar-2019 Instruction Type:Patient Education How to access health informa tion online - Detail Indication:Non-smoker Start:26-Mar-2019 Instruction Type:Patient Education Patient Instructions Indication:Non-smoker Start:26-Mar-2019 Instruction Type:Provider Instructions for Treatment How to access health informa tion online Indication:Non-smoker Start:01-Feb-2019 Instruction Type:Patient Education How to access health informa tion online - Detail Indication:Non-smoker Start:01-Feb-2019 Instruction Type:Patient Education Patient Instructions Indication:BMI 34.0-34.9,adult Start:01-Feb-2019 Instruction Type:Provider Instructions for Treatment How to access health informa tion online Indication:BMI 35.0-35.9,adult Start:17-Jan-2019 Instruction Type:Patient Education How to access health informa tion online - Detail Indication:BMI 35.0-35.9,adult Start:17-Jan-2019 Instruction Type:Patient Education Patient Instructions Indication:Right leg pain Start:17-Jan-2019 Instruction Type:Provider Instructions for Treatment How to access health informa tion online Indication:BMI 35.0-35.9,adult Start:25-May-2018 Instruction Type:Patient Education How to access health informa tion online - Detail Indication:BMI 35.0-35.9,adult Start:25-May-2018 Instruction Type:Patient Education Patient Instructions Indication:BMI 35.0-35.9,adult Start:25-May-2018 Instruction Type:Provider Instructions for Treatment How to access health informa tion online Indication:Non-smoker Start:09-May-2018 Instruction Type:Patient Education How to access health informa tion online - Detail Indication:Non-smoker Start:09-May-2018 Instruction Type:Patient Education Patient Instructions Indication:Non-smoker Start:09-May-2018 Instruction Type:Provider Instructions for Treatment How to access health informa tion online Indication:Nonsmoker Start:28-Dec-2017 Instruction Type:Patient Education How to access health informa tion online - Detail Indication:Nonsmoker Start:28-Dec-2017 Instruction Type:Patient Education Patient Instructions Indication:Left foot pain Start:28-Dec-2017 Instruction Type:Provider Instructions for Treatment How to access health informa tion online Indication:BMI 31.0-31.9,adult Start:08-Jun-2017 Instruction Type:Patient Education How to access health informa tion online - Detail Indication:BMI 31.0-31.9,adult Start:08-Jun-2017 Instruction Type:Patient Education Patient Instructions Indication:BMI 31.0-31.9,adult Start:08-Jun-2017 Instruction Type:Provider Instructions for Treatment Patient Instructions Indication:Influenza A Start:16-May-2017 Instruction Type:Provider Instructions for Treatment How to access health informa tion online Indication:Chewing tobacco use Start:16-May-2017 Instruction Type:Patient Education How to access health informa tion online - Detail Indication:Chewing tobacco use Start:16-May-2017 Instruction Type:Patient Education How to access health informa tion online Indication:Testicular/scrotal pain Start:21-Oct-2016 Instruction Type:Patient Education How to access health informa tion online - Detail Indication:Testicular/scrotal pain Start:21-Oct-2016 Instruction Type:Patient Education Patient Instructions Indication:Testicular/scrotal pain Start:21-Oct-2016 Instruction Type:Provider Instructions for Treatment How to access health informa tion online Indication:Testicular/scrotal pain Start:17-Oct-2016 Instruction Type:Patient Education How to access health informa tion online - Detail Indication:Testicular/scrotal pain Start:17-Oct-2016 Instruction Type:Patient Education Patient Instructions Indication:Testicular/scrotal pain Start:17-Oct-2016 Instruction Type:Provider Instructions for Treatment Name Dates Details How to access health informa tion online Indication:Chewing tobacco use Start:07-Feb-2020 Instruction Type:Patient Education How to access health informa tion online - Detail Indication:Chewing tobacco use Start:07-Feb-2020 Instruction Type:Patient Education Patient Instructions Indication:Encounter for screening for lipid disorder Start:07-Feb-2020 Instruction Type:Provider Instructions for Treatment How to access health informa tion online Indication:BMI 34.0-34.9,adult Start:30-Dec-2019 Instruction Type:Patient Education How to access health informa tion online - Detail Indication:BMI 34.0-34.9,adult Start:30-Dec-2019 Instruction Type:Patient Education Patient Instructions Indication:BMI 34.0-34.9,adult Start:30-Dec-2019 Instruction Type:Provider Instructions for Treatment How to access health informa tion online Indication:BMI 34.0-34.9,adult Start:18-Jul-2019 Instruction Type:Patient Education How to access health informa tion online - Detail Indication:BMI 34.0-34.9,adult Start:18-Jul-2019 Instruction Type:Patient Education Patient Instructions Indication:BMI 34.0-34.9,adult Start:18-Jul-2019 Instruction Type:Provider Instructions for Treatment How to access health informa tion online Indication:Non-smoker Start:05-Jul-2019 Instruction Type:Patient Education How to access health informa tion online - Detail Indication:Non-smoker Start:05-Jul-2019 Instruction Type:Patient Education Patient Instructions Indication:Non-smoker Start:05-Jul-2019 Instruction Type:Provider Instructions for Treatment How to access health informa tion online Indication:Non-smoker Start:14-Jun-2019 Instruction Type:Patient Education How to access health informa tion online - Detail Indication:Non-smoker Start:14-Jun-2019 Instruction Type:Patient Education Patient Instructions Indication:BMI 34.0-34.9,adult Start:14-Jun-2019 Instruction Type:Provider Instructions for Treatment How to access health informa tion online Indication:Non-smoker Start:26-Mar-2019 Instruction Type:Patient Education How to access health informa tion online - Detail Indication:Non-smoker Start:26-Mar-2019 Instruction Type:Patient Education Patient Instructions Indication:Non-smoker Start:26-Mar-2019 Instruction Type:Provider Instructions for Treatment How to access health informa tion online Indication:Non-smoker Start:01-Feb-2019 Instruction Type:Patient Education How to access health informa tion online - Detail Indication:Non-smoker Start:01-Feb-2019 Instruction Type:Patient Education Patient Instructions Indication:BMI 34.0-34.9,adult Start:01-Feb-2019 Instruction Type:Provider Instructions for Treatment How to access health informa tion online Indication:BMI 35.0-35.9,adult Start:17-Jan-2019 Instruction Type:Patient Education How to access health informa tion online - Detail Indication:BMI 35.0-35.9,adult Start:17-Jan-2019 Instruction Type:Patient Education Patient Instructions Indication:Right leg pain Start:17-Jan-2019 Instruction Type:Provider Instructions for Treatment How to access health informa tion online Indication:BMI 35.0-35.9,adult Start:25-May-2018 Instruction Type:Patient Education How to access health informa tion online - Detail Indication:BMI 35.0-35.9,adult Start:25-May-2018 Instruction Type:Patient Education Patient Instructions Indication:BMI 35.0-35.9,adult Start:25-May-2018 Instruction Type:Provider Instructions for Treatment How to access health informa tion online Indication:Non-smoker Start:09-May-2018 Instruction Type:Patient Education How to access health informa tion online - Detail Indication:Non-smoker Start:09-May-2018 Instruction Type:Patient Education Patient Instructions Indication:Non-smoker Start:09-May-2018 Instruction Type:Provider Instructions for Treatment How to access health informa tion online Indication:Nonsmoker Start:28-Dec-2017 Instruction Type:Patient Education How to access health informa tion online - Detail Indication:Nonsmoker Start:28-Dec-2017 Instruction Type:Patient Education Patient Instructions Indication:Left foot pain Start:28-Dec-2017 Instruction Type:Provider Instructions for Treatment How to access health informa tion online Indication:BMI 31.0-31.9,adult Start:08-Jun-2017 Instruction Type:Patient Education How to access health informa tion online - Detail Indication:BMI 31.0-31.9,adult Start:08-Jun-2017 Instruction Type:Patient Education Patient Instructions Indication:BMI 31.0-31.9,adult Start:08-Jun-2017 Instruction Type:Provider Instructions for Treatment Patient Instructions Indication:Influenza A Start:16-May-2017 Instruction Type:Provider Instructions for Treatment How to access health informa tion online Indication:Chewing tobacco use Start:16-May-2017 Instruction Type:Patient Education How to access health informa tion online - Detail Indication:Chewing tobacco use Start:16-May-2017 Instruction Type:Patient Education How to access health informa tion online Indication:Testicular/scrotal pain Start:21-Oct-2016 Instruction Type:Patient Education How to access health informa tion online - Detail Indication:Testicular/scrotal pain Start:21-Oct-2016 Instruction Type:Patient Education Patient Instructions Indication:Testicular/scrotal pain Start:21-Oct-2016 Instruction Type:Provider Instructions for Treatment How to access health informa tion online Indication:Testicular/scrotal pain Start:17-Oct-2016 Instruction Type:Patient Education How to access health informa tion online - Detail Indication:Testicular/scrotal pain Start:17-Oct-2016 Instruction Type:Patient Education Patient Instructions Indication:Testicular/scrotal pain Start:17-Oct-2016 Instruction Type:Provider Instructions for Treatment Name Dates Details How to access health informa tion online Indication:Chewing tobacco use Start:07-Feb-2020 Instruction Type:Patient Education How to access health informa tion online - Detail Indication:Chewing tobacco use Start:07-Feb-2020 Instruction Type:Patient Education Patient Instructions Indication:Encounter for screening for lipid disorder Start:07-Feb-2020 Instruction Type:Provider Instructions for Treatment How to access health informa tion online Indication:BMI 34.0-34.9,adult Start:30-Dec-2019 Instruction Type:Patient Education How to access health informa tion online - Detail Indication:BMI 34.0-34.9,adult Start:30-Dec-2019 Instruction Type:Patient Education Patient Instructions Indication:BMI 34.0-34.9,adult Start:30-Dec-2019 Instruction Type:Provider Instructions for Treatment How to access health informa tion online Indication:BMI 34.0-34.9,adult Start:18-Jul-2019 Instruction Type:Patient Education How to access health informa tion online - Detail Indication:BMI 34.0-34.9,adult Start:18-Jul-2019 Instruction Type:Patient Education Patient Instructions Indication:BMI 34.0-34.9,adult Start:18-Jul-2019 Instruction Type:Provider Instructions for Treatment How to access health informa tion online Indication:Non-smoker Start:05-Jul-2019 Instruction Type:Patient Education How to access health informa tion online - Detail Indication:Non-smoker Start:05-Jul-2019 Instruction Type:Patient Education Patient Instructions Indication:Non-smoker Start:05-Jul-2019 Instruction Type:Provider Instructions for Treatment How to access health informa tion online Indication:Non-smoker Start:14-Jun-2019 Instruction Type:Patient Education How to access health informa tion online - Detail Indication:Non-smoker Start:14-Jun-2019 Instruction Type:Patient Education Patient Instructions Indication:BMI 34.0-34.9,adult Start:14-Jun-2019 Instruction Type:Provider Instructions for Treatment How to access health informa tion online Indication:Non-smoker Start:26-Mar-2019 Instruction Type:Patient Education How to access health informa tion online - Detail Indication:Non-smoker Start:26-Mar-2019 Instruction Type:Patient Education Patient Instructions Indication:Non-smoker Start:26-Mar-2019 Instruction Type:Provider Instructions for Treatment How to access health informa tion online Indication:Non-smoker Start:01-Feb-2019 Instruction Type:Patient Education How to access health informa tion online - Detail Indication:Non-smoker Start:01-Feb-2019 Instruction Type:Patient Education Patient Instructions Indication:BMI 34.0-34.9,adult Start:01-Feb-2019 Instruction Type:Provider Instructions for Treatment How to access health informa tion online Indication:BMI 35.0-35.9,adult Start:17-Jan-2019 Instruction Type:Patient Education How to access health informa tion online - Detail Indication:BMI 35.0-35.9,adult Start:17-Jan-2019 Instruction Type:Patient Education Patient Instructions Indication:Right leg pain Start:17-Jan-2019 Instruction Type:Provider Instructions for Treatment How to access health informa tion online Indication:BMI 35.0-35.9,adult Start:25-May-2018 Instruction Type:Patient Education How to access health informa tion online - Detail Indication:BMI 35.0-35.9,adult Start:25-May-2018 Instruction Type:Patient Education Patient Instructions Indication:BMI 35.0-35.9,adult Start:25-May-2018 Instruction Type:Provider Instructions for Treatment How to access health informa tion online Indication:Non-smoker Start:09-May-2018 Instruction Type:Patient Education How to access health informa tion online - Detail Indication:Non-smoker Start:09-May-2018 Instruction Type:Patient Education Patient Instructions Indication:Non-smoker Start:09-May-2018 Instruction Type:Provider Instructions for Treatment How to access health informa tion online Indication:Nonsmoker Start:28-Dec-2017 Instruction Type:Patient Education How to access health informa tion online - Detail Indication:Nonsmoker Start:28-Dec-2017 Instruction Type:Patient Education Patient Instructions Indication:Left foot pain Start:28-Dec-2017 Instruction Type:Provider Instructions for Treatment How to access health informa tion online Indication:BMI 31.0-31.9,adult Start:08-Jun-2017 Instruction Type:Patient Education How to access health informa tion online - Detail Indication:BMI 31.0-31.9,adult Start:08-Jun-2017 Instruction Type:Patient Education Patient Instructions Indication:BMI 31.0-31.9,adult Start:08-Jun-2017 Instruction Type:Provider Instructions for Treatment Patient Instructions Indication:Influenza A Start:16-May-2017 Instruction Type:Provider Instructions for Treatment How to access health informa tion online Indication:Chewing tobacco use Start:16-May-2017 Instruction Type:Patient Education How to access health informa tion online - Detail Indication:Chewing tobacco use Start:16-May-2017 Instruction Type:Patient Education How to access health informa tion online Indication:Testicular/scrotal pain Start:21-Oct-2016 Instruction Type:Patient Education How to access health informa tion online - Detail Indication:Testicular/scrotal pain Start:21-Oct-2016 Instruction Type:Patient Education Patient Instructions Indication:Testicular/scrotal pain Start:21-Oct-2016 Instruction Type:Provider Instructions for Treatment How to access health informa tion online Indication:Testicular/scrotal pain Start:17-Oct-2016 Instruction Type:Patient Education How to access health informa tion online - Detail Indication:Testicular/scrotal pain Start:17-Oct-2016 Instruction Type:Patient Education Patient Instructions Indication:Testicular/scrotal pain Start:17-Oct-2016 Instruction Type:Provider Instructions for Treatment Name Dates Details How to access health informa tion online Indication:Chewing tobacco use Start:07-Feb-2020 Instruction Type:Patient Education How to access health informa tion online - Detail Indication:Chewing tobacco use Start:07-Feb-2020 Instruction Type:Patient Education Patient Instructions Indication:Encounter for screening for lipid disorder Start:07-Feb-2020 Instruction Type:Provider Instructions for Treatment How to access health informa tion online Indication:BMI 34.0-34.9,adult Start:30-Dec-2019 Instruction Type:Patient Education How to access health informa tion online - Detail Indication:BMI 34.0-34.9,adult Start:30-Dec-2019 Instruction Type:Patient Education Patient Instructions Indication:BMI 34.0-34.9,adult Start:30-Dec-2019 Instruction Type:Provider Instructions for Treatment How to access health informa tion online Indication:BMI 34.0-34.9,adult Start:18-Jul-2019 Instruction Type:Patient Education How to access health informa tion online - Detail Indication:BMI 34.0-34.9,adult Start:18-Jul-2019 Instruction Type:Patient Education Patient Instructions Indication:BMI 34.0-34.9,adult Start:18-Jul-2019 Instruction Type:Provider Instructions for Treatment How to access health informa tion online Indication:Non-smoker Start:05-Jul-2019 Instruction Type:Patient Education How to access health informa tion online - Detail Indication:Non-smoker Start:05-Jul-2019 Instruction Type:Patient Education Patient Instructions Indication:Non-smoker Start:05-Jul-2019 Instruction Type:Provider Instructions for Treatment How to access health informa tion online Indication:Non-smoker Start:14-Jun-2019 Instruction Type:Patient Education How to access health informa tion online - Detail Indication:Non-smoker Start:14-Jun-2019 Instruction Type:Patient Education Patient Instructions Indication:BMI 34.0-34.9,adult Start:14-Jun-2019 Instruction Type:Provider Instructions for Treatment How to access health informa tion online Indication:Non-smoker Start:26-Mar-2019 Instruction Type:Patient Education How to access health informa tion online - Detail Indication:Non-smoker Start:26-Mar-2019 Instruction Type:Patient Education Patient Instructions Indication:Non-smoker Start:26-Mar-2019 Instruction Type:Provider Instructions for Treatment How to access health informa tion online Indication:Non-smoker Start:01-Feb-2019 Instruction Type:Patient Education How to access health informa tion online - Detail Indication:Non-smoker Start:01-Feb-2019 Instruction Type:Patient Education Patient Instructions Indication:BMI 34.0-34.9,adult Start:01-Feb-2019 Instruction Type:Provider Instructions for Treatment How to access health informa tion online Indication:BMI 35.0-35.9,adult Start:17-Jan-2019 Instruction Type:Patient Education How to access health informa tion online - Detail Indication:BMI 35.0-35.9,adult Start:17-Jan-2019 Instruction Type:Patient Education Patient Instructions Indication:Right leg pain Start:17-Jan-2019 Instruction Type:Provider Instructions for Treatment How to access health informa tion online Indication:BMI 35.0-35.9,adult Start:25-May-2018 Instruction Type:Patient Education How to access health informa tion online - Detail Indication:BMI 35.0-35.9,adult Start:25-May-2018 Instruction Type:Patient Education Patient Instructions Indication:BMI 35.0-35.9,adult Start:25-May-2018 Instruction Type:Provider Instructions for Treatment How to access health informa tion online Indication:Non-smoker Start:09-May-2018 Instruction Type:Patient Education How to access health informa tion online - Detail Indication:Non-smoker Start:09-May-2018 Instruction Type:Patient Education Patient Instructions Indication:Non-smoker Start:09-May-2018 Instruction Type:Provider Instructions for Treatment How to access health informa tion online Indication:Nonsmoker Start:28-Dec-2017 Instruction Type:Patient Education How to access health informa tion online - Detail Indication:Nonsmoker Start:28-Dec-2017 Instruction Type:Patient Education Patient Instructions Indication:Left foot pain Start:28-Dec-2017 Instruction Type:Provider Instructions for Treatment How to access health informa tion online Indication:BMI 31.0-31.9,adult Start:08-Jun-2017 Instruction Type:Patient Education How to access health informa tion online - Detail Indication:BMI 31.0-31.9,adult Start:08-Jun-2017 Instruction Type:Patient Education Patient Instructions Indication:BMI 31.0-31.9,adult Start:08-Jun-2017 Instruction Type:Provider Instructions for Treatment Patient Instructions Indication:Influenza A Start:16-May-2017 Instruction Type:Provider Instructions for Treatment How to access health informa tion online Indication:Chewing tobacco use Start:16-May-2017 Instruction Type:Patient Education How to access health informa tion online - Detail Indication:Chewing tobacco use Start:16-May-2017 Instruction Type:Patient Education How to access health informa tion online Indication:Testicular/scrotal pain Start:21-Oct-2016 Instruction Type:Patient Education How to access health informa tion online - Detail Indication:Testicular/scrotal pain Start:21-Oct-2016 Instruction Type:Patient Education Patient Instructions Indication:Testicular/scrotal pain Start:21-Oct-2016 Instruction Type:Provider Instructions for Treatment How to access health informa tion online Indication:Testicular/scrotal pain Start:17-Oct-2016 Instruction Type:Patient Education How to access health informa tion online - Detail Indication:Testicular/scrotal pain Start:17-Oct-2016 Instruction Type:Patient Education Patient Instructions Indication:Testicular/scrotal pain Start:17-Oct-2016 Instruction Type:Provider Instructions for Treatment Name Dates Details How to access health informa tion online Indication:Chewing tobacco use Start:07-Feb-2020 Instruction Type:Patient Education How to access health informa tion online - Detail Indication:Chewing tobacco use Start:07-Feb-2020 Instruction Type:Patient Education Patient Instructions Indication:Chewing tobacco use Start:07-Feb-2020 Instruction Type:Provider Instructions for Treatment How to access health informa tion online Indication:BMI 34.0-34.9,adult Start:30-Dec-2019 Instruction Type:Patient Education How to access health informa tion online - Detail Indication:BMI 34.0-34.9,adult Start:30-Dec-2019 Instruction Type:Patient Education Patient Instructions Indication:BMI 34.0-34.9,adult Start:30-Dec-2019 Instruction Type:Provider Instructions for Treatment How to access health informa tion online Indication:BMI 34.0-34.9,adult Start:18-Jul-2019 Instruction Type:Patient Education How to access health informa tion online - Detail Indication:BMI 34.0-34.9,adult Start:18-Jul-2019 Instruction Type:Patient Education Patient Instructions Indication:BMI 34.0-34.9,adult Start:18-Jul-2019 Instruction Type:Provider Instructions for Treatment How to access health informa tion online Indication:Non-smoker Start:05-Jul-2019 Instruction Type:Patient Education How to access health informa tion online - Detail Indication:Non-smoker Start:05-Jul-2019 Instruction Type:Patient Education Patient Instructions Indication:Non-smoker Start:05-Jul-2019 Instruction Type:Provider Instructions for Treatment How to access health informa tion online Indication:Non-smoker Start:14-Jun-2019 Instruction Type:Patient Education How to access health informa tion online - Detail Indication:Non-smoker Start:14-Jun-2019 Instruction Type:Patient Education Patient Instructions Indication:BMI 34.0-34.9,adult Start:14-Jun-2019 Instruction Type:Provider Instructions for Treatment How to access health informa tion online Indication:Non-smoker Start:26-Mar-2019 Instruction Type:Patient Education How to access health informa tion online - Detail Indication:Non-smoker Start:26-Mar-2019 Instruction Type:Patient Education Patient Instructions Indication:Non-smoker Start:26-Mar-2019 Instruction Type:Provider Instructions for Treatment How to access health informa tion online Indication:Non-smoker Start:01-Feb-2019 Instruction Type:Patient Education How to access health informa tion online - Detail Indication:Non-smoker Start:01-Feb-2019 Instruction Type:Patient Education Patient Instructions Indication:BMI 34.0-34.9,adult Start:01-Feb-2019 Instruction Type:Provider Instructions for Treatment How to access health informa tion online Indication:BMI 35.0-35.9,adult Start:17-Jan-2019 Instruction Type:Patient Education How to access health informa tion online - Detail Indication:BMI 35.0-35.9,adult Start:17-Jan-2019 Instruction Type:Patient Education Patient Instructions Indication:Right leg pain Start:17-Jan-2019 Instruction Type:Provider Instructions for Treatment How to access health informa tion online Indication:BMI 35.0-35.9,adult Start:25-May-2018 Instruction Type:Patient Education How to access health informa tion online - Detail Indication:BMI 35.0-35.9,adult Start:25-May-2018 Instruction Type:Patient Education Patient Instructions Indication:BMI 35.0-35.9,adult Start:25-May-2018 Instruction Type:Provider Instructions for Treatment How to access health informa tion online Indication:Non-smoker Start:09-May-2018 Instruction Type:Patient Education How to access health informa tion online - Detail Indication:Non-smoker Start:09-May-2018 Instruction Type:Patient Education Patient Instructions Indication:Non-smoker Start:09-May-2018 Instruction Type:Provider Instructions for Treatment How to access health informa tion online Indication:Nonsmoker Start:28-Dec-2017 Instruction Type:Patient Education How to access health informa tion online - Detail Indication:Nonsmoker Start:28-Dec-2017 Instruction Type:Patient Education Patient Instructions Indication:Left foot pain Start:28-Dec-2017 Instruction Type:Provider Instructions for Treatment How to access health informa tion online Indication:BMI 31.0-31.9,adult Start:08-Jun-2017 Instruction Type:Patient Education How to access health informa tion online - Detail Indication:BMI 31.0-31.9,adult Start:08-Jun-2017 Instruction Type:Patient Education Patient Instructions Indication:BMI 31.0-31.9,adult Start:08-Jun-2017 Instruction Type:Provider Instructions for Treatment Patient Instructions Indication:Influenza A Start:16-May-2017 Instruction Type:Provider Instructions for Treatment How to access health informa tion online Indication:Chewing tobacco use Start:16-May-2017 Instruction Type:Patient Education How to access health informa tion online - Detail Indication:Chewing tobacco use Start:16-May-2017 Instruction Type:Patient Education How to access health informa tion online Indication:Testicular/scrotal pain Start:21-Oct-2016 Instruction Type:Patient Education How to access health informa tion online - Detail Indication:Testicular/scrotal pain Start:21-Oct-2016 Instruction Type:Patient Education Patient Instructions Indication:Testicular/scrotal pain Start:21-Oct-2016 Instruction Type:Provider Instructions for Treatment How to access health informa tion online Indication:Testicular/scrotal pain Start:17-Oct-2016 Instruction Type:Patient Education How to access health informa tion online - Detail Indication:Testicular/scrotal pain Start:17-Oct-2016 Instruction Type:Patient Education Patient Instructions Indication:Testicular/scrotal pain Start:17-Oct-2016 Instruction Type:Provider Instructions for Treatment Summary Purpose Family History No Family History Records Found Advance Directives Name Dates Details Immunization Registry [place] - Effective on 02/07/2020. Expiration date unspecified Effective:07-Feb-2020 Name Dates Details Immunization Registry [place] - Effective on 02/07/2020. Expiration date unspecified Effective:07-Feb-2020 Name Dates Details Immunization Registry [place] - Effective on 02/07/2020. Expiration date unspecified Effective:07-Feb-2020 Name Dates Details Immunization Registry [place] - Effective on 02/07/2020. Expiration date unspecified Effective:07-Feb-2020 Name Dates Details Immunization Registry [place] - Effective on 02/07/2020. Expiration date unspecified Effective:07-Feb-2020 Name Dates Details Immunization Registry [place] - Effective on 02/07/2020. Expiration date unspecified Effective:07-Feb-2020 Name Dates Details Immunization Registry [place] - Effective on 02/07/2020. Expiration date unspecified Effective:07-Feb-2020 Name Dates Details Immunization Registry [place] - Effective on 02/07/2020. Expiration date unspecified Effective:07-Feb-2020 Name Dates Details Immunization Registry [place] - Effective on 02/07/2020. Expiration date unspecified Effective:07-Feb-2020 Name Dates Details Immunization Registry [place] - Effective on 02/07/2020. Expiration date unspecified Effective:07-Feb-2020 Name Dates Details Immunization Registry [place] - Effective on 02/07/2020. Expiration date unspecified Effective:07-Feb-2020 Name Dates Details Immunization Registry [place] - Effective on 02/07/2020. Expiration date unspecified Effective:07-Feb-2020 Name Dates Details Immunization Registry [place] - Effective on 02/07/2020. Expiration date unspecified Effective:07-Feb-2020 Name Dates Details Immunization Registry [place] - Effective on 02/07/2020. Expiration date unspecified Effective:07-Feb-2020 Name Dates Details Immunization Registry [place] - Effective on 02/07/2020. Expiration date unspecified Effective:07-Feb-2020 Name Dates Details Immunization Registry [place] - Effective on 02/07/2020. Expiration date unspecified Effective:07-Feb-2020 Name Dates Details Immunization Registry [place] - Effective on 02/07/2020. Expiration date unspecified Effective:07-Feb-2020 Name Dates Details Immunization Registry [place] - Effective on 02/07/2020. Expiration date unspecified Effective:07-Feb-2020 Name Dates Details Immunization Registry [place] - Effective on 02/07/2020. Expiration date unspecified Effective:07-Feb-2020 Name Dates Details Immunization Registry [place] - Effective on 02/07/2020. Expiration date unspecified Effective:07-Feb-2020 Name Dates Details Immunization Registry [place] - Effective on 02/07/2020. Expiration date unspecified Effective:07-Feb-2020 Name Dates Details Immunization Registry [place] - Effective on 02/07/2020. Expiration date unspecified Effective:07-Feb-2020 Name Dates Details Immunization Registry [place] - Effective on 02/07/2020. Expiration date unspecified Effective:07-Feb-2020 Name Dates Details Immunization Registry [place] - Effective on 02/07/2020. Expiration date unspecified Effective:07-Feb-2020 Name Dates Details Immunization Registry [place] - Effective on 02/07/2020. Expiration date unspecified Effective:07-Feb-2020 Name Dates Details Immunization Registry [place] - Effective on 02/07/2020. Expiration date unspecified Effective:07-Feb-2020 Name Dates Details Immunization Registry [place] - Effective on 02/07/2020. Expiration date unspecified Effective:07-Feb-2020 Name Dates Details Immunization Registry [place] - Effective on 02/07/2020. Expiration date unspecified Effective:07-Feb-2020 Name Dates Details Immunization Registry [place] - Effective on 02/07/2020. Expiration date unspecified Effective:07-Feb-2020 Additional Source Comments (unrecognized sect ion and content) No Status Records FoundNo Status Records FoundNo Status Records FoundNo Status Records Found INFORMATION SOURCE (unrecogn ized section and content) DATE CREATED AUTHOR AUTHOR'S ORGANIZ ATION [facility] DATE CREATED AUTHOR AUTHOR'S ORGANIZ ATION 12/20/2022 [facility] ([place] DATE CREATED AUTHOR AUTHOR'S ORGANIZ ATION 02/16/2023 [facility] Patient Care team informatio n (unrecognized section and content) Care Team Personnel Name: IESHA INFANTE DO Member Role: Primary Care Physician Address: Address: [address] [place] [address] [address] [place] [address]- Name: HERBERT BIRCH MD Position: ED Physician Member Role: ED Physician Address: Address: [facility] [address] [place] [address]- [place] Name: Pattie Haro deputy attorney general Position: HIM: Coders Member Role: HIM: Coders Name: Aye Juarez RN Position: ED RN Member Role: ED RN Care Team Related Persons Name: TENZIN LOCKETT FOR RECORDS PERTAINING TO PATIENTS WHO ARE OR HAVE BEEN ENROLLED IN A CHEMICAL DEPENDENCY/SUBSTANCEABUSE PROGRAM, SOME INFORMATION MAY BE OMITTED. This clinical summary was aggregated from multiple sources. Caution should be exercised in using it in the provision of clinical care. This summary normalizes information from multiple sources, and as a consequence, information in this document may materially change the coding, format and clinical context of patient data. In addition, data may be omitted in some cases. CLINICAL DECISIONS SHOULD BE BASED ON THE PRIMARY CLINICAL RECORDS. [facility] [employer] [facility]. provides no warranty or guarantee of the accuracy or completeness of information in this document.
== END | disposition home or self-care (01) ==
LOC: MTRAD 14:27
PROVIDERS: PCP Internal Medicine; Referring Provider Nurse Practitioner Family; Visit Provider Nurse Practitioner Family
DX: M79.672 Pain in left foot (principal)
CPT/HCPCS: 73630